=== PATIENT | male | born 1945 | race Caucasian/White ===

== ENCOUNTER 2018-05-24 08:07 | Observation (INO) | payer OTHER ==
[2018-05-24 09:21] LABS: Protime INR 1.07
[2018-05-24 09:23] LABS: ALT/SGPT 32 U/L (12-78); AST/SGOT 22 U/L (15-37); Alkaline Phosphatase 37 U/L (45-117); BUN Blood Urea Nitrogen 21 mg/dL (7-18); Bicarbonate 29 mmol/L (21-32); Bilirubin Direct 0.2 mg/dL (0-0.2); Bilirubin Total 0.7 mg/dL (0.2-1.0); Glucose Level 96 mg/dL (74-106); Magnesium 2.3 mg/dL (1.8-2.4); NT PRO-BNP 1055 pg/mL (<125); Potassium 4.1 mmol/L (3.5-5.1); Protein, Total 7.5 g/dL (6.4-8.2); Sodium Level 141 mmol/L (136-145); Troponin (Emerg Dept Use Only) < 0.02 ng/mL (0.0-0.045)
[2018-05-24] MEDS ORDERED: NA CHLORIDE 0.9% 1,000 ML ONE (09:25)
[2018-05-24 10:05] LABS: Absolute Lymphocytes (CBC) 1.6 K/uL (0.7-4.9); Absolute Monocytes 1.1 K/uL (0.1-1.3); Absolute Neutrophil 5.3 K/uL (1.8-8.0); Basophils % 0.5 % (0-1.3); Eosinophils % 0.2 % (0-4.4); Hematocrit 34.1 % (39.6-49.0); Lymphocytes % 19.2 % (15.3-44.8); MCH 32.4 pg (27.0-35.0); MPV 11.7 fL (7.6-11.3); Monocytes % 14.1 % (3.3-12.3); RBC Red Blood Cell Count 3.63 M/uL (4.33-5.43)
[2018-05-24 10:12] LABS: Thyroid Stimulating Hormone 2.56 uIU/mL (0.360-3.740)
--- NOTE | 2018-05-24 10:41 | RAD REPORT ---
EXAM DESCRIPTION: RAD - Chest Single View - 05/24/2018 9:46 am CLINICAL HISTORY: SOB Chest pain. COMPARISON: ABDOMEN ACUTE SERIES dated 08/20/2013; CHEST SINGLE VIEW dated 05/30/2012 FINDINGS: Portable technique limits examination quality. The lungs are grossly clear. The heart is normal in size. No displaced fractures. IMPRESSION: No acute intrathoracic process suspected.
[2018-05-24 10:44] LABS: Blood Morphology Comment NOT SEEN (NOT SEEN); Platelet Estimate DECR; Platelets, Giant NOTED; Urine White Blood Cell Casts OK
--- NOTE | 2018-05-24 11:06 | ER ---
Nurse's Notes [facility] Name: John Cuevas Age: 72 yrs Sex: Male : 1945 Arrival Date: 05/24/2018 Time: 08:11 Bed 15 Private MD: None, None Diagnosis: Vomiting;Atrial fibrillation and flutter-new onset, gwen;Dyspnea Presentation: 05/24 08:21 Presenting complaint: Patient states: I have no energy for last several weeks and was tw2 having trouble breathing last night. Transition of care: patient was not received from another setting of care. Onset of symptoms was May 24, 2018. Risk Assessment: Do you want to hurt yourself or someone else? Patient reports no desire to harm self or others. Initial Sepsis Screen: Does the patient meet any 2 criteria? No. Patient's initial sepsis screen is negative. Does the patient have a suspected source of infection? No. Patient's initial sepsis screen is negative. Care prior to arrival: None. 08:21 Method Of Arrival: Ambulatory tw2 08:21 Acuity: KEVIN 3 tw2 Triage Assessment: 08:25 General: Appears in no apparent distress. Behavior is calm, cooperative, appropriate tw2 for age. Pain: Denies pain. GI: Reports no energy, fatigue. Historical: - Allergies: 08:24 No Known Allergies; tw2 - Home Meds: 08:24 metoprolol tartrate 50 mg Oral tab 1 tab once daily [Active]; lisinopril 20 mg Oral tab tw2 1 tab once daily [Active]; simvastatin 20 mg Oral tab 1 tab once daily [Active]; levothyroxine 50 mcg tab 1 tab once daily for Hypothyroidism [Active]; - PMHx: 08:24 Hypothyroidism; Hyperlipidemia; Hypertension; tw2 - PSHx: 08:24 Skin Graft; Partial Colectomy; tw2 - Immunization history:: Adult Immunizations. - Social history:: Smoking status: . - Ebola Screening: : Patient denies travel to an Ebola-affected area in the 21 days before illness onset. - Family history:: not pertinent. Screenin:26 Abuse screen: Denies threats or abuse. Nutritional screening: No deficits noted. tw2 Tuberculosis screening: No symptoms or risk factors identified. Fall Risk None identified. Assessment: 08:20 General: Appears in no apparent distress. obese, Behavior is calm, cooperative, tw2 appropriate for age. Pain: Denies pain. Neuro: Level of Consciousness is awake, alert, obeys commands, Oriented to person, place, time, situation. Cardiovascular: Reports fatigue, shortness of breath, Denies chest pain, Heart tones S1 S2 Capillary refill < 3 seconds Patient's skin is warm and dry. Respiratory: Reports shortness of breath Airway is patent Respiratory effort is even, unlabored, Respiratory pattern is regular, symmetrical. GI: No signs and/or symptoms were reported involving the gastrointestinal system. Abdomen is round non-distended, obese, Bowel sounds present X 4 quads. : No signs and/or symptoms were reported regarding the genitourinary system. EENT: No signs and/or symptoms were reported regarding the EENT system. Derm: No signs and/or symptoms reported regarding the dermatologic system. Musculoskeletal: Range of motion: intact in all extremities. 09:22 Reassessment: Patient appears in no apparent distress at this time. No changes from tw2 previously documented assessment. Patient and/or family updated on plan of care and expected duration. Pain level reassessed. Patient is alert, oriented x 3, equal unlabored respirations, skin warm/dry/pink. 10:18 Reassessment: Patient appears in no apparent distress at this time. No changes from tw2 previously documented assessment. Patient and/or family updated on plan of care and expected duration. Pain level reassessed. Patient is alert, oriented x 3, equal unlabored respirations, skin warm/dry/pink. 11:36 Reassessment: Patient appears in no apparent distress at this time. No changes from tw2 previously documented assessment. Patient and/or family updated on plan of care and expected duration. Pain level reassessed. Patient is alert, oriented x 3, equal unlabored respirations, skin warm/dry/pink. 12:30 Reassessment: Patient appears in no apparent distress at this time. No changes from tw2 previously documented assessment. Patient and/or family updated on plan of care and expected duration. Pain level reassessed. Patient is alert, oriented x 3, equal unlabored respirations, skin warm/dry/pink. 13:40 Reassessment: Patient appears in no apparent distress at this time. No changes from tw2 previously documented assessment. Patient and/or family updated on plan of care and expected duration. Pain level reassessed. Patient is alert, oriented x 3, equal unlabored respirations, skin warm/dry/pink. 14:15 Reassessment: Dr. Rinaldi at bedside at this time. tw2 Vital Signs: 08:22 BP 111 / 82; Pulse 71; Resp 18; Temp 98.1(O); Pulse Ox 100% on R/A; Weight 122.47 kg tw2 (R); Height 6 ft. 4 in. (193.04 cm) (R); Pain 0/10; 09:21 BP 101 / 71; Pulse 57; Resp 14; Pulse Ox 99% on R/A; tw2 10:17 BP 101 / 71; Pulse 51; Resp 17; Pulse Ox 97% on R/A; tw2 11:36 BP 92 / 72; Pulse 51; Resp 16; Pulse Ox 99% on R/A; tw2 12:30 BP 105 / 69; Pulse 70; Resp 17; Pulse Ox 99% on R/A; tw2 13:40 BP 92 / 67; Pulse 61; Resp 17; Pulse Ox 97% on R/A; tw2 14:31 BP 96 / 54; Pulse 60; Resp 18; Pulse Ox 99% on R/A; mh5 08:22 Body Mass Index 32.87 (122.47 kg, 193.04 cm) tw2 ED Course: 08:11 Patient arrived in ED. mr 08:12 None, None is Private Physician. mr 08:14 Osvaldo Beckman MD is Attending Physician. leonidas 08:17 Flavia Kelly RN is Primary Nurse. tw2 08:22 Triage completed. tw2 08:22 Bed in low position. Call light in reach. Adult w/ patient. vehicle monitor technician on. Pulse tw2 ox on. NIBP on. 08:23 Arm band placed on. tw2 08:40 Inserted saline lock: 22 gauge in right antecubital area, using aseptic technique. tw2 Blood collected. 09:28 Radiology exam delayed due to IV insertion attempt and/or patient not having ag1 appropriate IV at this time. 09:42 XRAY Chest (1 view) In Process Unspecified. EDMS 10:58 Lennie Portillo MD is Hospitalizing Provider. leonidas 13:57 Awaiting: called Ingrid, departmental secretary to let nurse know she is getting a pt so she can tw2 take report, was told they were sending down a nurse from 4th floor. 14:12 Awaiting: attempted to call report, per Ingrid the nurse is being sent down from 4th tw2 floor and she isnt on 2nd floor yet, house sup was called to check on the nurse per Ingrid, Register Repairer. 14:24 Awaiting: attempted to call report was told the nurse is still not available, she will tw2 let them know and have them call me back. 14:50 No provider procedures requiring assistance completed. Patient admitted, IV remains in tw2 place. Administered Medications: 09:51 Drug: NS 0.9% 1000 ml Route: IV; Rate: 125 ml/hr; Site: right antecubital; tw2 14:20 Follow up: IV Status: Infusion continued upon admission tw2 11:38 Drug: Lovenox 1 mg/kg Route: Sub-Q; Site: right lower abdomen; tw2 11:42 Follow up: Response: No adverse reaction tw2 11:40 Drug: Pepcid 20 mg Route: IVP; Site: right antecubital; tw2 11:42 Follow up: Response: No adverse reaction tw2 Outcome: 11:00 Decision to Hospitalize by Provider. leonidas 14:50 Admitted to Med/surg accompanied by tech, via wheelchair, room 203, Report called to tw2 MANUEL Hernandez 14:50 Condition: stable 14:50 Instructed on the need for admit. 15:04 Patient left the ED. tw2 Signatures: Dispatcher [employer] Osvaldo Simpson MD MD cha Rivera, Claudia mr Juárez, Flavia Castillo RN RN 2 Praveena Farris [facility]
--- NOTE | 2018-05-24 11:06 | EDPHYS ---
Physician Documentation [facility] Name: John Cuevas Age: 72 yrs Sex: Male : 1945 Arrival Date: 05/24/2018 Time: 08:11 Bed 15 Private MD: None, None ED Physician Osvaldo Beckman HPI: 05/24 09:09 This 72 yrs old Male presents to ER via Ambulatory with complaints of leonidas Vomiting, Shortness Of Breath. 09:09 The patient presents to the emergency department with nausea, vomiting. Onset: The leonidas symptoms/episode began/occurred 1 day(s) ago. Possible causes: unknown. The symptoms are aggravated by nothing. The symptoms are alleviated by nothing. Associated signs and symptoms: The patient has no apparent associated signs or symptoms. Severity of symptoms: At their worst the symptoms were mild moderate in the emergency department the symptoms are unchanged. Historical: - Allergies: 08:24 No Known Allergies; tw2 - Home Meds: 08:24 metoprolol tartrate 50 mg Oral tab 1 tab once daily [Active]; lisinopril 20 mg Oral tab tw2 1 tab once daily [Active]; simvastatin 20 mg Oral tab 1 tab once daily [Active]; levothyroxine 50 mcg tab 1 tab once daily for Hypothyroidism [Active]; - PMHx: 08:24 Hypothyroidism; Hyperlipidemia; Hypertension; tw2 - PSHx: 08:24 Skin Graft; Partial Colectomy; tw2 - Immunization history:: Adult Immunizations. - Social history:: Smoking status: . - Ebola Screening: : Patient denies travel to an Ebola-affected area in the 21 days before illness onset. - Family history:: not pertinent. ROS: 09:09 Constitutional: Negative for fever, chills, and weight loss, Eyes: Negative for injury, leonidas pain, redness, and discharge, ENT: Negative for injury, pain, and discharge, Neck: Negative for injury, pain, and swelling, Cardiovascular: Negative for chest pain, palpitations, and edema, Respiratory: Negative for shortness of breath, cough, wheezing, and pleuritic chest pain, Back: Negative for injury and pain, : Negative for injury, bleeding, discharge, and swelling, MS/Extremity: Negative for injury and deformity, Skin: Negative for injury, rash, and discoloration, Psych: Negative for depression, anxiety, suicide ideation, homicidal ideation, and hallucinations, Allergy/Immunology: Negative for hives, rash, and allergies, Endocrine: Negative for neck swelling, polydipsia, polyuria, polyphagia, and marked weight changes, Hematologic/Lymphatic: Negative for swollen nodes, abnormal bleeding, and unusual bruising. 09: Abdomen/GI: Positive for nausea. 09: Neuro: Positive for weakness. Exam: : Constitutional: This is a well developed, well nourished patient who is awake, alert, leonidas and in no acute distress. Head/Face: Normocephalic, atraumatic. Eyes: Pupils equal round and reactive to light, extra-ocular motions intact. Lids and lashes normal. Conjunctiva and sclera are non-icteric and not injected. Cornea within normal limits. Periorbital areas with no swelling, redness, or edema. ENT: Nares patent. No nasal discharge, no septal abnormalities noted. Tympanic membranes are normal and external auditory canals are clear. Oropharynx with no redness, swelling, or masses, exudates, or evidence of obstruction, uvula midline. Mucous membranes moist. Neck: Trachea midline, no thyromegaly or masses palpated, and no cervical lymphadenopathy. Supple, full range of motion without nuchal rigidity, or vertebral point tenderness. No Meningismus. Chest/axilla: Normal chest wall appearance and motion. Nontender with no deformity. No lesions are appreciated. Respiratory: Lungs have equal breath sounds bilaterally, clear to auscultation and percussion. No rales, rhonchi or wheezes noted. No increased work of breathing, no retractions or nasal flaring. Abdomen/GI: Soft, non-tender, with normal bowel sounds. No distension or tympany. No guarding or rebound. No evidence of tenderness throughout. Back: No spinal tenderness. No costovertebral tenderness. Full range of motion. Male : Normal genitalia with no discharge or lesions. Skin: Warm, dry with normal turgor. Normal color with no rashes, no lesions, and no evidence of cellulitis. MS/ Extremity: Pulses equal, no cyanosis. Neurovascular intact. Full, normal range of motion. Neuro: Awake and alert, GCS 15, oriented to person, place, time, and situation. Cranial nerves II-XII grossly intact. Motor strength 5/5 in all extremities. Sensory grossly intact. Cerebellar exam normal. Normal gait. Psych: Awake, alert, with orientation to person, place and time. Behavior, mood, and affect are within normal limits. 09:09 Cardiovascular: Rate: bradycardic, Rhythm: irregularly irregular, Pulses: Pulses are 4+ in bilateral radial, brachial, femoral, popliteal, posterior tibial and and dorsalis pedis arteries.. Heart sounds: normal, Edema: is not appreciated, JVD: is not appreciated. Vital Signs: 08:22 BP 111 / 82; Pulse 71; Resp 18; Temp 98.1(O); Pulse Ox 100% on R/A; Weight 122.47 kg tw2 (R); Height 6 ft. 4 in. (193.04 cm) (R); Pain 0/10; 09:21 BP 101 / 71; Pulse 57; Resp 14; Pulse Ox 99% on R/A; tw2 10:17 BP 101 / 71; Pulse 51; Resp 17; Pulse Ox 97% on R/A; tw2 11:36 BP 92 / 72; Pulse 51; Resp 16; Pulse Ox 99% on R/A; tw2 12:30 BP 105 / 69; Pulse 70; Resp 17; Pulse Ox 99% on R/A; tw2 13:40 BP 92 / 67; Pulse 61; Resp 17; Pulse Ox 97% on R/A; tw2 14:31 BP 96 / 54; Pulse 60; Resp 18; Pulse Ox 99% on R/A; mh5 08:22 Body Mass Index 32.87 (122.47 kg, 193.04 cm) tw2 MDM: 08:14 Patient medically screened. [facility] 09:11 Data reviewed: vital signs, nurses notes, lab test result(s), EKG, radiologic studies, leonidas plain films. 05/24 08:42 Order name: Basic Metabolic Panel; Complete Time: 10:48 tw2 05/24 08:42 Order name: CBC with Diff; Complete Time: 10:48 tw2 05/24 08:42 Order name: LFT's; Complete Time: 10:48 tw2 05/24 08:42 Order name: Magnesium; Complete Time: 10:48 tw2 05/24 08:42 Order name: NT PRO-BNP; Complete Time: 10:48 tw2 05/24 08:42 Order name: PT-INR; Complete Time: 10:48 tw2 05/24 08:42 Order name: Troponin (emerg Dept Use Only); Complete Time: 10:48 [facility] 05/24 09:09 Order name: Blood Culture Adult (2) [facility] 05/24 09:09 Order name: TSH; Complete Time: 10:48 [facility] 05/24 09:09 Order name: Urine Culture [facility] 05/24 09:09 Order name: Lipase; Complete Time: 10:48 [facility] 05/24 09:09 Order name: Lactate; Complete Time: 10:48 [facility] 05/24 09:09 Order name: Procalcitonin; Complete Time: 10:48 [facility] 05/24 10:45 Order name: CBC Smear Scan; Complete Time: 10:48 [facility] 05/24 08:39 Order name: EKG Electrocardiogram; Complete Time: 08:43 [facility] 05/24 08:42 Order name: XRAY Chest (1 view); Complete Time: 10:48 [facility] 05/24 08:42 Order name: Cardiac monitoring; Complete Time: 08:42 [facility] 05/24 08:42 Order name: EKG - Nurse/Tech; Complete Time: 08:43 [facility] 05/24 08:42 Order name: IV Saline Lock; Complete Time: 08:43 [facility] 05/24 08:42 Order name: Labs collected and sent; Complete Time: 08:43 [facility] 05/24 08:42 Order name: O2 Per Protocol; Complete Time: 08:43 [facility] 05/24 08:42 Order name: O2 Sat Monitoring; Complete Time: 08:43 [facility] 05/24 11:07 Order name: CONS Physician Consult [facility] 05/24 11:07 Order name: Echo with Doppler [facility] 05/24 11:45 Order name: Diet Heart Healthy; Complete Time: 11:45 [facility] 05/24 14:18 Order name: Urine Dipstick--Ancillary (enter results) 05/24 14:31 Order name: Urine Dipstick-Ancillary [facility] 05/24 09:09 Order name: Urine Dipstick-Ancillary (obtain specimen); Complete Time: 14:20 [facility] 05/24 09:29 Order name: Misc. Order: recollect CBC per Macie in lab; Complete Time: 09:50 ss Administered Medications: 09:51 Drug: NS 0.9% 1000 ml Route: IV; Rate: 125 ml/hr; Site: right antecubital; tw2 14:20 Follow up: IV Status: Infusion continued upon admission tw2 11:38 Drug: Lovenox 1 mg/kg Route: Sub-Q; Site: right lower abdomen; tw2 11:42 Follow up: Response: No adverse reaction tw2 11:40 Drug: Pepcid 20 mg Route: IVP; Site: right antecubital; tw2 11:42 Follow up: Response: No adverse reaction tw2 Disposition: 05/24/18 11:00 Hospitalization ordered by Lennie Portillo for Observation. Preliminary diagnosis are Vomiting, Atrial fibrillation and flutter - new onset, gwen, Dyspnea. - Bed requested for Telemetry/MedSurg (observation). - Status is Observation. tw2 - Condition is Stable. - Problem is new. - Symptoms have improved. UTI on Admission? No Signatures: Dispatcher [employer] EDMadeleine Gibbons RN RN dw Anderson, Corey, MD MD cha Smirch, Shelby, RN RN Flavia Kelly RN RN tw2 Corrections: (The following items were deleted from the chart) 13:55 11:00 Hospitalization Ordered by Lennie Portillo MD for Observation. Preliminary dw diagnosis is Vomiting; Atrial fibrillation and flutter - new onset, gwen; Dyspnea. Bed requested for Telemetry/MedSurg (observation). Status is Observation. Condition is Stable. Problem is new. Symptoms have improved. UTI on Admission? No. leonidas 15:04 13:55 05/24/2018 11:00 Hospitalization Ordered by Lennie Portillo MD for Observation. tw2 Preliminary diagnosis is Vomiting; Atrial fibrillation and flutter - new onset, gwen; Dyspnea. Bed requested for Telemetry/MedSurg (observation). Status is Observation. Condition is Stable. Problem is new. Symptoms have improved. UTI on Admission? No. dw
[2018-05-24] MEDS ORDERED: ENOXAPARIN 100 MG/ML SYR SQ ONE (11:41)
[2018-05-24] MEDS ORDERED: FAMOTIDINE 20 MG/2 ML VIAL IV ONE (11:41)
[2018-05-24 14:30] LABS: Urine Blood TRACE (NEG); Urine Glucose NEGATIVE (NEG); Urine Protein NEGATIVE (NEG)
[2018-05-24] MEDS ORDERED: ONDANSETRON 4 MG/2 ML VIAL IV PRN (15:33)
[2018-05-24] MEDS: NA CHLORIDE 0.9% 1,000 ML IV SCH ×2 (15:33→21:11)
[2018-05-24] MEDS ORDERED: ACETAMINOPHEN 500 MG TAB PO PRN (15:33)
[2018-05-24 15:56] VITALS: BMI 32.8
--- NOTE | 2018-05-24 16:45 | CON ---
History Of Present Illness: Mr. Cuevas is 72. He came to the hospital because of fatigue. He has act ually been feeling this way for several days or weeks. The history is a little bit hard to pin down on timing, since he has been traveling some and he has had a lot of problems with arthritis in his kn ees. He was just very much noticing fatigue for the last several weeks. It is not the main reason, he came. He denies having chest pain or shortness of breath. His EKG when he came in showed atrial fibrillation. The heart rate was in the 50s and there are not any pauses. It is fairly regular hear t rate, easy to mistake for sinus bradycardia on physical exam alone. All the EKGs certainly clear t hat he is in atrial fibrillation. He does not recall having atrial fibrillation or any heart disease . He takes metoprolol, lisinopril, levothyroxine, simvastatin. He uses no tobacco, has not used tob acco in more than 30 years, has the odor of tobacco about him, he lives in a house where there is a l ot of cigarette use. He has degenerative joint disease, hypertension, hypothyroidism, and dyslipidem ia. Physical Examination: General: 6 feet 4, 270 pounds. Alert, oriented, pleasant, not in distress. Lungs: Clear. Heart: Irregular, but almost regular. No significant murmur, rub, or gallop. Abdomen: Soft. Extremities: Trace edema distal pulses palpable. Diagnostic Data: His EKG shows atrial fibrillation, heart rate in the 50s. Laboratory Data: Show a hemoglobin of 11.8. He has a platelet count of 91,000. His calcium level i s 8.8. Troponins are normal. N-terminal proBNP is a 1055. TSH is 2.5. Impression: The patient has atrial fibrillation, not sure how long he has had it. I think the heart rate is slow. I believe we should reduce the amount of beta-sanjeev. I do not like the idea of com pletely stopping it, but we can reduce the dose to something like 25 mg once a day of slow release me toprolol. If his heart rate picks up, we could consider switching it to Betapace. He needs to be on chronic anticoagulation. His stroke risk is very high if we do not do that, and we can see what his heart rate is when he is on a lower dose of beta-blockers. He could be a candidate for trying to re -establish sinus rhythm in which case Betapace might be the best choice. Thank you very much for your kind referral of Mr. Cuevas. I will follow him with you. IGNACIA Voice ID: [id number] Report ID: [id number]
[2018-05-24] MEDS ORDERED: RIVAROXABAN 10 MG TABLET PO SCH (17:00)
--- NOTE | 2018-05-24 17:08 | P.HP ---
Certification for Inpatient Patient admitted to: Observation With expected LOS: <2 Midnights Patient will require the following post-hospital care: None Practitioner: I am a practitioner with admitting privileges, knowledge of patient current condition, hospital course, and medical plan of care. Services: Services provided to patient in accordance with Admission requirements found in Title 42 Section 412.3 of the Code of Federal Regulations Patient History Date of Service: 05/24/18 History of Present Illness: This is a 72-year-old male with significant past medical history who presented to the hospital because of generalized weakness and fatigue fatigue. Patient stated that about 6 months ago he got a steroid shot in bilateral knees and right shoulder after which she started having this generalized weakness and fatigue and was not able to get out of bed most of his days. Patient then traveled to this his family and at that point as well he was feeling weak and was not able to do much on his own. He states that weakness never went away but did get better. However couple a days ago he stated that he started feeling bad again and thus decided to come to the ER. He denies having chest pain or shortness of breath. In the ER patient was found to have atrial fibrillation. His EKG when he came in showed atrial fibrillation. The heart rate was in the 50s and there are not any pauses. He does not recall having atrial fibrillation or any heart disease. He takes metoprolol, lisinopril, levothyroxine, simvastatin. He uses no tobacco, has not used tobacco in more than 30 years, has the odor of tobacco about him, he lives in a house where there is a lot of cigarette use. He has degenerative joint disease, hypertension, hypothyroidism, and dyslipidemia. Patient was referred over to admission for further care for his atrial fibrillation Allergies No Known Allergies Allergy (Verified 05/24/18 15:33) Home Medications: Levothyroxine [Synthroid*] 0.05 mg PO [id number] 05/24/18 Lisinopril [Prinivil*] 20 mg PO DAILY 05/24/18 Metoprolol Succinate [Toprol Xl*] 50 mg PO DAILY 05/24/18 Simvastatin 20 mg PO DAILY 05/24/18 - Past Medical/Surgical History Has patient received pneumonia vaccine in the past: Yes -: HTN -: Hypothyroidism -: Colon Cancer 2005 -: Cataract Surgery -: Bowel resection -: skin grafting - Family History Family History: Reviewed- Non-Contributory - Social History Smoking Status: Never smoker Alcohol use: No CD- Drugs: No Caffeine use: Yes Place of Residence: Home Review of Systems 10-point ROS is otherwise unremarkable Physical Examination - Vital Signs Temperature: 98.1 F Blood Pressure: 96/54 Pulse: 60 Respirations: 18 - Physical Exam General: Alert, In no apparent distress HEENT: Atraumatic, PERRLA, Mucous membr. moist/pink, EOMI, Sclerae nonicteric Neck: Supple, 2+ carotid pulse no bruit, No LAD, Without JVD or thyroid abnormality Respiratory: Clear to auscultation bilaterally, Normal air movement Cardiovascular: Regular rate/rhythm, Normal S1 S2 Gastrointestinal: Normal bowel sounds, No tenderness Musculoskeletal: No tenderness Integumentary: No rashes Neurological: Normal gait, Normal speech, Normal strength at 5/5 x4 extr, Normal tone, Normal affect Lymphatics: No axilla or inguinal lymphadenopathy - Studies Laboratory Data (last 24 hrs) 05/24/18 09:37: WBC 8.1, Hgb 11.8 L, Hct 34.1 L, Plt Count 91 L 05/24/18 09:30: Lipase 127 05/24/18 08:40: PT 12.6 H, INR 1.07 05/24/18 08:40: Sodium 141, Potassium 4.1, BUN 21 H, Creatinine 1.00, Glucose 96 , Magnesium 2.3, Total Bilirubin 0.7, AST 22, ALT 32, Alkaline Phosphatase 37 L Assessment and Plan - Problems (Diagnosis) (1) Atrial fibrillation Current Visit: Yes Status: Acute Plan: Acute new onset atrial fibrillation with unknown etiology are onset timing -currently patient is on metoprolol 50 mg however will reduce it to metoprolol 25 mg here in the hospital and monitor his heart rate closely -cardiology has been consulted appreciated recommendations at this time -echocardiogram pending at this time -Xarelto for anti coagulation Qualifiers: Atrial fibrillation type: unspecified Qualified Code(s): I48.91 - Unspecified atrial fibrillation (2) Hypothyroidism Current Visit: Yes Status: Chronic Plan: Restart home medication Qualifiers: Hypothyroidism type: acquired Qualified Code(s): E03.9 - Hypothyroidism, unspecified (3) HTN (hypertension) Current Visit: Yes Status: Chronic Qualifiers: Hypertension type: essential hypertension Qualified Code(s): I10 - Essential (primary) hypertension - Plan Admit to medical-surgical floor for further care of his atrial fibrillation Discharge Plan: Home Plan to discharge in: 48 Hours - Advance Directives Does patient have a Living Will: No Does patient have a Durable POA for Healthcare: No - Code Status/Comfort Care Code Status Assessed: Yes Critical Care: No
[2018-05-24] MEDS ORDERED: ATORVASTATIN 10 MG TAB PO SCH (21:00)
[2018-05-25 03:56] LABS: Urine Appearance CLEAR; Urine Bilirubin NEGATIVE (NEG); Urine Blood NEGATIVE (NEG); Urine Color YELLOW; Urine Glucose NEGATIVE (NEG); Urine Protein NEGATIVE (NEG)
[2018-05-25 04:33] LABS: Urine Microscopic Reflex NO UMIC
[2018-05-25] MEDS: NA CHLORIDE 0.9% 1,000 ML IV SCH (05:46)
[2018-05-25 05:55] LABS: ALT/SGPT 27 U/L (12-78); AST/SGOT 20 U/L (15-37); Albumin 3.8 g/dL (3.4-5.0); Alkaline Phosphatase 35 U/L (45-117); BUN Blood Urea Nitrogen 13 mg/dL (7-18); Bicarbonate 28 mmol/L (21-32); Bilirubin Total 0.5 mg/dL (0.2-1.0); Glucose Level 92 mg/dL (74-106); Potassium 3.9 mmol/L (3.5-5.1); Sodium Level 144 mmol/L (136-145)
[2018-05-25] MEDS ORDERED: METOPROLOL XL 25 MG TAB PO SCH ×3 (06:00→09:00)
[2018-05-25] MEDS ORDERED: LEVOTHYROXINE SOD 0.05 MG TABLET PO SCH (06:00)
[2018-05-25 06:57] LABS: Absolute Lymphocytes (CBC) 1.5 K/uL (0.7-4.9); Absolute Monocytes 1.1 K/uL (0.1-1.3); Basophils % 0.4 % (0-1.3); Eosinophils % 0.2 % (0-4.4); Lymphocytes % 22.8 % (15.3-44.8); MCH 32.8 pg (27.0-35.0); MCV 93.5 fL (80-100); MPV 11.6 fL (7.6-11.3); Monocytes % 16.9 % (3.3-12.3); RBC Red Blood Cell Count 3.64 M/uL (4.33-5.43)
[2018-05-25] MEDS ORDERED: METOPROLOL XL 50 MG TAB PO SCH (09:00)
[2018-05-25] MEDS ORDERED: LISINOPRIL 20 MG TAB PO SCH (09:00)
--- NOTE | 2018-05-25 10:16 | PN ---
Subjective: Mr. Cuevas's blood pressure is come up or heart rate has come up quite a bit with cessatio n of the high dose of metoprolol. He is on 25 mg once a day 1/4 of his previous dose and his heart r ate is in the 60s. We might even stop this in a few days, but abruptly stopping beta-blockers often causes problems. His blood pressure is good. He has not been up walking around yet. We need to get an ambulatory and if he can tolerate right that he can go home. Do an outpatient stress test and ec ho. Continue on Xarelto and do a cardioversion in about 3 weeks. MILADY/SIM Voice ID: [id number] Report ID: [id number]
[2018-05-25 12:15] VITALS: O2SAT 97
[2018-05-25 12:17] VITALS: BP 115/68; TEMP 97.2
--- NOTE | 2018-05-25 15:30 | P.SSS ---
Patient History Date of Service: 05/25/18 History of Present Illness: This is a 72-year-old male with significant past medical history who presented to the hospital because of generalized weakness and fatigue fatigue. Patient stated that about 6 months ago he got a steroid shot in bilateral knees and right shoulder after which she started having this generalized weakness and fatigue and was not able to get out of bed most of his days. Patient then traveled to this his family and at that point as well he was feeling weak and was not able to do much on his own. He states that weakness never went away but did get better. However couple a days ago he stated that he started feeling bad again and thus decided to come to the ER. He denies having chest pain or shortness of breath. In the ER patient was found to have atrial fibrillation. His EKG when he came in showed atrial fibrillation. The heart rate was in the 50s and there are not any pauses. He does not recall having atrial fibrillation or any heart disease. He takes metoprolol, lisinopril, levothyroxine, simvastatin. He uses no tobacco, has not used tobacco in more than 30 years, has the odor of tobacco about him, he lives in a house where there is a lot of cigarette use. He has degenerative joint disease, hypertension, hypothyroidism, and dyslipidemia. Patient was referred over to admission for further care for his atrial fibrillation Allergies No Known Allergies Allergy (Verified 05/24/18 15:33) Home Medications: Levothyroxine [Synthroid*] 0.05 mg PO [id number] 05/24/18 Lisinopril [Prinivil*] 20 mg PO DAILY 05/24/18 Simvastatin 20 mg PO DAILY 05/24/18 Metoprolol Succinate [Toprol Xl*] 25 mg PO [id number] #30 tab 05/25/18 Rivaroxaban [Xarelto*] 20 mg PO DAILY AT SUPPER #60 tablet 05/25/18 - Past Medical/Surgical History Has patient received pneumonia vaccine in the past: Yes -: HTN -: Hypothyroidism -: Colon Cancer 2005 -: Cataract Surgery -: Bowel resection -: skin grafting - Family History Family History: Reviewed- Non-Contributory - Social History Smoking Status: Never smoker Alcohol use: No CD- Drugs: No Caffeine use: Yes Place of Residence: Home Review of Systems 10-point ROS is otherwise unremarkable Physical Examination - Vital Signs Temperature: 97.2 F Blood Pressure: 115/68 Pulse: 63 Respirations: 16 Pulse Ox (%): 97 - Physical Exam General: Alert, In no apparent distress HEENT: Atraumatic, PERRLA, Mucous membr. moist/pink, EOMI, Sclerae nonicteric Neck: Supple, 2+ carotid pulse no bruit, No LAD, Without JVD or thyroid abnormality Respiratory: Clear to auscultation bilaterally, Normal air movement Cardiovascular: Regular rate/rhythm, Normal S1 S2 Gastrointestinal: Normal bowel sounds, No tenderness Musculoskeletal: No tenderness Integumentary: No rashes Neurological: Normal gait, Normal speech, Normal strength at 5/5 x4 extr, Normal tone, Normal affect Lymphatics: No axilla or inguinal lymphadenopathy - Diagnosis (Problem(s)) (1) Atrial fibrillation Status: Acute Plan: Atrial fibrillation with heart rate of 50s to 60s Qualifiers: Atrial fibrillation type: unspecified Qualified Code(s): I48.91 - Unspecified atrial fibrillation (2) Hypothyroidism Status: Chronic Qualifiers: Hypothyroidism type: acquired Qualified Code(s): E03.9 - Hypothyroidism, unspecified (3) HTN (hypertension) Status: Chronic Qualifiers: Hypertension type: essential hypertension Qualified Code(s): I10 - Essential (primary) hypertension Treatment Summary: Overall during the hospital stay patient remained stable Patient was initially admitted to the hospital for atrial fibrillation with heart rate of 50. Cardiology was consulted who recommended the patient can be continued on his beta-sanjeev however the reduced dose was suggested of 25 mg daily due to low heart rate. Patient will also be needed to be placed on Xarelto for anti coagulation. Cardiology then recommended that if patient is able to ambulate doing well overall and has resolution of the symptoms that he could be discharged home under stable condition. Patient ambulated with physical therapy and was doing well and thus was discharged home under stable condition. Patient will be scheduled for cardioversion about 3 weeks post discharge after he has been an to coagulated adequately. Patient demonstrated understanding and thus was discharged home under stable condition - Disposition Disposition: ROUTINE DISCHARGE Condition: GOOD Patient Discharge Instructions: Please f.u with Cardiology in 1 to 2 week post discharge. New medication. Xarelto 20mg daily. Metoprolol is now decreased to 25mg daily Diet: Regular Activity: Ad rip
--- NOTE | 2018-05-26 06:13 | EKG ---
Test Date: 2018-05-24 Test Time: 08:29:16 Television Tube Inspector: JULIANA MEASUREMENT RESULTS: Intervals: Rate: 52 UT: QRSD: 92 QT: 414 QTc: 385 [place]: P: UT: QRS: 53 T: 45 INTERPRETIVE STATEMENTS: Atrial fibrillation with slow ventricular response Abnormal ECG Compared to ECG 08/20/2013 10:38:05 Sinus rhythm no longer present Electronically Signed On 05-26-18 06:12:51 SOFTWARE LEAD by Arnulfo Rinaldi
== END 2018-05-25 13:34 | disposition home or self-care (01) ==
LOC: ER 08:07 → ERHOLD 11:03 → 2ND 14:51
PROVIDERS: ADMIT Family Medicine; ATTEND Family Medicine
DX: I48.91 Unspecified atrial fibrillation (principal); E03.9 Hypothyroidism, unspecified; I10 Essential (primary) hypertension; E78.5 Hyperlipidemia, unspecified; Z85.038 Personal history of other malignant neoplasm of large intestine
CPT/HCPCS: 36415; 71045; 80048; 80053; 80076; 81003 ×2; 83605; 83690; 83735; 83880; 84145; 84443; 84484; 85025 ×2; 85610; 87040 ×2; 87086; 87088; 93005; 96361; 96374; 99285; G0378 ×2; J1650; J2405; J7030 ×3

== ENCOUNTER 2018-06-20 12:17 | Emergency (ER) | payer OTHER ==
[2018-06-20] MEDS ORDERED: LEVALBUTEROL 1.25 MG/3 ML NEB ONE (13:04)
--- NOTE | 2018-06-20 13:26 | RAD REPORT ---
EXAM DESCRIPTION: US - Extrem Venous W Compress Erasmo - 06/20/2018 1:21 pm CLINICAL HISTORY: SWELLING Bilateral leg edema and swelling. COMPARISON: No comparisons TECHNIQUE: Real-time sonographic interrogation of the left and right lower extremity deep venous sys tems was performed. FINDINGS: Normal compressibility, flow augmentation, phasic flow and spontaneous flow is identified in both the left and right lower extremity deep venous systems. IMPRESSION: No sonographic evidence of left or right lower extremity deep venous thrombosis.
--- NOTE | 2018-06-20 13:43 | RAD REPORT ---
EXAM DESCRIPTION: RAD - Chest Single View - 06/20/2018 1:38 pm CLINICAL HISTORY: shortness of breath Chest pain. COMPARISON: Chest Single View dated 05/24/2018; ABDOMEN ACUTE SERIES dated 08/20/2013; CHEST SINGLE V IEW dated 05/30/2012 FINDINGS: Portable technique limits examination quality. The lungs are grossly clear. The heart is upper limit of normal in size. No displaced fractures. IMPRESSION: No acute intrathoracic process suspected.
[2018-06-20 14:33] LABS: Absolute Lymphocytes (CBC) 1.4 K/uL (0.7-4.9); Absolute Monocytes 1.2 K/uL (0.1-1.3); Basophils % 0.5 % (0-1.3); Eosinophils % 0.4 % (0-4.4); Hematocrit 37.5 % (39.6-49.0); Lymphocytes % 20.5 % (15.3-44.8); MCH 33.1 pg (27.0-35.0); MCV 94.8 fL (80-100); MPV 12.9 fL (7.6-11.3); Monocytes % 18.5 % (3.3-12.3); Protime INR 1.27; RBC Red Blood Cell Count 3.95 M/uL (4.33-5.43)
[2018-06-20 15:13] LABS: ALT/SGPT 21 U/L (12-78); AST/SGOT 19 U/L (15-37); Albumin 4.1 g/dL (3.4-5.0); Alkaline Phosphatase 38 U/L (45-117); BUN Blood Urea Nitrogen 13 mg/dL (7-18); Bicarbonate 31 mmol/L (21-32); Bilirubin Direct 0.2 mg/dL (0-0.2); Bilirubin Total 0.7 mg/dL (0.2-1.0); Glucose Level 111 mg/dL (74-106); Magnesium 2.3 mg/dL (1.8-2.4); NT PRO-BNP 1811 pg/mL (<125); Potassium 3.8 mmol/L (3.5-5.1); Protein, Total 7.8 g/dL (6.4-8.2); Sodium Level 139 mmol/L (136-145); Troponin (Emerg Dept Use Only) < 0.02 ng/mL (0.0-0.045)
--- NOTE | 2018-06-20 15:54 | RAD REPORT ---
EXAM DESCRIPTION: CT - Chest For Pe Angio - 06/20/2018 3:41 pm CLINICAL HISTORY: sob COMPARISON: None. TECHNIQUE: Dynamically enhanced axial 3 mm thick images of the chest were obtained during administra tion of <100> mL Isovue 370 IV contrast. Coronal and oblique reconstruction images were generated and reviewed. Exam utilizes a protocol for optimal evaluation of pulmonary arterial tree. Maximum intensity projections 3D imaging was utilized All CT scans are performed using dose optimization technique as appropriate and may include automated exposure control or mA/KV adjustment according to patient size. FINDINGS: A pulmonary embolus is not seen. A thoracic aortic aneurysm is not noted. A pleural effusion is not seen. A pericardial effusion is not seen. A lung consolidation is not present. IMPRESSION: Negative for a pulmonary embolism.
--- NOTE | 2018-06-20 16:41 | ER ---
Nurse's Notes [facility] Name: John Cuevas Age: 72 yrs Sex: Male : 1945 Arrival Date: 06/20/2018 Time: 12:20 Bed 5 Private MD: Diagnosis: Dyspnea, unspecified;Edema, not elsewhere classified Presentation: 06/20 12:20 Presenting complaint: EMS states: Worsening SOB x 2-3 days. Also reports nonproductive hb cough and bilateral lower extremity swelling x 2 days. Transition of care: patient was not received from another setting of care. Onset of symptoms was June 18, 2018. Risk Assessment: Do you want to hurt yourself or someone else? Patient reports no desire to harm self or others. Note BP 158/88, HR 70-90, afib on monitor. Care prior to arrival: None. 12:20 Method Of Arrival: EMS: [facility] hb 12:20 Acuity: KEVIN 3 hb 12:43 Initial Sepsis Screen: Does the patient meet any 2 criteria? No. Patient's initial tw2 sepsis screen is negative. Does the patient have a suspected source of infection? No. Patient's initial sepsis screen is negative. Triage Assessment: 12:44 General: Appears in no apparent distress. Behavior is calm, cooperative, agitated. tw2 Pain: Denies pain. EENT: No signs and/or symptoms were reported regarding the EENT system. Neuro: Level of Consciousness is awake, alert, obeys commands, Oriented to person, place, time, situation. Cardiovascular: Reports shortness of breath, b/l LE edema Denies chest pain, Heart tones S1 S2 Patient's skin is warm and dry. Edema is 2+ to left midcalf, left ankle, right midcalf and right ankle. Respiratory: Reports shortness of breath at rest on exertion Airway is patent Respiratory effort is even, unlabored, Respiratory pattern is regular, symmetrical, Breath sounds are clear bilaterally. GI: No signs and/or symptoms were reported involving the gastrointestinal system. Abdomen is round non-distended, obese, Bowel sounds present X 4 quads. : No signs and/or symptoms were reported regarding the genitourinary system. Derm: No signs and/or symptoms reported regarding the dermatologic system. Musculoskeletal: Range of motion: intact in all extremities. Historical: - Allergies: 12:23 No Known Allergies; hb - Home Meds: 12:23 levothyroxine 50 mcg tab 1 tab once daily for Hypothyroidism [Active]; lisinopril 20 mg hb Oral tab 1 tab once daily [Active]; metoprolol tartrate 50 mg Oral tab 1 tab once daily [Active]; simvastatin 20 mg Oral tab 1 tab once daily [Active]; - PMHx: 12:23 Hyperlipidemia; Hypertension; Hypothyroidism; hb - PSHx: 12:23 Skin Graft; Partial Colectomy; hb - Immunization history:: Adult Immunizations up to date. - Social history:: Smoking status: Patient/guardian denies using tobacco. - Ebola Screening: : No symptoms or risks identified at this time. Screenin:23 Abuse screen: Denies threats or abuse. Denies injuries from another. Nutritional hb screening: No deficits noted. Tuberculosis screening: No symptoms or risk factors identified. Fall Risk None identified. Assessment: 12:25 General: Appears in no apparent distress. obese, well groomed, Behavior is calm. Pain: tw2 Denies pain. Neuro: Level of Consciousness is awake, alert, obeys commands, Oriented to person, place, time, situation. Cardiovascular: Reports shortness of breath, Denies chest pain, Heart tones S1 S2 Capillary refill < 3 seconds Patient's skin is warm and dry. Cardiovascular: Edema is 1+ to left midcalf, left ankle, left foot, right midcalf, right ankle and right foot. 13:10 General: Appears in no apparent distress. comfortable, well groomed, well developed, sg well nourished, Behavior is calm, cooperative, appropriate for age. Pain: Complains of pain in right foot and right ankle Quality of pain is described as throbbing, " feels like gout pain". Neuro: Level of Consciousness is awake, alert, obeys commands, Oriented to person, place, time, Driver Manager are equal bilaterally Moves all extremities. Gait is steady, Speech is normal, Facial symmetry appears normal, Pupils are PERRLA. Cardiovascular: Patient's skin is warm and dry. Edema is 1+ to left ankle, left foot, right ankle and right foot Chest pain is denied. Respiratory: Airway Respiratory effort is even, unlabored, Respiratory pattern is regular, symmetrical, Breath sounds are clear bilaterally. GI: No signs and/or symptoms were reported involving the gastrointestinal system. Abdomen is round non-distended, obese, Bowel sounds present X 4 quads. Abd is soft and non tender X 4 quads. : No signs and/or symptoms were reported regarding the genitourinary system. EENT: No signs and/or symptoms were reported regarding the EENT system. Derm: Skin is pink, warm \\T\\ dry. Skin temperature is warm. Musculoskeletal: No signs and/or symptoms reported regarding the musculoskeletal system. 13:30 Reassessment: Patient appears in no apparent distress at this time. No changes from tw2 previously documented assessment. Patient and/or family updated on plan of care and expected duration. Pain level reassessed. Patient is alert, oriented x 3, equal unlabored respirations, skin warm/dry/pink. 14:27 Reassessment: Patient appears in no apparent distress at this time. No changes from tw2 previously documented assessment. Patient and/or family updated on plan of care and expected duration. Pain level reassessed. Patient is alert, oriented x 3, equal unlabored respirations, skin warm/dry/pink. 14:54 Reassessment: Patient appears in no apparent distress at this time. pt states "i just tw2 want to go home, i think im good", provider notified of request and that pt would like results. 15:23 Reassessment: provider at bedside at this time. tw2 15:28 Reassessment: Patient appears in no apparent distress at this time. No changes from tw2 previously documented assessment. Patient and/or family updated on plan of care and expected duration. Pain level reassessed. Patient is alert, oriented x 3, equal unlabored respirations, skin warm/dry/pink. 16:30 Reassessment: Patient appears in no apparent distress at this time. No changes from tw2 previously documented assessment. Patient and/or family updated on plan of care and expected duration. Pain level reassessed. Patient is alert, oriented x 3, equal unlabored respirations, skin warm/dry/pink. 17:07 Reassessment: Patient appears in no apparent distress at this time. No changes from tw2 previously documented assessment. Patient and/or family updated on plan of care and expected duration. Pain level reassessed. Patient is alert, oriented x 3, equal unlabored respirations, skin warm/dry/pink. Vital Signs: 12:23 BP 132 / 81; Pulse 70; Resp 18; Temp 98.2; Pulse Ox 97% on R/A; Pain 0/10; hb 13:30 BP 132 / 81; Pulse 79; Resp 17; Pulse Ox 100% on R/A; tw2 14:22 BP 116 / 82; Pulse 74; Resp 17; Pulse Ox 100% on R/A; tw2 14:30 BP 126 / 76; Pulse 71; Resp 19; Pulse Ox 95% ; lt1 15:27 BP 135 / 90; Pulse 84; Resp 17; Pulse Ox 98% on R/A; tw2 16:55 BP 117 / 80; Pulse 78; Resp 17; Temp 98.2; Pulse Ox 98% on R/A; Pain 0/10; sg ED Course: 12:20 Patient arrived in ED. hb 12:20 Bed in low position. Call light in reach. night monitor on. Pulse ox on. NIBP on. tw2 12:22 Triage completed. hb 12:23 Arm band placed on. hb 12:28 Wilner Hagen PA is PHCP. [facility] 12:28 Vince Ervin MD is Attending Physician. jmm 12:35 Inserted saline lock: 22 gauge in left antecubital area, using aseptic technique. Blood tw2 collected. 12:43 Flavia Kelly, RN is Primary Nurse. tw2 13:22 US Extremity Venous W Compression Erasmo In Process Unspecified. EDMS 13:39 XRAY Chest (1 view) In Process Unspecified. EDMS 13:39 EKG done, by photovoltaic installation technician. reviewed by Wilner NEWMAN. at1 15:[address] jg6 15:41 CT Chest For PE Angio In Process Unspecified. EDMS 17:06 No provider procedures requiring assistance completed. IV discontinued, intact, tw2 bleeding controlled, No redness/swelling at site. Pressure dressing applied. Administered Medications: 13:40 Drug: Xopenex (3) 1.25 mg Route: Inhalation; sg 14:40 Follow up: Response: No adverse reaction tw2 Outcome: 16:41 Discharge ordered by . jmm 17:07 Discharged to home via wheelchair, with family. tw2 17:07 Condition: stable 17:07 Discharge instructions given to patient, family, Instructed on discharge instructions, follow up and referral plans. medication usage, Demonstrated understanding of instructions, follow-up care, medications, Prescriptions given X 1. 17:08 Patient left the ED. tw2 Signatures: Dispatcher [employer] EDMS Juan José Case RN RN Wilner Henning PA PA jmm Gonzales, Amanda, business area director EKG Tat1 Cely Bridges RN RN Flavia Kelly RN RN tw2 Madeline Bee6 Sandra Chong lt1 Corrections: (The following items were deleted from the chart) 12:24 12:20 Presenting complaint: EMS states: Worsening SOB x 2-3 days. Also reports hb nonproductive cough and bilateral lower extremity swelling x 2 day. hb 15:06 14:30 BP 126 / 76; Pulse 71bpm; Resp 10bpm; Pulse Ox 95%; lt1 lt1
--- NOTE | 2018-06-20 16:41 | EDPHYS ---
Physician Documentation [facility] Name: John Cuevas Age: 72 yrs Sex: Male : 1945 Arrival Date: 06/20/2018 Time: 12:20 Bed 5 Private MD: ED Physician Vince Ervin HPI: 06/20 12:50 This 72 yrs old Male presents to ER via EMS with complaints of Shortness Of jmm Breath. 12:50 The patient has shortness of breath at rest. Onset: The symptoms/episode began/occurred jmm gradually, 1 day(s) ago. Duration: The symptoms are continuous. Associated signs and symptoms:. This is a 72 year old male with a history of htn, hlp that presents to the ED with worsening shortness of breath beginning yesterday. patient recently discharged from the hospital due to similar symptoms. . Historical: - Allergies: 12:23 No Known Allergies; hb - Home Meds: 12:23 levothyroxine 50 mcg tab 1 tab once daily for Hypothyroidism [Active]; lisinopril 20 mg hb Oral tab 1 tab once daily [Active]; metoprolol tartrate 50 mg Oral tab 1 tab once daily [Active]; simvastatin 20 mg Oral tab 1 tab once daily [Active]; - PMHx: 12:23 Hyperlipidemia; Hypertension; Hypothyroidism; hb - PSHx: 12:23 Skin Graft; Partial Colectomy; hb - Immunization history:: Adult Immunizations up to date. - Social history:: Smoking status: Patient/guardian denies using tobacco. - Ebola Screening: : No symptoms or risks identified at this time. ROS: 12:50 Constitutional: Negative for fever, chills, and weight loss, Eyes: Negative for injury, jmm pain, redness, and discharge, ENT: Negative for injury, pain, and discharge. 12:50 Respiratory: Positive for shortness of breath. 12:50 MS/extremity: Positive for swelling. 12:50 All other systems are negative. Exam: 12:50 Head/Face: atraumatic. Eyes: EOMI, no conjunctival erythema appreciated ENT: Moist jmm Mucus Membranes Neck: Trachea midline, Supple Chest/axilla: Normal chest wall appearance and motion. Cardiovascular: Regular rate and rhythm. No edema appreciated Respiratory: Normal respirations, no respiratory distress appreciated Abdomen/GI: Non distended, soft Back: Normal ROM Skin: General appearance color normal MS/ Extremity: Moves all extremities, no obvious deformities appreciated, no edema noted to the lower extremities Neuro: Awake and alert, normal gait Psych: Behavior is normal, Mood is normal, Patient is cooperative and pleasant 12:50 Constitutional: The patient appears in no acute distress, alert, awake. Vital Signs: 12:23 BP 132 / 81; Pulse 70; Resp 18; Temp 98.2; Pulse Ox 97% on R/A; Pain 0/10; hb 13:30 BP 132 / 81; Pulse 79; Resp 17; Pulse Ox 100% on R/A; tw2 14:22 BP 116 / 82; Pulse 74; Resp 17; Pulse Ox 100% on R/A; tw2 14:30 BP 126 / 76; Pulse 71; Resp 19; Pulse Ox 95% ; lt1 15:27 BP 135 / 90; Pulse 84; Resp 17; Pulse Ox 98% on R/A; tw2 16:55 BP 117 / 80; Pulse 78; Resp 17; Temp 98.2; Pulse Ox 98% on R/A; Pain 0/10; sg MDM: 12:40 Patient medically screened. [facility] 16:40 Data reviewed: vital signs, nurses notes. Counseling: I had a detailed discussion with [facility] the patient and/or guardian regarding: the historical points, exam findings, and any diagnostic results supporting the discharge/admit diagnosis, lab results, radiology results, the need for outpatient follow up, the need for further work-up and treatment in the hospital, to return to the emergency department if symptoms worsen or persist or if there are any questions or concerns that arise at home. 16:40 ED course: Patient states he feels much better after neb treatment. Patient has no [facility] complaints of chest pain, CTA is negative. Patient is currently taking Xarelto. There does not appear to be an acutely threatening process. Patient advised to follow up with PCP and is otherwise given strict return precautions. . 06/20 12:41 Order name: Basic Metabolic Panel; Complete Time: 15:21 [facility] 06/20 12:41 Order name: CBC with Diff; Complete Time: 14:57 [facility] 06/20 12:41 Order name: LFT's; Complete Time: 15:21 [facility] 06/20 12:41 Order name: Magnesium; Complete Time: 15:21 [facility] 06/20 12:41 Order name: NT PRO-BNP; Complete Time: 15:21 [facility] 06/20 12:41 Order name: PT-INR; Complete Time: 14:57 [facility] 06/20 12:41 Order name: Troponin (emerg Dept Use Only); Complete Time: 15:21 [facility] 06/20 12:41 Order name: XRAY Chest (1 view); Complete Time: 13:47 [facility] 06/20 12:41 Order name: EKG; Complete Time: 12:41 [facility] 06/20 12:41 Order name: Cardiac monitoring; Complete Time: 12:48 [facility] 06/20 12:41 Order name: EKG - Nurse/Tech; Complete Time: 14:08 [facility] 06/20 12:41 Order name: US Extremity Venous W Compression Erasmo; Complete Time: 13:38 [facility] 06/20 15:22 Order name: CT Chest For PE Angio; Complete Time: 16:00 [facility] 06/20 12:41 Order name: IV Saline Lock; Complete Time: 12:48 [facility] 06/20 12:41 Order name: Labs collected and sent; Complete Time: 12:48 [facility] 06/20 12:41 Order name: O2 Per Protocol; Complete Time: 12:48 [facility] 06/20 12:41 Order name: O2 Sat Monitoring; Complete Time: 12:48 [facility] Administered Medications: 13:40 Drug: Xopenex (3) 1.25 mg Route: Inhalation; 14:40 Follow up: Response: No adverse reaction tw2 Disposition: 06/20/18 16:41 Discharged to Home. Impression: Dyspnea, unspecified, Edema, not elsewhere classified. - Condition is Stable. - Discharge Instructions: Shortness of Breath, Peripheral Edema. - Prescriptions for Albuterol Sulfate 90 mcg/actuation - inhale 1-2 puff by INHALATION route every 4-6 hours; 1 Inhaler. - Medication Reconciliation Form, Thank You Letter, Antibiotic Education, Prescription Opioid Use form. - Follow up: Private Physician; When: 1 - 2 days; Reason: Recheck today's complaints, Continuance of care, Re-evaluation by your physician. Signatures: Dispatcher [employer] Juan José Torres RN RN Wilner Henning PA PA m Bridges, Cely, RN RN hb Kelly, Flavia, RN RN tw2 Corrections: (The following items were deleted from the chart) 17:08 16:41 06/20/2018 16:41 Discharged to Home. Impression: Dyspnea, unspecified; Edema, not tw2 elsewhere classified. Condition is Stable. Forms are Medication Reconciliation Form, Thank You Letter, Antibiotic Education, Prescription Opioid Use. Follow up: Private Physician; When: 1 - 2 days; Reason: Recheck today's complaints, Continuance of care, Re-evaluation by your physician. varsha
[2018-06-20 17:53] VITALS: TEMP 98.2
[2018-06-20 17:59] VITALS: O2SAT 98
[2018-06-20 18:01] VITALS: BP 117/80
--- NOTE | 2018-06-21 07:01 | EKG ---
Test Date: 2018-06-20 Test Time: 13:33:58 Machine Steak Tenderizer: SRIDEVI MEASUREMENT RESULTS: Intervals: Rate: 64 MI: QRSD: 94 QT: 396 QTc: 408 [place]: P: MI: QRS: 68 T: 63 INTERPRETIVE STATEMENTS: Atrial fibrillation Abnormal ECG Compared to ECG 05/24/2018 08:29:16 No significant changes Electronically Signed On 06-21-18 06:52:45 [employer]OM[employer] E[employer]OR HELPER by Ervin Banks
== END 2018-06-20 17:08 | disposition home or self-care (01) ==
LOC: ER 12:17
DX: R60.9 Edema, unspecified (principal); I10 Essential (primary) hypertension; E78.5 Hyperlipidemia, unspecified; E03.9 Hypothyroidism, unspecified
CPT/HCPCS: 36415; 71045; 71275; 80048; 80076; 83735; 83880; 84484; 85025; 85610; 93005; 93970; 99285; Q9967

== ENCOUNTER 2018-08-02 03:25 | Emergency (ER) | payer OTHER ==
[2018-08-02] MEDS ORDERED: NA CHLORIDE 0.9% 1,000 ML ONE (04:04)
[2018-08-02] MEDS ORDERED: DEXAMETHASONE 4 MG/ML VIAL ONE (04:04)
[2018-08-02] MEDS ORDERED: CLINDAMYCIN 900MG/D5W 900 MG/50 ML IVPB IV ONE (04:04)
[2018-08-02] MEDS ORDERED: CEFTRIAXONE/SWI 1gm 1 GM/10 ML SYR ONE (04:05)
[2018-08-02 04:25] LABS: Absolute Neutrophil 8.5 K/uL (1.8-8.0); Basophils % 0.3 % (0-1.3); Eosinophils % 0.2 % (0-4.4); Hematocrit 39.2 % (39.6-49.0); Lymphocytes % 8.1 % (15.3-44.8); MPV 11.7 fL (7.6-11.3); Monocytes % 23.9 % (3.3-12.3); RBC Red Blood Cell Count 4.21 M/uL (4.33-5.43)
[2018-08-02 04:35] LABS: ALT/SGPT 31 U/L (12-78); AST/SGOT 29 U/L (15-37); Albumin 4.3 g/dL (3.4-5.0); Alkaline Phosphatase 52 U/L (45-117); BUN Blood Urea Nitrogen 10 mg/dL (7-18); Bicarbonate 28 mmol/L (21-32); Bilirubin Total 0.8 mg/dL (0.2-1.0); Glucose Level 95 mg/dL (74-106); Protein, Total 8.4 g/dL (6.4-8.2); Sodium Level 139 mmol/L (136-145)
[2018-08-02 05:00] LABS: Blood Morphology Comment NOT SEEN (NOT SEEN); Platelet Estimate DECR; Urine White Blood Cell Casts OK
[2018-08-02] MEDS ORDERED: PEN G BENZ LA 1.2MU/2ML SYRINGE IM ONE (05:06)
--- NOTE | 2018-08-02 07:27 | EDPHYS ---
Physician Documentation [facility] Name: John Cuevas Age: 72 yrs Sex: Male : 1945 Arrival Date: 08/02/2018 Time: 03:26 Bed 7 Private MD: ED Physician Osvaldo Beckman HPI: 08/02 03:38 This 72 yrs old Male presents to ER via EMS with complaints of sore throat, leonidas left greater than right. 03:38 The patient presents with sore throat. The patient describes throat pain as constant, leonidas raw, scratchy. Onset: The symptoms/episode began/occurred this morning, today. Severity of symptoms: At their worst the symptoms were severe, in the emergency department the symptoms are unchanged. Modifying factors: The symptoms are alleviated by nothing, the symptoms are aggravated by fluids, foods, swallowing. Associated signs and symptoms: The patient has no apparent associated signs or symptoms. Historical: - Allergies: 03:36 No Known Allergies; lp1 - Home Meds: 03:36 levothyroxine 50 mcg tab 1 tab once daily for Hypothyroidism [Active]; lisinopril 20 mg lp1 Oral tab 1 tab once daily [Active]; metoprolol tartrate 50 mg Oral tab 1 tab once daily [Active]; simvastatin 20 mg Oral tab 1 tab once daily [Active]; - PMHx: 03:36 Hyperlipidemia; Hypertension; Hypothyroidism; Colon cancer; Atrial Fib; lp1 - PSHx: 03:36 Colon resection; lp1 - Immunization history:: Adult Immunizations up to date, Flu vaccine is not up to date. - Social history:: Smoking status: Patient/guardian denies using tobacco. - Ebola Screening: : No symptoms or risks identified at this time. - Family history:: not pertinent. ROS: 03:38 Constitutional: Negative for fever, chills, and weight loss, Eyes: Negative for injury, leonidas pain, redness, and discharge, Neck: Negative for injury, pain, and swelling, Cardiovascular: Negative for chest pain, palpitations, and edema, Respiratory: Negative for shortness of breath, cough, wheezing, and pleuritic chest pain, Abdomen/GI: Negative for abdominal pain, nausea, vomiting, diarrhea, and constipation, Back: Negative for injury and pain, : Negative for injury, bleeding, discharge, and swelling, MS/Extremity: Negative for injury and deformity, Skin: Negative for injury, rash, and discoloration, Neuro: Negative for headache, weakness, numbness, tingling, and seizure, Psych: Negative for depression, anxiety, suicide ideation, homicidal ideation, and hallucinations, Allergy/Immunology: Negative for hives, rash, and allergies, Endocrine: Negative for neck swelling, polydipsia, polyuria, polyphagia, and marked weight changes, Hematologic/Lymphatic: Negative for swollen nodes, abnormal bleeding, and unusual bruising. 03:38 ENT: Positive for sore throat. Exam: 03:38 Constitutional: This is a well developed, well nourished patient who is awake, alert, leonidas and in no acute distress. Head/Face: Normocephalic, atraumatic. Eyes: Pupils equal round and reactive to light, extra-ocular motions intact. Lids and lashes normal. Conjunctiva and sclera are non-icteric and not injected. Cornea within normal limits. Periorbital areas with no swelling, redness, or edema. Neck: Trachea midline, no thyromegaly or masses palpated, and no cervical lymphadenopathy. Supple, full range of motion without nuchal rigidity, or vertebral point tenderness. No Meningismus. Chest/axilla: Normal chest wall appearance and motion. Nontender with no deformity. No lesions are appreciated. Cardiovascular: Regular rate and rhythm with a normal S1 and S2. No gallops, murmurs, or rubs. Normal PMI, no JVD. No pulse deficits. Respiratory: Lungs have equal breath sounds bilaterally, clear to auscultation and percussion. No rales, rhonchi or wheezes noted. No increased work of breathing, no retractions or nasal flaring. Abdomen/GI: Soft, non-tender, with normal bowel sounds. No distension or tympany. No guarding or rebound. No evidence of tenderness throughout. Back: No spinal tenderness. No costovertebral tenderness. Full range of motion. Male : Normal genitalia with no discharge or lesions. Skin: Warm, dry with normal turgor. Normal color with no rashes, no lesions, and no evidence of cellulitis. 03:38 ENT: Posterior pharynx: Airway: normal, Tonsils: enlarged on the right, enlarged on the left, bilaterally enlarged, Uvula: normal, swelling, that is moderate, erythema, that is moderate, exudate, is not appreciated, peritonsillar mass, is not appreciated. Vital Signs: 03:34 BP 164 / 95; Pulse 90; Resp 18; Temp 98.5(O); Pulse Ox 98% on R/A; Weight 127.01 kg; lp1 Height 6 ft. 4 in. (193.04 cm); Pain 10/10; 04:44 BP 130 / 83; Pulse 46; Resp 16; Pulse Ox 97% on R/A; jb4 05:50 BP 132 / 94; Pulse 80; Resp 16; Pulse Ox 97% on R/A; jb4 06:30 BP 129 / 66; Pulse 84; Resp 16; Pulse Ox 98% on R/A; jb4 07:00 BP 130 / 90; Pulse 74; Resp 14; Pulse Ox 97% ; bp 07:30 BP 130 / 88; Pulse 82; Resp 14; Pulse Ox 99% ; bp 03:34 Body Mass Index 34.08 (127.01 kg, 193.04 cm) lp1 MDM: 03:30 Patient medically screened. [facility] 03:38 Data reviewed: vital signs, nurses notes, lab test result(s), radiologic studies, CT leonidas scan, plain films. 08/02 03:37 Order name: CBC with Diff; Complete Time: 05:24 [facility] 08/02 03:37 Order name: Comprehensive Metabolic Panel; Complete Time: 04:46 [facility] 08/02 03:37 Order name: Strep; Complete Time: 04:46 [facility] 08/02 03:37 Order name: Urine Culture [facility] 08/02 05:00 Order name: CBC Smear Scan; Complete Time: 05:24 [facility] 08/02 06:27 Order name: Urine Dipstick--Ancillary (enter results) [facility] 08/02 03:37 Order name: Chest Single View XRAY [facility] 08/02 03:37 Order name: Soft Tissue Neck W/Contr CT [facility] 08/02 03:37 Order name: Urine Dipstick-Ancillary (obtain specimen); Complete Time: 06:34 [facility] Administered Medications: 04:10 Drug: Decadron - Dexamethasone 10 mg Route: IVP; Site: left antecubital; jb4 05:05 Follow up: Response: No adverse reaction [facility] 04:20 Drug: Rocephin - (cefTRIAXone) 1 grams Route: IVPB; Infused Over: 30 mins; Site: left jb4 antecubital; 04:22 Follow up: Response: No adverse reaction; IV Status: Completed infusion; Given IVP per [facility] pharmacy protocol. 04:24 Drug: NS 0.9% 500 ml Route: IV; Rate: bolus; Site: left antecubital; [facility] 05:00 Follow up: Response: No adverse reaction; IV Status: Completed infusion [facility] 04:35 Drug: Clindamycin 900 mg Route: IVPB; Infused Over: 30 mins; Site: left antecubital; [facility] 05:05 Follow up: Response: No adverse reaction; IV Status: Completed infusion [facility] 05:00 Drug: NS 0.9% 1000 ml Route: IV; Rate: 125 ml/hr; Site: left antecubital; [facility] 07:44 Follow up: IV Status: Completed infusion; IV Intake: 1000ml bp 05:12 Drug: Bicillin L-A 1.2 million units Route: IM; Site: left gluteus; [facility] 05:54 Follow up: Response: No adverse reaction [facility] Disposition: 08/02/18 07:27 Discharged to Home. Impression: Acute tonsillitis, Peritonsillar abscess - early. - Condition is Stable. - Discharge Instructions: Peritonsillar Abscess, Strep Throat, Tonsillitis, Tonsillitis, [id number], Strep Throat, [id number], Peritonsillar Abscess, [id number]-Bruu. - Prescriptions for Clindamycin HCl 300 mg Oral Capsule - take 1 capsule by ORAL route every 6 hours for 10 days; 40 capsule. Medrol (Jerry) 4 mg Oral Tablets, Dose Pack - take 1 tablet by ORAL route as directed - follow package instructions; 1 packet. - Medication Reconciliation Form, Thank You Letter, Antibiotic Education, Prescription Opioid Use form. - Follow up: Private Physician; When: 2 - 3 days; Reason: Recheck today's complaints, Continuance of care, Re-evaluation by your physician. Follow up: Yaa Johnson; When: 2 - 3 days; Reason: Recheck today's complaints, Continuance of care, Re-evaluation by your physician. Follow up: Yaa Johnson MD; When: Today; Reason: Recheck today's complaints, Continuance of care, Re-evaluation by your physician. - Problem is new. - Symptoms have improved. Signatures: Dispatcher [employer] EDOsvaldo Alonzo MD MD cha Pena, Laura, RN RN lp1 Siddharth Hooks, RN RN jb4 Gustavo Carmona, RN RN bp Corrections: (The following items were deleted from the chart) 07:44 07:27 08/02/2018 07:27 Discharged to Home. Impression: Acute tonsillitis; Peritonsillar bp abscess - early. Condition is Stable. Discharge Instructions: Tonsillitis, Tonsillitis, [id number], Strep Throat, Strep Throat, [id number]. Prescriptions for Clindamycin HCl 300 mg Oral Capsule - take 1 capsule by ORAL route every 6 hours for 10 days; 40 capsule, Medrol (Jerry) 4 mg Oral Tablets, Dose Pack - take 1 tablet by ORAL route as directed - follow package instructions; 1 packet. and Forms are Medication Reconciliation Form, Thank You Letter, Antibiotic Education, Prescription Opioid Use. Follow up: Private Physician; When: 2 - 3 days; Reason: Recheck today's complaints, Continuance of care, Re-evaluation by your physician. Follow up: Yaa Johnson; When: Today; Reason: Recheck today's complaints, Continuance of care, Re-evaluation by your physician. Problem is new. Symptoms have improved. leonidas
--- NOTE | 2018-08-02 07:27 | ER ---
Nurse's Notes [facility] Name: John Cuevas Age: 72 yrs Sex: Male : 1945 Arrival Date: 08/02/2018 Time: 03:26 Bed 7 Private MD: Diagnosis: Acute tonsillitis;Peritonsillar abscess-early Presentation: 08/02 03:31 Presenting complaint: EMS states: Called for patient with sore throat, pain radiating lp1 to left side of face; Denies any fever; Patient A/O x4. Transition of care: patient was not received from another setting of care. Onset of symptoms was August 02, 2018. Risk Assessment: Do you want to hurt yourself or someone else? Patient reports no desire to harm self or others. Initial Sepsis Screen: Does the patient meet any 2 criteria? No. Patient's initial sepsis screen is negative. Does the patient have a suspected source of infection? No. Patient's initial sepsis screen is negative. Care prior to arrival: None. 03:31 Method Of Arrival: EMS: [facility] lp1 03:31 Acuity: KEVIN 3 lp1 Historical: - Allergies: 03:36 No Known Allergies; lp1 - Home Meds: 03:36 levothyroxine 50 mcg tab 1 tab once daily for Hypothyroidism [Active]; lisinopril 20 mg lp1 Oral tab 1 tab once daily [Active]; metoprolol tartrate 50 mg Oral tab 1 tab once daily [Active]; simvastatin 20 mg Oral tab 1 tab once daily [Active]; - PMHx: 03:36 Hyperlipidemia; Hypertension; Hypothyroidism; Colon cancer; Atrial Fib; lp1 - PSHx: 03:36 Colon resection; lp1 - Immunization history:: Adult Immunizations up to date, Flu vaccine is not up to date. - Social history:: Smoking status: Patient/guardian denies using tobacco. - Ebola Screening: : No symptoms or risks identified at this time. - Family history:: not pertinent. Screenin:20 Fall Risk None identified. jb4 03:37 Abuse screen: Denies threats or abuse. Denies injuries from another. Nutritional lp1 screening: No deficits noted. Tuberculosis screening: No symptoms or risk factors identified. Assessment: 03:20 General: Appears in no apparent distress. uncomfortable, Behavior is calm, cooperative, jb4 appropriate for age. Pain: Complains of pain in left side of head, throat Pain radiates to left side of head Pain currently is 10 out of 10 on a pain scale. Neuro: Level of Consciousness is awake, alert, obeys commands, Oriented to person, place, time, situation. Cardiovascular: Patient's skin is warm and dry. Respiratory: Airway is patent Respiratory effort is even, unlabored, Respiratory pattern is regular, symmetrical, Breath sounds are clear bilaterally. GI: No signs and/or symptoms were reported involving the gastrointestinal system. : No signs and/or symptoms were reported regarding the genitourinary system. EENT: Throat is reddened has patchy exudate has enlarged tonsils bilaterally with gag reflex present. Derm: Skin is intact, Skin is pink, warm \T\ dry. Musculoskeletal: Circulation, motion, and sensation intact. 04:44 Reassessment: Patient appears in no apparent distress at this time. Patient and/or jb4 family updated on plan of care and expected duration. Pain level reassessed. Patient is alert, oriented x 3, equal unlabored respirations, skin warm/dry/pink. 05:55 Reassessment: Patient appears in no apparent distress at this time. Patient and/or jb4 family updated on plan of care and expected duration. Pain level reassessed. Patient is alert, oriented x 3, equal unlabored respirations, skin warm/dry/pink. 06:30 Reassessment: Patient appears in no apparent distress at this time. Patient and/or jb4 family updated on plan of care and expected duration. Pain level reassessed. Patient is alert, oriented x 3, equal unlabored respirations, skin warm/dry/pink. 07:00 Reassessment: RECD REPORT FROM CAROLINA JACKSON. 72YO WM P/W SORE THROAT AND TONSILLAR EDEMA. bp CT RESULTS PENDING. VS STABLE ON MONITOR. 07:42 Reassessment: PT D/C HOME VIA W/C WITH FAMILY, DX WITH STREP THROAT AND EARLY bp PERITONSILLAR ABSCESS. Vital Signs: 03:34 BP 164 / 95; Pulse 90; Resp 18; Temp 98.5(O); Pulse Ox 98% on R/A; Weight 127.01 kg; lp1 Height 6 ft. 4 in. (193.04 cm); Pain 10/10; 04:44 BP 130 / 83; Pulse 46; Resp 16; Pulse Ox 97% on R/A; jb4 05:50 BP 132 / 94; Pulse 80; Resp 16; Pulse Ox 97% on R/A; jb4 06:30 BP 129 / 66; Pulse 84; Resp 16; Pulse Ox 98% on R/A; jb4 07:00 BP 130 / 90; Pulse 74; Resp 14; Pulse Ox 97% ; bp 07:30 BP 130 / 88; Pulse 82; Resp 14; Pulse Ox 99% ; bp 03:34 Body Mass Index 34.08 (127.01 kg, 193.04 cm) lp1 ED Course: 03:26 Patient arrived in ED. al2 03:29 Osvaldo Beckman MD is Attending Physician. leonidas 03:33 Key Soni, RN is Primary Nurse. aa1 03:33 Triage completed. lp1 03:34 Arm band placed on right wrist. lp1 03:40 Patient has correct armband on for positive identification. Bed in low position. Call jb4 light in reach. Side rails up X2. Pulse ox on. NIBP on. 04:09 Missed attempt(s): 20 gauge in right antecubital area. Bleeding controlled, band aid oe applied, catheter tip intact. 04:10 X-ray completed. Portable x-ray completed in exam room. Patient tolerated procedure kw well. 04:11 Inserted saline lock: 20 gauge in left upper arm, using aseptic technique. Blood oe collected. 04:19 Chest Single View XRAY In Process Unspecified. EDMS 04:23 Siddharth Hooks, RN is Primary Nurse. jb4 05:[address] via stretcher. kw1 05:57 Soft Tissue Neck W/Contr CT In Process Unspecified. EDMS 07:01 Primary Nurse role handed off by Siddharth Hooks, MANUEL bp 07:01 Gustavo Carmona, RN is Primary Nurse. bp 07:26 Yaa Johnson MD is Referral Physician. leonidas 07:26 Referral Physician role handed off by Yaa Johnson MD leonidas 07:26 Yaa Johnson MD is Referral Physician. leonidas 07:43 No provider procedures requiring assistance completed. IV discontinued, intact, bp bleeding controlled, No redness/swelling at site. Pressure dressing applied. Administered Medications: 04:10 Drug: Decadron - Dexamethasone 10 mg Route: IVP; Site: left antecubital; [facility] 05:05 Follow up: Response: No adverse reaction [facility] 04:20 Drug: Rocephin - (cefTRIAXone) 1 grams Route: IVPB; Infused Over: 30 mins; Site: left jb4 antecubital; 04:22 Follow up: Response: No adverse reaction; IV Status: Completed infusion; Given IVP per [facility] pharmacy protocol. 04:24 Drug: NS 0.9% 500 ml Route: IV; Rate: bolus; Site: left antecubital; [facility] 05:00 Follow up: Response: No adverse reaction; IV Status: Completed infusion [facility] 04:35 Drug: Clindamycin 900 mg Route: IVPB; Infused Over: 30 mins; Site: left antecubital; [facility] 05:05 Follow up: Response: No adverse reaction; IV Status: Completed infusion [facility] 05:00 Drug: NS 0.9% 1000 ml Route: IV; Rate: 125 ml/hr; Site: left antecubital; [facility] 07:44 Follow up: IV Status: Completed infusion; IV Intake: 1000ml bp 05:12 Drug: Bicillin L-A 1.2 million units Route: IM; Site: left gluteus; [facility] 05:54 Follow up: Response: No adverse reaction [facility] Intake: 07:44 IV: 1000ml; Total: 1000ml. bp Outcome: 07:27 Discharge ordered by . leonidas 07:43 Discharged to home via wheelchair, with family. bp 07:43 Condition: stable 07:43 Discharge instructions given to patient, family, Instructed on discharge instructions, follow up and referral plans. medication usage, Demonstrated understanding of instructions, follow-up care, medications, Prescriptions given X 2. 07:44 Patient left the ED. bp Signatures: Dispatcher [employer] EDMS Key Soni RN RN aa1 Osvaldo Beckman MD MD cha Whitley, Kimberlee kw Pena, Laura, RN RN lp1 Siddharth Hooks RN RN jb4 Raphael Fields Brian RN RN bp Mary Duran kw1 Melissa Soto
[2018-08-02 07:43] LABS: Urine Blood 1+ (NEG); Urine Glucose NEGATIVE (NEG); Urine Protein TRACE (NEG); Urine Specific Gravity 1.015 (1.005-1.030); Urine pH 7.5 (5.0-7.0)
[2018-08-02 07:51] VITALS: TEMP 98.5
[2018-08-02 07:57] VITALS: BP 130/88; O2SAT 99
--- NOTE | 2018-08-02 09:37 | RAD REPORT ---
EXAM DESCRIPTION: RAD - Chest Single View - 08/02/2018 4:13 am CLINICAL HISTORY: Cough, chest pain COMPARISON: June 2018 TECHNIQUE: AP portable chest image was obtained 0411 hours . FINDINGS: No focal mass or consolidation. Prominent interstitial markings are present stable from 2017 cardiac silhouette is prominent but unchanged. No vascular engorgement. No measurable pleural effusion and no pneumothorax. No acute bony abnormality seen. No acute aortic findings suspe cted. IMPRESSION: No acute cardiopulmonary process. No significant change from comparison.
--- NOTE | 2018-08-02 11:04 | RAD REPORT ---
EXAM DESCRIPTION: CT - Soft Tissue Neck W/Contr - 08/02/2018 7:14 am CLINICAL HISTORY: The patient is 72 years old and is Male; PAIN. COMPARISON: No relevant prior studies available. TECHNIQUE: Axial computed tomography images of the neck with intravenous contrast. Sagittal and coronal reformat mark images were created and reviewed. This CT exam was performed using one or more of the following d ose reduction techniques: Automated exposure control, adjustment of the mA and/or kV according to pat ient size, and/or use of iterative reconstruction technique. FINDINGS: Oropharynx: See below Hypopharynx: Unremarkable. Larynx: Unremarkable. Normal epiglottis. Trachea: Unremarkable. Retropharyngeal space: Unremarkable. Submandibular/parotid glands: A 1.9 x 1.9 cm soft tissue nodule within the inferior aspect of the rig ht parotid gland is noted. Thyroid: Unremarkable. No enlarged or calcified nodules. Bones/Joints: Multilevel degenerative change of the spine is present. Soft tissues: Enlargement of the left pharyngeal tonsils present. There is a small 1.4 x 1.2 cm low a ttenuating focus with peripheral enhancement within the left pharyngeal tonsil. Small sebaceous cyst within the soft tissues of the left lower neck posteriorly is noted. Vasculature: Unremarkable. Normal in course and caliber. Lymph notes: Small bilateral reactive cervical chain adenopathy is noted. Lung apices: The lung apices are clear. IMPRESSION: 1. Findings suggest mid left tonsilitis and associated small phlegmon. 2. Soft tissue nodule within the right parotid gland. Differential diagnosis includes worsening tumor ,adenopathy, primary parotid carcinoma. Further evaluation on a non-emergent basis is recommended. Electronically signed by: Abril Smith MD 08/02/2018 6:12 AM CASEWORK SPECIALIST Due to temporary technical issues with the PACS/Fluency reporting system, reports are being signed by the in house radiologist as a courtesy to ensure prompt reporting. The interpreting radiologist is f ully responsible for the content of the report.
== END 2018-08-02 07:44 | disposition home or self-care (01) ==
LOC: ER 03:25
DX: J03.90 Acute tonsillitis, unspecified (principal); I10 Essential (primary) hypertension; E03.9 Hypothyroidism, unspecified; I48.91 Unspecified atrial fibrillation; E78.5 Hyperlipidemia, unspecified; Z85.038 Personal history of other malignant neoplasm of large intestine
CPT/HCPCS: 36415; 70491; 71045; 80053; 81003; 85025; 87081; 87086; 87088; 96361; 96365; 96372; 96375; 99285; J0561; J0696; J7030; Q9967

== ENCOUNTER 2019-01-07 12:34 | Emergency (ER) | payer OTHER ==
--- NOTE | 2019-01-07 13:16 | ER ---
Nurse's Notes [facility] Name: John Cuevas Age: 73 yrs Sex: Male : 1945 Arrival Date: 01/07/2019 Time: 12:36 Bed 16 Private MD: Diagnosis: Angioneurotic edema Presentation: 01/07 12:42 Presenting complaint: Patient states: BILATERAL SUBORBITAL EDEMA SINCE AM. Transition bp of care: patient was not received from another setting of care. Onset of symptoms was January 07, 2019. Risk Assessment: Do you want to hurt yourself or someone else? Patient reports no desire to harm self or others. Initial Sepsis Screen: Does the patient meet any 2 criteria? No. Patient's initial sepsis screen is negative. Does the patient have a suspected source of infection? No. Patient's initial sepsis screen is negative. Care prior to arrival: None. 12:42 Method Of Arrival: Ambulatory bp 12:42 Acuity: KEVIN 3 bp Triage Assessment: 12:45 General: Appears in no apparent distress. comfortable, Behavior is calm, cooperative. rb1 Historical: - Allergies: 12:44 No Known Allergies; bp - Home Meds: 12:44 simvastatin 20 mg Oral tab 1 tab once daily [Active]; metoprolol tartrate 50 mg Oral bp tab 1 tab once daily [Active]; lisinopril 20 mg Oral tab 1 tab once daily [Active]; levothyroxine 50 mcg tab 1 tab once daily for Hypothyroidism [Active]; Plavix Oral [Active]; - PMHx: 12:44 Atrial Fib; colon cancer; Hyperlipidemia; Hypertension; Hypothyroidism; bp - Immunization history:: Adult Immunizations up to date. - Social history:: Smoking status: Patient/guardian denies using tobacco. - Ebola Screening: : No symptoms or risks identified at this time. Screenin:45 Abuse screen: Denies threats or abuse. Nutritional screening: No deficits noted. rb1 Tuberculosis screening: No symptoms or risk factors identified. Fall Risk No fall in past 12 months (0 pts). Secondary diagnosis (15 points) impaired mobility, No IV (0 pts). Ambulatory Aid- Crutches/Cane/Walker (15 pts). Gait- Impaired (20 pts.). Mental Status- Oriented to own ability (0 pts). Total Sagastume Fall Scale indicates High Risk Score (45 or more points). Fall prevention measures have been instituted. Side Rails Up X 2 Placed Close to Nursing Station 1:1 Attendant Assigned Frequent Obs/Assessments Occuring As available patient and family educated on Fall Prevention Program and Strategies. Assessment: 12:45 General: Appears in no apparent distress. comfortable, Behavior is calm, cooperative. rb1 Pain: Denies pain. Neuro: Level of Consciousness is awake, alert, obeys commands, Oriented to person, place, time, situation. Cardiovascular: Capillary refill < 3 seconds is brisk in bilateral fingers. Respiratory: Airway is patent Respiratory effort is even, unlabored, Respiratory pattern is regular, symmetrical. GI: No signs and/or symptoms were reported involving the gastrointestinal system. : No signs and/or symptoms were reported regarding the genitourinary system. EENT: Eyes swelling noted to bilateral eyes, under the lower eyelid. Derm: Skin is pink, warm \T\ dry. Musculoskeletal: Range of motion: intact in all extremities. Vital Signs: 12:44 BP 128 / 59; Pulse 59; Resp 16; Temp 98; Pulse Ox 98% ; Weight 122.47 kg; Height 6 ft. bp 4 in. (193.04 cm); 12:44 Body Mass Index 32.87 (122.47 kg, 193.04 cm) bp ED Course: 12:36 Patient arrived in ED. as 12:43 Triage completed. bp 12:44 Arm band placed on left wrist. bp 12:45 Patient has correct armband on for positive identification. Bed in low position. Call rb1 light in reach. Side rails up X 1. Pulse ox on. NIBP on. 12:52 Agatha Potts, MANUEL is Primary Nurse. rb1 12:57 Duane Otoole MD is Attending Physician. gs 13:26 No provider procedures requiring assistance completed. Patient did not have IV access rb1 during this emergency room visit. Administered Medications: 13:20 Drug: predniSONE 40 mg Route: PO; rb1 13:26 Follow up: Response: Medication administered at discharge. rb1 13:20 Drug: ZyrTEC - Cetirizine 10 mg Route: PO; rb1 13:26 Follow up: Response: Medication administered at discharge. rb1 Outcome: 13:15 Discharge ordered by MD. gs 13:26 Patient left the ED. rb1 13:26 Discharged to home with family, with walker rb1 13:26 Condition: stable 13:26 Discharge instructions given to patient, Instructed on discharge instructions, follow up and referral plans. medication usage, Demonstrated understanding of instructions, follow-up care, medications, Prescriptions given X 1. Signatures: Khadijah Farris Rebecca, RN RN rb1 Duane Otoole MD MD Gustavo Carmona RN RN bp
--- NOTE | 2019-01-07 13:16 | EDPHYS ---
Physician Documentation [facility] Name: John Cuevas Age: 73 yrs Sex: Male : 1945 Arrival Date: 01/07/2019 Time: 12:36 Bed 16 Private MD: ED Physician Duane Otoole HPI: 01/07 13:12 This 73 yrs old Male presents to ER via Ambulatory with complaints of Eye gs Swelling. 13:12 The patient presents with localized swelling. Onset: The symptoms/episode gs began/occurred yesterday. Associated signs and symptoms: Pertinent negatives: fever, shortness of breath. Possible causes: The patient has no known obvious cause for the symptoms, At home the patient or guardian has treated the symptoms with nothing. Severity of symptoms: At their worst the symptoms were moderate in the emergency department the symptoms are unchanged. The patient has not experienced similar symptoms in the past. The patient has not recently seen a physician. Historical: - Allergies: 12:44 No Known Allergies; bp - Home Meds: 12:44 simvastatin 20 mg Oral tab 1 tab once daily [Active]; metoprolol tartrate 50 mg Oral bp tab 1 tab once daily [Active]; lisinopril 20 mg Oral tab 1 tab once daily [Active]; levothyroxine 50 mcg tab 1 tab once daily for Hypothyroidism [Active]; Plavix Oral [Active]; - PMHx: 12:44 Atrial Fib; colon cancer; Hyperlipidemia; Hypertension; Hypothyroidism; bp - Immunization history:: Adult Immunizations up to date. - Social history:: Smoking status: Patient/guardian denies using tobacco. - Ebola Screening: : No symptoms or risks identified at this time. ROS: 13:12 All other systems are negative. gs Exam: 13:12 Head/Face: Normocephalic, atraumatic. ENT: Nares patent. No nasal discharge, no gs septal abnormalities noted. Tympanic membranes are normal and external auditory canals are clear. Oropharynx with no redness, swelling, or masses, exudates, or evidence of obstruction, uvula midline. Mucous membranes moist. Neck: Trachea midline, no thyromegaly or masses palpated, and no cervical lymphadenopathy. Supple, full range of motion without nuchal rigidity, or vertebral point tenderness. No Meningismus. Chest/axilla: Normal chest wall appearance and motion. Nontender with no deformity. No lesions are appreciated. Cardiovascular: Regular rate and rhythm with a normal S1 and S2. No gallops, murmurs, or rubs. Normal PMI, no JVD. No pulse deficits. Respiratory: Lungs have equal breath sounds bilaterally, clear to auscultation and percussion. No rales, rhonchi or wheezes noted. No increased work of breathing, no retractions or nasal flaring. Abdomen/GI: Soft, non-tender, with normal bowel sounds. No distension or tympany. No guarding or rebound. No evidence of tenderness throughout. Back: No spinal tenderness. No costovertebral tenderness. Full range of motion. Skin: Warm, dry with normal turgor. Normal color with no rashes, no lesions, and no evidence of cellulitis. MS/ Extremity: Pulses equal, no cyanosis. Neurovascular intact. Full, normal range of motion. Neuro: Awake and alert, GCS 15, oriented to person, place, time, and situation. Cranial nerves II-XII grossly intact. Motor strength 5/5 in all extremities. Sensory grossly intact. Cerebellar exam normal. Normal gait. 13:12 Constitutional: The patient appears alert, awake. 13:12 Eyes: Periorbital structures: swelling, that is mild, on the right lower eyelid and left eye, Lids and lashes: edema, bilaterally. 13:12 Eyes: Periorbital structures: swelling, that is mild, on the left lower eyelid, CHEMOSIS NO CELLULITIS NONTENDER. Vital Signs: 12:44 BP 128 / 59; Pulse 59; Resp 16; Temp 98; Pulse Ox 98% ; Weight 122.47 kg; Height 6 ft. bp 4 in. (193.04 cm); 12:44 Body Mass Index 32.87 (122.47 kg, 193.04 cm) bp MDM: 13:01 Patient medically screened. gs 13:12 Differential diagnosis: angioedema. Data reviewed: vital signs, nurses notes. gs Counseling: I had a detailed discussion with the patient and/or guardian regarding: the historical points, exam findings, and any diagnostic results supporting the discharge/admit diagnosis, the need for outpatient follow up. Administered Medications: 13:20 Drug: predniSONE 40 mg Route: PO; rb1 13:26 Follow up: Response: Medication administered at discharge. rb1 13:20 Drug: ZyrTEC - Cetirizine 10 mg Route: PO; rb1 13:26 Follow up: Response: Medication administered at discharge. rb1 Disposition: 01/07/19 13:15 Discharged to Home. Impression: Angioneurotic edema. - Condition is Stable. - Discharge Instructions: Angioedema, [id number]. - Prescriptions for Prednisone 20 mg Oral Tablet - take 1 tablet by ORAL route once daily for 5 days; 5 tablet. - Medication Reconciliation Form, Thank You Letter, Antibiotic Education, Prescription Opioid Use form. - Follow up: Private Physician; When: 1 - 2 days; Reason: Re-evaluation by your physician. Signatures: Agatha Potts, RN RN rb1 Duane Otoole MD MD gs Gustavo Carmona RN RN bp Corrections: (The following items were deleted from the chart) 13:26 13:15 01/07/2019 13:15 Discharged to Home. Impression: Angioneurotic edema. Condition rb1 is Stable. Forms are Medication Reconciliation Form, Thank You Letter, Antibiotic Education, Prescription Opioid Use. Follow up: Private Physician; When: 1 - 2 days; Reason: Re-evaluation by your physician. gs
[2019-01-07] MEDS ORDERED: CETIRIZINE HCL 5 MG TABLET ONE (13:36)
[2019-01-07] MEDS ORDERED: predniSONE 20 MG TAB ONE (13:37)
[2019-01-07 15:10] VITALS: BP 128/59; TEMP 98; O2SAT 98
== END 2019-01-07 13:26 | disposition home or self-care (01) ==
LOC: ER 12:34
DX: T78.3XXA Angioneurotic edema, initial encounter (principal); I10 Essential (primary) hypertension; E03.9 Hypothyroidism, unspecified; I48.91 Unspecified atrial fibrillation; E78.5 Hyperlipidemia, unspecified; Z85.038 Personal history of other malignant neoplasm of large intestine
CPT/HCPCS: 99283; J7512

== ENCOUNTER 2019-04-14 21:14 | Emergency (ER) | payer OTHER ==
[2019-04-14 22:18] LABS: Absolute Lymphocytes (CBC) 1.5 K/uL (0.7-4.9); Basophils % 0.5 % (0-1.3); Hematocrit 28.3 % (39.6-49.0); Lymphocytes % 18.1 % (15.3-44.8); MPV 11.3 fL (7.6-11.3); RBC Red Blood Cell Count 3.14 M/uL (4.33-5.43)
[2019-04-14] MEDS ORDERED: MORPHINE 4 MG/ML SYR ONE (22:21)
[2019-04-14] MEDS ORDERED: ONDANSETRON 4 MG/2 ML VIAL ONE (22:21)
--- NOTE | 2019-04-14 23:41 | RAD REPORT ---
EXAM DESCRIPTION: US - Extremity Venous Uni Ltd - 04/14/2019 10:28 pm CLINICAL HISTORY: PAIN Leg swelling and edema. COMPARISON: <Comparisons> FINDINGS: Right lower extremity venous system was interrogated with Doppler technique. Normal flow, compressibility and augmentation was noted. There is no DVT present.Prominent Kothari cyst noted. IMPRESSION: No evidence of right lower extremity deep venous thrombosis.
--- NOTE | 2019-04-14 23:43 | RAD REPORT ---
EXAM DESCRIPTION: RAD - Knee Right 3 View - 04/14/2019 10:56 pm CLINICAL HISTORY: PAIN COMPARISON: <Comparisons> FINDINGS: Severe tricompartmental osteoarthritis is present with [id number] noted. Moderate suprap atellar joint effusion is present. An acute fracture is not evident.
--- NOTE | 2019-04-14 23:46 | EDPHYS ---
Physician Documentation [facility] Name: John Cuevas Age: 73 yrs Sex: Male : 1945 Arrival Date: 04/14/2019 Time: 21:18 Bed 19 Private MD: ED Physician Nakul Sargent HPI: 04/14 21:52 This 73 yrs old Male presents to ER via EMS with complaints of Leg Pain. pkl 21:52 The patient presents with pain, that is acute. The complaints affect the right knee. pkl Context: the patient can partially bear weight, must have assistance. Onset: The symptoms/episode began/occurred today. The patient has experienced similar episodes in the past, a few times. Historical: - Allergies: 21:34 No Known Allergies; - Home Meds: 21:34 levothyroxine [Active]; lisinopril Oral [Active]; metoprolol tartrate Oral [Active]; wh Plavix Oral [Active]; simvastatin Oral [Active]; Amiodarone Oral [Active]; - PMHx: 21:34 Atrial Fib; colon cancer; Hyperlipidemia; Hypertension; Hypothyroidism; wh - PSHx: 21:34 Cardiac Cath; Exploratory lap; - Immunization history:: Adult Immunizations not up to date. - Social history:: Smoking status: Patient/guardian denies using tobacco. - Ebola Screening: : Patient negative for fever greater than or equal to 101.5 degrees Fahrenheit, and additional compatible Ebola Virus Disease symptoms Patient denies exposure to infectious person. ROS: 21:52 Eyes: Negative for injury, pain, redness, and discharge, ENT: Negative for injury, pkl pain, and discharge, Neck: Negative for injury, pain, and swelling, Cardiovascular: Negative for chest pain, palpitations, and edema, Respiratory: Negative for shortness of breath, cough, wheezing, and pleuritic chest pain, Abdomen/GI: Negative for abdominal pain, nausea, vomiting, diarrhea, and constipation, Back: Negative for injury and pain, : Negative for injury, bleeding, discharge, and swelling. 21:52 MS/extremity: Positive for pain, tenderness, of the right knee. 21:52 Skin: Negative for rash. 21:52 Neuro: Negative for altered mental status. Exam: 21:52 Head/Face: Normocephalic, atraumatic. Eyes: Pupils equal round and reactive to light, pkl extra-ocular motions intact. Lids and lashes normal. Conjunctiva and sclera are non-icteric and not injected. Cornea within normal limits. Periorbital areas with no swelling, redness, or edema. ENT: Nares patent. No nasal discharge, no septal abnormalities noted. Tympanic membranes are normal and external auditory canals are clear. Oropharynx with no redness, swelling, or masses, exudates, or evidence of obstruction, uvula midline. Mucous membranes moist. Neck: Trachea midline, no thyromegaly or masses palpated, and no cervical lymphadenopathy. Supple, full range of motion without nuchal rigidity, or vertebral point tenderness. No Meningismus. Chest/axilla: Normal chest wall appearance and motion. Nontender with no deformity. No lesions are appreciated. Cardiovascular: Regular rate and rhythm with a normal S1 and S2. No gallops, murmurs, or rubs. Normal PMI, no JVD. No pulse deficits. Respiratory: Lungs have equal breath sounds bilaterally, clear to auscultation and percussion. No rales, rhonchi or wheezes noted. No increased work of breathing, no retractions or nasal flaring. Abdomen/GI: Soft, non-tender, with normal bowel sounds. No distension or tympany. No guarding or rebound. No evidence of tenderness throughout. Back: No spinal tenderness. No costovertebral tenderness. Full range of motion. Skin: Warm, dry with normal turgor. Normal color with no rashes, no lesions, and no evidence of cellulitis. 21:52 Musculoskeletal/extremity: Extremities: grossly normal except: noted in the right knee: pain, tenderness. 21:52 Skin: Exam negative for rash. 21:52 Neuro: Orientation: is normal, Mentation: is normal, Cranial nerves: grossly normal, Motor: is normal. Vital Signs: 21:25 BP 146 / 85; Pulse 59; Resp 18; Temp 98.2; Pulse Ox 97% ; Weight 108.86 kg; Height 6 wh ft. 4 in. (193.04 cm); 23:10 BP 139 / 72; Pulse 59; Resp 16; Pulse Ox 97% ; wh 04/15 00:15 BP 143 / 75; Pulse 59; Resp 18; Pulse Ox 100% on R/A; wh 04/14 21:25 Body Mass Index 29.21 (108.86 kg, 193.04 cm) MDM: 04/14 21:42 Patient medically screened. pkl 23:35 Data reviewed: vital signs, nurses notes, lab test result(s), radiologic studies, CT pkl scan. 04/14 21:50 Order name: CBC with Diff; Complete Time: 01:48 pkl 04/14 21:50 Order name: Chem 7; Complete Time: 23:30 pkl 04/14 21:50 Order name: US Extremity Venous Unilateral Ltd; Complete Time: 01:48 pkl 04/14 21:50 Order name: Sed Rate; Complete Time: 01:48 pkl 04/14 21:50 Order name: D-Dimer; Complete Time: 23:30 pkl 04/14 22:20 Order name: Manual Differential; Complete Time: 01:48 EDMS 04/14 21:50 Order name: Saline Lock; Complete Time: 22:07 pkl 04/14 21:51 Order name: Knee Right 3 View XRAY; Complete Time: 01:48 pkl 04/14 23:39 Order name: Gray Wrap; Complete Time: 00:00 pkl Administered Medications: 22:37 Drug: Zofran 4 mg Route: IVP; Site: right antecubital; 04/15 00:00 Follow up: Response: No adverse reaction; Nausea is decreased 04/14 22:38 Drug: morphine 4 mg {Note: RASS 0.} Route: IVP; Site: right antecubital; 04/15 00:00 Follow up: Response: No adverse reaction; Pain is decreased; RASS: Alert and Calm (0) Disposition: 04/14/19 23:45 Discharged to Home. Impression: Right knee pain. Right Kothari cyst. - Condition is Stable. - Prescriptions for Ultram 50 mg Oral Tablet - take 1 tablet by ORAL route every 8 hours As needed; 15 tablet. - Medication Reconciliation Form, Thank You Letter, Antibiotic Education, Prescription Opioid Use form. - Follow up: Private Physician; When: 1 - 2 days; Reason: Re-evaluation by your physician. - Problem is new. - Symptoms have improved. Signatures: Dispatcher [employer] EDNakul Palmer MD MD pkAllan Mathis Corrections: (The following items were deleted from the chart) 00:37 04/14 23:45 04/14/2019 23:45 Discharged to Home. Impression: Right knee pain. Right wh Kothari cyst. Condition is Stable. Forms are Medication Reconciliation Form, Thank You Letter, Antibiotic Education, Prescription Opioid Use. Follow up: Private Physician; When: 1 - 2 days; Reason: Re-evaluation by your physician. Problem is new. Symptoms have improved. pkl
--- NOTE | 2019-04-14 23:46 | ER ---
Nurse's Notes [facility] Name: John Cuevas Age: 73 yrs Sex: Male : 1945 Arrival Date: 04/14/2019 Time: 21:18 Bed 19 Private MD: Diagnosis: Right knee pain. Right Kothari cyst Presentation: 04/14 21:18 Presenting complaint: EMS states: Pt developed leg pain under the knee that radiates wh upward the leg C/O 10/10 on a pain scale. Pain started this evening but Pt denies falling. Pt states Hx of Cardiac Cath on Right Femoral. Transition of care: patient was not received from another setting of care. Onset of symptoms was April 14, 2019. Risk Assessment: Do you want to hurt yourself or someone else? Patient reports no desire to harm self or others. Initial Sepsis Screen: Does the patient meet any 2 criteria? No. Patient's initial sepsis screen is negative. Does the patient have a suspected source of infection? No. Patient's initial sepsis screen is negative. Care prior to arrival: None. 21:18 Method Of Arrival: EMS: [facility] 21:18 Acuity: KEVIN 3 Triage Assessment: 21:27 General: Behavior is calm, cooperative, appropriate for age. Historical: - Allergies: 21:34 No Known Allergies; - Home Meds: 21:34 levothyroxine [Active]; lisinopril Oral [Active]; metoprolol tartrate Oral [Active]; Plavix Oral [Active]; simvastatin Oral [Active]; Amiodarone Oral [Active]; - PMHx: 21:34 Atrial Fib; colon cancer; Hyperlipidemia; Hypertension; Hypothyroidism; - PSHx: 21:34 Cardiac Cath; Exploratory lap; - Immunization history:: Adult Immunizations not up to date. - Social history:: Smoking status: Patient/guardian denies using tobacco. - Ebola Screening: : Patient negative for fever greater than or equal to 101.5 degrees Fahrenheit, and additional compatible Ebola Virus Disease symptoms Patient denies exposure to infectious person. Screenin:23 Abuse screen: Denies threats or abuse. Denies injuries from another. Nutritional screening: No deficits noted. Tuberculosis screening: No symptoms or risk factors identified. Fall Risk None identified. Assessment: 21:27 General: Appears in no apparent distress. Behavior is calm, cooperative, appropriate for age. Pain: Complains of pain in right knee Pain radiates to Right leg Pain currently is 10 out of 10 on a pain scale. Quality of pain is described as sharp, Pain began 4 hours ago. Neuro: Level of Consciousness is awake, alert, obeys commands, Oriented to person, place, time, situation, Appropriate for age. Cardiovascular: Heart tones S1 S2. Cardiovascular: Edema is 1+ to left ankle and right ankle. Respiratory: Airway is patent Respiratory effort is even, unlabored, Respiratory pattern is regular, symmetrical. GI: Abdomen is flat, non-distended, Umbilical hernia noted. : No signs and/or symptoms were reported regarding the genitourinary system. EENT: No signs and/or symptoms were reported regarding the EENT system. Derm: Skin is intact, is healthy with good turgor, Skin is pink, warm \T\ dry. normal. Musculoskeletal: Circulation, motion, and sensation intact. 23:10 Reassessment: Patient appears in no apparent distress at this time. No changes from previously documented assessment. Patient and/or family updated on plan of care and expected duration. Pain level reassessed. Patient is alert, oriented x 3, equal unlabored respirations, skin warm/dry/pink. 04/15 00:35 Reassessment: Patient appears in no apparent distress at this time. No changes from previously documented assessment. Patient and/or family updated on plan of care and expected duration. Pain level reassessed. Patient is alert, oriented x 3, equal unlabored respirations, skin warm/dry/pink. Patient states feeling better. Patient states symptoms have improved. Vital Signs: 04/14 21:25 BP 146 / 85; Pulse 59; Resp 18; Temp 98.2; Pulse Ox 97% ; Weight 108.86 kg; Height 6 wh ft. 4 in. (193.04 cm); 23:10 BP 139 / 72; Pulse 59; Resp 16; Pulse Ox 97% ; 04/15 00:15 BP 143 / 75; Pulse 59; Resp 18; Pulse Ox 100% on R/A; 04/14 21:25 Body Mass Index 29.21 (108.86 kg, 193.04 cm) ED Course: 04/14 21:18 Patient arrived in ED. 21:23 Triage completed. 21:25 Arm band placed on right wrist. 21:25 Patient has correct armband on for positive identification. Placed in gown. Bed in low wh position. Call light in reach. Side rails up X 1. Pulse ox on. NIBP on. 21:42 Nakul Sargent MD is Attending Physician. pk 21:53 Allan Laguerre is Primary Nurse. 22:10 Inserted saline lock: 22 gauge in right antecubital area, using aseptic technique. Blood collected. 22:25 pts daughter Cecilia [phone] cell number. mw2 22:29 US Extremity Venous Unilateral Ltd In Process Unspecified. EDMS 22:56 Knee Right 3 View XRAY In Process Unspecified. EDOH 04/15 00:36 No provider procedures requiring assistance completed. IV discontinued, intact, bleeding controlled, No redness/swelling at site. Administered Medications: 04/14 22:37 Drug: Zofran 4 mg Route: IVP; Site: right antecubital; 04/15 00:00 Follow up: Response: No adverse reaction; Nausea is decreased 04/14 22:38 Drug: morphine 4 mg {Note: RASS 0.} Route: IVP; Site: right antecubital; 04/15 00:00 Follow up: Response: No adverse reaction; Pain is decreased; RASS: Alert and Calm (0) Outcome: 04/14 23:45 Discharge ordered by . [facility] 04/15 00:36 Discharged to home via wheelchair, TAxi called [facility] Condition: good Discharge instructions given to patient, Instructed on discharge instructions, follow up and referral plans. no drinking with medication, no driving heavy equipment, medication usage, POC Knee Pain Demonstrated understanding of instructions, follow-up care, medications, POC Prescriptions given X 1. 00:37 Patient left the ED. Signatures: Dispatcher [employer] EDOH Nakul Sargent MD MD pkl [place], Winsy Aguila Estrada mw2
[2019-04-15 00:09] LABS: Blood Morphology Comment NOT SEEN (NOT SEEN); Platelet Estimate DECR; Platelets, Giant NOTED
[2019-04-15 01:48] VITALS: TEMP 98.2
[2019-04-15 01:49] VITALS: BP 143/75; O2SAT 100
== END 2019-04-15 00:37 | disposition home or self-care (01) ==
LOC: ER 21:14
DX: M71.21 Synovial cyst of popliteal space [Baker], right knee (principal); I10 Essential (primary) hypertension; I48.91 Unspecified atrial fibrillation; E03.9 Hypothyroidism, unspecified; E78.5 Hyperlipidemia, unspecified; Z79.01 Long term (current) use of anticoagulants; Z85.038 Personal history of other malignant neoplasm of large intestine
CPT/HCPCS: 85025; 80048; 36415; 85379; 85652; 73562; 93971; 96375; 96374; 99284; J2405

== ENCOUNTER 2019-07-07 08:43 | Observation (INO) | payer OTHER ==
[2019-07-07] MEDS ORDERED: FAMOTIDINE 20 MG/2 ML VIAL IV ONE (09:21)
[2019-07-07] MEDS ORDERED: NA CHLORIDE 0.9% 1,000 ML ONE (09:21)
[2019-07-07 09:40] LABS: Absolute Lymphocytes (CBC) 1.6 K/uL (0.7-4.9); Basophils % 0.4 % (0-1.3); Hematocrit 23.3 % (39.6-49.0); Lymphocytes % 24.6 % (15.3-44.8); MPV 11.1 fL (7.6-11.3); Protime INR 1.17; RBC Red Blood Cell Count 2.57 M/uL (4.33-5.43)
[2019-07-07 09:57] LABS: ALT/SGPT 24 U/L (12-78); AST/SGOT 24 U/L (15-37); Albumin 3.8 g/dL (3.4-5.0); Alkaline Phosphatase 60 U/L (45-117); BUN Blood Urea Nitrogen 17 mg/dL (7-18); Bicarbonate 29 mmol/L (21-32); Bilirubin Direct 0.2 mg/dL (0-0.2); Bilirubin Total 0.6 mg/dL (0.2-1.0); Glucose Level 88 mg/dL (74-106); Lipase 100 U/L (73-393); Magnesium 2.3 mg/dL (1.8-2.4); NT PRO-BNP 200 pg/mL (<125); Potassium 3.9 mmol/L (3.5-5.1); Protein, Total 7.7 g/dL (6.4-8.2); Sodium Level 140 mmol/L (136-145); Troponin (Emerg Dept Use Only) < 0.02 ng/mL (0.0-0.045)
--- NOTE | 2019-07-07 10:07 | RAD REPORT ---
EXAM DESCRIPTION: RAD - Chest Single View - 07/07/2019 9:36 am CLINICAL HISTORY: Cough;Abdominal distention Chest pain. COMPARISON: Chest Single View dated 08/02/2018; Chest Single View dated 06/20/2018; Chest Single View dated 05/24/2018; ABDOMEN ACUTE SERIES dated 08/20/2013 FINDINGS: Portable technique limits examination quality. The lungs are grossly clear. The heart is normal in size. No displaced fractures. IMPRESSION: No acute intrathoracic process suspected.
[2019-07-07 11:07] LABS: Urine Blood NEGATIVE (NEG); Urine Glucose NEGATIVE (NEG); Urine Protein NEGATIVE (NEG); Urine Specific Gravity 1.025 (1.005-1.030); Urine pH 5.5 (5.0-7.0)
--- NOTE | 2019-07-07 11:17 | RAD REPORT ---
EXAM DESCRIPTION: CT - Head Brain Wo Cont - 07/07/2019 11:00 am CLINICAL HISTORY: Alteration of awareness/confusion. Colon cancer COMPARISON: None TECHNIQUE: Computed axial tomography of the head was obtained. IV contrast was not requested. All CT scans are performed using dose optimization technique as appropriate and may include automated exposure control or mA/KV adjustment according to patient size. FINDINGS: An intracranial bleed is not seen . The ventricles are normal in caliber. No extra-axial fluid collection is noted. Mild to moderate low-density areas within periventricular, deep and subcortical white matter likely r epresent ischemic changes secondary to small vessel disease. Partial opacification sphenoid sinus consistent with chronic sinusitis IMPRESSION: No acute intracranial abnormality is seen. If patient's symptoms persist MRI of the bra in would be recommended.
--- NOTE | 2019-07-07 11:38 | RAD REPORT ---
EXAM DESCRIPTION: CT - Abdomen Pelvis W Contrast - 07/07/2019 11:00 am CLINICAL HISTORY: Abdominal pain colon cancer COMPARISON: none. TECHNIQUE: Computed axial tomography of the abdomen pelvis was obtained. 100 cc Isovue-300 was admin istered intravenously. Oral contrast was given All CT scans are performed using dose optimization technique as appropriate and may include automated exposure control or mA/KV adjustment according to patient size. FINDINGS: The patient's arms are by the side. This results in artifact within portions of the liver and spleen which limit detection of lesions. The liver and spleen appear grossly normal. The pancreas and adrenals are unremarkable. Small renal cysts There is no evidence of diverticulitis. Normal appendix Spondylosis involves lumbar spine resulting in spinal stenosis A small left ventral hernia at the level of iliac crest contains a portion of nondilated bowel. IMPRESSION: Small left ventral hernia
--- NOTE | 2019-07-07 12:08 | EKG ---
Test Date: 2019-07-07 Test Time: 09:26:39 Opto Mechanical Engineer: SRIDEVI MEASUREMENT RESULTS: Intervals: Rate: 46 ME: 220 QRSD: 100 QT: 488 QTc: 427 [place]: P: 52 ME: 220 QRS: 48 T: 51 INTERPRETIVE STATEMENTS: Marked sinus bradycardia with 1st degree AV block Abnormal ECG Compared to ECG 06/20/2018 13:33:58 First degree AV block now present Atrial fibrillation no longer present Electronically Signed On 07-07-19 12:07:13 WOUND CARE PHYSICIAN by Arnulfo Rinaldi
[2019-07-07 12:20] LABS: Platelet Estimate DECR
[2019-07-07 12:21] LABS: Anisocytosis 1+; Blood Morphology Comment NOTED (NOT SEEN); Platelets, Giant FEW
--- NOTE | 2019-07-07 13:35 | ER ---
Nurse's Notes [facility] Name: John Cuevas Age: 73 yrs Sex: Male : 1945 Arrival Date: 07/07/2019 Time: 08:50 Bed 4 Private MD: Diagnosis: Weakness;Anemia, unspecified;Dyspnea;Abdominal tenderness;Ventral hernia without obstruction or gangrene Presentation: 07/07 08:51 Presenting complaint: EMS states: Generalized weakness x 2 weeks. Transition of care: hb patient was not received from another setting of care. Onset of symptoms was July 07, 2019. Risk Assessment: Do you want to hurt yourself or someone else? Patient reports no desire to harm self or others. Initial Sepsis Screen: Does the patient meet any 2 criteria? No. Patient's initial sepsis screen is negative. Does the patient have a suspected source of infection? No. Patient's initial sepsis screen is negative. Care prior to arrival: IV initiated. 20 GA, in the left antecubital area. 08:51 Method Of Arrival: EMS: [facility] 08:51 Acuity: KEVIN 3 hb Triage Assessment: 08:54 General: Appears in no apparent distress. Behavior is calm, cooperative. Pain: Denies hb pain. EENT: No signs and/or symptoms were reported regarding the EENT system. Neuro: Level of Consciousness is awake, alert, obeys commands, Oriented to person, place, time, situation. Cardiovascular: Heart tones S1 S2 present Capillary refill < 3 seconds Patient's skin is warm and dry. Rhythm is sinus bradycardia. Respiratory: Airway is patent Respiratory effort is even, unlabored, Respiratory pattern is regular, symmetrical, Breath sounds are clear bilaterally. GI: Reports nausea. : No signs and/or symptoms were reported regarding the genitourinary system. Derm: Skin is intact, is healthy with good turgor. Musculoskeletal: Reports generalized weakness. Historical: - Allergies: 08:53 No Known Allergies; hb - Home Meds: 08:53 Amiodarone Oral [Active]; levothyroxine for Hypothyroidism [Active]; lisinopril Oral hb [Active]; Metoprolol Tartrate Oral [Active]; Plavix Oral [Active]; Simvastatin Oral [Active]; - PMHx: 08:53 Atrial Fib; colon cancer; Hyperlipidemia; Hypertension; Hypothyroidism; hb - PSHx: 08:53 Cardiac Cath; Exploratory lap; hb - Immunization history:: Adult Immunizations up to date. - Social history:: Smoking status: Patient/guardian denies using tobacco. - Ebola Screening: : No symptoms or risks identified at this time. - Family history:: not pertinent. Screenin:55 Abuse screen: Denies threats or abuse. Denies injuries from another. Nutritional hb screening: No deficits noted. Tuberculosis screening: No symptoms or risk factors identified. Fall Risk Total [place] Fall Scale indicates Low Risk Score (25-44 pts). Fall prevention measures have been instituted. Side Rails Up X 2 Frequent Obs/Assesments occuring As available Patient and Family Educated on Fall Prevention Program and strategies. Assessment: 08:55 General: see triage assessment. hb 09:40 Reassessment: Pt finished CT oral contrast, CT was notified . aa5 10:04 Reassessment: Daughter Brenda [phone]. hb 10:06 Reassessment: Patient appears in no apparent distress at this time. Patient and/or hb family updated on plan of care and expected duration. Pain level reassessed. Patient is alert, oriented x 3, equal unlabored respirations, skin warm/dry/pink. 11:00 Reassessment: Patient appears in no apparent distress at this time. Patient and/or hb family updated on plan of care and expected duration. Pain level reassessed. Patient is alert, oriented x 3, equal unlabored respirations, skin warm/dry/pink. Daughter at bedside. 11:41 Reassessment: Patient appears in no apparent distress at this time. Patient and/or sv family updated on plan of care and expected duration. Pain level reassessed. Patient is alert, oriented x 3, equal unlabored respirations, skin warm/dry/pink. 12:07 Reassessment: Ashly (daughter) contact no. [phone]. Work no. [phone]. Has to ca1 get back to work. Please call if nurses need anything. 13:00 Reassessment: Patient appears in no apparent distress at this time. Patient and/or hb family updated on plan of care and expected duration. Pain level reassessed. Patient is alert, oriented x 3, equal unlabored respirations, skin warm/dry/pink. 14:00 Reassessment: Patient appears in no apparent distress at this time. Patient and/or hb family updated on plan of care and expected duration. Pain level reassessed. Patient is alert, oriented x 3, equal unlabored respirations, skin warm/dry/pink. Admission ordered, awaiting room assignment at this time. 15:00 Reassessment: Patient appears in no apparent distress at this time. No changes from hb previously documented assessment. Patient and/or family updated on plan of care and expected duration. Pain level reassessed. 16:00 Reassessment: Patient appears in no apparent distress at this time. Patient and/or hb family updated on plan of care and expected duration. Pain level reassessed. Patient is alert, oriented x 3, equal unlabored respirations, skin warm/dry/pink. 17:00 Reassessment: Patient appears in no apparent distress at this time. Patient and/or hb family updated on plan of care and expected duration. Pain level reassessed. Patient is alert, oriented x 3, equal unlabored respirations, skin warm/dry/pink. 17:43 Reassessment: Patient appears in no apparent distress at this time. No changes from previously documented assessment. Patient and/or family updated on plan of care and expected duration. Pain level reassessed. Patient is alert, oriented x 3, equal unlabored respirations, skin warm/dry/pink. Vital Signs: 08:53 BP 164 / 88; Pulse 50; Resp 16; Temp 97.1(TE); Pulse Ox 99% on R/A; Weight 120.2 kg; hb Height 6 ft. 4 in. (193.04 cm); Pain 0/10; 10:00 BP 167 / 94; Pulse 51; Resp 15; Pulse Ox 100% on R/A; hb 11:00 BP 162 / 90; Pulse 50; Resp 17; Pulse Ox 99% on R/A; hb 11:39 BP 139 / 90; Pulse 49; Resp 17; Pulse Ox 100% on R/A; sv 12:32 BP 138 / 82; Pulse 48; Resp 17; Pulse Ox 96% on R/A; hb 13:30 BP 149 / 76; Pulse 50; Resp 15; Pulse Ox 99% on R/A; Pain 0/10; hb 14:30 BP 139 / 87; Pulse 52; Resp 15; Pulse Ox 99% on R/A; hb 15:52 BP 141 / 74; Pulse 52; Resp 17; Pulse Ox 99% ; sv 17:30 BP 137 / 74; Pulse 52; Resp 17; Temp 97.2; Pulse Ox 99% ; Pain 0/10; hb 08:53 Body Mass Index 32.26 (120.20 kg, 193.04 cm) hb ED Course: 08:50 Patient arrived in ED. hb 08:52 Triage completed. hb 08:53 Arm band placed on. hb 08:55 Patient has correct armband on for positive identification. Bed in low position. Call hb light in reach. Side rails up X2. 08:57 Osvaldo Beckman MD is Attending Physician. leonidas 09:25 Maintain EMS IV. Dressing intact. Good blood return noted. Site clean \T\ dry. Gauge \T\ sv site: 20G L AC. 09:27 Yaa Enrique RN is Primary Nurse. sv 09:29 EKG done, by laboratory technology teacher. reviewed by Osvaldo Beckman MD. at1 09:36 XRAY Chest (1 view) In Process Unspecified. EDMS 10:27 Awaiting radiology results. Awaiting CT Scan. sv 11:03 CT Abd/Pelvis - PO and IV Contrast In Process Unspecified. EDMS 11:03 CT Head Brain wo Cont In Process Unspecified. EDMS 11:41 Awaiting radiology results. sv 12:02 Prince William MD is Hospitalizing Provider. leonidas 17:43 No provider procedures requiring assistance completed. Patient admitted, IV remains in hb place. Administered Medications: 09:28 Drug: Pepcid 20 mg Route: IVP; Site: left antecubital; sv 09:52 Follow up: Response: No adverse reaction sv 09:28 Drug: NS 0.9% 500 ml Route: IV; Rate: bolus; Site: left antecubital; sv 09:52 Follow up: Response: No adverse reaction; IV Status: Completed infusion; IV Intake: sv 500ml 09:52 Drug: NS 0.9% 1000 ml Route: IV; Rate: 125 ml/hr; Site: left antecubital; sv 17:43 Follow up: Response: No adverse reaction; IV Status: Infusion continued upon admission sv Intake: 09:52 IV: 500ml; Total: 500ml. sv Outcome: 12:04 Decision to Hospitalize by Provider. leonidas 17:43 Admitted to Tele accompanied by tech, via wheelchair, Report called to Elvi JACKSON 17:43 Condition: stable 17:43 Instructed on the need for admit, Demonstrated understanding of instructions. 18:13 Patient left the ED. hb Signatures: Dispatcher [employer] Yaa Tse, RN Osvaldo Case MD MD cha Calderon, Audri, RN RN aa5 Felicita Pagan, mathematician EKG Tat1 Cely Bridges RN RN hb AcBri jordan RN RN ca1
--- NOTE | 2019-07-07 13:36 | EDPHYS ---
Physician Documentation [facility] Name: John Cuevas Age: 73 yrs Sex: Male : 1945 Arrival Date: 07/07/2019 Time: 08:50 Bed 4 Private MD: ED Physician Osvaldo Beckman HPI: 07/07 09:14 This 73 yrs old Male presents to ER via EMS with complaints of General leonidas Weakness. 09:14 The patient presents with abdominal pain in the upper abdomen, in the lower abdomen, leonidas abdominal distention in the upper abdomen, in the lower abdomen. Onset: The symptoms/episode began/occurred 3 day(s) ago. weak, abd pain, weight loss. Onset: The symptoms/episode began/occurred 3 day(s) ago. The symptoms do not radiate. Associated signs and symptoms: none. Modifying factors: The symptoms are alleviated by nothing, the symptoms are aggravated by nothing. Severity of pain: At its worst the pain was moderate in the emergency department the pain is unchanged. Severity of symptoms: At their worst the symptoms were moderate in the emergency department the symptoms are unchanged. Historical: - Allergies: 08:53 No Known Allergies; hb - Home Meds: 08:53 Amiodarone Oral [Active]; levothyroxine for Hypothyroidism [Active]; lisinopril Oral hb [Active]; Metoprolol Tartrate Oral [Active]; Plavix Oral [Active]; Simvastatin Oral [Active]; - PMHx: 08:53 Atrial Fib; colon cancer; Hyperlipidemia; Hypertension; Hypothyroidism; hb - PSHx: 08:53 Cardiac Cath; Exploratory lap; hb - Immunization history:: Adult Immunizations up to date. - Social history:: Smoking status: Patient/guardian denies using tobacco. - Ebola Screening: : No symptoms or risks identified at this time. - Family history:: not pertinent. ROS: 09:14 Constitutional: Negative for fever, chills, and weight loss, Eyes: Negative for injury, leonidas pain, redness, and discharge, ENT: Negative for injury, pain, and discharge, Neck: Negative for injury, pain, and swelling, Cardiovascular: Negative for chest pain, palpitations, and edema, Respiratory: Negative for shortness of breath, cough, wheezing, and pleuritic chest pain, Back: Negative for injury and pain, : Negative for injury, bleeding, discharge, and swelling, MS/Extremity: Negative for injury and deformity, Neuro: Negative for headache, weakness, numbness, tingling, and seizure, Psych: Negative for depression, anxiety, suicide ideation, homicidal ideation, and hallucinations, Allergy/Immunology: Negative for hives, rash, and allergies, Endocrine: Negative for neck swelling, polydipsia, polyuria, polyphagia, and marked weight changes, Hematologic/Lymphatic: Negative for swollen nodes, abnormal bleeding, and unusual bruising. 09:14 Abdomen/GI: Positive for abdominal pain, of the right upper quadrant, left upper quadrant, right lower quadrant and left lower quadrant. 09:14 Skin: Positive for pallor. Exam: 09:14 Constitutional: This is a well developed, well nourished patient who is awake, alert, leonidas and in no acute distress. Head/Face: Normocephalic, atraumatic. Eyes: Pupils equal round and reactive to light, extra-ocular motions intact. Lids and lashes normal. Conjunctiva and sclera are non-icteric and not injected. Cornea within normal limits. Periorbital areas with no swelling, redness, or edema. ENT: Nares patent. No nasal discharge, no septal abnormalities noted. Tympanic membranes are normal and external auditory canals are clear. Oropharynx with no redness, swelling, or masses, exudates, or evidence of obstruction, uvula midline. Mucous membranes moist. Neck: Trachea midline, no thyromegaly or masses palpated, and no cervical lymphadenopathy. Supple, full range of motion without nuchal rigidity, or vertebral point tenderness. No Meningismus. Chest/axilla: Normal chest wall appearance and motion. Nontender with no deformity. No lesions are appreciated. Cardiovascular: Regular rate and rhythm with a normal S1 and S2. No gallops, murmurs, or rubs. Normal PMI, no JVD. No pulse deficits. Respiratory: Lungs have equal breath sounds bilaterally, clear to auscultation and percussion. No rales, rhonchi or wheezes noted. No increased work of breathing, no retractions or nasal flaring. Back: No spinal tenderness. No costovertebral tenderness. Full range of motion. Male : Normal genitalia with no discharge or lesions. MS/ Extremity: Pulses equal, no cyanosis. Neurovascular intact. Full, normal range of motion. Neuro: Awake and alert, GCS 15, oriented to person, place, time, and situation. Cranial nerves II-XII grossly intact. Motor strength 5/5 in all extremities. Sensory grossly intact. Cerebellar exam normal. Normal gait. Psych: Awake, alert, with orientation to person, place and time. Behavior, mood, and affect are within normal limits. 09:14 Abdomen/GI: Inspection: distension, that is mild, in the right upper quadrant, left upper quadrant, right lower quadrant and left lower quadrant, Bowel sounds: normal, Palpation: mild abdominal tenderness, moderate abdominal tenderness, in the right upper quadrant, left upper quadrant, right lower quadrant and left lower quadrant, Liver: no appreciated palpable abnormalities, Hernia: not appreciated. 10:02 Abdomen/GI: Rectal exam: rectal tone normal, Stool: normal, guaiac negative, leonidas hemorrhoid(s), are not appreciated, mass, is not appreciated, swelling, is not appreciated, tenderness, is not appreciated. Vital Signs: 08:53 BP 164 / 88; Pulse 50; Resp 16; Temp 97.1(TE); Pulse Ox 99% on R/A; Weight 120.2 kg; hb Height 6 ft. 4 in. (193.04 cm); Pain 0/10; 10:00 BP 167 / 94; Pulse 51; Resp 15; Pulse Ox 100% on R/A; hb 11:00 BP 162 / 90; Pulse 50; Resp 17; Pulse Ox 99% on R/A; hb 11:39 BP 139 / 90; Pulse 49; Resp 17; Pulse Ox 100% on R/A; sv 12:32 BP 138 / 82; Pulse 48; Resp 17; Pulse Ox 96% on R/A; hb 13:30 BP 149 / 76; Pulse 50; Resp 15; Pulse Ox 99% on R/A; Pain 0/10; hb 14:30 BP 139 / 87; Pulse 52; Resp 15; Pulse Ox 99% on R/A; hb 15:52 BP 141 / 74; Pulse 52; Resp 17; Pulse Ox 99% ; sv 17:30 BP 137 / 74; Pulse 52; Resp 17; Temp 97.2; Pulse Ox 99% ; Pain 0/10; hb 08:53 Body Mass Index 32.26 (120.20 kg, 193.04 cm) MDM: 08:57 Patient medically screened. [facility] 09:16 Data reviewed: vital signs, nurses notes, lab test result(s), EKG, radiologic studies, [facility] CT scan, plain films. 07/07 09:12 Order name: Basic Metabolic Panel; Complete Time: 10:54 leonidas 07/07 09:12 Order name: CBC with Diff [facility] 07/07 09:12 Order name: LFT's; Complete Time: 10:54 [facility] 07/07 09:12 Order name: Magnesium; Complete Time: 10:54 [facility] 07/07 09:12 Order name: NT PRO-BNP; Complete Time: 10:54 [facility] 07/07 09:12 Order name: PT-INR; Complete Time: 09:57 [facility] 07/07 09:12 Order name: Troponin (emerg Dept Use Only); Complete Time: 10:54 [facility] 07/07 09:13 Order name: Lipase; Complete Time: 10:54 [facility] 07/07 09:13 Order name: Urine Culture [facility] 07/07 09:14 Order name: TSH; Complete Time: 10:54 leonidas 07/07 10:03 Order name: Occult Blood--Ancillary; Complete Time: 10:54 07/07 10:16 Order name: T4 Free; Complete Time: 10:54 EDMS 07/07 10:44 Order name: Urine Dipstick--Ancillary (enter results); Complete Time: 11:51 bd 07/07 12:22 Order name: Manual Differential EDMN 07/07 09:12 Order name: XRAY Chest (1 view); Complete Time: 10:54 [facility] 07/07 09:12 Order name: EKG; Complete Time: 09:14 [facility] 07/07 09:13 Order name: Cardiac monitoring; Complete Time: 09:14 [facility] 07/07 09:13 Order name: EKG - Nurse/Tech; Complete Time: 09:29 [facility] 07/07 09:13 Order name: IV Saline Lock; Complete Time: 09:14 [facility] 07/07 09:13 Order name: Labs collected and sent; Complete Time: 09:29 [facility] 07/07 09:13 Order name: O2 Per Protocol; Complete Time: 09:14 [facility] 07/07 09:13 Order name: O2 Sat Monitoring; Complete Time: 09:14 [facility] 07/07 09:13 Order name: Urine Dipstick-Ancillary (obtain specimen); Complete Time: 11:03 [facility] 07/07 09:13 Order name: CT Abd/Pelvis - PO and IV Contrast leonidas 07/07 10:03 Order name: CT Head Brain wo Cont leonidas Administered Medications: :28 Drug: Pepcid 20 mg Route: IVP; Site: left antecubital; sv 09:52 Follow up: Response: No adverse reaction sv 09:28 Drug: NS 0.9% 500 ml Route: IV; Rate: bolus; Site: left antecubital; sv 09:52 Follow up: Response: No adverse reaction; IV Status: Completed infusion; IV Intake: sv 500ml 09:52 Drug: NS 0.9% 1000 ml Route: IV; Rate: 125 ml/hr; Site: left antecubital; sv 17:43 Follow up: Response: No adverse reaction; IV Status: Infusion continued upon admission sv Disposition: 07/07/19 12:04 Hospitalization ordered by Prince Stewart for Inpatient Admission. Preliminary diagnosis are Weakness, Anemia, unspecified, Dyspnea, Abdominal tenderness, Ventral hernia without obstruction or gangrene. - Bed requested for Telemetry/MedSurg (Inpatient). - Status is Inpatient Admission. hb - Condition is Fair. - Problem is new. - Symptoms have improved. UTI on Admission? No Signatures: Dispatcher [employer] EDYaa Strong RN RN sv Woody, Diana, RN RN dw Anderson, Corey, MD MD cha Baxter, Heather, RN RN hb Corrections: (The following items were deleted from the chart) 16:52 12:04 Hospitalization Ordered by Prince Stewart REYES for Inpatient Admission. Preliminary dw diagnosis is Weakness; Anemia, unspecified; Dyspnea; Abdominal tenderness; Ventral hernia without obstruction or gangrene. Bed requested for Telemetry/MedSurg (Inpatient). Status is Inpatient Admission. Condition is Fair. Problem is new. Symptoms have improved. UTI on Admission? No. leonidas 18:13 16:52 07/07/2019 12:04 Hospitalization Ordered by Prince Stewart REYES for Inpatient hb Admission. Preliminary diagnosis is Weakness; Anemia, unspecified; Dyspnea; Abdominal tenderness; Ventral hernia without obstruction or gangrene. Bed requested for Telemetry/MedSurg (Inpatient). Status is Inpatient Admission. Condition is Fair. Problem is new. Symptoms have improved. UTI on Admission? No. dw
[2019-07-07] MEDS ORDERED: RIVAROXABAN 20 MG TABLET PO SCH (17:00)
--- NOTE | 2019-07-07 17:03 | P.HP ---
Certification for Inpatient Patient admitted to: Observation With expected LOS: <2 Midnights Practitioner: I am a practitioner with admitting privileges, knowledge of patient current condition, hospital course, and medical plan of care. Services: Services provided to patient in accordance with Admission requirements found in Title 42 Section 412.3 of the Code of Federal Regulations Patient History Date of Service: 07/07/19 Reason for admission: abdominal pain, chest pain History of Present Illness: Patient is a 73-year-old male with a known past medical history of Atrial Fib, colon cancer status post ex lap and resection, Hyperlipidemia, Hypertension and Hypothyroidism. He presented the ER complaining of diffuse abdominal pain especially in the upper epigastric area radiating superiorly to the neck. Associated symptoms include nausea. He has no vomiting. Patient is also reporting some diffuse generalized weakness especially in the joints in both upper and lower extremities. He is a poor historian. Allergies No Known Allergies Allergy (Verified 05/24/18 15:33) Home Medications: Levothyroxine [Synthroid*] 0.05 mg PO [id number] 05/24/18 Simvastatin 20 mg PO DAILY 05/24/18 lisinopriL [Prinivil*] 20 mg PO DAILY 05/24/18 Metoprolol Succinate [Toprol Xl*] 25 mg PO [id number] #30 tab 05/25/18 Rivaroxaban [Xarelto*] 20 mg PO DAILY AT SUPPER #60 tablet 05/25/18 - Past Medical/Surgical History -: HTN -: Hypothyroidism -: Colon Cancer 2005 -: Cataract Surgery -: Bowel resection -: skin grafting - Social History Alcohol use: No CD- Drugs: No Caffeine use: Yes Physical Examination - Physical Exam General: Alert, In no apparent distress, Cooperative HEENT: Atraumatic, Normocephalic, EOMI Respiratory: Clear to auscultation bilaterally, Normal air movement, Diminished Cardiovascular: No edema, Normal pulses, Regular rate/rhythm, Normal S1 S2 Gastrointestinal: Normal bowel sounds, Soft and benign, Non-distended Musculoskeletal: No swelling, No erythema Integumentary: No rashes, No significant lesion, No erythema Neurological: Normal speech, Normal affect - Studies Laboratory Data (last 24 hrs) 07/07/19 09:20: PT 13.7 H, INR 1.17 07/07/19 09:20: WBC 6.7, Hgb 8.1 L, Hct 23.3 L, Plt Count 101 L 07/07/19 09:20: Sodium 140, Potassium 3.9, BUN 17, Creatinine 1.23, Glucose 88, Magnesium 2.3, Total Bilirubin 0.6, AST 24, ALT 24, Alkaline Phosphatase 60, Lipase 100 Microbiology Data (last 24 hrs): 07/07/19 10:03 Stool Occult Blood - Final Assessment and Plan - Problems (Diagnosis) (1) Abdominal pain Current Visit: Yes Status: Acute (2) Atrial fibrillation Onset Date: 05/27/18 Current Visit: No Status: Acute Qualifiers: Atrial fibrillation type: unspecified Qualified Code(s): I48.91 - Unspecified atrial fibrillation (3) HTN (hypertension) Onset Date: 05/27/18 Current Visit: No Status: Chronic Qualifiers: Hypertension type: essential hypertension Qualified Code(s): I10 - Essential (primary) hypertension (4) Hypothyroidism Onset Date: 05/27/18 Current Visit: No Status: Chronic Qualifiers: Hypothyroidism type: acquired Qualified Code(s): E03.9 - Hypothyroidism, unspecified - Plan Impressions 73-year-old male with unknown past medical history of colon cancer status post resection, hypertension, hyperlipidemia, atrial fibrillation who presented the ER complaining of nonspecific abdominal pain associated with diffuse joint pain and nausea. Workup so far in the ER included a CT head, CT abdomen and pelvis and basic labs including metabolic panel with tsh. Was found to have a mildly elevated tsh within normal free T4 levels consistent with his age. The CT head was unremarkable and a CT abdomen and pelvis upon room revealed a small ventral hernia. Plan: 1. Admit under observation 2. Start IV ppi, antiemetics and GI cocktail 3. Slowly advanced diet until baseline consistency 4. Resume home dose of metoprolol, xarelto for atrial fibrillation, lisinopril for HTN - Advance Directives Does patient have a Living Will: No Does patient have a Durable POA for Healthcare: No
[2019-07-07] MEDS ORDERED: SODIUM CHLORIDE 0.9% 10ML INJ IV PRN (18:41)
[2019-07-07] MEDS ORDERED: MAGNES/ALUMIN/SIMET 30ML UCUP PO ONE (18:41)
[2019-07-07 18:45] VITALS: O2SAT 99
[2019-07-07] MEDS ORDERED: ATORVASTATIN 10 MG TAB PO SCH (21:00)
[2019-07-07 21:21] VITALS: BMI 32.2
[2019-07-07] MEDS: PANTOPRAZOLE 40 MG INJ IVP SCH (21:47)
[2019-07-08] MEDS ORDERED: PNEUMOCOCCAL VACCINE 0.5 ML IMVAC ONE (06:00)
[2019-07-08] MEDS ORDERED: INFLUENZA VACCINE (for 3y+) 0.5 ML DOSE IMVAC ONE (06:00)
[2019-07-08] MEDS ORDERED: METOPROLOL XL 25 MG TAB PO SCH (06:00)
[2019-07-08] MEDS ORDERED: LEVOTHYROXINE SOD 0.05 MG TABLET PO SCH (06:00)
[2019-07-08 08:10] LABS: Absolute Lymphocytes (CBC) 1.3 K/uL (0.7-4.9); Basophils % 1.1 % (0-1.3); Hematocrit 30.3 % (39.6-49.0); Lymphocytes % 27.2 % (15.3-44.8); MPV 11.5 fL (7.6-11.3); RBC Red Blood Cell Count 3.36 M/uL (4.33-5.43)
[2019-07-08] MEDS ORDERED: lisinopriL 20 MG TAB PO SCH (09:00)
[2019-07-08] MEDS: PANTOPRAZOLE 40 MG INJ IVP SCH (09:25)
--- NOTE | 2019-07-08 11:26 | P.DS ---
Admission Date: 07/07/19 Discharge Date: 07/08/19 Disposition: ROUTINE DISCHARGE Discharge Condition: GOOD Reason for Admission: abdominal pain, chest pain - Problems (1) Abdominal pain Current Visit: Yes Status: Acute (2) Atrial fibrillation Onset Date: 05/27/18 Current Visit: No Status: Acute Qualifiers: Atrial fibrillation type: unspecified Qualified Code(s): I48.91 - Unspecified atrial fibrillation (3) HTN (hypertension) Onset Date: 05/27/18 Current Visit: No Status: Chronic Qualifiers: Hypertension type: essential hypertension Qualified Code(s): I10 - Essential (primary) hypertension (4) Hypothyroidism Onset Date: 05/27/18 Current Visit: No Status: Chronic Qualifiers: Hypothyroidism type: acquired Qualified Code(s): E03.9 - Hypothyroidism, unspecified Brief History of Present Illness: Patient is a 73-year-old male with a known past medical history of Atrial Fib, colon cancer status post ex lap and resection, Hyperlipidemia, Hypertension and Hypothyroidism. He presented the ER complaining of diffuse abdominal pain especially in the upper epigastric area radiating superiorly to the neck. Associated symptoms include nausea. He has no vomiting. Patient is also reporting some diffuse generalized weakness especially in the joints in both upper and lower extremities. He is a poor historian. Hospital Course: Patient was admitted with a working diagnosis of gastrointestinal irritation. Was placed on PPI and GI cocktail along with IV fluids. He responded significantly to both therapy. Physical therapy also worked with the patient given his complaints of diffuse joint and muscle weakness. He was cleared to go back to his prior level of functioning. His hospital stay has been otherwise unremarkable. He was able to maintain a stable hemoglobin. He presented with thrombocytopenia and had a slight drop of his platelet counts with 81 being the last read. He will be discharged to follow up with his PCP within 1 week for evaluation of low platelet. Of note, patient complained of extreme bilateral knee pain upon movement. Probably has osteoarthritis. 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 I counseled the patient to arrange for outpatient evaluation by Orthopedic surgery through a social staff worker. Vital Signs/Physical Exam: Temp Pulse Resp BP Pulse Ox 97.1 F 74 18 146/69 H 98 07/08/19 08:00 07/08/19 08:00 07/08/19 08:00 07/08/19 08:00 07/08/19 08:00 General: Alert, In no apparent distress, Cooperative HEENT: Atraumatic, Normocephalic, EOMI Neck: Supple Respiratory: Clear to auscultation bilaterally, Normal air movement Cardiovascular: No edema, Regular rate/rhythm, Normal S1 S2, Abnormal S3 Gastrointestinal: Normal bowel sounds, Soft and benign, Non-distended Integumentary: Warmth Neurological: Normal speech, Normal affect Laboratory Data at Discharge: WBC 4.9 K/uL (4.3-10.9) D 07/08/19 07:58 Hgb 10.1 g/dL (13.6-17.9) L 07/08/19 07:58 Hct 30.3 % (39.6-49.0) L D 07/08/19 07:58 Plt Count 83 K/uL (152-406) L 07/08/19 07:58 PT 13.7 SECONDS (9.5-12.5) H 07/07/19 09:20 INR 1.17 07/07/19 09:20 Sodium 140 mmol/L (136-145) 07/07/19 09:20 Potassium 3.9 mmol/L (3.5-5.1) 07/07/19 09:20 BUN 17 mg/dL (7-18) 07/07/19 09:20 Creatinine 1.23 mg/dL (0.55-1.3) 07/07/19 09:20 Glucose 88 mg/dL (74-106) 07/07/19 09:20 Magnesium 2.3 mg/dL (1.8-2.4) 07/07/19 09:20 Total Bilirubin 0.6 mg/dL (0.2-1.0) 07/07/19 09:20 AST 24 U/L (15-37) 07/07/19 09:20 ALT 24 U/L (12-78) 07/07/19 09:20 Alkaline Phosphatase 60 U/L (45-117) 07/07/19 09:20 Lipase 100 U/L (73-393) 07/07/19 09:20 Home Medications: Atorvastatin Calcium [Lipitor*] 10 mg PO BEDTIME tab 07/08/19 Levothyroxine [Synthroid*] 0.05 mg PO [id number] tablet 07/08/19 Metoprolol Succinate [Toprol Xl*] 25 mg PO [id number] tab 07/08/19 lisinopriL [Prinivil*] 20 mg PO DAILY tab 07/08/19 Patient Discharge Instructions: Patient needs to follow up with his PCP within 1 week for outpatient work up of thrombocytopenia Diet: Regular
[2019-07-08 12:23] VITALS: BP 122/65; TEMP 97.6
== END 2019-07-08 12:59 | disposition home or self-care (01) ==
LOC: ER 08:43 → ERHOLD 16:39 → 2ND 17:04
PROVIDERS: ADMIT Internal Medicine; ATTEND Internal Medicine
DX: R10.9 Unspecified abdominal pain (principal); I48.91 Unspecified atrial fibrillation; I10 Essential (primary) hypertension; E03.9 Hypothyroidism, unspecified; Z85.038 Personal history of other malignant neoplasm of large intestine; Z23 Encounter for immunization
CPT/HCPCS: 96361; 93005; 87088; 85025 ×2; 87086; 80048; 36415; 83735; 85610; 80076; 82272; 84443; 81003; 84484; 84439; 83690; 83880; 70450; 74177; 71045; 90471; 97116; 97161; 97530; 96374; 99285; Q9967; Q2035; C9113 ×2; J7030; G0378 ×3; 90670

== ENCOUNTER 2019-07-17 09:17 | Emergency (ER) | payer OTHER ==
[2019-07-17 09:48] LABS: Absolute Lymphocytes (CBC) 1.7 K/uL (0.7-4.9); Basophils % 0.5 % (0-1.3); Hematocrit 28.9 % (39.6-49.0); Lymphocytes % 31.1 % (15.3-44.8); MPV 10.6 fL (7.6-11.3); RBC Red Blood Cell Count 3.21 M/uL (4.33-5.43)
[2019-07-17 09:49] LABS: Protime INR 2.27
[2019-07-17 10:05] LABS: ALT/SGPT 19 U/L (12-78); AST/SGOT 17 U/L (15-37); Albumin 3.9 g/dL (3.4-5.0); Alkaline Phosphatase 56 U/L (45-117); BUN Blood Urea Nitrogen 17 mg/dL (7-18); Bicarbonate 26 mmol/L (21-32); Bilirubin Direct 0.2 mg/dL (0-0.2); Bilirubin Total 0.5 mg/dL (0.2-1.0); Glucose Level 82 mg/dL (74-106); Magnesium 2.3 mg/dL (1.8-2.4); NT PRO-BNP 222 pg/mL (<125); Potassium 3.8 mmol/L (3.5-5.1); Protein, Total 7.5 g/dL (6.4-8.2); Sodium Level 140 mmol/L (136-145); Troponin (Emerg Dept Use Only) < 0.02 ng/mL (0.0-0.045)
--- NOTE | 2019-07-17 10:35 | RAD REPORT ---
EXAM DESCRIPTION: CT - Head Brain Wo Cont - 07/17/2019 10:27 am CLINICAL HISTORY: Transient alteration of awareness, dizziness COMPARISON: CT head July 07 TECHNIQUE: Axial 5 mm thick images of the head were obtained without IV contrast. All CT scans are performed using dose optimization technique as appropriate and may include automated exposure control or mA/KV adjustment according to patient size. FINDINGS: No intracranial hemorrhage, mass, edema or shift of mid-line structures. No acute infarcti on changes seen. No abnormal extra-axial fluid collections. Mild atrophy and chronic ischemic changes match the earlier study. Ventricles remain in proportion to the amount of volume loss. Mastoid air cells and visualized portions of the paranasal sinuses are clear. No acute bony findings. IMPRESSION: Negative non-contrast CT head examination for acute or significant finding. No change f rom July 07 study.
--- NOTE | 2019-07-17 10:45 | RAD REPORT ---
EXAM DESCRIPTION: RAD - Chest Single View - 07/17/2019 10:36 am CLINICAL HISTORY: CHEST PAIN Chest pain. COMPARISON: Chest Single View dated 07/07/2019; Chest Single View dated 08/02/2018; Chest Single View da mark 06/20/2018; Chest Single View dated 05/24/2018 FINDINGS: Portable technique limits examination quality. The lungs are grossly clear. The heart is upper limit of normal in size. No displaced fractures. IMPRESSION: No acute intrathoracic process suspected.
--- NOTE | 2019-07-17 10:58 | EKG ---
Test Date: 2019-07-17 Test Time: 09:25:26 Drilling Machine Operator: SRIDEVI MEASUREMENT RESULTS: Intervals: Rate: 51 IN: 222 QRSD: 100 QT: 492 QTc: 453 [place]: P: 41 IN: 222 QRS: 49 T: 52 INTERPRETIVE STATEMENTS: Sinus bradycardia with 1st degree AV block Otherwise normal ECG Compared to ECG 07/07/2019 09:26:39 No significant changes Electronically Signed On 07-17-19 10:58:02 DTP OPERATOR by Ervin Banks
--- NOTE | 2019-07-17 11:42 | ER ---
Nurse's Notes [facility] Name: John Cuevas Age: 73 yrs Sex: Male : 1945 Arrival Date: 07/17/2019 Time: 09:17 Bed 20 Private MD: Diagnosis: Dizziness and giddiness;Confusional arousals Presentation: 07/17 09:18 Presenting complaint: EMS states: Pt c/o dizziness upon standing, pt hypertensive in ph 180s, HR in 50s, takes beta-sanjeev, denies pain. Transition of care: patient was not received from another setting of care. Onset of symptoms was July 17, 2019. Risk Assessment: Do you want to hurt yourself or someone else? Patient reports no desire to harm self or others. Initial Sepsis Screen: Does the patient meet any 2 criteria? No. Patient's initial sepsis screen is negative. Does the patient have a suspected source of infection? No. Patient's initial sepsis screen is negative. Care prior to arrival: IV initiated. 18 GA, in the left antecubital area, Glucose check: 110. 09:18 Method Of Arrival: EMS: [facility] 09:18 Acuity: KEVIN 3 ph Historical: - Allergies: 09:22 No Known Allergies; ph - Home Meds: 09:22 Amiodarone Oral [Active]; levothyroxine for Hypothyroidism [Active]; lisinopril Oral ph [Active]; Metoprolol Tartrate Oral [Active]; Plavix Oral [Active]; Simvastatin Oral [Active]; - PMHx: 09:22 Atrial Fib; colon cancer; Hyperlipidemia; Hypertension; Hypothyroidism; ph - PSHx: 09:22 Cardiac Cath; Exploratory lap; ph - Immunization history:: Adult Immunizations up to date. - Social history:: Smoking status: Patient/guardian denies using tobacco. - Ebola Screening: : Patient negative for fever greater than or equal to 101.5 degrees Fahrenheit, and additional compatible Ebola Virus Disease symptoms. Screenin:20 Abuse screen: Denies threats or abuse. Nutritional screening: No deficits noted. rb1 Tuberculosis screening: No symptoms or risk factors identified. Fall Risk No fall in past 12 months (0 pts). Secondary diagnosis (15 points) dizziness. IV access (20 points). Ambulatory Aid- None/Bed Rest/Nurse Assist (0 pts). Gait- Normal/Bed Rest/Wheelchair (0 pts) Mental Status- Oriented to own ability (0 pts). Total [place] Fall Scale indicates Low Risk Score (25-44 pts). Fall prevention measures have been instituted. Side Rails Up X 2 Placed close to Nursing Station 1:1 attendant Assigned to Pt. Frequent Obs/Assesments occuring As available Patient and Family Educated on Fall Prevention Program and strategies. Assessment: 09:20 General: Appears in no apparent distress. comfortable, Behavior is calm, cooperative, rb1 Denies fever, feeling ill. Pain: Denies pain. Neuro: Level of Consciousness is awake, alert, obeys commands, Oriented to person, place, time, situation, pt. reports intermittent confusion. Neuro: Reports dizziness, unknown onset. Cardiovascular: Capillary refill < 3 seconds is brisk in bilateral fingers. Respiratory: Airway is patent Respiratory effort is even, unlabored, Respiratory pattern is regular, symmetrical. GI: No signs and/or symptoms were reported involving the gastrointestinal system. GI: Reports nausea. : No signs and/or symptoms were reported regarding the genitourinary system. Derm: Skin is pink, warm \T\ dry. 10:20 Reassessment: Patient appears in no apparent distress at this time. No changes from rb1 previously documented assessment. 10:23 Reassessment: Pt. went to CT. rb1 11:00 Reassessment: Patient appears in no apparent distress at this time. Patient and/or rb1 family updated on plan of care and expected duration. Pain level reassessed. Patient is alert, oriented x 3, equal unlabored respirations, skin warm/dry/pink. 11:41 Reassessment: Called Brenda, the pt. daughter for transportation. They are on their way [facility] to pick him up. 11:55 Reassessment: Patient appears in no apparent distress at this time. No changes from rb1 previously documented assessment. Vital Signs: 09:20 BP 160 / 86; Pulse 48; Resp 18; Temp 97.5; Pulse Ox 100% on R/A; Weight 113.4 kg; ph Height 6 ft. 4 in. (193.04 cm); 10:20 BP 173 / 90; Pulse 49; Resp 14; Pulse Ox 96% on R/A; Pain 0/10; rb1 11:20 BP 147 / 83; Pulse 51; Resp 17; Pulse Ox 100% on R/A; Pain 0/10; rb1 09:20 Body Mass Index 30.43 (113.40 kg, 193.04 cm) ph ED Course: 09:17 Patient arrived in ED. ph 09:18 Osman Mcdaniel PA is PHCP. jr8 09:18 Antonio Joseph MD is Attending Physician. jr8 09:19 Triage completed. ph 09:20 Patient has correct armband on for positive identification. Bed in low position. Call rb1 light in reach. Side rails up X2. athletic monitor on. Pulse ox on. NIBP on. Warm blanket given. 09:20 Maintain EMS IV. Dressing intact. Good blood return noted. Site clean \T\ dry. Gauge \T\ rb 1 site: 18 G R AC. 09:22 Arm band placed on Patient placed in an exam room, on a stretcher, on telemetry monitor, ph on pulse oximetry. 09:23 Agatha Potts, RN is Primary Nurse. rb1 09:33 EKG done, by nutrition technician. reviewed by Osman NEWMAN. at1 09:38 Initial lab(s) drawn, by az, sent to lab. dh3 10:27 CT Head Brain wo Cont In Process Unspecified. EDMS 10:36 XRAY Chest (1 view) In Process Unspecified. EDMS 11:41 Michael Madison MD is Referral Physician. jr8 12:00 No provider procedures requiring assistance completed. IV discontinued, intact, rb1 bleeding controlled, No redness/swelling at site. Pressure dressing applied. Administered Medications: No medications were administered Output: 10:22 Urine: 450ml (Voided); Total: 450ml. rb1 11:31 Urine: 600ml (Voided); Total: 1050ml. rb1 Outcome: 11:41 Discharge ordered by . jr8 12:00 Patient left the ED. rb1 12:00 Discharged to home via wheelchair, with family. rb1 12:00 Condition: stable 12:00 Discharge instructions given to patient, Instructed on discharge instructions, follow up and referral plans. Demonstrated understanding of instructions, follow-up care, Prescriptions given X none Signatures: Dispatcher [employer] EDMS Osman Mcdaniel PA PA jr8 Felicita Pagan, storage consultant EKG Tat1 Shannan Mart RN RN Agatha Aviles, RN RN rb1 Alex, Ching 3 Corrections: (The following items were deleted from the chart) : 09:20 Maintain EMS IV. Dressing intact. Good blood return noted. Site clean \T\ dry. rb1 Gauge \T\ site: 18 G L AC. rb1
--- NOTE | 2019-07-17 11:42 | EDPHYS ---
Physician Documentation [facility] Name: John Cuevas Age: 73 yrs Sex: Male : 1945 Arrival Date: 07/17/2019 Time: 09:17 Bed 20 Private MD: ED Physician Antonio Joseph HPI: 07/17 10:17 This 73 yrs old Male presents to ER via EMS with complaints of Dizziness. jr8 10:17 The patient presents with dizziness. Onset: The symptoms/episode began/occurred jr8 gradually, 2 day(s) ago. Context: occurred at home. Modifying factors: The symptoms are alleviated by nothing, the symptoms are aggravated by standing up. Associated signs and symptoms: Pertinent positives: confusion. Severity of symptoms: At their worst the symptoms were moderate in the emergency department the symptoms are unchanged. Patient's baseline: Neuro: alert and fully oriented, Motor: no deficits, Ambulation: walks without assistance, Speech: normal. The patient has experienced a previous episode. The patient has been recently seen by a physician:. Patient recently seen and admitted for dizziness, weakness, chest pain. Was discharged home. Came back today for similar complaints . Historical: - Allergies: 09:22 No Known Allergies; ph - Home Meds: 09:22 Amiodarone Oral [Active]; levothyroxine for Hypothyroidism [Active]; lisinopril Oral ph [Active]; Metoprolol Tartrate Oral [Active]; Plavix Oral [Active]; Simvastatin Oral [Active]; - PMHx: 09:22 Atrial Fib; colon cancer; Hyperlipidemia; Hypertension; Hypothyroidism; ph - PSHx: 09:22 Cardiac Cath; Exploratory lap; ph - Immunization history:: Adult Immunizations up to date. - Social history:: Smoking status: Patient/guardian denies using tobacco. - Ebola Screening: : Patient negative for fever greater than or equal to 101.5 degrees Fahrenheit, and additional compatible Ebola Virus Disease symptoms. ROS: 10:17 Eyes: Negative for injury, pain, redness, and discharge, ENT: Negative for injury, jr8 pain, and discharge, Neck: Negative for injury, pain, and swelling, Cardiovascular: Negative for chest pain, palpitations, and edema, Respiratory: Negative for shortness of breath, cough, wheezing, and pleuritic chest pain, Abdomen/GI: Negative for abdominal pain, nausea, vomiting, diarrhea, and constipation, Back: Negative for injury and pain, MS/Extremity: Negative for injury and deformity, Skin: Negative for injury, rash, and discoloration. 10:17 Neuro: Positive for altered mental status, dizziness. Exam: 10:17 Eyes: Pupils equal round and reactive to light, extra-ocular motions intact. Lids and jr8 lashes normal. Conjunctiva and sclera are non-icteric and not injected. Cornea within normal limits. Periorbital areas with no swelling, redness, or edema. ENT: Nares patent. No nasal discharge, no septal abnormalities noted. Tympanic membranes are normal and external auditory canals are clear. Oropharynx with no redness, swelling, or masses, exudates, or evidence of obstruction, uvula midline. Mucous membranes moist. Neck: Trachea midline, no thyromegaly or masses palpated, and no cervical lymphadenopathy. Supple, full range of motion without nuchal rigidity, or vertebral point tenderness. No Meningismus. Cardiovascular: Regular rate and rhythm with a normal S1 and S2. No gallops, murmurs, or rubs. Normal PMI, no JVD. No pulse deficits. Respiratory: Lungs have equal breath sounds bilaterally, clear to auscultation and percussion. No rales, rhonchi or wheezes noted. No increased work of breathing, no retractions or nasal flaring. Abdomen/GI: Soft, non-tender, with normal bowel sounds. No distension or tympany. No guarding or rebound. No evidence of tenderness throughout. Back: No spinal tenderness. No costovertebral tenderness. Full range of motion. Skin: Warm, dry with normal turgor. Normal color with no rashes, no lesions, and no evidence of cellulitis. MS/ Extremity: Pulses equal, no cyanosis. Neurovascular intact. Full, normal range of motion. Neuro: Awake and alert, GCS 15, oriented to person, place, time, and situation. Cranial nerves II-XII grossly intact. Motor strength 5/5 in all extremities. Sensory grossly intact. Patient slow to respond but answers correctly Vital Signs: 09:20 BP 160 / 86; Pulse 48; Resp 18; Temp 97.5; Pulse Ox 100% on R/A; Weight 113.4 kg; ph Height 6 ft. 4 in. (193.04 cm); 10:20 BP 173 / 90; Pulse 49; Resp 14; Pulse Ox 96% on R/A; Pain 0/10; rb1 11:20 BP 147 / 83; Pulse 51; Resp 17; Pulse Ox 100% on R/A; Pain 0/10; rb1 09:20 Body Mass Index 30.43 (113.40 kg, 193.04 cm) ph MDM: 09:18 Patient medically screened. 8 11:39 Data reviewed: vital signs, nurses notes, lab test result(s), EKG, radiologic studies, jr CT scan, plain films. Data interpreted: Pulse oximetry: on room air is 100 %. Interpretation: normal. Counseling: I had a detailed discussion with the patient and/or guardian regarding: the historical points, exam findings, and any diagnostic results supporting the discharge/admit diagnosis, lab results, radiology results, the need for outpatient follow up, a neurologist, to return to the emergency department if symptoms worsen or persist or if there are any questions or concerns that arise at home. ED course: Patient feeling better. GCS 15 and can answer all questions appropriately. No acute findings on CT or major changes in labs when compared to recent labs. Advised patient that it would be necessary at this point to f/u with neurology. Patient agrees and will f/u . 07/17 09:23 Order name: Basic Metabolic Panel; Complete Time: 10:16 07/17 09:23 Order name: CBC with Diff; Complete Time: 10:16 07/17 09:23 Order name: LFT's; Complete Time: 10:16 07/17 09:23 Order name: Magnesium; Complete Time: 10:16 07/17 09:23 Order name: NT PRO-BNP; Complete Time: 10:16 07/17 09:23 Order name: PT-INR; Complete Time: 10:16 07/17 09:23 Order name: Troponin (emerg Dept Use Only); Complete Time: 10:16 07/17 09:23 Order name: XRAY Chest (1 view); Complete Time: 10:59 07/17 09:23 Order name: EKG; Complete Time: 09:24 07/17 09:23 Order name: Cardiac monitoring; Complete Time: 09:41 07/17 09:23 Order name: EKG - Nurse/Tech; Complete Time: :07/17 09:23 Order name: IV Saline Lock; Complete Time: 07/17 09:23 Order name: Labs collected and sent; Complete Time: 07/17 10:16 Order name: CT Head Brain wo Cont; Complete Time: 10:40 07/17 09:23 Order name: O2 Per Protocol; Complete Time: 07/17 09:23 Order name: O2 Sat Monitoring; Complete Time: Administered Medications: No medications were administered Disposition: 18:29 Co-signature as Attending Physician, Antonio Joseph MD. rn Disposition: 07/17/19 11:41 Discharged to Home. Impression: Dizziness and giddiness, Confusional arousals. - Condition is Stable. - Discharge Instructions: Confusion, Dizziness. - Medication Reconciliation Form, Thank You Letter, Antibiotic Education, Prescription Opioid Use form. - Follow up: Michael Madison MD; When: 2 - 3 days; Reason: Recheck today's complaints, Continuance of care, Re-evaluation by your physician. - Problem is new. - Symptoms have improved. Signatures: Dispatcher [employer] EDMS Antonio Joseph MD MD rn Osman Mcdaniel PA PA jr8 Shannan Mart RN RN Agatha Aviles, RN RN rb1 Corrections: (The following items were deleted from the chart) 12:00 11:41 07/17/2019 11:41 Discharged to Home. Impression: Dizziness and giddiness; rb1 Confusional arousals. Condition is Stable. Forms are Medication Reconciliation Form, Thank You Letter, Antibiotic Education, Prescription Opioid Use. Follow up: Michael Madison; When: 2 - 3 days; Reason: Recheck today's complaints, Continuance of care, Re-evaluation by your physician. Problem is new. Symptoms have improved. jr8
[2019-07-17 12:11] VITALS: TEMP 97.5
[2019-07-17 12:14] VITALS: BP 147/83; O2SAT 100
== END 2019-07-17 12:00 | disposition home or self-care (01) ==
LOC: ER 09:17
DX: G47.51 Confusional arousals (principal); E03.9 Hypothyroidism, unspecified; I10 Essential (primary) hypertension; E78.5 Hyperlipidemia, unspecified; Z85.038 Personal history of other malignant neoplasm of large intestine
CPT/HCPCS: 36415; 70450; 71045; 80048; 80076; 83735; 83880; 84484; 85025; 85610; 93005; 99284

== ENCOUNTER 2019-09-12 07:25 | Emergency (ER) | payer OTHER ==
[2019-09-12] MEDS ORDERED: ONDANSETRON 4 MG/2 ML VIAL ONE (08:07)
[2019-09-12] MEDS ORDERED: MECLIZINE HCL 12.5 MG TAB ONE (08:07)
[2019-09-12 08:15] LABS: Absolute Lymphocytes (CBC) 1.3 K/uL (0.7-4.9); Basophils % 0.3 % (0-1.3); Hematocrit 32.6 % (39.6-49.0); Lymphocytes % 18.1 % (15.3-44.8); MPV 11.2 fL (7.6-11.3); RBC Red Blood Cell Count 3.59 M/uL (4.33-5.43)
[2019-09-12 08:24] LABS: Protime INR 1.96
[2019-09-12 08:35] LABS: ALT/SGPT 20 U/L (12-78); AST/SGOT 23 U/L (15-37); Albumin 4.5 g/dL (3.4-5.0); Alkaline Phosphatase 58 U/L (45-117); BUN Blood Urea Nitrogen 14 mg/dL (7-18); Bicarbonate 29 mmol/L (21-32); Bilirubin Direct 0.2 mg/dL (0-0.2); Bilirubin Total 0.6 mg/dL (0.2-1.0); Glucose Level 92 mg/dL (74-106); Magnesium 2.2 mg/dL (1.8-2.4); NT PRO-BNP 280 pg/mL (<125); Potassium 3.9 mmol/L (3.5-5.1); Protein, Total 8.4 g/dL (6.4-8.2); Sodium Level 136 mmol/L (136-145); Troponin (Emerg Dept Use Only) < 0.02 ng/mL (0.0-0.045)
[2019-09-12 08:52] LABS: Blood Morphology Comment NOT SEEN (NOT SEEN); Platelet Estimate ADEQ
--- NOTE | 2019-09-12 08:53 | RAD REPORT ---
EXAM DESCRIPTION: CT - Head Brain Wo Cont - 09/12/2019 8:42 am CLINICAL HISTORY: Dizziness;Weakness COMPARISON: Head Brain Wo Cont dated 07/17/2019 TECHNIQUE: Axial 5 mm thick images of the head were obtained without IV contrast. All CT scans are performed using dose optimization technique as appropriate and may include automated exposure control or mA/KV adjustment according to patient size. FINDINGS: No intracranial hemorrhage, mass, edema or shift of mid-line structures. No acute cortical based infarction is identifiable. No cortical edema or sulcal effacement. Patient has mild atrophy c hange and mild chronic ischemic pattern in the cerebral white matter. Findings are not substantially different from comparison. Ventricles are in proportion to any volume loss. Mastoid air cells are clear. Left side sphenoid sinus chronic sinusitis changes are present with comp lete opacification and thickened, sclerotic rivera. This is a stable presentation. Remaining portions of the visualized paranasal sinuses are clear. No acute bony findings. IMPRESSION: Patient has mild atrophy and chronic ischemic change matching comparison. No acute intra cranial finding seen. Chronic ischemic changes can mask nonhemorrhagic acute infarction. MR brain followup can be obtained if there is ongoing concern for acute ischemia. Chronic sphenoid sinusitis
[2019-09-12] MEDS ORDERED: NA CHLORIDE 0.9% 1,000 ML ONE (08:57)
[2019-09-12 09:22] LABS: Urine Blood TRACE (NEG); Urine Glucose NEGATIVE (NEG); Urine Protein NEGATIVE (NEG); Urine Specific Gravity 1.025 (1.005-1.030)
--- NOTE | 2019-09-12 09:38 | RAD REPORT ---
EXAM DESCRIPTION: RAD - Chest Single View - 09/12/2019 8:17 am CLINICAL HISTORY: COUGH, fatigue, history of atrial fibrillation and colon cancer, hypertension COMPARISON: Portable chest July 17, 2019 TECHNIQUE: AP portable chest image was obtained 09/12/2019 8:17 am . FINDINGS: No focal lung parenchymal process. Interstitial pattern is similar to comparison. Heart an d vasculature are normal. No measurable pleural effusion and no pneumothorax. No acute bony abnormali ty seen. No acute aortic findings suspected. IMPRESSION: No acute cardiopulmonary process. No significant change from comparison.
[2019-09-12 09:41] LABS: Urine Bacteria NONE SEEN /HPF (NONE SEEN); Urine Culture Reflex Order NOT NEEDED
--- NOTE | 2019-09-12 12:06 | RAD REPORT ---
EXAM DESCRIPTION: MRI - MRA Neck W/Wo Cont - 09/12/2019 11:36 am CLINICAL HISTORY: Colon cancer, stroke-like symptoms, nausea and dizziness COMPARISON: MRI brain same date, CT head same date TECHNIQUE: MR angiography of the cervical vasculature performed. Coronal imaging plane acquisition u tilized. A 20 MultiHance contrast volume was utilized. Coronal reformatted images were generated and reviewed. Vertical axis 3D rotational projections obtained using maximum intensity projection protoco l. FINDINGS: Aortic arch is 3 vessel configuration with no origins stenosis. Vertebral artery origins u nremarkable as well. Bilateral subclavian arteries to the mid clavicle level unremarkable. Bilateral common carotid and internal carotid arteries show no dissection, stenosis or significant ab normality. Left vertebral artery is dominant. No vertebral dissection. No basilar artery abnormality identifiable. IMPRESSION: MRA neck examination shows no significant or suspicious finding.
--- NOTE | 2019-09-12 12:13 | RAD REPORT ---
EXAM DESCRIPTION: MRI - Brain W/Wo Cont - 09/12/2019 11:50 am CLINICAL HISTORY: Syncope/dizziness COMPARISON: September 12, [address] TECHNIQUE: Axial, sagittal, and coronal magnetic images of the brain were obtained. 20 cc MultiHance administered intravenously FINDINGS: No significant abnormal signal within the brain The ventricles are normal in caliber. Diffusion-weighted/ ADC mapping sequences do not demonstrate evidence of an acute infarction. No abnormal enhancement within the brain is seen. An extra-axial fluid collection is not noted. Signal within the sphenoid sinus consistent with sinusitis IMPRESSION: No acute abnormality displayed
--- NOTE | 2019-09-12 12:32 | EKG ---
Test Date: 2019-09-12 Test Time: 07:54:46 Music Publisher: [email or web address] MEASUREMENT RESULTS: Intervals: Rate: 51 RI: 220 QRSD: 98 QT: 464 QTc: 427 [place]: P: 34 RI: 220 QRS: 44 T: 57 INTERPRETIVE STATEMENTS: Sinus bradycardia with 1st degree AV block with premature atrial complexes with aberrant conduction Otherwise normal ECG Compared to ECG 07/17/2019 09:25:26 Atrial premature complex(es) now present Aberrant conduction of supraventricular beat(s) now present Electronically Signed On 09-12-19 12:30:51 CDT by Ervin Banks
--- NOTE | 2019-09-12 12:59 | ER ---
Nurse's Notes [facility] Name: John Cuevas Age: 73 yrs Sex: Male : 1945 Arrival Date: 09/12/2019 Time: 07:38 Bed 14 Private MD: Diagnosis: Dizziness and giddiness;Nausea Presentation: 09/11 07:40 Chief complaint: Patient states: Nausea, Dizziness and fatigue that has been ongoing, ss but became much worse this morning when patient woke up at 0200 this AM. Denies pain. Coronavirus screen: The patient has NOT traveled to a country currently being monitored by the [facility] within the last 14 days. Proceed with normal triage procedures. Ebola Screen: Patient denies exposure to infectious person. Patient denies travel to an Ebola-affected area in the 21 days before illness onset. Initial Sepsis Screen: Does the patient meet any 2 criteria? No. Patient's initial sepsis screen is negative. Does the patient have a suspected source of infection? No. Patient's initial sepsis screen is negative. Risk Assessment: Do you want to hurt yourself or someone else? Patient reports no desire to harm self or others. 07:40 Method Of Arrival: EMS: [facility] ss 07:40 Acuity: KEVIN 3 ss Historical: - Allergies: 07:42 No Known Allergies; ss - PMHx: 07:42 Atrial Fib; colon cancer; Hyperlipidemia; Hypertension; Hypothyroidism; ss - PSHx: 07:42 Cardiac Cath; Exploratory lap; ss - Immunization history:: Adult Immunizations up to date. - Social history:: Smoking status: Patient denies any tobacco usage or history of. Screenin:42 Abuse screen: Denies threats or abuse. Denies injuries from another. Nutritional ss screening: No deficits noted. Tuberculosis screening: Never had TB. Fall Risk No fall in past 12 months (0 pts). Secondary diagnosis (15 points) dizziness. IV access (20 points). Ambulatory Aid- None/Bed Rest/Nurse Assist (0 pts). Gait- Normal/Bed Rest/Wheelchair (0 pts) Mental Status- Oriented to own ability (0 pts). Assessment: 07:42 General: Appears uncomfortable, Behavior is calm, cooperative, Reports fatigue for >3 ss days, Denies fever. Pain: Denies pain. Neuro: Level of Consciousness is awake, alert, obeys commands, Oriented to person, place, time, situation, Reports Intermittent dizziness that began worse this morning. Has been ongoing for "some time" according to patient.. Denies numbness headache. Cardiovascular: Pulses are palpable in right radial artery and left radial artery Chest pain is denied. Respiratory: Airway is patent Respiratory effort is even, unlabored, Respiratory pattern is regular, symmetrical, Breath sounds are clear bilaterally. Denies cough, pain with respiration, pain with cough, pain with movement. GI: Abdomen is round non-distended, Bowel sounds present X 4 quads. Reports nausea, Patient currently denies diarrhea, vomiting. : No signs and/or symptoms were reported regarding the genitourinary system. Denies burning with urination, urinary frequency. EENT: Oral mucosa is moist. Throat is clear. Derm: Skin is intact, is healthy with good turgor, Skin is dry, Skin is pink, warm \\T\\ dry. normal. Musculoskeletal: Circulation, motion, and sensation intact. Range of motion: intact in all extremities, Swelling absent. 08:45 Reassessment: No changes from previously documented assessment. David light remains ss within reach. 09:10 Reassessment: Orthostatic VS obtained. Pt tolerated well. C/o lightheadedness ss throughout process. 10:30 Reassessment: Patient appears in no apparent distress at this time. Patient and/or ss family updated on plan of care and expected duration. Pain level reassessed. Patient is alert, oriented x 3, equal unlabored respirations, skin warm/dry/pink. Patient denies pain at this time. Patient states feeling better. Patient states symptoms have improved. 11:30 Reassessment: awaiting to go to MRI. Call light remains within reach. Elimination needs ss met. 12:01 Reassessment: Pt back from MRI. ss 13:09 Reassessment: Called patient's daughter to inform her pt is up for discharge. Patient ae4 is awaiting daughter to be picked up. Vital Signs: 07:39 BP 159 / 84; Pulse 84; Resp 16; Temp 97.0(TE); Pulse Ox 100% on R/A; Weight 117.93 kg; ss Height 6 ft. 4 in. (193.04 cm); Pain 0/10; 08:59 BP 179 / 91 Supine; Pulse 50; Resp 18; Pulse Ox 99% on R/A; Pain 0/10; ss 08:59 BP 170 / 95 Sitting; Pulse 56; ss 08:59 BP 152 / 79; Pulse 57; ss 10:28 BP 153 / 89; Pulse 55; Resp 16; Temp 97.5(TE); Pulse Ox 100% on R/A; mh5 12:11 BP 166 / 83; Pulse 58; Pulse Ox 100% on R/A; ss 07:39 Body Mass Index 31.65 (117.93 kg, 193.04 cm) ED Course: 07:38 Patient arrived in ED. ss 07:39 Osvaldo Rolon PA is PHCP. cp 07:39 Arm band placed on right wrist. ss 07:41 Triage completed. ss 07:42 Patient has correct armband on for positive identification. Bed in low position. Call ss light in reach. Side rails up X2. rice field worker on. Pulse ox on. NIBP on. 07:42 Inserted saline lock: 22 gauge in right antecubital area, using aseptic technique. ss Blood collected. Patient maintains SpO2 saturation greater than 95% on room air. 07:43 Vince Ervin MD is Attending Physician. cp 07:55 Rochelle Schumacher RN is Primary Nurse. ss 08:07 EKG done, by technical services analyst. reviewed by Osvaldo NEWMAN. at1 08:16 Inserted saline lock: 22 gauge in left antecubital area, using aseptic technique. ss 08:19 XRAY Chest (1 view) In Process Unspecified. EDMS 08:43 CT Head Brain wo Cont In Process Unspecified. EDMS 09:59 Missed attempt(s): 22 gauge in left forearm. mh5 11:39 MRA Neck W/Wo Cont In Process Unspecified. EDMS 11:39 Brain W/Wo Cont In Process Unspecified. EDMS 12:57 Lewis Nava MD is Referral Physician. cp 13:21 No provider procedures requiring assistance completed. IV discontinued, intact, ae4 bleeding controlled, No redness/swelling at site. Pressure dressing applied. Administered Medications: 08:16 Drug: Zofran (Ondansetron) 4 mg Route: IVP; Site: left antecubital; ss 09:01 Follow up: Response: No adverse reaction; Nausea is decreased ss 08:16 Drug: Meclizine 25 mg Route: PO; ss 10:40 Drug: NS 0.9% 500 ml Route: IV; Rate: 500 ml/hr; Site: right antecubital; ss 12:21 Follow up: IV Status: Completed infusion; IV Intake: 500ml ss 12:21 Drug: NS 0.9% 500 ml Route: IV; Rate: 100 ml/hr; Site: right antecubital; ss Intake: 12:21 IV: 500ml; Total: 500ml. ss Outcome: 12:57 Discharge ordered by MD. cp 13:21 Discharged to home via wheelchair, with family. ae4 13:21 Condition: stable 13:21 Discharge instructions given to patient, Instructed on discharge instructions, follow up and referral plans. medication usage, Demonstrated understanding of instructions, Prescriptions given X 2. 13:22 Patient left the ED. ae4 Signatures: Dispatcher [employer] EDMS Rochelle Schumacher, RN RN ss Felicita Pagan, chipper operator EKG Tat1 Osvaldo Rolon PA PA cp Martinez, Maria [facility] Kristian Lowe RN RN ae4
--- NOTE | 2019-09-12 12:59 | EDPHYS ---
Physician Documentation [facility] Name: John Cuevas Age: 73 yrs Sex: Male : 1945 Arrival Date: 09/12/2019 Time: 07:38 Bed 14 Private MD: ED Physician Vince Ervin HPI: 09/11 07:55 This 73 yrs old Male presents to ER via EMS with complaints of Dizziness, cp Nausea. 07:55 The patient presents with dizziness, generalized weakness, lightheadedness, sense of cp spinning. Onset: The symptoms/episode began/occurred at an unknown time. and became worse this morning. Associated signs and symptoms: Pertinent positives: nausea, near-syncope, Pertinent negatives: abdominal pain, chest pain, diaphoresis, focal weakness, head injury, headache, vomiting, diarrhea. Severity of symptoms: in the emergency department the symptoms are unchanged despite EMS interventions. Patient's baseline: Neuro: alert and fully oriented, Motor: no deficits, Ambulation: walks without assistance, Speech: normal. Historical: - Allergies: 07:42 No Known Allergies; ss - PMHx: 07:42 Atrial Fib; colon cancer; Hyperlipidemia; Hypertension; Hypothyroidism; ss - PSHx: 07:42 Cardiac Cath; Exploratory lap; ss - Immunization history:: Adult Immunizations up to date. - Social history:: Smoking status: Patient denies any tobacco usage or history of. ROS: 08:05 Constitutional: Positive for fatigue, Negative for body aches, chills, fever, poor PO cp intake. 08:05 Eyes: Negative for injury, pain, redness, and discharge. cp 08:05 ENT: Negative for drainage from ear(s), ear pain, sore throat, difficulty swallowing, difficulty handling secretions. 08:05 Cardiovascular: Negative for chest pain, edema, palpitations. 08:05 Respiratory: Negative for cough, shortness of breath, wheezing. 08:05 Abdomen/GI: Positive for nausea, Negative for abdominal pain, vomiting, diarrhea, constipation, anorexia, black/tarry stool, rectal bleeding. 08:05 : Negative for urinary symptoms, difficulty urinating. 08:05 Skin: Negative for cellulitis, rash. 08:05 Neuro: Positive for dizziness, weakness, Negative for altered mental status, headache, numbness, speech changes, syncope. 08:05 All other systems are negative. Exam: 08:07 ECG was reviewed by the Attending Physician. cp 08:10 Constitutional: The patient appears in no acute distress, alert, awake, cp non-diaphoretic, non-toxic, well developed, well nourished. 08:10 Head/Face: Normocephalic, atraumatic. cp 08:10 Eyes: Periorbital structures: appear normal, Pupils: equal, round, and reactive to light and accomodation, Extraocular movements: intact throughout, Conjunctiva: normal, no exudate, no injection, Sclera: no appreciated abnormality, Lids and lashes: appear normal, bilaterally. 08:10 ENT: External ear(s): are unremarkable, Ear canal(s): are normal, clear, TM's: bulging, is not appreciated, bilaterally, dullness, bilaterally, erythema, is not appreciated, bilaterally, Nose: is normal, Mouth: Lips: dry, Oral mucosa: pink and intact, moist, Posterior pharynx: is normal, airway is patent, no erythema, no exudate, Voice: is normal. 08:10 Neck: ROM/movement: is normal, is supple, without pain, no range of motions limitations, no nuchal rigidity. 08:10 Chest/axilla: Inspection: normal, Palpation: is normal, no crepitus, no tenderness. 08:10 Cardiovascular: Rate: normal, Rhythm: regular, Edema: ankle edema, that is very mild, JVD: is not appreciated. 08:10 Respiratory: the patient does not display signs of respiratory distress, Respirations: normal, no use of accessory muscles, no retractions, labored breathing, is not present, Breath sounds: are clear throughout, no decreased breath sounds, no stridor, no wheezing. 08:10 Abdomen/GI: Inspection: abdomen appears normal, Bowel sounds: active, all quadrants, Palpation: abdomen is soft and non-tender, in all quadrants, rebound tenderness, is not appreciated, voluntary guarding, is not appreciated, involuntary guarding, is not appreciated. 08:10 Back: pain, is absent, ROM is normal. 08:10 Skin: cellulitis, is not appreciated, no rash present. 08:10 Neuro: Orientation: to person, place \T\ time. Mentation: is normal, Cerebellar function: is grossly normal, Motor: moves all fours, strength is normal, Sensation: is normal. Vital Signs: 07:39 BP 159 / 84; Pulse 84; Resp 16; Temp 97.0(TE); Pulse Ox 100% on R/A; Weight 117.93 kg; ss Height 6 ft. 4 in. (193.04 cm); Pain 0/10; 08:59 BP 179 / 91 Supine; Pulse 50; Resp 18; Pulse Ox 99% on R/A; Pain 0/10; ss 08:59 BP 170 / 95 Sitting; Pulse 56; ss 08:59 BP 152 / 79; Pulse 57; ss 10:28 BP 153 / 89; Pulse 55; Resp 16; Temp 97.5(TE); Pulse Ox 100% on R/A; mh5 12:11 BP 166 / 83; Pulse 58; Pulse Ox 100% on R/A; ss 07:39 Body Mass Index 31.65 (117.93 kg, 193.04 cm) ss MDM: 07:51 Patient medically screened. cp 08:00 Differential diagnosis: cardiac arrhythmia, generalized weakness, GI bleed, cp hypovolemia, idiopathic dizziness, syncope, TIA, vertigo. 12:56 Data reviewed: vital signs, nurses notes, lab test result(s), EKG, radiologic studies, cp CT scan, MRI, plain films, I have discussed the patient's presentation/case with the attending Emergency Department Physician; and as a result, I will discharge patient. 12:56 Test interpretation: by ED physician or midlevel provider: ECG. Counseling: I had a cp detailed discussion with the patient and/or guardian regarding: the historical points, exam findings, and any diagnostic results supporting the discharge/admit diagnosis, lab results, radiology results, the need for outpatient follow up, a neurologist, to return to the emergency department if symptoms worsen or persist or if there are any questions or concerns that arise at home. Response to treatment: the patient's symptoms have markedly improved after treatment, and as a result, I will discharge patient. 09/11 07:53 Order name: Basic Metabolic Panel; Complete Time: 08:59 cp 09/11 09:00 Interpretation: Normal except: GFR 65. cp 09/11 07:53 Order name: CBC with Diff; Complete Time: 08:59 cp 09/11 08:22 Interpretation: Normal except: HGB 11.2; RBC 3.59; HCT 32.6; PLT 141; RDW 16.4; MN% cp 21.8; MNA 1.6. 09/11 07:53 Order name: LFT's; Complete Time: 08:59 cp 09/11 09:50 Interpretation: Normal except: TP 8.4; GLOB 3.9. cp 09/11 07:53 Order name: Magnesium; Complete Time: 08:59 cp 09/11 07:53 Order name: NT PRO-BNP; Complete Time: 08:59 cp 09/11 07:53 Order name: PT-INR; Complete Time: 08:59 cp 09/11 09:00 Interpretation: Abnormal: PT 22.5. cp 09/11 07:53 Order name: Troponin (emerg Dept Use Only); Complete Time: 08:59 cp 09/11 07:53 Order name: XRAY Chest (1 view); Complete Time: 09:57 cp 09/11 09:57 Interpretation: Report review. cp 09/11 07:53 Order name: Influenza Screen (a \T\ B); Complete Time: 08:59 cp 09/11 07:53 Order name: CT Head Brain wo Cont; Complete Time: 08:59 cp 09/11 07:53 Order name: Urine Microscopic Only; Complete Time: 09:46 cp 09/11 09:46 Interpretation: Normal except: URBC 5-10. cp 09/11 08:53 Order name: Manual Differential; Complete Time: 08:59 EDMS 09/11 09:09 Order name: Urine Dipstick--Ancillary (enter results); Complete Time: 09:27 eb 09/11 09:27 Interpretation: Normal except: UBLD TRACE. cp 09/11 07:53 Order name: EKG; Complete Time: 07:55 cp 09/11 07:53 Order name: Cardiac monitoring; Complete Time: 07:56 cp 09/11 07:53 Order name: EKG - Nurse/Tech; Complete Time: 07:56 cp 09/11 07:53 Order name: IV Saline Lock; Complete Time: 07:56 cp 09/11 07:53 Order name: Labs collected and sent; Complete Time: 07:56 cp 09/11 07:53 Order name: O2 Per Protocol; Complete Time: 07:56 cp 09/11 07:53 Order name: O2 Sat Monitoring; Complete Time: 07:56 cp 09/11 07:53 Order name: Urine Dipstick-Ancillary (obtain specimen); Complete Time: 09: cp 09/11 08:09 Order name: Orthostatics; Complete Time: 09: cp 09/11 11:02 Order name: MRA Neck W/Wo Cont; Complete Time: 12:26 EDMS 09/11 11:02 Order name: Brain W/Wo Cont; Complete Time: 12:26 EDMS 09/11 09:30 Order name: Misc. Order: ambulate patient; Complete Time: 12:02 cp EC:07 Rate is 51 beats/min. Rhythm is regular. WA interval is prolonged at 220 msec. QRS cp interval is normal. QT interval is normal. Interpreted by me. Reviewed by me. Administered Medications: 08:16 Drug: Zofran (Ondansetron) 4 mg Route: IVP; Site: left antecubital; ss 09:01 Follow up: Response: No adverse reaction; Nausea is decreased ss 08:16 Drug: Meclizine 25 mg Route: PO; ss 10:40 Drug: NS 0.9% 500 ml Route: IV; Rate: 500 ml/hr; Site: right antecubital; ss 12:21 Follow up: IV Status: Completed infusion; IV Intake: 500ml ss 12:21 Drug: NS 0.9% 500 ml Route: IV; Rate: 100 ml/hr; Site: right antecubital; ss Disposition: 18:01 Co-signature as Attending Physician, Vince Ervin MD I agree with the assessment and kdr plan of care. Disposition: 09/12/19 12:57 Discharged to Home. Impression: Dizziness and giddiness, Nausea. - Condition is Stable. - Discharge Instructions: Dizziness, Nausea, Adult. - Prescriptions for Meclizine 25 mg Oral Tablet - take 1 tablet by ORAL route every 8 hours As needed; 30 tablet. Zofran 4 mg Oral Tablet - take 1 tablet by ORAL route every 12 hours As needed; 20 tablet. - Medication Reconciliation Form, Thank You Letter, Antibiotic Education, Prescription Opioid Use form. - Follow up: Lewis Nava MD; When: 2 - 3 days; Reason: Recheck today's complaints. - Problem is an ongoing problem. - Symptoms have improved. Signatures: Dispatcher [employer] [facility] Vince Ervin MD MD kdr Rochelle Schumacher RN RN ss Osvaldo Rolon PA PA cp Kristian Lowe, RN RN ae4 Corrections: (The following items were deleted from the chart) 08:22 08:22 Normal except: HGB 11.2; RBC 3.59; HCT 32.6; PLT 141; RDW 16.4; MN% 21.8. cp cp 09:29 09:28 Misc. Order ordered. cp cp 12:34 12:28 Misc. Order ordered. cp ss 13:22 12:57 09/12/2019 12:57 Discharged to Home. Impression: Dizziness and giddiness; Nausea. ae4 Condition is Stable. Forms are Medication Reconciliation Form, Thank You Letter, Antibiotic Education, Prescription Opioid Use. Follow up: Lewis Nava; When: 2 - 3 days; Reason: Recheck today's complaints. Problem is an ongoing problem. Symptoms have improved. cp
[2019-09-12 13:54] VITALS: TEMP 97.5; O2SAT 100
[2019-09-12 13:55] VITALS: BP 166/83
== END 2019-09-12 13:22 | disposition home or self-care (01) ==
LOC: ER 07:25
DX: R11.0 Nausea (principal); I10 Essential (primary) hypertension; Z85.038 Personal history of other malignant neoplasm of large intestine
CPT/HCPCS: 96361; 93005; 85025; 80048; 36415; 83735; 85610; 80076; 84484; 83880; 87804 ×2; 70450; 71045; 70553; 70549; 96374; 99285; A9577; J7030; J2405; 81003; 81015; J8597

== ENCOUNTER 2019-09-16 04:49 | Emergency (ER) | payer OTHER ==
[2019-09-16 05:24] LABS: Absolute Lymphocytes (CBC) 1.3 K/uL (0.7-4.9); Hematocrit 31.1 % (39.6-49.0); Lymphocytes % 22.7 % (15.3-44.8); MPV 11.3 fL (7.6-11.3); RBC Red Blood Cell Count 3.39 M/uL (4.33-5.43)
[2019-09-16 05:52] LABS: ALT/SGPT 16 U/L (12-78); AST/SGOT 19 U/L (15-37); Albumin 4.3 g/dL (3.4-5.0); Alkaline Phosphatase 58 U/L (45-117); BUN Blood Urea Nitrogen 24 mg/dL (7-18); Bicarbonate 27 mmol/L (21-32); Bilirubin Direct 0.2 mg/dL (0-0.2); Bilirubin Total 0.5 mg/dL (0.2-1.0); CKMB Creatine Kinase MB 2.2 ng/mL (0.3-3.6); Creatine Phosphokinase 132 U/L (39-308); Glucose Level 89 mg/dL (74-106); Lipase 143 U/L (73-393); Magnesium 2.4 mg/dL (1.8-2.4); NT PRO-BNP 166 pg/mL (<125); Potassium 4.2 mmol/L (3.5-5.1); Protein, Total 8.2 g/dL (6.4-8.2); Protime INR 1.52; Sodium Level 135 mmol/L (136-145); Troponin (Emerg Dept Use Only) < 0.02 ng/mL (0.0-0.045)
[2019-09-16 06:26] LABS: Blood Morphology Comment NOT SEEN (NOT SEEN); Platelet Estimate DECR
--- NOTE | 2019-09-16 06:55 | EKG ---
Test Date: 2019-09-16 Test Time: 04:57:33 Shank Tapper: MARY JO MEASUREMENT RESULTS: Intervals: Rate: 57 WA: 212 QRSD: 98 QT: 436 QTc: 424 [place]: P: 41 WA: 212 QRS: 46 T: 54 INTERPRETIVE STATEMENTS: Sinus bradycardia with 1st degree AV block Otherwise normal ECG Compared to ECG 09/12/2019 07:54:46 Atrial premature complex(es) no longer present Aberrant conduction of supraventricular beat(s) no longer present Electronically Signed On 09-16-19 06:54:15 CDT by Arnulfo Rinaldi
--- NOTE | 2019-09-16 07:24 | RAD REPORT ---
EXAM DESCRIPTION: RAD - Chest Single View - 09/16/2019 5:42 am CLINICAL HISTORY: SOB COMPARISON: AP chest September 12, 2019 and July 17, 2019 TECHNIQUE: AP portable chest image was obtained 09/16/2019 5:42 am . FINDINGS: No focal consolidation. Increased opacification in the right infrahilar and right lung bas e region seen. Heart and vasculature are normal. No measurable pleural effusion and no pneumothorax. No acute bony abnormality seen. No acute aortic findings suspected. IMPRESSION: Mild interstitial edema or infiltrate in the right lung base.
--- NOTE | 2019-09-16 08:11 | ER ---
Nurse's Notes [facility] Name: John Cuevas Age: 73 yrs Sex: Male : 1945 Arrival Date: 09/16/2019 Time: 04:53 Bed 4 Private MD: Diagnosis: Dyspnea, unspecified;Anxiety disorder, unspecified Presentation: 09/15 04:59 Chief complaint: EMS states: Patient C/O SOB and was hyperventilating per EMS. Pt felt ao like numbness and tingling in the lower extremities. Coronavirus screen: The patient has NOT traveled to a country currently being monitored by the [facility] within the last 14 days. Proceed with normal triage procedures. The patient has NOT had contact with any known and/or suspected case of coronavirus. Proceed with normal triage procedures. Ebola Screen: Patient negative for fever greater than or equal to 101.5 degrees Fahrenheit, and additional compatible Ebola Virus Disease symptoms Patient denies exposure to infectious person. Patient denies travel to an Ebola-affected area in the 21 days before illness onset. Initial Sepsis Screen: Does the patient meet any 2 criteria? RR > 20 per min. Yes Does the patient have a suspected source of infection? No. Patient's initial sepsis screen is negative. Risk Assessment: Do you want to hurt yourself or someone else? Patient reports no desire to harm self or others. 04:59 Method Of Arrival: Ambulatory ao 04:59 Acuity: KEVIN 3 ao 05:08 Onset of symptoms is unknown. ao Triage Assessment: 05:08 General: See triage note. Respiratory: Reports shortness of breath Onset: The ao symptoms/episode began/occurred at an unknown time. the patient has mild shortness of breath. Historical: - Allergies: 05:03 No Known Allergies; ao - Home Meds: 05:03 Amiodarone Oral [Active]; levothyroxine for Hypothyroidism [Active]; lisinopril Oral ao [Active]; Metoprolol Tartrate Oral [Active]; Plavix Oral [Active]; Simvastatin Oral [Active]; - PMHx: 05:03 Atrial Fib; colon cancer; Hyperlipidemia; Hypertension; Hypothyroidism; ao - PSHx: 05:03 Unable to obtain; ao - Immunization history:: Adult Immunizations up to date. - Social history:: Smoking status: Patient/guardian denies using tobacco, Patient/guardian denies using alcohol, street drugs, IV drugs. Screenin:06 Abuse screen: Denies threats or abuse. Denies injuries from another. Nutritional ao screening: No deficits noted. Tuberculosis screening: No symptoms or risk factors identified. Fall Risk None identified. Assessment: 05:06 General: Appears in no apparent distress. comfortable, Behavior is calm, cooperative, ao appropriate for age. Pain: Denies pain. Neuro: Level of Consciousness is awake, alert, obeys commands, Oriented to person, place, time, situation, Appropriate for age Moves all extremities. Full function Facial symmetry appears normal. Cardiovascular: Capillary refill < 3 seconds Patient's skin is warm and dry. Rhythm is sinus bradycardia with 1st degree heart block. Respiratory: Airway is patent. Respiratory: Respiratory effort is even, unlabored, Respiratory pattern is regular, symmetrical, Breath sounds are clear bilaterally. GI: Abdomen is obese. : No signs and/or symptoms were reported regarding the genitourinary system. EENT: No signs and/or symptoms were reported regarding the EENT system. Derm: Skin is intact, Skin temperature is warm. Musculoskeletal: No signs and/or symptoms reported regarding the musculoskeletal system. Circulation, motion, and sensation intact. Range of motion:. 06:14 Reassessment: Patient appears in no apparent distress at this time. Waiting on dispo ao orders. 07:30 Reassessment: Dr. Joseph at bedside. jl7 07:48 Reassessment: Repeat bloodwork sent to lab, awaiting results for dispo. jl7 Vital Signs: 04:59 BP 135 / 100; Pulse 64; Resp 18; Temp 97.5(TE); Pulse Ox 100% on R/A; Weight 108.86 kg; ao Height 5 ft. 60 in. (304.80 cm); Pain 3/10; 06:14 BP 138 / 98; Pulse 56; Resp 16; Pulse Ox 100% on R/A; ao 07:46 BP 153 / 92; Pulse 69; Resp 17 S; Temp 97.6(O); Pulse Ox 97% on R/A; Pain 0/10; jl7 04:59 Body Mass Index 11.72 (108.86 kg, 304.80 cm) ao ED Course: 04:53 Patient arrived in ED. cl3 04:57 Donato Garrett MD is Attending Physician. tw4 04:58 Matt Cespedes RN is Primary Nurse. ao 05:02 Triage completed. ao 05:04 Arm band placed on right wrist. Patient placed in an exam room, on a stretcher, on ao oxygen, on pulse oximetry, Patient notified of wait time. 05:07 Patient has correct armband on for positive identification. security monitor on. Pulse ao ox on. NIBP on. 05:10 Inserted saline lock: 20 gauge in right forearm, using aseptic technique. Blood rr5 collected. 05:10 First set of blood cultures drawn by me. rr5 05:42 XRAY CXR (1 view) In Process Unspecified. EDMS 07:26 Attending Physician role handed off by Donato Garrett MD rn 07:26 Antonio Joseph MD is Attending Physician. rn 07:47 Repeat lab(s) drawn. by ks, sent to lab. jl7 07:48 Primary Nurse role handed off by Matt Cespedes RN jl7 07:48 Heather Jameson RN is Primary Nurse. jl7 08:09 Chris To MD is Referral Physician. rn 08:28 No provider procedures requiring assistance completed. IV discontinued, intact, jl7 bleeding controlled, No redness/swelling at site. Pressure dressing applied. Administered Medications: No medications were administered Outcome: 08:09 Discharge ordered by . rn 08:29 Discharged to home ambulatory, with family. jl7 08:29 Condition: stable 08:29 Discharge instructions given to patient, Instructed on discharge instructions, follow up and referral plans. Demonstrated understanding of instructions, follow-up care. 08:29 Patient left the ED. jl7 Signatures: Dispatcher [employer] EDMT Antonio Joseph MD MD rn Ortiz, Alex, RN RN ao Leal, Jahala, RN RN jl7 Dontao Garrett MD MD tw4 Galo Fuentes RN RN rr5 Michael Joshi cl3
--- NOTE | 2019-09-16 08:12 | EDPHYS ---
Physician Documentation [facility] Name: John Cuevas Age: 73 yrs Sex: Male : 1945 Arrival Date: 09/16/2019 Time: 04:53 Bed 4 Private MD: ED Physician Antonio Joseph HPI: 09/15 06:03 This 73 yrs old Male presents to ER via Ambulatory with complaints of tw4 Shortness Of Breath. 06:03 The patient has shortness of breath at rest. Onset: The symptoms/episode began/occurred tw4 today. Duration: The symptoms are continuous, and are unchanged since they started. The patient's shortness of breath has no apparent modifying factors. Associated signs and symptoms: The patient has no apparent associated signs or symptoms. Severity of symptoms: At their worst the symptoms were moderate in the emergency department the symptoms are unchanged. The patient has not experienced similar symptoms in the past. Historical: - Allergies: 05:03 No Known Allergies; ao - Home Meds: 05:03 Amiodarone Oral [Active]; levothyroxine for Hypothyroidism [Active]; lisinopril Oral ao [Active]; Metoprolol Tartrate Oral [Active]; Plavix Oral [Active]; Simvastatin Oral [Active]; - PMHx: 05:03 Atrial Fib; colon cancer; Hyperlipidemia; Hypertension; Hypothyroidism; ao - PSHx: 05:03 Unable to obtain; ao - Immunization history:: Adult Immunizations up to date. - Social history:: Smoking status: Patient/guardian denies using tobacco, Patient/guardian denies using alcohol, street drugs, IV drugs. ROS: 06:03 Constitutional: Negative for fever, chills, and weight loss, Eyes: Negative for injury, tw4 pain, redness, and discharge, Cardiovascular: Negative for chest pain, palpitations, and edema, Abdomen/GI: Negative for abdominal pain, nausea, vomiting, diarrhea, and constipation, Back: Negative for injury and pain, MS/Extremity: Negative for injury and deformity, Skin: Negative for injury, rash, and discoloration. 06:03 Respiratory: Positive for shortness of breath, Negative for dyspnea on exertion, hemoptysis, orthopnea, pleurisy. Exam: 06:03 Constitutional: This is a well developed, well nourished patient who is awake, alert, tw4 and in no acute distress. Head/Face: Normocephalic, atraumatic. Chest/axilla: Normal chest wall appearance and motion. Nontender with no deformity. No lesions are appreciated. Cardiovascular: Regular rate and rhythm with a normal S1 and S2. No gallops, murmurs, or rubs. Normal PMI, no JVD. No pulse deficits. Abdomen/GI: Soft, non-tender, with normal bowel sounds. No distension or tympany. No guarding or rebound. No evidence of tenderness throughout. 06:03 Respiratory: Lungs have equal breath sounds bilaterally, clear to auscultation and percussion. No rales, rhonchi or wheezes noted. No increased work of breathing, no retractions or nasal flaring. Back: No spinal tenderness. No costovertebral tenderness. Full range of motion. Skin: Warm, dry with normal turgor. Normal color with no rashes, no lesions, and no evidence of cellulitis. MS/ Extremity: Pulses equal, no cyanosis. Neurovascular intact. Full, normal range of motion. Neuro: Awake and alert, GCS 15, oriented to person, place, time, and situation. Cranial nerves II-XII grossly intact. Motor strength 5/5 in all extremities. Sensory grossly intact. Cerebellar exam normal. Normal gait. 06:03 Respiratory: the patient does not display signs of respiratory distress. Vital Signs: 04:59 BP 135 / 100; Pulse 64; Resp 18; Temp 97.5(TE); Pulse Ox 100% on R/A; Weight 108.86 kg; ao Height 5 ft. 60 in. (304.80 cm); Pain 3/10; 06:14 BP 138 / 98; Pulse 56; Resp 16; Pulse Ox 100% on R/A; ao 07:46 BP 153 / 92; Pulse 69; Resp 17 S; Temp 97.6(O); Pulse Ox 97% on R/A; Pain 0/10; jl7 04:59 Body Mass Index 11.72 (108.86 kg, 304.80 cm) ao MDM: 04:58 Patient medically screened. tw4 07:41 ED course: Pt reports feels much better, unable to really tell me why he came, states rn was planning to go [facility] today to get [facility], see a neurologist for his dizzy spells, and get a general checkup. Denies having chest pain or sob today. No abd pain. Denies fever or illness. CXR reports possible edema vs infiltrate, after reevaluating patient he denies fever/cough/dyspnea. Maria snot seem infectious. MOst likely edema given peripheral edema, and hx of afib. Oxygen 100%, will not treat with abx. Per Dr. Garrett's plan on hand-off, will get repeat troponin and if negative dc home.. 08:09 Differential diagnosis: Anxiety Reaction CHF exacerbation, Psychogenic pulmonary edema. rn Data reviewed: vital signs, nurses notes, lab test result(s), EKG, radiologic studies, plain films, and as a result, I will discharge patient. Counseling: I had a detailed discussion with the patient and/or guardian regarding: the historical points, exam findings, and any diagnostic results supporting the discharge/admit diagnosis, lab results, radiology results, the need for outpatient follow up, to return to the emergency department if symptoms worsen or persist or if there are any questions or concerns that arise at home. Response to treatment: the patient's symptoms have markedly improved after treatment, the patient's condition has returned to base line, the patient is now symptom free, and as a result, I will discharge patient. ED course: repeat troponin neg. 09/15 04:57 Order name: Blood Culture Adult (2) 09/15 04:57 Order name: BMP; Complete Time: 07:02 09/15 07:02 Interpretation: Normal except: NA 135; BUN 24; GFR 58. 09/15 04:57 Order name: CBC with Diff; Complete Time: 07:02 09/15 07:02 Interpretation: Normal except: RBC 3.39; HGB 10.6; HCT 31.1; WBC 5.5; PLT 89. 09/15 04:57 Order name: Ckmb; Complete Time: 07:02 09/15 07:04 Interpretation: Within normal limits: CKMB 2.2. 09/15 04:57 Order name: CPK; Complete Time: 07:02 09/15 07:04 Interpretation: Within normal limits: CPK 132. 09/15 04:57 Order name: Hepatic Function; Complete Time: 07:02 09/15 07:02 Interpretation: Normal except: GLOB 3.9. 09/15 04:57 Order name: Lipase; Complete Time: 07:02 09/15 07:04 Interpretation: Within normal limits: LIP 143. 09/15 04:57 Order name: Magnesium; Complete Time: 07:02 09/15 07:04 Interpretation: Within normal limits: MG 2.4. 09/15 04:57 Order name: NT PRO-BNP; Complete Time: 07:02 09/15 07:03 Interpretation: NT PRO-BNP 166. 09/15 04:57 Order name: PT-INR; Complete Time: 07:02 09/15 07:04 Interpretation: Abnormal: PT 17.7. 09/15 04:57 Order name: Ptt, Activated; Complete Time: 07:02 09/15 07:04 Interpretation: Abnormal: PTT 42.9. 09/15 04:57 Order name: Troponin (emerg Dept Use Only); Complete Time: 07:02 09/15 07:05 Interpretation: Within normal limits: TROPED < 0.02. 09/15 05:28 Order name: Manual Differential; Complete Time: 07:02 EDMS 09/15 07:04 Interpretation: MONO 12. 09/15 07:12 Order name: Troponin (emerg Dept Use Only); Complete Time: 08:09 09/15 04:57 Order name: XRAY CXR (1 view); Complete Time: 07:26 09/15 04:57 Order name: EKG; Complete Time: 04:58 09/15 04:57 Order name: Cardiac monitoring; Complete Time: 04:58 09/15 04:57 Order name: EKG - Nurse/Tech; Complete Time: 04:58 09/15 04:57 Order name: IV Saline Lock; Complete Time: 04:59 09/15 04:57 Order name: Labs collected and sent; Complete Time: 04:59 09/15 04:57 Order name: O2 Per Protocol; Complete Time: 04:59 09/15 04:57 Order name: O2 Sat Monitoring; Complete Time: 04:59 EC:03 Rate is 57 beats/min. Rhythm is regular, Sinus bradycardia. QRS [place] is Normal. MO tw4 interval is normal. QRS interval is normal. QT interval is normal. No Q waves. T waves are Normal. No ST changes noted. Clinical impression: Sinus bradycardia. Interpreted by me. Reviewed by me. Administered Medications: No medications were administered Disposition: 09/16/19 08:09 Discharged to Home. Impression: Dyspnea, unspecified, Anxiety disorder, unspecified. - Condition is Stable. - Discharge Instructions: Shortness of Breath, Pulmonary Stress Test, Generalized Anxiety Disorder. - Medication Reconciliation Form, Thank You Letter, Antibiotic Education, Prescription Opioid Use form. - Follow up: Private Physician; When: Upon discharge from the Emergency Department; Reason: Recheck today's complaints, Continuance of care, Re-evaluation by your physician. Follow up: Chris To; When: Upon discharge from the Emergency Department; Reason: Recheck today's complaints, Continuance of care, Re-evaluation by your physician. - Problem is new. - Symptoms have improved. Signatures: Dispatcher [employer] EDMS Antonio Joseph MD MD rn Ortiz, Alex, RN RN ao Leal, Jahala, RN RN jl7 Donato Garrett MD MD tw4 Corrections: (The following items were deleted from the chart) 08:29 08:09 09/16/2019 08:09 Discharged to Home. Impression: Dyspnea, unspecified; Anxiety jl7 disorder, unspecified. Condition is Stable. Discharge Instructions: Shortness of Breath, Pulmonary Stress Test, Generalized Anxiety Disorder. Forms are Medication Reconciliation Form, Thank You Letter, Antibiotic Education, Prescription Opioid Use. Follow up: Private Physician; When: Upon discharge from the Emergency Department; Reason: Recheck today's complaints, Continuance of care, Re-evaluation by your physician. Follow up: Chris To; When: Upon discharge from the Emergency Department; Reason: Recheck today's complaints, Continuance of care, Re-evaluation by your physician. Problem is new. Symptoms have improved. rn
[2019-09-16 08:55] VITALS: BP 153/92; TEMP 97.6; O2SAT 97
== END 2019-09-16 08:29 | disposition home or self-care (01) ==
LOC: ER 04:49
DX: R06.00 Dyspnea, unspecified (principal); F41.9 Anxiety disorder, unspecified; E03.9 Hypothyroidism, unspecified; I10 Essential (primary) hypertension; E78.5 Hyperlipidemia, unspecified; I48.91 Unspecified atrial fibrillation; Z85.038 Personal history of other malignant neoplasm of large intestine
CPT/HCPCS: 36415; 71045; 80048; 80076; 82550; 82553; 83690; 83735; 83880; 84484; 85025; 85610; 85730; 87040; 93005; 99285

== ENCOUNTER 2019-10-13 05:12 | Emergency (ER) | payer OTHER ==
[2019-10-13] MEDS ORDERED: ONDANSETRON 4 MG/2 ML VIAL ONE ×2 (06:13→09:00)
[2019-10-13] MEDS ORDERED: MORPHINE 2 MG/ML SYR ONE ×2 (06:13→06:44)
[2019-10-13] MEDS ORDERED: NA CHLORIDE 0.9% 1,000 ML ONE (06:13)
[2019-10-13 06:21] LABS: Protime INR 1.76
[2019-10-13 06:22] LABS: Absolute Lymphocytes (CBC) 1.6 K/uL (0.7-4.9); Basophils % 0.6 % (0-1.3); Hematocrit 29.6 % (39.6-49.0); Lymphocytes % 24.6 % (15.3-44.8); RBC Red Blood Cell Count 3.23 M/uL (4.33-5.43)
[2019-10-13 06:31] LABS: Barbiturates NEGATIVE (NEGATIVE); Benzodiazepines NEGATIVE (NEGATIVE); Cocaine NEGATIVE (NEGATIVE); METHAMPHETAM NEGATIVE (NEGATIVE); Methadone NEGATIVE (NEGATIVE); Opiates NEGATIVE (NEGATIVE); Phencyclidine NEGATIVE (NEGATIVE); THC Cannibis NEGATIVE (NEGATIVE)
[2019-10-13 06:34] LABS: ALT/SGPT 27 U/L (12-78); AST/SGOT 31 U/L (15-37); Alkaline Phosphatase 51 U/L (45-117); BUN Blood Urea Nitrogen 27 mg/dL (7-18); Bicarbonate 29 mmol/L (21-32); Bilirubin Direct 0.1 mg/dL (0-0.2); Bilirubin Total 0.4 mg/dL (0.2-1.0); Glucose Level 118 mg/dL (74-106); Magnesium 2.3 mg/dL (1.8-2.4); NT PRO-BNP 180 pg/mL (<125); Potassium 3.8 mmol/L (3.5-5.1); Protein, Total 7.8 g/dL (6.4-8.2); Sodium Level 138 mmol/L (136-145); Troponin (Emerg Dept Use Only) < 0.02 ng/mL (0.0-0.045)
[2019-10-13 06:47] LABS: Urine Blood NEGATIVE (NEG); Urine Glucose NEGATIVE (NEG); Urine Protein NEGATIVE (NEG)
[2019-10-13] MEDS ORDERED: MEPERIDINE HCL 50 MG/ML ONE (07:08)
--- NOTE | 2019-10-13 07:08 | RAD REPORT ---
EXAM DESCRIPTION: CT - Head Brain Wo Cont - 10/13/2019 6:56 am CLINICAL HISTORY: Headache COMPARISON: August 2019 TECHNIQUE: Computed axial tomography of the head was obtained. IV contrast was not requested. All CT scans are performed using dose optimization technique as appropriate and may include automated exposure control or mA/KV adjustment according to patient size. FINDINGS: An intracranial bleed is not seen . The ventricles are normal in caliber. No extra-axial fluid collection is noted. Mild low-density areas within periventricular, deep and subcortical white matter likely represent isc hemic changes secondary to small vessel disease. Chronic opacification of the left sphenoid sinus with thickened wall unchanged IMPRESSION: No acute intracranial abnormality is seen. If patient's symptoms persist MRI of the bra in would be recommended. Chronic sphenoid sinusitis
[2019-10-13 07:55] LABS: Blood Morphology Comment NOT SEEN (NOT SEEN); Platelet Estimate ADEQ
[2019-10-13] MEDS ORDERED: CEFTRIAXONE/SWI 1gm 1 GM/10 ML SYR ONE (08:37)
[2019-10-13] MEDS ORDERED: ACETYLCYST 6,000 MG/30 ML VIAL ONE (08:37)
--- NOTE | 2019-10-13 08:43 | RAD REPORT ---
EXAM DESCRIPTION: Eliza Single View10/13/2019 7:00 am CLINICAL HISTORY: Chest pain COMPARISON: August 2019 FINDINGS: The lungs appear clear of acute infiltrate. The heart is normal size IMPRESSION: No acute abnormalities displayed
[2019-10-13] MEDS ORDERED: HYDROMORPHONE HCL 1 MG/ML INJ ONE (09:00)
[2019-10-13] MEDS ORDERED: METHYLPREDNISOLONE 125 MG INJ ONE (09:20)
[2019-10-13] MEDS ORDERED: carBAMazepine 200 MG TAB ONE (09:20)
--- NOTE | 2019-10-13 10:11 | ER ---
Nurse's Notes [facility] Name: John Cuevas Age: 73 yrs Sex: Male : 1945 Arrival Date: 10/13/2019 Time: 05:14 Bed 7 Private MD: Diagnosis: Headache;Trigeminal neuralgia;Acute sphenoidal sinusitis, unspecified;Anemia, unspecified;Unspecified kidney failure-insufficency Presentation: 10/12 05:22 Chief complaint: EMS states: Called for patient with headache since 199, states pain lp1 to left side of head; Hx of seeing Neurologist, unable to get appt due to Coronavirus; States pain worsened when squinting eyes closed. Coronavirus screen: Proceed with normal triage. Ebola Screen: No symptoms or risks identified at this time. Initial Sepsis Screen: Does the patient meet any 2 criteria? No. Patient's initial sepsis screen is negative. Does the patient have a suspected source of infection? No. Patient's initial sepsis screen is negative. Risk Assessment: Do you want to hurt yourself or someone else? Patient reports no desire to harm self or others. Onset of symptoms was October 13, 2019 at 02:00. 05:22 Method Of Arrival: EMS: [facility] lp1 05:22 Acuity: KEVIN 3 lp1 Historical: - Allergies: 05:24 No Known Allergies; lp1 - Home Meds: 05:24 Metoprolol Tartrate Oral [Active]; lisinopril Oral [Active]; levothyroxine for lp1 Hypothyroidism [Active]; Amiodarone Oral [Active]; Plavix Oral [Active]; Simvastatin Oral [Active]; - PMHx: 05:24 Atrial Fib; colon cancer; Hyperlipidemia; Hypertension; Hypothyroidism; lp1 - PSHx: 05:24 Unable to obtain; lp1 - Immunization history:: Adult Immunizations up to date. - Social history:: Smoking status: Patient denies any tobacco usage or history of. Screenin:25 Abuse screen: Denies threats or abuse. Denies injuries from another. Nutritional lp1 screening: No deficits noted. Tuberculosis screening: No symptoms or risk factors identified. Fall Risk Total [place] Fall Scale indicates High Risk Score (45 or more points). Fall prevention measures have been instituted. Side Rails Up X 2 Frequent Obs/Assessments Occuring As available patient and family educated on Fall Prevention Program and Strategies. Assessment: 05:27 Reassessment: pt yelling "hey, come on now." with eyes closed, when asked how can he be sg helped he says " no not at all.". 05:40 Reassessment: Patient appears in no apparent distress at this time. at bedside, pt is alert and oriented x2 at this time, answering questions appropriately but also rambles with his speech. 05:40 General: Appears in no apparent distress. uncomfortable, well developed, well sg nourished, Behavior is anxious, inappropriate for age, restless. Pain: Complains of pain in left christian Quality of pain is described as sharp, stabbing. Neuro: Level of Consciousness is awake, obeys commands, confused, Oriented to person, situation, Moves all extremities. Speech is normal, Facial symmetry appears normal, Reports headache. Cardiovascular: Heart tones S1 S2 present Patient's skin is warm and dry. Chest pain is denied. Respiratory: Airway is patent Respiratory effort is even, unlabored, Respiratory pattern is regular, symmetrical. GI: Abdomen is round Bowel sounds present X 4 quads. soft spongy area located near the umbilical area, pt states that is his umbilical hernia Reports normal bowel habits, tolerance of fluids, tolerance of food. : No signs and/or symptoms were reported regarding the genitourinary system. EENT: No signs and/or symptoms were reported regarding the EENT system. Derm: Skin is pale, Skin temperature is warm skin is scarred on upper extremities, face and neck, pt states "grease velazco from years ago.". Musculoskeletal: Circulation, motion, and sensation intact. Range of motion: intact in all extremities, pt reports involuntary control of the head and neck, as well as arms and legs. 06:24 Reassessment: Patient appears in no apparent distress at this time. this pt continues sg to yell out, even when at bedside with the pt. pt states he " would like a jug to spit in." instructed this pt that we do not currently have spit jugs in this dept, but i can provide a emesis bag for him to spit in. pt stated understanding, emesis bag provided. 06:32 Reassessment: Patient appears in no apparent distress at this time. xray at bedside at this time. 06:33 Reassessment: cooperative with build technician at this time, pt observed pulling himself up sg in the bed to lean forward for placement of the xray plates. 06:40 Reassessment: Patient appears in no apparent distress at this time. at bedside sg assessing pt, pt states " hey doc, you didn't give me a big enough shot of medication. Hey, do you know what?! I had my first colonoscopy without any sedation! You cant hear a word I just said. Do you know what a colonoscopy even is?!". 06:46 Reassessment: Emmanuel at bedside for transport to CT at this time, via stretcher. sg 08:00 Reassessment: Patient appears in no apparent distress at this time. Patient and/or hb family updated on plan of care and expected duration. Pain level reassessed. 08:19 Reassessment: Pt yelling, c/o left sided headache 02/08. Dr. Beckman notified. hb 08:43 Reassessment: Dr. Beckman at bedside. hb 08:58 Reassessment: Pt continues to yell out, moaning, Dr. Beckman aware. Dilaudid and hb Zofran administered as ordered. VSS. 09:45 Reassessment: Patient appears in no apparent distress at this time. Patient and/or hb family updated on plan of care and expected duration. Pain level reassessed. 10:15 Reassessment: Patient appears in no apparent distress at this time. Patient and/or hb family updated on plan of care and expected duration. Pain level reassessed. Patient is alert, oriented x 3, equal unlabored respirations, skin warm/dry/pink. Vital Signs: 05:22 BP 172 / 90; Pulse 56; Resp 20; Temp 97.1; Pulse Ox 100% on R/A; Weight 117.93 kg; lp1 Height 6 ft. 4 in. (193.04 cm); Pain 9/10; 06:35 BP 158 / 91; Pulse 60; Resp 20; Temp 97.9; Pulse Ox 100% on R/A; sg 08:09 BP 148 / 89; Pulse 59; Resp 16; Pulse Ox 99% on R/A; Pain 8/10; hb 09:00 BP 156 / 86; Pulse 58; Resp 17; Pulse Ox 99% on R/A; Pain 8/10; hb 10:00 BP 150 / 82; Pulse 60; Resp 17; Pulse Ox 99% on R/A; Pain 5/10; hb 05:22 Body Mass Index 31.65 (117.93 kg, 193.04 cm) lp1 ED Course: 05:14 Patient arrived in ED. sg 05:22 Juan José Case RN is Primary Nurse. sg 05:23 Triage completed. lp1 05:24 Arm band placed on. lp1 05:25 Patient has correct armband on for positive identification. Bed in low position. Call lp1 light in reach. 05:41 Nakul Sargent MD is Attending Physician. pkl 06:00 Missed attempt(s): 18 gauge in right antecubital area. Bleeding controlled, band aid sg applied, catheter tip intact. 06:02 Missed attempt(s): 18 gauge in left forearm. Bleeding controlled, band aid applied, sg catheter tip intact. 06:08 Missed attempt(s): 20 gauge in right forearm. Bleeding controlled, band aid applied, ea catheter tip intact. 06:10 Missed attempt(s): 20 gauge in right antecubital area. Bleeding controlled, band aid ea applied, catheter tip intact. 06:12 Initial lab(s) drawn, by ED staff, sent to lab. sg 06:12 Inserted saline lock: 20 gauge in right antecubital area, using aseptic technique. ea Blood collected. 06:15 Straight cath inserted, using sterile technique, 16 Fr. Specimen obtained. ea 06:18 Urine collected: a specimen has been sent to the lab for UDS as ordered. sg 06:56 CT Head Brain wo Cont In Process Unspecified. EDMS 07:00 XRAY Chest (1 view) In Process Unspecified. EDMS 07:28 Primary Nurse role handed off by Juan José Case RN iw 08:00 Cely Bridges, MANUEL is Primary Nurse. hb 08:22 Attending Physician role handed off by Nakul Sargent MD leonidas 08:22 Osvaldo Beckman MD is Attending Physician. leonidas 08:31 pt daughter phone number is [phone]. bd 10:10 Lewis Nava MD is Referral Physician. leonidas 10:29 No provider procedures requiring assistance completed. IV discontinued, intact, hb bleeding controlled, No redness/swelling at site. Administered Medications: 06:12 Drug: NS 0.9% 1000 ml Route: IV; Rate: 100 ml/hr; Site: right antecubital; sg 10:41 Follow up: Response: No adverse reaction; IV Status: Completed infusion; IV Intake: hb 450ml 06:12 Drug: morphine 2 mg Route: IVP; Site: right antecubital; sg 06:31 Follow up: Response: No adverse reaction; Pain is unchanged, physician notified; RASS: sg Very agitated (+3) 06:12 Drug: Zofran (Ondansetron) 4 mg Route: IVP; Site: right antecubital; sg 09:28 Follow up: Response: No adverse reaction hb 06:42 Drug: morphine 2 mg Route: IVP; Site: right antecubital; sg 07:33 Follow up: Response: No adverse reaction hb 07:00 Drug: Demerol 50 mg Route: IVP; Site: right antecubital; sg 08:40 Drug: NS 0.9% 500 ml Route: IV; Rate: bolus; Site: right antecubital; hb 09:55 Follow up: Response: No adverse reaction; IV Status: Completed infusion; IV Intake: hb 500ml 08:40 Drug: Mucomyst - Acetylcysteine 600 mg Route: PO; hb 09:32 Follow up: Response: No adverse reaction hb 08:40 Drug: Rocephin 1 grams Route: IV; Rate: per protocol; Site: right antecubital; hb 08:42 Follow up: IV Status: Completed infusion; IV Intake: 10ml hb 09:32 Follow up: Response: No adverse reaction hb 08:57 Drug: Dilaudid 1 mg Route: IVP; Site: right antecubital; hb 09:31 Follow up: Response: No adverse reaction hb 08:57 Drug: Zofran (Ondansetron) 4 mg Route: IVP; Site: right antecubital; hb 09:32 Follow up: Response: No adverse reaction hb 09:26 Drug: TEGretol 400 mg Route: PO; hb 10:22 Follow up: Response: No adverse reaction hb 09:26 Drug: SOLU-Medrol 125 mg Route: IVP; Site: right antecubital; hb 10:22 Follow up: Response: No adverse reaction hb 10:20 Drug: predniSONE 40 mg Route: PO; hb 10:40 Follow up: Response: Medication administered at discharge. hb Intake: 08:42 IV: 10ml; Total: 10ml. hb 09:55 IV: 500ml; Total: 510ml. hb 10:41 IV: 450ml; Total: 960ml. hb Outcome: 10:10 Discharge ordered by . leonidas 10:29 Discharged to home via wheelchair. hb 10:29 Condition: stable 10:29 Discharge instructions given to patient, Instructed on discharge instructions, follow up and referral plans. medication usage, Demonstrated understanding of instructions, follow-up care, medications, Prescriptions given X 4. 10:42 Patient left the ED. hb Signatures: Dispatcher [employer] EDMS Lizbet Nascimento Steven, RN Osvaldo Arvizu MD MD cha Lam, Pin, MD MD pkl Williams, Irene RN Chely Reyes RN RN lp1 Cely Bridges RN RN hb Antunez, Elena RN RN antolin
--- NOTE | 2019-10-13 10:11 | EDPHYS ---
Physician Documentation [facility] Name: John Cuevas Age: 73 yrs Sex: Male : 1945 Arrival Date: 10/13/2019 Time: 05:14 Bed 7 Private MD: ED Physician Osvaldo Beckman HPI: 10/12 05:54 This 73 yrs old Male presents to ER via EMS with complaints of Headache. pkl 05:54 The patient complains of pain to the left side of head. The patient describes the pkl headache as constant. Onset: The symptoms/episode began/occurred just prior to arrival, 4 hour(s) ago. Associated signs and symptoms: Pertinent positives: confusion. Patient said he is pending appointment to see neurologist, but unable to get an appointment due to Coronavirus. Historical: - Allergies: 05:24 No Known Allergies; lp1 - Home Meds: 05:24 Metoprolol Tartrate Oral [Active]; lisinopril Oral [Active]; levothyroxine for lp1 Hypothyroidism [Active]; Amiodarone Oral [Active]; Plavix Oral [Active]; Simvastatin Oral [Active]; - PMHx: 05:24 Atrial Fib; colon cancer; Hyperlipidemia; Hypertension; Hypothyroidism; lp1 - PSHx: 05:24 Unable to obtain; lp1 - Immunization history:: Adult Immunizations up to date. - Social history:: Smoking status: Patient denies any tobacco usage or history of. ROS: 05:54 Eyes: Negative for injury, pain, redness, and discharge, ENT: Negative for injury, pkl pain, and discharge, Neck: Negative for injury, pain, and swelling, Cardiovascular: Negative for chest pain, palpitations, and edema, Respiratory: Negative for shortness of breath, cough, wheezing, and pleuritic chest pain, Abdomen/GI: Negative for abdominal pain, nausea, vomiting, diarrhea, and constipation, Back: Negative for injury and pain, : Negative for injury, bleeding, discharge, and swelling, MS/Extremity: Negative for injury and deformity, Skin: Negative for injury, rash, and discoloration. 05:54 Neuro: Positive for headache, of the left side of head, confusion. 10:02 Eyes: Negative for acute changes, blurry vision, vision loss, visual disturbance. leonidas Exam: 05:54 Head/Face: Normocephalic, atraumatic. Eyes: Pupils equal round and reactive to light, pkl extra-ocular motions intact. Lids and lashes normal. Conjunctiva and sclera are non-icteric and not injected. Cornea within normal limits. Periorbital areas with no swelling, redness, or edema. ENT: Nares patent. No nasal discharge, no septal abnormalities noted. Tympanic membranes are normal and external auditory canals are clear. Oropharynx with no redness, swelling, or masses, exudates, or evidence of obstruction, uvula midline. Mucous membranes moist. Neck: Trachea midline, no thyromegaly or masses palpated, and no cervical lymphadenopathy. Supple, full range of motion without nuchal rigidity, or vertebral point tenderness. No Meningismus. Chest/axilla: Normal chest wall appearance and motion. Nontender with no deformity. No lesions are appreciated. Cardiovascular: Regular rate and rhythm with a normal S1 and S2. No gallops, murmurs, or rubs. Normal PMI, no JVD. No pulse deficits. Respiratory: Lungs have equal breath sounds bilaterally, clear to auscultation and percussion. No rales, rhonchi or wheezes noted. No increased work of breathing, no retractions or nasal flaring. Abdomen/GI: Soft, non-tender, with normal bowel sounds. No distension or tympany. No guarding or rebound. No evidence of tenderness throughout. Back: No spinal tenderness. No costovertebral tenderness. Full range of motion. Skin: Warm, dry with normal turgor. Normal color with no rashes, no lesions, and no evidence of cellulitis. MS/ Extremity: Pulses equal, no cyanosis. Neurovascular intact. Full, normal range of motion. 05:54 Neuro: Orientation: appropriate for stated age, Mentation: appropriate for stated age, Cranial nerves: grossly normal, Motor: moves all fours, strength is normal. 09:06 Neck: ROM/movement: is normal, no acute changes, Meningeal signs: are not present, leonidas Kernig's sign is negative, Brudzinski's sign is negative. Vital Signs: 05:22 BP 172 / 90; Pulse 56; Resp 20; Temp 97.1; Pulse Ox 100% on R/A; Weight 117.93 kg; lp1 Height 6 ft. 4 in. (193.04 cm); Pain 9/10; 06:35 BP 158 / 91; Pulse 60; Resp 20; Temp 97.9; Pulse Ox 100% on R/A; sg 08:09 BP 148 / 89; Pulse 59; Resp 16; Pulse Ox 99% on R/A; Pain 8/10; hb 09:00 BP 156 / 86; Pulse 58; Resp 17; Pulse Ox 99% on R/A; Pain 8/10; hb 10:00 BP 150 / 82; Pulse 60; Resp 17; Pulse Ox 99% on R/A; Pain 5/10; hb 05:22 Body Mass Index 31.65 (117.93 kg, 193.04 cm) lp1 MDM: 05:41 Patient medically screened. pkl 06:48 Data reviewed: vital signs, nurses notes, lab test result(s), EKG, radiologic studies, pkl CT scan. 09:04 ED course: dw dr lee case, treat as trigeminal pain, cover sinusitis, mdp, leonidas tegretol some fiorcet for pain, follow with him, no further testing now.. 10:08 ED course: jesus aware of crp and sed rate. leonidas 10/12 05:48 Order name: Basic Metabolic Panel; Complete Time: 06:36 pkl 10/12 05:48 Order name: CBC with Diff; Complete Time: 08:21 pkl 10/12 05:48 Order name: LFT's; Complete Time: 06:36 pkl 10/12 05:48 Order name: Magnesium; Complete Time: 06:36 pkl 10/12 05:48 Order name: NT PRO-BNP; Complete Time: 06:36 pkl 10/12 05:48 Order name: PT-INR; Complete Time: 06:47 pkl 10/12 05:48 Order name: Troponin (emerg Dept Use Only); Complete Time: 06:36 pkl 10/12 05:48 Order name: XRAY Chest (1 view); Complete Time: 08:54 pkl 10/12 05:51 Order name: CT Head Brain wo Cont; Complete Time: 08:21 pkl 10/12 05:51 Order name: UDS; Complete Time: 06:31 pkl 10/12 06:17 Order name: Urine Dipstick--Ancillary (enter results); Complete Time: 06:47 dh4 04/13 07:55 Order name: Manual Differential; Complete Time: 08:21 EDMS 10/12 08:57 Order name: Sed Rate; Complete Time: 10:00 leonidas 10/12 08:57 Order name: CRP; Complete Time: 10:00 leonidas 10/12 05:48 Order name: EKG; Complete Time: 05:49 pkl 10/12 05:48 Order name: Cardiac monitoring; Complete Time: 06:12 pkl 10/12 05:48 Order name: EKG - Nurse/Tech; Complete Time: 06:22 pkl 10/12 05:48 Order name: IV Saline Lock; Complete Time: 06:12 pkl 10/12 05:48 Order name: Labs collected and sent; Complete Time: 06:12 pkl 10/12 05:48 Order name: O2 Per Protocol; Complete Time: 06:12 pkl 10/12 05:48 Order name: O2 Sat Monitoring; Complete Time: 06:12 pkl Administered Medications: 06:12 Drug: NS 0.9% 1000 ml Route: IV; Rate: 100 ml/hr; Site: right antecubital; sg 10:41 Follow up: Response: No adverse reaction; IV Status: Completed infusion; IV Intake: hb 450ml 06:12 Drug: morphine 2 mg Route: IVP; Site: right antecubital; sg 06:31 Follow up: Response: No adverse reaction; Pain is unchanged, physician notified; RASS: sg Very agitated (+3) 06:12 Drug: Zofran (Ondansetron) 4 mg Route: IVP; Site: right antecubital; sg 09:28 Follow up: Response: No adverse reaction hb 06:42 Drug: morphine 2 mg Route: IVP; Site: right antecubital; sg 07:33 Follow up: Response: No adverse reaction hb 07:00 Drug: Demerol 50 mg Route: IVP; Site: right antecubital; sg 08:40 Drug: NS 0.9% 500 ml Route: IV; Rate: bolus; Site: right antecubital; hb 09:55 Follow up: Response: No adverse reaction; IV Status: Completed infusion; IV Intake: hb 500ml 08:40 Drug: Mucomyst - Acetylcysteine 600 mg Route: PO; hb 09:32 Follow up: Response: No adverse reaction hb 08:40 Drug: Rocephin 1 grams Route: IV; Rate: per protocol; Site: right antecubital; hb 08:42 Follow up: IV Status: Completed infusion; IV Intake: 10ml hb 09:32 Follow up: Response: No adverse reaction hb 08:57 Drug: Dilaudid 1 mg Route: IVP; Site: right antecubital; hb 09:31 Follow up: Response: No adverse reaction hb 08:57 Drug: Zofran (Ondansetron) 4 mg Route: IVP; Site: right antecubital; hb 09:32 Follow up: Response: No adverse reaction hb 09:26 Drug: TEGretol 400 mg Route: PO; hb 10:22 Follow up: Response: No adverse reaction hb 09:26 Drug: SOLU-Medrol 125 mg Route: IVP; Site: right antecubital; hb 10:22 Follow up: Response: No adverse reaction hb 10:20 Drug: predniSONE 40 mg Route: PO; hb 10:40 Follow up: Response: Medication administered at discharge. hb Disposition: 10/13/19 10:10 Discharged to Home. Impression: Headache, Trigeminal neuralgia, Acute sphenoidal sinusitis, unspecified, Anemia, unspecified, Unspecified kidney failure - insufficency. - Condition is Stable. - Discharge Instructions: General Headache Without Cause, Pain Without a Known Cause, Sinusitis, Adult, Trigeminal Neuralgia, Sinusitis, Adult, Gcyl-yp-Dtby, General Headache Without Cause, Pihw-cg-Qhml. - Prescriptions for Fioricet with Codeine 50- 325-40-30 mg Oral capsule - take 1 capsule by ORAL route every 4 hours as needed not to exceed 6 capsules per 24hrs; 15 capsule. Augmentin 875- 125 mg Oral Tablet - take 1 tablet by ORAL route every 12 hours for 10 days; 20 tablet. Tegretol XR 200 mg Oral Tablet Sustained Release 12 hr - take 1 tablet by ORAL route once daily; 30 tablet. Prednisone 20 mg Oral Tablet - take 2 tablets by ORAL route once daily for 10 days; 20 tablet. - Medication Reconciliation Form, Thank You Letter, Antibiotic Education, Prescription Opioid Use form. - Follow up: Private Physician; When: 2 - 3 days; Reason: Recheck today's complaints, Continuance of care, Re-evaluation by your physician. Follow up: Lewis Lee; When: 2 - 3 days; Reason: Recheck today's complaints, Re-evaluation by your physician. - Problem is new. - Symptoms have improved. Signatures: Dispatcher [employer] EDAZ Juan José Case RN RN sg Anderson, Corey, MD MD cha Lam, Pin, MD MD pkChely Lopez RN RN lp1 Cely Bridges RN RN hb Corrections: (The following items were deleted from the chart) 06:02 05:54 The patient complains of pain to the left side of head, pkl pkl 06:02 05:54 The patient describes the headache as constant, pkl pkl 06:02 05:54 Onset: The symptoms/episode began/occurred just prior to arrival, 3 hour(s) ago, pkl pkl 06:02 05:54 Associated signs and symptoms: Pertinent positives: confusion, pkl pkl 09:03 08:27 Head Angio+CT.RAD.BRZ ordered. [facility] EDAZ 10:42 10:10 10/13/2019 10:10 Discharged to Home. Impression: Headache; Trigeminal neuralgia; hb Acute sphenoidal sinusitis, unspecified; Anemia, unspecified; Unspecified kidney failure - insufficency. Condition is Stable. Discharge Instructions: General Headache Without Cause, Pain Without a Known Cause, Sinusitis, Adult, Trigeminal Neuralgia, Sinusitis, Adult, Stgj-gw-Enzo, General Headache Without Cause, Cmxx-td-Nizc. Prescriptions for Fioricet with Codeine 37-596-12-30 mg Oral capsule - take 1 capsule by ORAL route every 4 hours as needed not to exceed 6 capsules per 24hrs; 15 capsule, Augmentin 875-125 mg Oral Tablet - take 1 tablet by ORAL route every 12 hours for 10 days; 20 tablet, Tegretol XR 200 mg Oral Tablet Sustained Release 12 hr - take 1 tablet by ORAL route once daily; 30 tablet, Medrol (Jerry) 4 mg Oral Tablets, Dose Pack - take 1 tablet by ORAL route as directed - follow package instructions; 1 packet. and Forms are Medication Reconciliation Form, Thank You Letter, Antibiotic Education, Prescription Opioid Use. Follow up: Private Physician; When: 2 - 3 days; Reason: Recheck today's complaints, Continuance of care, Re-evaluation by your physician. Follow up: Lewis Lee; When: 2 - 3 days; Reason: Recheck today's complaints, Re-evaluation by your physician. Problem is new. Symptoms have improved. leonidas
[2019-10-13] MEDS ORDERED: predniSONE 20 MG TAB ONE (10:20)
[2019-10-13 11:08] VITALS: TEMP 7.9
[2019-10-13 11:10] VITALS: O2SAT 99
[2019-10-13 11:13] VITALS: BP 150/82
--- NOTE | 2019-10-13 16:18 | EKG ---
Test Date: 2019-10-13 Test Time: 06:23:38 Animal Cruelty Investigation Supervisor: ROGER MEASUREMENT RESULTS: Intervals: Rate: 58 HI: 210 QRSD: 104 QT: 464 QTc: 455 [place]: P: 52 HI: 210 QRS: 43 T: 54 INTERPRETIVE STATEMENTS: Sinus bradycardia with 1st degree AV block Otherwise normal ECG Compared to ECG 09/16/2019 04:57:33 No significant changes Electronically Signed On 10-13-19 16:16:15 CDT by Ervin Banks
== END 2019-10-13 10:42 | disposition home or self-care (01) ==
LOC: ER 05:12
DX: G50.0 Trigeminal neuralgia (principal); J01.30 Acute sphenoidal sinusitis, unspecified; D64.9 Anemia, unspecified; N19 Unspecified kidney failure; I10 Essential (primary) hypertension; E03.9 Hypothyroidism, unspecified; E78.5 Hyperlipidemia, unspecified; I48.91 Unspecified atrial fibrillation; Z79.01 Long term (current) use of anticoagulants; Z85.038 Personal history of other malignant neoplasm of large intestine
CPT/HCPCS: 93005; 85025; 80048; 36415; 83735; 85610; 80076; 80307 ×8; 85652; 81003; 84484; 83880; 86140; 70450; 71045; J2270 ×2; J2175; J1170; J0696; J7030; J2930; J2405 ×2; 51702; 96361; 96374; 96375; 99284; J7512

== ENCOUNTER 2019-10-24 04:46 | Emergency (ER) | payer OTHER ==
[2019-10-24 05:19] LABS: Absolute Lymphocytes (CBC) 1.7 K/uL (0.7-4.9); Basophils % 0.5 % (0-1.3); Hematocrit 30.8 % (39.6-49.0); Lymphocytes % 18.7 % (15.3-44.8); MPV 11.1 fL (7.6-11.3); RBC Red Blood Cell Count 3.32 M/uL (4.33-5.43)
[2019-10-24 05:20] LABS: Protime INR 1.57
[2019-10-24 05:36] LABS: ALT/SGPT 42 U/L (12-78); AST/SGOT 23 U/L (15-37); Albumin 4.1 g/dL (3.4-5.0); Alkaline Phosphatase 48 U/L (45-117); BUN Blood Urea Nitrogen 23 mg/dL (7-18); Bicarbonate 28 mmol/L (21-32); Bilirubin Direct 0.1 mg/dL (0-0.2); Bilirubin Total 0.3 mg/dL (0.2-1.0); Glucose Level 100 mg/dL (74-106); Magnesium 2.3 mg/dL (1.8-2.4); NT PRO-BNP 87 pg/mL (<125); Potassium 3.7 mmol/L (3.5-5.1); Protein, Total 7.7 g/dL (6.4-8.2); Sodium Level 138 mmol/L (136-145); Troponin (Emerg Dept Use Only) < 0.02 ng/mL (0.0-0.045)
[2019-10-24 05:38] LABS: Blood Morphology Comment NOT SEEN (NOT SEEN); Platelet Estimate DECR
[2019-10-24] MEDS ORDERED: ACETAMINOPHEN 500 MG TAB ONE (05:52)
--- NOTE | 2019-10-24 06:35 | ER ---
Nurse's Notes [facility] Name: John Cuevas Age: 73 yrs Sex: Male : 1945 Arrival Date: 10/24/2019 Time: 04:48 Bed 5 Private MD: Diagnosis: Anxiety disorder, unspecified Presentation: 10/23 04:53 Chief complaint: EMS states: he was putting cream on his feet when he complained of mg2 chest pain and was screaming loud because he felt like he is gonna . Coronavirus screen: Proceed with normal triage. Patient denies a cough. Patient denies shortness of breath or difficulty breathing. Patient denies measured and/or subjective temperature greater than 100.4F prior to today's visit. Patient denies travel on a cruise ship or to a country the [facility] currently lists as an affected area. Patient denies contact with known and/or suspected case of COVID-19. Ebola Screen: No symptoms or risks identified at this time. Initial Sepsis Screen: Does the patient meet any 2 criteria? No. Patient's initial sepsis screen is negative. Does the patient have a suspected source of infection? No. Patient's initial sepsis screen is negative. Risk Assessment: Do you want to hurt yourself or someone else? Patient reports no desire to harm self or others. Onset of symptoms was October 24, 2019. 04:53 Method Of Arrival: EMS: [facility] mg2 04:53 Acuity: KEVIN 3 mg2 Historical: - Allergies: 04:57 No Known Allergies; mg2 - Home Meds: 04:57 allopurinol Oral [Active]; Codeine Oral [Active]; levothyroxine oral [Active]; mg2 Lisinopril Oral [Active]; - PMHx: 04:57 Atrial Fib; colon cancer; Hyperlipidemia; Hypertension; Hypothyroidism; pre-dementia; mg2 - Immunization history:: Flu vaccine is up to date. - Social history:: Smoking status: Patient denies any tobacco usage or history of. Patient/guardian denies using alcohol, street drugs, IV drugs. Screenin:07 Abuse screen: Denies threats or abuse. Denies injuries from another. Nutritional mg2 screening: No deficits noted. Tuberculosis screening: No symptoms or risk factors identified. Fall Risk IV access (20 points). Assessment: 05:06 General: Appears in no apparent distress. comfortable, Behavior is calm, cooperative. mg2 Pain: Denies pain. Neuro: Level of Consciousness is awake, alert, obeys commands, Oriented to person, place, time, situation. Cardiovascular: Capillary refill < 3 seconds Patient's skin is warm and dry. Cardiovascular: Reports chest pain, since while at home. Respiratory: Airway is patent Respiratory effort is even, unlabored, Respiratory pattern is regular, symmetrical. GI: No signs and/or symptoms were reported involving the gastrointestinal system. : No signs and/or symptoms were reported regarding the genitourinary system. EENT: No signs and/or symptoms were reported regarding the EENT system. Derm: Skin is intact, is healthy with good turgor, Skin is pink, warm \T\ dry. normal. Musculoskeletal: Circulation, motion, and sensation intact. Capillary refill < 3 seconds. 05:40 Reassessment: Patient appears in no apparent distress at this time. complaining of rr5 headache. ED provider aware with order made and carried out. 06:11 Reassessment: Patient appears in no apparent distress at this time. No changes from rr5 previously documented assessment. awaiting for review. 07:00 Reassessment: Patient appears in no apparent distress at this time. for discharge. mg2 myron called the thru phone that she cannot come to pick him up. if possible to arrange a taxi and she will come to give a walker and assist him. 07:10 Reassessment: Gissell called she said to arrange taxi for him and I will meet them rr5 at the front. just like what you did last time he came as stated by the . 07:55 Reassessment: Pt sitting in wheelchair, in exam room, awaiting transport, no signs of jl7 distress noted at this time. Vital Signs: 04:53 BP 144 / 82; Pulse 74; Resp 18; Temp 97.9; Pulse Ox 100% on R/A; Weight 117.93 kg; mg2 Height 6 ft. 4 in. (193.04 cm); 05:48 BP 151 / 86; Pulse 72; Resp 16; Pulse Ox 100% ; rr5 06:12 BP 146 / 81; Pulse 72; Resp 19; Pulse Ox 97% ; rr5 06:35 BP 139 / 75; Pulse 80; Resp 17; Temp 98; Pulse Ox 100% ; mg2 04:53 Body Mass Index 31.65 (117.93 kg, 193.04 cm) mg2 ED Course: 04:48 Patient arrived in ED. ds1 04:53 Sky Burns, RN is Primary Nurse. mg2 04:55 Triage completed. mg2 04:55 Arm band placed on. mg2 05:07 Patient has correct armband on for positive identification. renewable energy project manager on. Pulse mg2 ox on. NIBP on. Door closed. Warm blanket given. 05:07 No provider procedures requiring assistance completed. Inserted saline lock: 20 gauge mg2 in right antecubital area, using aseptic technique. Blood collected. by MANUEL Rosenthal. 05:09 EKG done, by ED staff, reviewed by Donato Garrett. rr5 05:22 XRAY Chest (1 view) In Process Unspecified. EDMS 05:44 CT Head Brain wo Cont In Process Unspecified. EDMS 05:44 Donato Garrett MD is Attending Physician. tw4 08:23 Patient did not have IV access during this emergency room visit. iw Administered Medications: 05:48 Drug: Tylenol 1000 mg Route: PO; mg2 07:11 Follow up: Response: No adverse reaction rr5 06:30 Drug: Motrin 400 mg Route: PO; rr5 07:11 Follow up: Response: No adverse reaction rr5 Outcome: 06:34 Discharge ordered by . tw4 08:21 Discharged to home with crutches, pt assisted into taxi, instructions to route sales driver to call iw pt when she arrives to [facility] , pt able to get himself into cab without assistance 08:21 Condition: good 08:21 Discharge instructions given to patient, Instructed on discharge instructions, follow up and referral plans. Demonstrated understanding of instructions, follow-up care. 08:23 Patient left the ED. iw Signatures: Dispatcher [employer] EDNY Princess Lucero ds1 Loraine Finley RN RN iw Heather Jameson RN RN jl7 Donato Garrett MD MD tw4 Sky Burns, MANUEL JACKSON mg2 Galo Fuentes, MANUEL RN rr5
--- NOTE | 2019-10-24 06:35 | EDPHYS ---
Physician Documentation [facility] Name: John Cuevas Age: 73 yrs Sex: Male : 1945 Arrival Date: 10/24/2019 Time: 04:48 Bed 5 Private MD: ED Physician Donato Garrett HPI: 10/23 06:50 This 73 yrs old Male presents to ER via EMS with complaints of Anxiety. tw4 06:50 The patient presents to the emergency department with anxiety, over unknown tw4 circumstances. Onset: The symptoms/episode began/occurred today. Past psychiatric history: Prior diagnosis: no previous psychiatric diagnosis known. Associated signs and symptoms: The patient has no apparent associated signs or symptoms. Severity of symptoms: At their worst the symptoms were mild. The patient has experienced a previous episode. pt was found screaming after waking up this am. Historical: - Allergies: 04:57 No Known Allergies; mg2 - Home Meds: 04:57 allopurinol Oral [Active]; Codeine Oral [Active]; levothyroxine oral [Active]; mg2 Lisinopril Oral [Active]; - PMHx: 04:57 Atrial Fib; colon cancer; Hyperlipidemia; Hypertension; Hypothyroidism; pre-dementia; mg2 - Immunization history:: Flu vaccine is up to date. - Social history:: Smoking status: Patient denies any tobacco usage or history of. Patient/guardian denies using alcohol, street drugs, IV drugs. ROS: 06:50 Constitutional: Negative for fever, chills, and weight loss, Eyes: Negative for injury, tw4 pain, redness, and discharge, Cardiovascular: Negative for chest pain, palpitations, and edema, Respiratory: Negative for shortness of breath, cough, wheezing, and pleuritic chest pain, Abdomen/GI: Negative for abdominal pain, nausea, vomiting, diarrhea, and constipation, Back: Negative for injury and pain, MS/Extremity: Negative for injury and deformity, Skin: Negative for injury, rash, and discoloration. 06:50 Psych: Positive for anxiety. Exam: 06:50 Constitutional: This is a well developed, well nourished patient who is awake, alert, tw4 and in no acute distress. Head/Face: Normocephalic, atraumatic. Chest/axilla: Normal chest wall appearance and motion. Nontender with no deformity. No lesions are appreciated. Cardiovascular: Regular rate and rhythm with a normal S1 and S2. No gallops, murmurs, or rubs. Normal PMI, no JVD. No pulse deficits. Respiratory: Lungs have equal breath sounds bilaterally, clear to auscultation and percussion. No rales, rhonchi or wheezes noted. No increased work of breathing, no retractions or nasal flaring. Abdomen/GI: Soft, non-tender, with normal bowel sounds. No distension or tympany. No guarding or rebound. No evidence of tenderness throughout. Back: No spinal tenderness. No costovertebral tenderness. Full range of motion. MS/ Extremity: Pulses equal, no cyanosis. Neurovascular intact. Full, normal range of motion. Neuro: Awake and alert, GCS 15, oriented to person, place, time, and situation. Cranial nerves II-XII grossly intact. Motor strength 5/5 in all extremities. Sensory grossly intact. Cerebellar exam normal. Normal gait. Vital Signs: 04:53 BP 144 / 82; Pulse 74; Resp 18; Temp 97.9; Pulse Ox 100% on R/A; Weight 117.93 kg; mg2 Height 6 ft. 4 in. (193.04 cm); 05:48 BP 151 / 86; Pulse 72; Resp 16; Pulse Ox 100% ; rr5 06:12 BP 146 / 81; Pulse 72; Resp 19; Pulse Ox 97% ; rr5 06:35 BP 139 / 75; Pulse 80; Resp 17; Temp 98; Pulse Ox 100% ; mg2 04:53 Body Mass Index 31.65 (117.93 kg, 193.04 cm) mg2 MDM: 05:44 Patient medically screened. tw4 06:51 Data reviewed: vital signs, nurses notes. Counseling: I had a detailed discussion with tw4 the patient and/or guardian regarding: the historical points, exam findings, and any diagnostic results supporting the discharge/admit diagnosis. 10/23 04:57 Order name: Basic Metabolic Panel; Complete Time: 06:32 mg2 10/23 06:32 Interpretation: Normal except: BUN 23; GFR 65. tw4 10/23 04:57 Order name: CBC with Diff; Complete Time: 06:32 mg2 10/23 06:33 Interpretation: Normal except: WBC 8.9; RBC 3.32; HGB 10.3; HCT 30.8; PLT 93; MN% 15.6; tw4 RDW 16.9. 10/23 04:57 Order name: LFT's; Complete Time: 06:32 mg2 10/23 06:33 Interpretation: Normal except: GLOB 3.6. tw10/23 04:57 Order name: Magnesium; Complete Time: 06:32 mg2 10/23 06:33 Interpretation: Within normal limits: MG 2.3. tw4 10/23 04:57 Order name: NT PRO-BNP; Complete Time: 06:32 mg2 10/23 06:33 Interpretation: Within normal limits: NT PRO-BNP 87. tw10/23 04:57 Order name: PT-INR; Complete Time: 06:32 mg2 10/23 06:33 Interpretation: Normal except: PT 18.4. tw10/23 04:57 Order name: Troponin (emerg Dept Use Only); Complete Time: 06:32 mg2 10/23 06:33 Interpretation: Within normal limits: TROPED < 0.02. tw4 10/23 04:57 Order name: XRAY Chest (1 view) mg2 10/23 04:57 Order name: EKG; Complete Time: 04:59 mg2 10/23 04:57 Order name: Cardiac monitoring; Complete Time: 05:05 mg2 10/23 05:09 Order name: CT Head Brain wo Cont fc 10/23 05:23 Order name: Manual Differential; Complete Time: 06:32 EDMS 10/23 06:33 Interpretation: MONO 11. tw4 10/23 04:57 Order name: EKG - Nurse/Tech; Complete Time: 05:05 mg2 10/23 04:58 Order name: IV Saline Lock; Complete Time: 05:05 mg2 10/23 04:58 Order name: Labs collected and sent; Complete Time: 05:05 mg2 10/23 04:58 Order name: O2 Per Protocol; Complete Time: 05:05 mg2 10/23 04:58 Order name: O2 Sat Monitoring; Complete Time: 05:06 mg2 Administered Medications: 05:48 Drug: Tylenol 1000 mg Route: PO; mg2 07:11 Follow up: Response: No adverse reaction rr5 06:30 Drug: Motrin 400 mg Route: PO; rr5 07:11 Follow up: Response: No adverse reaction rr5 Disposition: 10/24/19 06:34 Discharged to Home. Impression: Anxiety disorder, unspecified. - Condition is Stable. - Discharge Instructions: Panic Attacks, Social Anxiety Disorder, Generalized Anxiety Disorder. - Medication Reconciliation Form, Thank You Letter, Antibiotic Education, Prescription Opioid Use form. - Follow up: Private Physician; When: Upon discharge from the Emergency Department; Reason: Recheck today's complaints, Continuance of care, Re-evaluation by your physician. - Problem is new. - Symptoms have improved. Signatures: Dispatcher [employer] EDUT Loraine Finley RN RN iw Donato Garrett MD MD tw4 Sky Burns RN RN [facility] [place] Galo Fuentes RN RN rr5 Corrections: (The following items were deleted from the chart) 08:23 06:34 10/24/2019 06:34 Discharged to Home. Impression: Anxiety disorder, unspecified. iw Condition is Stable. Forms are Medication Reconciliation Form, Thank You Letter, Antibiotic Education, Prescription Opioid Use. Follow up: Private Physician; When: Upon discharge from the Emergency Department; Reason: Recheck today's complaints, Continuance of care, Re-evaluation by your physician. Problem is new. Symptoms have improved. tw4
[2019-10-24] MEDS ORDERED: IBUPROFEN 400 MG TAB ONE (06:36)
--- NOTE | 2019-10-24 07:02 | EKG ---
Test Date: 2019-10-24 Test Time: 05:03:01 Gynecological Assistant: RR MEASUREMENT RESULTS: Intervals: Rate: 70 [place]: 190 QRSD: 96 QT: 404 QTc: 436 [place]: P: 53 [place]: 190 QRS: 53 T: 67 INTERPRETIVE STATEMENTS: Normal sinus rhythm Normal ECG Compared to ECG 10/13/2019 06:23:38 Sinus bradycardia no longer present First degree AV block no longer present Electronically Signed On 10-24-19 07:01:48 CDT by Ervin Banks
--- NOTE | 2019-10-24 07:28 | RAD REPORT ---
EXAM DESCRIPTION: Eliza Single View10/24/2019 5:22 am CLINICAL HISTORY: Chest pain COMPARISON: October 2019 FINDINGS: The lungs appear clear of acute infiltrate. The heart is normal size IMPRESSION: No acute abnormalities displayed
[2019-10-24 08:33] VITALS: BP 139/75; TEMP 98; O2SAT 100
--- NOTE | 2019-10-24 11:40 | RAD REPORT ---
EXAM DESCRIPTION: CT - Head Brain Wo Cont - 10/24/2019 6:46 am CLINICAL HISTORY: The patient is 73 years old and is Male; CONFUSED TECHNIQUE: Axial computed tomography images of the head/brain without intravenous contrast. Sagitt al and coronal reformatted images were created and reviewed. This CT exam was performed using one o r more of the following dose reduction techniques: automated exposure control, adjustment of the mA and/or kV according to patient size, and/or use of iterative reconstruction technique. COMPARISON: CT of the head October 13, 2019 FINDINGS: BRAIN: There is diffuse cerebral atrophy present, consistent with this patient's age. There is patchy hypoattenuation of the deep white matter which is non-specific, but most likely owing to chronic small vessel ischemic change in a patient of this age group. No intracranial hemorrhage , mass effect, midline shift is seen. There are no extra-axial fluid collections. VENTRICLES: Unremarkable. No ventriculomegaly. BONES/JOINTS: No acute fracture. SOFT TISSUES: Unremarkable. SINUSES: Chronic opacification of left sphenoid sinus is noted. No acute sinusitis. MASTOID AIR CELLS: Unremarkable as visualized. No mastoid effusion. ORBITS: Unremarkable as visualized. IMPRESSION: Age-related atrophy and chronic white matter ischemic changes, with no evidence of an acute intrac ranial abnormality. Electronically signed by: Abril Smith MD 10/24/2019 6:00 AM CDT Due to temporary technical issues with the PACS/Fluency reporting system, reports are being signed by the in house radiologist as a courtesy to ensure prompt reporting. The interpreting radiologist is f ully responsible for the content of the report.
== END 2019-10-24 08:23 | disposition home or self-care (01) ==
LOC: ER 04:46
DX: F41.9 Anxiety disorder, unspecified (principal); I10 Essential (primary) hypertension; E03.9 Hypothyroidism, unspecified; E78.5 Hyperlipidemia, unspecified; I48.91 Unspecified atrial fibrillation; Z85.038 Personal history of other malignant neoplasm of large intestine
CPT/HCPCS: 36415; 70450; 71045; 80048; 80076; 83735; 83880; 84484; 85025; 85610; 93005; 99285

== ENCOUNTER 2019-11-06 05:27 | Emergency (ER) | payer OTHER ==
[2019-11-06] MEDS ORDERED: DIPHENHYDRAMINE 50 MG/ML VIAL ONE (05:45)
[2019-11-06] MEDS ORDERED: MEPERIDINE HCL 50 MG/ML ONE (05:45)
[2019-11-06] MEDS ORDERED: dexAMETHasone 10 MG/ML VIAL ONE (05:46)
[2019-11-06] MEDS ORDERED: NA CHLORIDE 0.9% 500 ML ONE (05:46)
--- NOTE | 2019-11-06 06:46 | EDPHYS ---
Physician Documentation [facility] Name: John Cuevas Age: 73 yrs Sex: Male : 1945 Arrival Date: 11/06/2019 Time: 05:29 Bed 6 Private MD: ED Physician Antonio Joseph HPI: 11/05 05:46 This 73 yrs old Male presents to ER via EMS with complaints of Headache. rn 05:46 The patient complains of pain to the left temporal area and left occipital area. The rn patient describes the headache as aching, throbbing. Onset: The symptoms/episode began/occurred yesterday. Severity of symptoms: At its worst the pain was moderate, "similar to past headaches", in the emergency department the pain has improved. The patient has experienced similar episodes in the past. Reports has been having headaches recently, tonight's was worse than before, no trauma or new symptoms, still left sided. Has been seen twice in last month for this, he was told everything looked ok. Has f/u appt with Dr. lee today for more testing. Denies fever/vomiting/focal neuro complaints. No known hx of cerebral hemorrhage. Says other than pain being more severe, no gross changes. . Historical: - Allergies: 05:37 No Known Allergies; rr5 - Home Meds: 05:34 Allopurinol Oral [Active]; Amiodarone Oral [Active]; Codeine Oral [Active]; rr5 levothyroxine for Hypothyroidism [Active]; levothyroxine oral [Active]; lisinopril Oral [Active]; lisinopril Oral [Active]; Metoprolol Tartrate Oral [Active]; Plavix Oral [Active]; Simvastatin Oral [Active]; - PMHx: 05:34 Atrial Fib; colon cancer; Hyperlipidemia; Hypertension; Hypothyroidism; pre-dementia; rr5 - PSHx: 05:37 colon surgery; abdominal surgery; Skin Graft; hand surgery; rr5 - Immunization history:: Adult Immunizations up to date. - Social history:: Smoking status: Patient reports the use of cigarette tobacco products. - Family history:: not pertinent. - Hospitalizations: : No recent hospitalization is reported. ROS: 05:46 Constitutional: Negative for fever, chills, and weight loss, Eyes: Negative for injury, rn pain, redness, and discharge, Neck: Negative for injury, pain, and swelling, Cardiovascular: Negative for chest pain, palpitations, and edema, Respiratory: Negative for shortness of breath, cough, wheezing, and pleuritic chest pain, Abdomen/GI: Negative for abdominal pain, nausea, vomiting, diarrhea, and constipation, MS/Extremity: Negative for injury and deformity, Skin: Negative for injury, rash, and discoloration, Neuro: Negative for numbness, tingling, and seizure. Exam: 05:46 Constitutional: This is a well developed, well nourished patient who is awake, alert, rn and in no acute distress. Rambling and very talkative. Head/Face: Normocephalic, atraumatic. Neck: Trachea midline, no masses palpated, and no cervical lymphadenopathy. Supple, full range of motion without nuchal rigidity, or vertebral point tenderness. No Meningismus. Cardiovascular: Regular rate and rhythm. No pulse deficits. Respiratory: Speaking full sentences, no difficulty or labored breathing Skin: Warm, dry MS/ Extremity: Pulses equal, no cyanosis. 1+ pitting edema bilateral lower ext, equal circumference. Neuro: Awake and alert, GCS 15, oriented to person, place, and situation. Cranial nerves II-XII grossly intact. Motor strength 4/5 in all extremities. Sensory grossly intact. Cerebellar exam normal. Vital Signs: 05:35 BP 147 / 79; Pulse 72; Resp 18 S; Temp 98.0(O); Pulse Ox 100% on R/A; Weight 117.93 kg jd3 (R); Height 6 ft. 4 in. (193.04 cm) (R); Pain 7/10; 07:00 BP 144 / 84; Pulse 72; Resp 16; Temp 98; Pulse Ox 100% ; bp 05:35 Body Mass Index 31.65 (117.93 kg, 193.04 cm) jd3 [place] Coma Score: 06:20 Eye Response: spontaneous(4). Verbal Response: oriented(5). Motor Response: obeys rn commands(6). Total: 15. MDM: 05:32 Patient medically screened. rn 06:20 Differential diagnosis: hypertensive headache, intracerebral hemorrhage, migraine, rn neoplasm, tension headache, vasomotor headache. Data reviewed: vital signs, nurses notes, radiologic studies, CT scan, and as a result, I will discharge patient. Counseling: I had a detailed discussion with the patient and/or guardian regarding:. Response to treatment: the patient's symptoms have markedly improved after treatment, the patient's condition has returned to base line, the patient is now symptom free. 06:43 ED course: Will discharge patient pending ct head results, no gross abnormal findings rn on imaging. CT head results to be followed up by TRENT Mcdaniel. Plan to discharge if negative. . 06:46 ED course: Pt already with f/u appt scheduled later today with neurology. Recommended rn keeping appt for further testing and recs. . 11/05 05:34 Order name: CT Head Brain wo Cont rn 11/05 05:35 Order name: IV Start; Complete Time: 05:54 rn Administered Medications: 05:50 Drug: Decadron - Dexamethasone 10 mg Route: IVP; Site: right hand; rr5 06:50 Follow up: Response: No adverse reaction jd3 05:50 Drug: NS 0.9% 500 ml Route: IV; Rate: bolus; Site: right hand; rr5 07:37 Follow up: IV Status: Completed infusion; IV Intake: 500ml bp 05:53 Drug: Benadryl 25 mg Route: IVP; Site: right hand; rr5 06:50 Follow up: Response: No adverse reaction jd3 05:55 Drug: Demerol 50 mg {Note: rass 0.} Route: IVP; Site: right hand; rr5 06:50 Follow up: Response: No adverse reaction; RASS: Alert and Calm (0) jd3 Disposition: 11/06/19 06:45 Discharged to Home. Impression: Headache. - Condition is Stable. - Discharge Instructions: General Headache Without Cause. - Medication Reconciliation Form, Thank You Letter, Antibiotic Education, Prescription Opioid Use form. - Follow up: Lewis Lee MD; When: Today; Reason: Recheck today's complaints, Re-evaluation by your physician. - Problem is an ongoing problem. - Symptoms have improved. Signatures: Dispatcher [employer] EDMS Antonio Joseph MD MD rn Peltier, Brian, RN RN bp Galo Fuentes RN RN rr5 Jose Luis Vargas RN jd3 Corrections: (The following items were deleted from the chart) 05:51 05:46 Constitutional: This is a well developed, well nourished patient who is awake, rn alert, and in no acute distress. Rambling and very talkative. Head/Face: Normocephalic, atraumatic. Neck: Trachea midline, no masses palpated, and no cervical lymphadenopathy. Supple, full range of motion without nuchal rigidity, or vertebral point tenderness. No Meningismus. Cardiovascular: Regular rate and rhythm. No pulse deficits. Respiratory: Speaking full sentences, no difficulty or labored breathing Skin: Warm, dry MS/ Extremity: Pulses equal, no cyanosis. Neuro: Awake and alert, GCS 15, oriented to person, place, and situation. Cranial nerves II-XII grossly intact. Motor strength 4/5 in all extremities. Sensory grossly intact. Cerebellar exam normal. rn 07:37 06:45 11/06/2019 06:45 Discharged to Home. Impression: Headache. Condition is Stable. bp Forms are Medication Reconciliation Form, Thank You Letter, Antibiotic Education, Prescription Opioid Use. Follow up: Lewis Lee; When: Today; Reason: Recheck today's complaints, Re-evaluation by your physician. Problem is an ongoing problem. Symptoms have improved. rn
--- NOTE | 2019-11-06 06:46 | ER ---
Nurse's Notes [facility] Name: John Cuevas Age: 73 yrs Sex: Male : 1945 Arrival Date: 11/06/2019 Time: 05:29 Bed 6 Private MD: Diagnosis: Headache Presentation: 11/05 05:35 Chief complaint: EMS states: "Pt flagged down a bystander near his home to call us for jd3 a headache. he reported that since 2100 last night he has had a very sharp headache on the left side of his head. he denies any chest pain, nausea, vomiting, diarrhea. other than the headache he is just reporting dizziness.". Coronavirus screen: Proceed with normal triage. Ebola Screen: Patient negative for fever greater than or equal to 101.5 degrees Fahrenheit, and additional compatible Ebola Virus Disease symptoms. Initial Sepsis Screen: Does the patient meet any 2 criteria? No. Patient's initial sepsis screen is negative. Does the patient have a suspected source of infection? No. Patient's initial sepsis screen is negative. Risk Assessment: Do you want to hurt yourself or someone else? Patient reports no desire to harm self or others. Onset of symptoms was November 05, 2019 at 21:00. 05:35 Method Of Arrival: EMS: [facility] jd3 05:35 Acuity: KEVIN 3 jd3 Triage Assessment: 05:40 Headache History: The patient has had previous headaches and this one is similar to jd3 previous episodes. Pain: Pain currently is 7 out of 10 on a pain scale. Pain began 1 day ago. Also complains of sleeplessness. Historical: - Allergies: 05:37 No Known Allergies; rr5 - Home Meds: 05:34 Allopurinol Oral [Active]; Amiodarone Oral [Active]; Codeine Oral [Active]; rr5 levothyroxine for Hypothyroidism [Active]; levothyroxine oral [Active]; lisinopril Oral [Active]; lisinopril Oral [Active]; Metoprolol Tartrate Oral [Active]; Plavix Oral [Active]; Simvastatin Oral [Active]; - PMHx: 05:34 Atrial Fib; colon cancer; Hyperlipidemia; Hypertension; Hypothyroidism; pre-dementia; rr5 - PSHx: 05:37 colon surgery; abdominal surgery; Skin Graft; hand surgery; rr5 - Immunization history:: Adult Immunizations up to date. - Social history:: Smoking status: Patient reports the use of cigarette tobacco products. - Family history:: not pertinent. - Hospitalizations: : No recent hospitalization is reported. Screenin:40 Abuse screen: Denies threats or abuse. Nutritional screening: No deficits noted. jd3 Tuberculosis screening: No symptoms or risk factors identified. Fall Risk Ambulatory Aid- Crutches/Cane/Walker (15 pts). Gait- Weak (10 pts.). Mental Status- Oriented to own ability (0 pts). Total [place] Fall Scale indicates Low Risk Score (25-44 pts). Fall prevention measures have been instituted. Side Rails Up X 2 Placed close to Nursing Station Frequent Obs/Assesments occuring. Assessment: 05:38 General: Appears in no apparent distress. uncomfortable, Behavior is calm, cooperative, jd3 appropriate for age. Pain: Complains of pain in left side of head Quality of pain is described as sharp, shooting, Is continuous. Neuro: Level of Consciousness is awake, alert, obeys commands, Oriented to person, place, time, situation, Aviation Mechanic are equal bilaterally Moves all extremities. Full function Speech is normal, Facial symmetry appears normal, Pupils are PERRLA, Intact Reports dizziness. Cardiovascular: Denies chest pain, Capillary refill < 3 seconds Patient's skin is warm and dry. Respiratory: Airway is patent Respiratory effort is even, unlabored, Respiratory pattern is regular, symmetrical, Denies cough, shortness of breath. GI: No signs and/or symptoms were reported involving the gastrointestinal system. Patient currently denies abdominal pain, diarrhea, nausea, vomiting. : No signs and/or symptoms were reported regarding the genitourinary system. EENT: No signs and/or symptoms were reported regarding the EENT system. Derm: Skin is intact, Skin is dry, Skin is normal, Skin temperature is warm. Musculoskeletal: Circulation, motion, and sensation intact. Range of motion: intact in all extremities. 06:30 Reassessment: Patient appears in no apparent distress at this time. Patient and/or jd3 family updated on plan of care and expected duration. Pain level reassessed. Patient is alert, oriented x 3, equal unlabored respirations, skin warm/dry/pink. Patient states feeling better. 07:00 Reassessment: RECD REPORT FROM VALERIA JACKSON. 73YO WM P/W RUSSELL. PT TBDC, TRANSPORT EN ROUTE.bp 07:35 Reassessment: PT D/C HOME WITH WALKER, DX WITH HEADACHE. bp Vital Signs: 05:35 BP 147 / 79; Pulse 72; Resp 18 S; Temp 98.0(O); Pulse Ox 100% on R/A; Weight 117.93 kg jd3 (R); Height 6 ft. 4 in. (193.04 cm) (R); Pain 7/10; 07:00 BP 144 / 84; Pulse 72; Resp 16; Temp 98; Pulse Ox 100% ; bp 05:35 Body Mass Index 31.65 (117.93 kg, 193.04 cm) jd3 [place] Coma Score: 06:20 Eye Response: spontaneous(4). Verbal Response: oriented(5). Motor Response: obeys rn commands(6). Total: 15. ED Course: 05:29 Patient arrived in ED. sg 05:29 Arm band placed on. sg 05:32 Antonio Joseph MD is Attending Physician. rn 05:34 Jose Luis Vargas RN is Primary Nurse. jd3 05:38 Triage completed. jd3 05:39 Patient has correct armband on for positive identification. Placed in gown. Bed in low jd3 position. Call light in reach. Side rails up X2. Pulse ox on. NIBP on. 05:50 Inserted saline lock: 22 gauge in right hand, using aseptic technique. rr5 06:28 CT Head Brain wo Cont In Process Unspecified. EDMS 06:45 Lewis Nava MD is Referral Physician. rn 07:07 Report given to Gustavo JACKSON. jd3 07:36 No provider procedures requiring assistance completed. IV discontinued, intact, bp bleeding controlled, No redness/swelling at site. Pressure dressing applied. Administered Medications: 05:50 Drug: Decadron - Dexamethasone 10 mg Route: IVP; Site: right hand; rr5 06:50 Follow up: Response: No adverse reaction jd3 05:50 Drug: NS 0.9% 500 ml Route: IV; Rate: bolus; Site: right hand; rr5 07:37 Follow up: IV Status: Completed infusion; IV Intake: 500ml bp 05:53 Drug: Benadryl 25 mg Route: IVP; Site: right hand; rr5 06:50 Follow up: Response: No adverse reaction jd3 05:55 Drug: Demerol 50 mg {Note: rass 0.} Route: IVP; Site: right hand; rr5 06:50 Follow up: Response: No adverse reaction; RASS: Alert and Calm (0) jd3 Intake: 07:37 IV: 500ml; Total: 500ml. bp Outcome: 06:45 Discharge ordered by MD. rn 07:36 Discharged to home ambulatory. bp 07:36 Condition: stable 07:36 Discharge instructions given to patient, Instructed on discharge instructions, follow up and referral plans. Demonstrated understanding of instructions, follow-up care. 07:37 Patient left the ED. bp Signatures: Dispatcher [employer] EDMS Juan José Case RN RN Antonio Wolfe MD MD rn Davies, Jonathon, RN RN jd3 Gustavo Carmona RN Galo Bee RN RN rr5 Corrections: (The following items were deleted from the chart) 05:38 05:35 Onset of symptoms was November 06, 2019 brigido fofana
--- NOTE | 2019-11-06 10:19 | RAD REPORT ---
EXAM DESCRIPTION: CT - Head Brain Wo Cont - 11/06/2019 7:01 am CLINICAL HISTORY: The patient is 73 years old and is Male; HEADACHE TECHNIQUE: Axial computed tomography images of the head/brain without intravenous contrast. Sagitt al and coronal reformatted images were created and reviewed. This CT exam was performed using one o r more of the following dose reduction techniques: automated exposure control, adjustment of the mA and/or kV according to patient size, and/or use of iterative reconstruction technique. COMPARISON: CT of the head October 24, 2019 FINDINGS: BRAIN: There is diffuse cerebral atrophy present, consistent with this patient's age. There is patchy hypoattenuation of the deep white matter which is non-specific, but most likely owing to chronic small vessel ischemic change in a patient of this age group. No intracranial hemorrhage , mass effect, or midline shift is seen. There are no extra-axial fluid collections. VENTRICLES: Unremarkable. No ventriculomegaly. BONES/JOINTS: No acute fracture. SOFT TISSUES: Unremarkable. SINUSES: Unremarkable as visualized. No acute sinusitis. MASTOID AIR CELLS: Unremarkable as visualized. No mastoid effusion. ORBITS: Unremarkable as visualized. IMPRESSION: No acute intracranial findings. Electronically signed by: Abril Smith MD 11/06/2019 6:34 AM CDT Due to temporary technical issues with the PACS/Fluency reporting system, reports are being signed by the in house radiologist as a courtesy to ensure prompt reporting. The interpreting radiologist is f ully responsible for the content of the report.
[2019-11-06 19:59] VITALS: BP 109/77; TEMP 98; O2SAT 98
== END 2019-11-06 07:37 | disposition home or self-care (01) ==
LOC: ER 05:27
DX: R51 Headache (principal); I10 Essential (primary) hypertension; E03.9 Hypothyroidism, unspecified; I48.91 Unspecified atrial fibrillation; E78.5 Hyperlipidemia, unspecified; F17.210 Nicotine dependence, cigarettes, uncomplicated; Z79.01 Long term (current) use of anticoagulants; Z85.038 Personal history of other malignant neoplasm of large intestine
CPT/HCPCS: 96361; 70450; 96375; 96374; 99284; J1200; J1100; J2175; J7040

== ENCOUNTER 2019-11-09 08:29 | Emergency (ER) | payer OTHER ==
[2019-11-09] MEDS ORDERED: DIPHENHYDRAMINE 50 MG/ML VIAL ONE (08:55)
[2019-11-09] MEDS ORDERED: MEPERIDINE HCL 50 MG/ML ONE (08:55)
[2019-11-09] MEDS ORDERED: NA CHLORIDE 0.9% 500 ML ONE (08:56)
[2019-11-09] MEDS ORDERED: dexAMETHasone 10 MG/ML VIAL ONE (08:56)
--- NOTE | 2019-11-09 09:37 | RAD REPORT ---
EXAM DESCRIPTION: CT - Head Brain Wo Cont - 11/09/2019 9:15 am CLINICAL HISTORY: HEADACHE Headache, drowsiness COMPARISON: Head Brain Wo Cont dated 11/06/2019; Head Brain Wo Cont dated 10/24/2019 TECHNIQUE: All CT scans are performed using dose optimization technique as appropriate and may inclu de automated exposure control or mA/KV adjustment according to patient size. FINDINGS: No intracranial hemorrhage, hydrocephalus or extra-axial fluid collection.No areas of brai n edema or evidence of midline shift. The paranasal sinuses and mastoids are clear except for chronic left sphenoid sinusitis. The calvariu m is intact. IMPRESSION: No acute intracranial abnormality.
[2019-11-09] MEDS ORDERED: MEPERIDINE HCL 25 MG/0.5 ML ONE (10:09)
--- NOTE | 2019-11-09 10:34 | ER ---
Nurse's Notes [facility] Name: John Cuevas Age: 73 yrs Sex: Male : 1945 Arrival Date: 11/09/2019 Time: 08:30 Bed 5 Private MD: Diagnosis: Headache Presentation: 11/08 08:39 Chief complaint: EMS states: was at his residence and was yelling for help, pt reported em headache, hx of dementia, was seen for the same thing 3 days ago, denies n/v. Coronavirus screen: Proceed with normal triage. Ebola Screen: Patient negative for fever greater than or equal to 101.5 degrees Fahrenheit, and additional compatible Ebola Virus Disease symptoms Patient denies exposure to infectious person. Patient denies travel to an Ebola-affected area in the 21 days before illness onset. No symptoms or risks identified at this time. Initial Sepsis Screen: Does the patient meet any 2 criteria? No. Patient's initial sepsis screen is negative. Does the patient have a suspected source of infection? No. Patient's initial sepsis screen is negative. Risk Assessment: Do you want to hurt yourself or someone else? Patient reports no desire to harm self or others. Onset of symptoms was November 09, 2019. 08:39 Method Of Arrival: EMS: [facility] em 08:39 Acuity: KEVIN 3 em Historical: - Allergies: 08:44 No Known Allergies; em - Home Meds: 08:44 Allopurinol Oral [Active]; Amiodarone Oral [Active]; Codeine Oral [Active]; em levothyroxine for Hypothyroidism [Active]; lisinopril Oral [Active]; levothyroxine oral [Active]; lisinopril Oral [Active]; Metoprolol Tartrate Oral [Active]; Plavix Oral [Active]; Simvastatin Oral [Active]; - PMHx: 08:44 Atrial Fib; colon cancer; Hyperlipidemia; Hypertension; Hypothyroidism; pre-dementia; em - PSHx: 08:44 colon surgery; hand surgery; abdominal surgery; Skin Graft; em - Immunization history:: Adult Immunizations unknown. - Social history:: Smoking status: Patient denies any tobacco usage or history of. Screenin:45 Abuse screen: Denies threats or abuse. Nutritional screening: No deficits noted. em Tuberculosis screening: No symptoms or risk factors identified. Fall Risk None identified. Assessment: 08:40 General: Appears in no apparent distress. uncomfortable, Behavior is calm, cooperative, em appropriate for age, Denies fever. Pain: Complains of pain in left base of the skull and left occipital area and left temporal area and left side of forehead. Neuro: Level of Consciousness is awake, alert, obeys commands, Oriented to person, place, time, situation, Appropriate for age Moves all extremities. Weakness in right arm(s) Reports headache Denies blurred vision dizziness. Cardiovascular: Denies chest pain, Capillary refill < 3 seconds Patient's skin is warm and dry. Respiratory: Airway is patent is compromised Respiratory effort is even, unlabored, Respiratory pattern is regular, symmetrical. Derm: Skin is intact, is fragile, is thin, Skin is pink, warm \T\ dry. Musculoskeletal: Capillary refill < 3 seconds, Range of motion: intact in all extremities. 09:07 Reassessment: Patient appears in no apparent distress at this time. wheeled to CT in em stretcher. 10:42 Reassessment: Attempted to call daughterBrenda, for discharge, no answer, jl7 message left to call the ER. 11:16 Reassessment: Pt's requested that we send the pt home by taxi like before. jl7 11:47 Reassessment: Patient appears in no apparent distress at this time. Patient and/or em family updated on plan of care and expected duration. Pain level reassessed. Patient is alert, oriented x 3, equal unlabored respirations, skin warm/dry/pink. Patient states feeling better. Patient states symptoms have improved. Vital Signs: 08:39 BP 165 / 95; Pulse 74; Resp 16; Temp 97.9; Pulse Ox 100% on R/A; Pain 10/10; em 10:08 BP 167 / 91; Pulse 63; Resp 17; Pulse Ox 98% ; jl7 ED Course: 08:30 Patient arrived in ED. am2 08:30 Cuate Beasley NP is PHCP. pm1 08:30 Osvaldo Beckman MD is Attending Physician. pm1 08:38 Primo Pantoja, RN is Primary Nurse. em 08:41 Triage completed. em 08:44 Arm band placed on. em 08:45 Patient has correct armband on for positive identification. Placed in gown. Bed in low em position. Call light in reach. Pulse ox on. NIBP on. 09:15 CT completed. Patient tolerated procedure well. Patient moved back from CT. bq 09:16 CT Head Brain wo Cont In Process Unspecified. EDMS 10:00 Inserted saline lock: 20 gauge in right antecubital area, using aseptic technique. em 10:33 Lewis Nava MD is Referral Physician. pm1 12:01 No provider procedures requiring assistance completed. IV discontinued, intact, em bleeding controlled, No redness/swelling at site. Pressure dressing applied. Administered Medications: 09:04 Drug: Benadryl 25 mg Route: IVP; Site: right antecubital; em 12:10 Follow up: Response: No adverse reaction em 09:04 Drug: NS 0.9% 500 ml Route: IV; Rate: bolus; Site: right antecubital; em 12:00 Follow up: IV Status: Completed infusion; IV Intake: 500ml em 09:07 Drug: Decadron - Dexamethasone 10 mg Route: IVP; Site: right antecubital; em 12:10 Follow up: Response: No adverse reaction; Marked relief of symptoms; Pain is decreased; em RASS: Alert and Calm (0) 09:07 Drug: Demerol 50 mg Route: IVP; Site: right antecubital; em 12:10 Follow up: Response: No adverse reaction; Marked relief of symptoms; Pain is decreased; em RASS: Alert and Calm (0) 10:05 Drug: Demerol 25 mg Route: IVP; Site: right antecubital; jl7 12:10 Follow up: Response: No adverse reaction; Marked relief of symptoms; Pain is decreased; em RASS: Alert and Calm (0) Intake: 12:00 IV: 500ml; Total: 500ml. em Outcome: 10:34 Discharge ordered by . pm1 12:01 Discharged to home via wheelchair. em 12:01 Condition: good 12:01 Discharge instructions given to patient, Instructed on discharge instructions, follow up and referral plans. Demonstrated understanding of instructions, follow-up care. 12:11 Patient left the ED. em Signatures: Dispatcher [employer] EDMS Gissell Chapman bq Primo Pantoja RN RN em Cuate Beasley NP DRAWER IN pm1 Heather Jameson, RN RN jl7 Glen, Felicita am2
--- NOTE | 2019-11-09 10:34 | EDPHYS ---
Physician Documentation [facility] Name: John Cuevas Age: 73 yrs Sex: Male : 1945 Arrival Date: 11/09/2019 Time: 08:30 Bed 5 Private MD: ED Physician Osvaldo Beckman HPI: 11/08 08:52 This 73 yrs old Male presents to ER via EMS with complaints of Headache. pm1 08:52 The patient complains of pain to the left side of forehead, left temporal area, left pm1 occipital area and left base of the skull. The patient describes the headache as aching, throbbing. Onset: The symptoms/episode began/occurred today. Associated signs and symptoms: Associated signs and symptoms: Pertinent negatives: dizziness, fever, nausea, neck stiffness, rash, vomiting. Severity of symptoms: At its worst the pain was moderate, "similar to past headaches", in the emergency department the pain is unchanged, Had some headache patches but threw them away because they were not effective. Patient reports that he has been having several headache recently. He has been seen here in the ER here for similar headaches on 10/12 and 11/05. Reports that the headaches is grossly the same just more severe. Has been seen by Dr. Nava for the same headaches 3 days ago and has some additional testing ordered . Historical: - Allergies: 08:44 No Known Allergies; em - Home Meds: 08:44 Allopurinol Oral [Active]; Amiodarone Oral [Active]; Codeine Oral [Active]; em levothyroxine for Hypothyroidism [Active]; lisinopril Oral [Active]; levothyroxine oral [Active]; lisinopril Oral [Active]; Metoprolol Tartrate Oral [Active]; Plavix Oral [Active]; Simvastatin Oral [Active]; - PMHx: 08:44 Atrial Fib; colon cancer; Hyperlipidemia; Hypertension; Hypothyroidism; pre-dementia; em - PSHx: 08:44 colon surgery; hand surgery; abdominal surgery; Skin Graft; em - Immunization history:: Adult Immunizations unknown. - Social history:: Smoking status: Patient denies any tobacco usage or history of. ROS: 08:52 Constitutional: Negative for fever, chills, and weight loss, Eyes: Negative for injury, pm1 pain, redness, and discharge, ENT: Negative for injury, pain, and discharge, Neck: Negative for injury, pain, and swelling, Cardiovascular: Negative for chest pain, palpitations, and edema, Respiratory: Negative for shortness of breath, cough, wheezing, and pleuritic chest pain, Abdomen/GI: Negative for abdominal pain, nausea, vomiting, diarrhea, and constipation, MS/Extremity: Negative for injury and deformity, Skin: Negative for injury, rash, and discoloration, Neuro: Negative for numbness, tingling, and seizure. Exam: 08:52 Constitutional: This is a well developed, well nourished patient who is awake, alert, pm1 and in no acute distress. Head/Face: Normocephalic, atraumatic. Neck: Trachea midline, no thyromegaly or masses palpated, and no cervical lymphadenopathy. Supple, full range of motion without nuchal rigidity, or vertebral point tenderness. No Meningismus. 08:52 Skin: Warm, dry with normal turgor. Normal color with no rashes, no lesions, and no evidence of cellulitis. 08:52 MS/ Extremity: Pulses equal, no cyanosis. 08:52 Cardiovascular: Rate: normal, Rhythm: regular, Pulses: no pulse deficits are appreciated. 08:52 Respiratory: Exam negative for acute changes, respiratory distress, shortness of breath, Speaking full sentences. 08:52 Neuro: Orientation: is normal, Mentation: is normal, Cranial nerves: CN II- XII are normal as tested, Cerebellar function: is grossly normal, Motor: 4/5 in all extremities, Sensation: no obvious gross deficits. Vital Signs: 08:39 BP 165 / 95; Pulse 74; Resp 16; Temp 97.9; Pulse Ox 100% on R/A; Pain 10/10; em 10:08 BP 167 / 91; Pulse 63; Resp 17; Pulse Ox 98% ; jl7 MDM: 08:30 Patient medically screened. pm1 08:41 ED course: Informed patient that he had a negative CT head 3 days ago for the same pm1 headache symptoms. He insists on another CT head today since he has not completed the testing ordered by Dr. Nava. 09:39 Data reviewed: vital signs. Data interpreted: Pulse oximetry: on room air is 100 %. pm1 Interpretation: normal. 10:32 Counseling: I had a detailed discussion with the patient and/or guardian regarding: the pm1 historical points, exam findings, and any diagnostic results supporting the discharge/admit diagnosis, radiology results, the need for outpatient follow up, a neurologist, to return to the emergency department if symptoms worsen or persist or if there are any questions or concerns that arise at home. 11/08 08:40 Order name: CT Head Brain wo Cont; Complete Time: 09:39 pm1 11/08 08:35 Order name: IV Saline Lock; Complete Time: 09:06 pm1 Administered Medications: 09:04 Drug: Benadryl 25 mg Route: IVP; Site: right antecubital; em 12:10 Follow up: Response: No adverse reaction em 09:04 Drug: NS 0.9% 500 ml Route: IV; Rate: bolus; Site: right antecubital; em 12:00 Follow up: IV Status: Completed infusion; IV Intake: 500ml em 09:07 Drug: Decadron - Dexamethasone 10 mg Route: IVP; Site: right antecubital; em 12:10 Follow up: Response: No adverse reaction; Marked relief of symptoms; Pain is decreased; em RASS: Alert and Calm (0) 09:07 Drug: Demerol 50 mg Route: IVP; Site: right antecubital; em 12:10 Follow up: Response: No adverse reaction; Marked relief of symptoms; Pain is decreased; em RASS: Alert and Calm (0) 10:05 Drug: Demerol 25 mg Route: IVP; Site: right antecubital; jl7 12:10 Follow up: Response: No adverse reaction; Marked relief of symptoms; Pain is decreased; em RASS: Alert and Calm (0) Disposition: 11/09/19 10:34 Discharged to Home. Impression: Headache. - Condition is Stable. - Discharge Instructions: General Headache Without Cause. - Medication Reconciliation Form, Thank You Letter, Antibiotic Education, Prescription Opioid Use form. - Follow up: Emergency Department; When: As needed; Reason: Worsening of condition. Follow up: Lewis Nava MD; When: 2 - 3 days; Reason: Recheck today's complaints, Continuance of care, Re-evaluation by your physician. - Problem is new. - Symptoms have improved. Addendum: 11/10/2019 20:19 Co-signature as Attending Physician, Osvaldo Beckman MD I agree with the assessment and c galvez plan of care. Signatures: Dispatcher [employer] Osvaldo Simpson MD MD cha Munoz, Edgar, RN RN em Cuate Beasley, LEROY MOTH EXTERMINATOR pm1 Heather Jameson RN RN jl7 Corrections: (The following items were deleted from the chart) 11/08 12:11 10:34 11/09/2019 10:34 Discharged to Home. Impression: Headache. Condition is Stable. em Forms are Medication Reconciliation Form, Thank You Letter, Antibiotic Education, Prescription Opioid Use. Follow up: Emergency Department; When: As needed; Reason: Worsening of condition. Follow up: Lewis Nava; When: 2 - 3 days; Reason: Recheck today's complaints, Continuance of care, Re-evaluation by your physician. Problem is new. Symptoms have improved. pm1
[2019-11-09 12:47] VITALS: TEMP 97.9
[2019-11-09 12:49] VITALS: BP 167/91; O2SAT 98
== END 2019-11-09 12:11 | disposition home or self-care (01) ==
LOC: ER 08:29
DX: R51 Headache (principal); E03.9 Hypothyroidism, unspecified; I10 Essential (primary) hypertension; E78.5 Hyperlipidemia, unspecified; Z85.038 Personal history of other malignant neoplasm of large intestine; I48.91 Unspecified atrial fibrillation
CPT/HCPCS: 96361; 70450; 96375; 96374; 99284; J1200; J1100; J2175 ×2; J7040

== ENCOUNTER 2019-11-11 11:40 | Emergency (ER) | payer MEDICARE, OTHER ==
[2019-11-11 12:52] LABS: Absolute Lymphocytes (CBC) 1.7 K/uL (0.7-4.9); Basophils % 0.6 % (0-1.3); Hematocrit 30.8 % (39.6-49.0); RBC Red Blood Cell Count 3.29 M/uL (4.33-5.43)
[2019-11-11] MEDS ORDERED: NA CHLORIDE 0.9% 500 ML ONE (12:56)
[2019-11-11] MEDS ORDERED: HYDROMORPHONE HCL 0.5 MG/0.5 ML INJ ONE ×2 (12:56→14:07)
[2019-11-11] MEDS ORDERED: ONDANSETRON 4 MG/2 ML VIAL ONE ×2 (12:56→14:07)
--- NOTE | 2019-11-11 12:59 | RAD REPORT ---
EXAM DESCRIPTION: CT - Head Brain Wo Cont - 11/11/2019 12:39 pm CLINICAL HISTORY: HEADACHE COMPARISON: Head Brain Wo Cont dated 11/09/2019 TECHNIQUE: Axial 5 mm thick images of the head were obtained without IV contrast. All CT scans are performed using dose optimization technique as appropriate and may include automated exposure control or mA/KV adjustment according to patient size. FINDINGS: No intracranial hemorrhage, mass, edema or shift of mid-line structures. No acute infarcti on changes seen. No abnormal extra-axial fluid collections. Ventricles are normal. Mild atrophy and c hronic ischemic changes. Mastoid air cells and visualized portions of the paranasal sinuses are clear. No acute bony findings. IMPRESSION: Negative non-contrast CT head examination for acute finding. No new finding since November 08 study.
[2019-11-11 14:52] LABS: ALT/SGPT 46 U/L (12-78); AST/SGOT 29 U/L (15-37); Albumin 4.1 g/dL (3.4-5.0); Alkaline Phosphatase 53 U/L (45-117); BUN Blood Urea Nitrogen 15 mg/dL (7-18); Bicarbonate 32 mmol/L (21-32); Bilirubin Total 0.4 mg/dL (0.2-1.0); Glucose Level 87 mg/dL (74-106); Potassium 4.3 mmol/L (3.5-5.1); Protein, Total 7.7 g/dL (6.4-8.2); Sodium Level 139 mmol/L (136-145)
[2019-11-11 14:53] LABS: C-Reactive Protein < 2.90 mg/L (<3.00)
--- NOTE | 2019-11-11 15:11 | EDPHYS ---
Physician Documentation [facility] Name: John Cuevas Age: 73 yrs Sex: Male : 1945 Arrival Date: 11/11/2019 Time: 11:39 Bed 6 Private MD: ED Physician Osvaldo Beckman HPI: 11/10 12:25 This 73 yrs old Male presents to ER via EMS with complaints of Headache > leonidas 24hrs Old. 12:25 The patient complains of pain to the forehead, left ear and left advent. The patient leonidas describes the headache as constant, throbbing. Onset: The symptoms/episode began/occurred 2 week(s) ago. Associated signs and symptoms: Pertinent positives: nausea, visual field changes. Severity of symptoms: At its worst the pain was moderate, in the emergency department the pain is unchanged. Headache History: The patient has had previous headaches and this one is similar to previous episodes. The symptoms are alleviated by nothing. the symptoms are aggravated by nothing. The patient has experienced similar episodes in the past, several times. Historical: - Allergies: 11:25 No Known Allergies; rb1 - Home Meds: 11:25 Allopurinol Oral [Active]; Amiodarone Oral [Active]; Codeine Oral [Active]; rb1 levothyroxine oral [Active]; lisinopril Oral [Active]; Metoprolol Tartrate Oral [Active]; - PMHx: 11:25 Atrial Fib; colon cancer; Hyperlipidemia; Hypertension; Hypothyroidism; pre-dementia; rb1 - PSHx: 11:25 colon surgery; hand surgery; abdominal surgery; Skin Graft; rb1 - Immunization history:: Adult Immunizations up to date. - Social history:: Smoking status: Patient/guardian denies using. - Family history:: not pertinent. ROS: 12:25 Constitutional: Negative for fever, chills, and weight loss, Neck: Negative for injury, leonidas pain, and swelling, Cardiovascular: Negative for chest pain, palpitations, and edema, Respiratory: Negative for shortness of breath, cough, wheezing, and pleuritic chest pain, Abdomen/GI: Negative for abdominal pain, nausea, vomiting, diarrhea, and constipation, Back: Negative for injury and pain, : Negative for injury, bleeding, discharge, and swelling, MS/Extremity: Negative for injury and deformity, Skin: Negative for injury, rash, and discoloration, Neuro: Negative for headache, weakness, numbness, tingling, and seizure, Psych: Negative for depression, anxiety, suicide ideation, homicidal ideation, and hallucinations, Allergy/Immunology: Negative for hives, rash, and allergies, Endocrine: Negative for neck swelling, polydipsia, polyuria, polyphagia, and marked weight changes, Hematologic/Lymphatic: Negative for swollen nodes, abnormal bleeding, and unusual bruising. 12:25 Eyes: Positive for visual disturbance, of the outer aspect of conjuctiva of left eye, iris of left eye and inner aspect of conjunctiva of left eye. 12:25 Neuro: Positive for headache, of the left advent and left ear and forehead. Exam: 12:25 Constitutional: This is a well developed, well nourished patient who is awake, alert, leonidas and in no acute distress. Head/Face: Normocephalic, atraumatic. Eyes: Pupils equal round and reactive to light, extra-ocular motions intact. Lids and lashes normal. Conjunctiva and sclera are non-icteric and not injected. Cornea within normal limits. Periorbital areas with no swelling, redness, or edema. ENT: Nares patent. No nasal discharge, no septal abnormalities noted. Tympanic membranes are normal and external auditory canals are clear. Oropharynx with no redness, swelling, or masses, exudates, or evidence of obstruction, uvula midline. Mucous membranes moist. Neck: Trachea midline, no thyromegaly or masses palpated, and no cervical lymphadenopathy. Supple, full range of motion without nuchal rigidity, or vertebral point tenderness. No Meningismus. Chest/axilla: Normal chest wall appearance and motion. Nontender with no deformity. No lesions are appreciated. Cardiovascular: Regular rate and rhythm with a normal S1 and S2. No gallops, murmurs, or rubs. Normal PMI, no JVD. No pulse deficits. Respiratory: Lungs have equal breath sounds bilaterally, clear to auscultation and percussion. No rales, rhonchi or wheezes noted. No increased work of breathing, no retractions or nasal flaring. Abdomen/GI: Soft, non-tender, with normal bowel sounds. No distension or tympany. No guarding or rebound. No evidence of tenderness throughout. Back: No spinal tenderness. No costovertebral tenderness. Full range of motion. Skin: Warm, dry with normal turgor. Normal color with no rashes, no lesions, and no evidence of cellulitis. MS/ Extremity: Pulses equal, no cyanosis. Neurovascular intact. Full, normal range of motion. Neuro: Awake and alert, GCS 15, oriented to person, place, time, and situation. Cranial nerves II-XII grossly intact. Motor strength 5/5 in all extremities. Sensory grossly intact. Cerebellar exam normal. Normal gait. Psych: Awake, alert, with orientation to person, place and time. Behavior, mood, and affect are within normal limits. 12:25 Neck: External neck: is normal, no acute changes, ROM/movement: is normal, no acute changes, pain, is not appreciated, limited range of motion, is not appreciated, Meningeal signs: are not present, Kernig's sign is negative, Brudzinski's sign is negative, nuchal rigidity, is not appreciated. 15:08 Eyes: Periorbital structures: appear normal, no acute changes, Pupils: no acute leonidas changes, equal, round, and reactive to light and accomodation, Extraocular movements: intact throughout, Conjunctiva: normal, no acute changes, Corneas: are normal, no acute changes, Sclera: no appreciated abnormality, no acute changes, Anterior chamber: normal, no acute changes, Lids and lashes: appear normal, no acute changes, funduscopic exam reveals no obvious abnormalities, no acute changes, Visual peterson: are intact, Nystagmus: is not appreciated. 15:11 ECG was reviewed by the Attending Physician. [facility] Vital Signs: 11:25 BP 158 / 82; Pulse 55; Resp 19; Temp 97.5(TE); Pulse Ox 99% ; Weight 113.4 kg (R); rb1 Height 6 ft. 4 in. (193.04 cm) (R); Pain 8/10; 12:40 BP 139 / 72; Pulse 51; Resp 14; Pulse Ox 100% on R/A; rb1 13:15 BP 149 / 74; Pulse 52; Resp 14; Pulse Ox 100% ; rb1 14:00 BP 171 / 82; Pulse 52; Resp 12; Pulse Ox 100% on R/A; rb1 15:00 BP 150 / 79; Pulse 51; Resp 13; Pulse Ox 100% ; rb1 15:54 BP 161 / 73; Pulse 53; Resp 13; Pulse Ox 96% on R/A; rb1 11:25 Body Mass Index 30.43 (113.40 kg, 193.04 cm) rb1 [place] Coma Score: 15:01 Eye Response: spontaneous(4). Verbal Response: oriented(5). Motor Response: obeys [facility] commands(6). Total: 15. MDM: 11:40 Patient medically screened. [facility] 12:33 Data reviewed: vital signs, nurses notes, lab test result(s), EKG, radiologic studies, [facility] CT scan, plain films. 15:01 Differential diagnosis: cluster headache, intracerebral hemorrhage, migraine, leonidas sinusitis, subarachnoid bleed, temporal arteritis, tension headache, trigeminal neuralgia. Data interpreted: quality assurance monitor body: rate is 51 beats/min, Pulse oximetry: on room air is 100 %. Test interpretation: by ED physician or midlevel provider: ECG. Counseling: I had a detailed discussion with the patient and/or guardian regarding: the historical points, exam findings, and any diagnostic results supporting the discharge/admit diagnosis, the presence of at least one elevated blood pressure reading (>120/80) during this emergency department visit, lab results, radiology results, the need for outpatient follow up, for definitive care, a neurologist. 15:05 Response to treatment: the patient's symptoms have markedly improved after treatment. [facility] Physician consultation: Lewis Lee MD and will see patient in office, shortly, give topamax and mdp, will follow up. ED course: pt improved, dw dr lee, topamax and mdp as directed, will fu pt, agrees with phillip and will fu.. 11/10 12:25 Order name: CBC with Diff; Complete Time: 14:39 [facility] 11/10 12:25 Order name: Comprehensive Metabolic Panel; Complete Time: 15:00 [facility] 11/10 12:25 Order name: Sed Rate; Complete Time: 14:39 [facility] 11/10 12:25 Order name: CRP; Complete Time: 15:00 [facility] 11/10 12:25 Order name: CT Head Brain wo Cont; Complete Time: 14:39 [facility] 11/10 14:07 Order name: Urine Dipstick--Ancillary (enter results) 11/10 12:30 Order name: EKG; Complete Time: 12:31 [facility] 11/10 12:25 Order name: Urine Dipstick-Ancillary (obtain specimen); Complete Time: 14:07 [facility] 11/10 12:30 Order name: EKG - Nurse/Tech; Complete Time: 13:18 leonidas EC:11 Rate is 51 beats/min. Rhythm is regular. QRS [place] is Normal. IA interval is normal. QRS leonidas interval is normal. QT interval is normal. No Q waves. T waves are Normal. No ST changes noted. Clinical impression: Sinus bradycardia. Interpreted by me. Reviewed by me. Administered Medications: 13:00 Drug: NS 0.9% 500 ml Route: IV; Rate: bolus; Site: right antecubital; rb1 13:33 Follow up: IV Status: Completed infusion rb1 13:00 Drug: Dilaudid 0.5 mg Route: IVP; Site: right antecubital; rb1 13:15 Follow up: Response: No adverse reaction; Pain is decreased rb1 13:00 Drug: Zofran (Ondansetron) 4 mg Route: IVP; Site: right antecubital; rb1 13:15 Follow up: Response: No adverse reaction rb1 14:04 Drug: Dilaudid 0.5 mg Route: IVP; Site: right antecubital; rb1 14:19 Follow up: Response: No adverse reaction; Pain is decreased rb1 14:05 Drug: Zofran (Ondansetron) 4 mg Route: IVP; Site: right antecubital; rb1 14:19 Follow up: Response: No adverse reaction rb1 15:26 Drug: predniSONE 40 mg Route: PO; rb1 16:11 Follow up: Response: No adverse reaction rb1 15:52 Drug: Topamax 25 mg Route: PO; rb1 16:11 Follow up: Response: No adverse reaction rb1 Disposition: 11/11/19 15:10 Discharged to Home. Impression: Headache, Visual disturbances - OS. - Condition is Stable. - Discharge Instructions: Blurred Vision, Adult, General Headache Without Cause, General Headache Without Cause, [id number]. - Prescriptions for Topamax 25 mg Oral capsule, sprinkle - take 1 capsule by ORAL route 2 times per day in the morning and evening; 40 capsule. Zofran 4 mg Oral Tablet - take 1 tablet by ORAL route every 12 hours As needed; 20 tablet. Medrol (Jerry) 4 mg Oral Tablets, Dose Pack - take 1 tablet by ORAL route as directed - follow package instructions; 1 packet. - Medication Reconciliation Form, Thank You Letter, Antibiotic Education, Prescription Opioid Use form. - Follow up: Private Physician; When: 2 - 3 days; Reason: Recheck today's complaints, Continuance of care, Re-evaluation by your physician. Follow up: Lewis Lee MD; When: 2 - 3 days; Reason: Recheck today's complaints, Continuance of care, Re-evaluation by your physician. - Problem is new. - Symptoms have improved. Critical care time excluding procedures: 15:05 Critical care time: Bedside Care: 15 minutes, Consultation: 10 minutes. Total time: 25 leonidas minutes Signatures: Dispatcher [employer] EDMS Osvaldo Beckman MD MD cha Barber, Rebecca RN RN rb1 Corrections: (The following items were deleted from the chart) 16:11 15:10 11/11/2019 15:10 Discharged to Home. Impression: Headache; Visual disturbances - rb1 OS. Condition is Stable. Forms are Medication Reconciliation Form, Thank You Letter, Antibiotic Education, Prescription Opioid Use. Follow up: Private Physician; When: 2 - 3 days; Reason: Recheck today's complaints, Continuance of care, Re-evaluation by your physician. Follow up: Lewis Lee; When: 2 - 3 days; Reason: Recheck today's complaints, Continuance of care, Re-evaluation by your physician. Problem is new. Symptoms have improved. leonidas
--- NOTE | 2019-11-11 15:11 | ER ---
Nurse's Notes [facility] Name: John Cuevas Age: 73 yrs Sex: Male : 1945 Arrival Date: 11/11/2019 Time: 11:39 Bed 6 Private MD: Diagnosis: Headache;Visual disturbances-OS Presentation: 11/10 11:25 Chief complaint: EMS states: [address] [facility] c/o left sided rb1 headache that radiates to the left shoulder and feels lightheaded. Pt. was here two days ago for the same complaint. [place] was negative for EMS. BS 93, T 97.9, BP 144/73, P 62, 100% RA. History of hypertension and dementia. Coronavirus screen: Proceed with normal triage. Ebola Screen: Patient negative for fever greater than or equal to 101.5 degrees Fahrenheit, and additional compatible Ebola Virus Disease symptoms. Initial Sepsis Screen: Does the patient meet any 2 criteria? No. Patient's initial sepsis screen is negative. Does the patient have a suspected source of infection? No. Patient's initial sepsis screen is negative. Risk Assessment: Do you want to hurt yourself or someone else? Patient reports no desire to harm self or others. Onset of symptoms was November 09, 2019. 11:25 Method Of Arrival: EMS: [facility] rb1 11:25 Acuity: KEVIN 3 rb1 Triage Assessment: 11:25 Headache History: The patient has had previous headaches and this one is similar to rb1 previous episodes. General: Appears in no apparent distress. comfortable, Behavior is calm, cooperative, Denies fever. Pain: Complains of pain in left side of head Pain radiates to left arm Pain currently is 8 out of 10 on a pain scale. Pain began 2-3 days ago. Also complains of no other associated symptoms. EENT: Reports blurred vision in left eye. Neuro: Level of Consciousness is awake, alert, obeys commands, Oriented to person, place, time, situation. Cardiovascular: Capillary refill < 3 seconds. Respiratory: Airway is patent Respiratory effort is even, unlabored, Respiratory pattern is regular, symmetrical. GI: No signs and/or symptoms were reported involving the gastrointestinal system. : No signs and/or symptoms were reported regarding the genitourinary system. Derm: Skin is pink, warm \T\ dry. Historical: - Allergies: 11:25 No Known Allergies; rb1 - Home Meds: 11:25 Allopurinol Oral [Active]; Amiodarone Oral [Active]; Codeine Oral [Active]; rb1 levothyroxine oral [Active]; lisinopril Oral [Active]; Metoprolol Tartrate Oral [Active]; - PMHx: 11:25 Atrial Fib; colon cancer; Hyperlipidemia; Hypertension; Hypothyroidism; pre-dementia; rb1 - PSHx: 11:25 colon surgery; hand surgery; abdominal surgery; Skin Graft; rb1 - Immunization history:: Adult Immunizations up to date. - Social history:: Smoking status: Patient/guardian denies using. - Family history:: not pertinent. Screenin: Abuse screen: Denies threats or abuse. Nutritional screening: No deficits noted. rb1 Tuberculosis screening: No symptoms or risk factors identified. Fall Risk None identified. Assessment: 11:25 General: See triage assessment. rb1 12:25 Reassessment: Patient appears in no apparent distress at this time. Patient and/or rb1 family updated on plan of care and expected duration. Pain level reassessed. Patient is alert, oriented x 3, equal unlabored respirations, skin warm/dry/pink. 13:23 Reassessment: Patient appears in no apparent distress at this time. No changes from rb1 previously documented assessment. 14:20 Reassessment: Patient appears in no apparent distress at this time. Patient and/or rb1 family updated on plan of care and expected duration. Pain level reassessed. Patient is alert, oriented x 3, equal unlabored respirations, skin warm/dry/pink. Pt. is watching TV. 15:20 Reassessment: Patient appears in no apparent distress at this time. No changes from rb1 previously documented assessment. 16:08 Reassessment: Patient appears in no apparent distress at this time. Patient and/or rb1 family updated on plan of care and expected duration. Pain level reassessed. Patient is alert, oriented x 3, equal unlabored respirations, skin warm/dry/pink. Vital Signs: 11:25 BP 158 / 82; Pulse 55; Resp 19; Temp 97.5(TE); Pulse Ox 99% ; Weight 113.4 kg (R); rb1 Height 6 ft. 4 in. (193.04 cm) (R); Pain 8/10; 12:40 BP 139 / 72; Pulse 51; Resp 14; Pulse Ox 100% on R/A; rb1 13:15 BP 149 / 74; Pulse 52; Resp 14; Pulse Ox 100% ; rb1 14:00 BP 171 / 82; Pulse 52; Resp 12; Pulse Ox 100% on R/A; rb1 15:00 BP 150 / 79; Pulse 51; Resp 13; Pulse Ox 100% ; rb1 15:54 BP 161 / 73; Pulse 53; Resp 13; Pulse Ox 96% on R/A; rb1 11:25 Body Mass Index 30.43 (113.40 kg, 193.04 cm) rb1 [place] Coma Score: 15:01 Eye Response: spontaneous(4). Verbal Response: oriented(5). Motor Response: obeys leonidas commands(6). Total: 15. ED Course: 11:25 Patient has correct armband on for positive identification. Bed in low position. Call rb1 light in reach. Side rails up X 1. school bus monitor on. Pulse ox on. NIBP on. Warm blanket given. 11:25 Arm band placed on right wrist. rb1 11:39 Patient arrived in ED. rb1 11:40 Osvaldo Beckman MD is Attending Physician. leonidas 11:46 Triage completed. rb1 11:46 Inserted saline lock: 20 gauge in right antecubital area, using aseptic technique. rb1 ,using aseptic technique. Inserted by , [facility] Blood collected. 12:01 Agatha Potts, RN is Primary Nurse. rb1 12:39 CT Head Brain wo Cont In Process Unspecified. EDMS 15:09 Lewis Nava MD is Referral Physician. leonidas 16:05 IV discontinued, intact, bleeding controlled, No redness/swelling at site. Pressure rb1 dressing applied. 16:11 No provider procedures requiring assistance completed. rb1 Administered Medications: 13:00 Drug: NS 0.9% 500 ml Route: IV; Rate: bolus; Site: right antecubital; rb1 13:33 Follow up: IV Status: Completed infusion rb1 13:00 Drug: Dilaudid 0.5 mg Route: IVP; Site: right antecubital; rb1 13:15 Follow up: Response: No adverse reaction; Pain is decreased rb1 13:00 Drug: Zofran (Ondansetron) 4 mg Route: IVP; Site: right antecubital; rb1 13:15 Follow up: Response: No adverse reaction rb1 14:04 Drug: Dilaudid 0.5 mg Route: IVP; Site: right antecubital; rb1 14:19 Follow up: Response: No adverse reaction; Pain is decreased rb1 14:05 Drug: Zofran (Ondansetron) 4 mg Route: IVP; Site: right antecubital; rb1 14:19 Follow up: Response: No adverse reaction rb1 15:26 Drug: predniSONE 40 mg Route: PO; rb1 16:11 Follow up: Response: No adverse reaction rb1 15:52 Drug: Topamax 25 mg Route: PO; rb1 16:11 Follow up: Response: No adverse reaction rb1 Outcome: 15:10 Discharge ordered by . leonidas 16:11 Patient left the ED. rb1 16:11 Discharged to home via wheelchair. rb1 16:11 Condition: stable 16:11 Discharge instructions given to patient, Instructed on discharge instructions, follow up and referral plans. medication usage, Demonstrated understanding of instructions, follow-up care, medications, Prescriptions given X 3. Signatures: Dispatcher [employer] EDIN Osvaldo Beckman MD MD cha Barber, Rebecca RN RN rb1 Corrections: (The following items were deleted from the chart) 16:14 11:25 IV discontinued, intact, bleeding controlled, No redness/swelling at site. rb1 Pressure dressing applied, rb1
[2019-11-11] MEDS ORDERED: predniSONE 20 MG TAB ONE (15:29)
[2019-11-11] MEDS ORDERED: predniSONE 20 MG TAB PO ONE (16:00)
[2019-11-11] MEDS ORDERED: TOPIRAMATE 25 MG TAB PO ONE (16:00)
[2019-11-11 16:18] VITALS: BP 161/73; O2SAT 96
[2019-11-11 17:25] LABS: Urine Blood TRACE (NEG); Urine Glucose NEGATIVE (NEG); Urine Protein NEGATIVE (NEG); Urine pH 7.5 (5.0-7.0)
--- NOTE | 2019-11-12 07:24 | EKG ---
Test Date: 2019-11-11 Test Time: 13:18:47 Hot Dimpling Machine Operator: JENNIFER MEASUREMENT RESULTS: Intervals: Rate: 51 OK: 200 QRSD: 100 QT: 456 QTc: 420 [place]: P: 50 OK: 200 QRS: 61 T: 67 INTERPRETIVE STATEMENTS: Sinus bradycardia Otherwise normal ECG Compared to ECG 10/24/2019 05:03:01 Sinus rhythm no longer present Electronically Signed On 11-12-19 07:23:01 CDT by Ervin Banks
== END 2019-11-11 16:11 | disposition home or self-care (01) ==
LOC: ER 11:40
DX: H53.8 Other visual disturbances (principal); I10 Essential (primary) hypertension; E03.9 Hypothyroidism, unspecified; E78.5 Hyperlipidemia, unspecified; I48.91 Unspecified atrial fibrillation; Z85.038 Personal history of other malignant neoplasm of large intestine
CPT/HCPCS: 96361; 93005; 85025; 36415; 85652; 81003; 80053; 86140; 70450; 96375; 96374; 99285; J1170 ×2; J7040; J2405 ×2; J7512

== ENCOUNTER 2019-11-23 11:12 | Emergency (ER) | payer MEDICARE ==
[2019-11-23 12:13] LABS: Absolute Lymphocytes (CBC) 1.5 K/uL (0.7-4.9); Basophils % 0.6 % (0-1.3); Hematocrit 29.1 % (39.6-49.0); Lymphocytes % 20.6 % (15.3-44.8); MPV 12.4 fL (7.6-11.3); RBC Red Blood Cell Count 3.12 M/uL (4.33-5.43)
[2019-11-23 12:17] LABS: Protime INR 1.39
--- NOTE | 2019-11-23 12:21 | RAD REPORT ---
EXAM DESCRIPTION: CT - Head Brain Wo Cont - 11/23/2019 12:07 pm CLINICAL HISTORY: SYNCOPE COMPARISON: Head Brain Wo Cont dated 11/20/2019 TECHNIQUE: Axial 5 mm thick images of the head were obtained without IV contrast. All CT scans are performed using dose optimization technique as appropriate and may include automated exposure control or mA/KV adjustment according to patient size. FINDINGS: No intracranial hemorrhage, mass, edema or shift of mid-line structures. No acute infarcti on changes seen. No abnormal extra-axial fluid collections. Ventricles are normal. Mild for age atrop hy and chronic ischemic change. Mastoid air cells are clear. Chronic left-side sphenoid sinusitis noted. No acute sinus finding seen. No acute bony findings. IMPRESSION: Mild for age atrophy and chronic ischemic change similar to comparison. No acute finding identifiable.
[2019-11-23 12:24] LABS: ALT/SGPT 24 U/L (12-78); AST/SGOT 20 U/L (15-37); Albumin 4.1 g/dL (3.4-5.0); Alkaline Phosphatase 51 U/L (45-117); BUN Blood Urea Nitrogen 29 mg/dL (7-18); Bicarbonate 26 mmol/L (21-32); Bilirubin Direct 0.2 mg/dL (0-0.2); Bilirubin Total 0.6 mg/dL (0.2-1.0); CKMB Creatine Kinase MB 2.9 ng/mL (0.3-3.6); Creatine Phosphokinase 103 U/L (39-308); Glucose Level 86 mg/dL (74-106); Lipase 107 U/L (73-393); Magnesium 2.3 mg/dL (1.8-2.4); Protein, Total 7.8 g/dL (6.4-8.2); Sodium Level 137 mmol/L (136-145); Troponin (Emerg Dept Use Only) < 0.02 ng/mL (0.0-0.045)
[2019-11-23 13:07] LABS: Blood Morphology Comment NOT SEEN (NOT SEEN); Platelet Estimate DECR; Urine White Blood Cell Casts OK
--- NOTE | 2019-11-23 13:12 | RAD REPORT ---
EXAM DESCRIPTION: RAD - Shoulder Left 2 View - 11/23/2019 1:04 pm CLINICAL HISTORY: fall, left shoulder pain COMPARISON: No comparisons TECHNIQUE: Internal and external rotation views of the left shoulder were obtained. FINDINGS: There is no fracture or dislocation. AC joint degenerative changes are present. There is c apsular hypertrophy and calcification superiorly. Spurring of the acromion noted. Acute separation is not suspected. Acromial humeral joint space is narrowed without suspicious soft tissue calcification . Minimal spurring seen along the superior margin greater tuberosity. No destructive process. No susp icious soft tissue finding. IMPRESSION: Negative two-view left shoulder examination for acute findings. Degenerative changes are present primarily at the AC joint.
--- NOTE | 2019-11-23 13:13 | RAD REPORT ---
EXAM DESCRIPTION: RAD - Chest Single View - 11/23/2019 1:04 pm CLINICAL HISTORY: syncope, fall with chest pain COMPARISON: October 23 TECHNIQUE: AP portable chest image was obtained 11/23/2019 1:04 pm . FINDINGS: Lungs are clear. Heart and vasculature are normal. No measurable pleural effusion and no p neumothorax. No acute bony abnormality seen. No acute aortic findings suspected. IMPRESSION: No acute cardiopulmonary process.
--- NOTE | 2019-11-23 13:13 | RAD REPORT ---
EXAM DESCRIPTION: RAD - Humerus Left - 11/23/2019 1:04 pm CLINICAL HISTORY: Fall, left arm pain COMPARISON: None. FINDINGS: No fracture is identified. There is no dislocation or periosteal reaction noted. No forei gn body or other soft tissue abnormality. Left shoulder degenerative changes are separately detailed . IMPRESSION: Negative left humerus examination.
--- NOTE | 2019-11-23 13:15 | RAD REPORT ---
EXAM DESCRIPTION: RAD - Hip Left 2 View - 11/23/2019 1:04 pm CLINICAL HISTORY: fall, left hip pain COMPARISON: No comparisons FINDINGS: AP and frogleg views of the left hip were obtained. There is no fracture or dislocation. Joint space narrowing is present. Degenerative marginal spurs ar e seen along the acetabular rim and inferior margins of the femoral head. Subcortical degenerative cy stic change seen superolateral femoral head. AVN is not likely. No periarticular abnormality seen. IMPRESSION: Advanced hip joint degenerative change as detailed. No acute finding.
--- NOTE | 2019-11-23 13:16 | RAD REPORT ---
EXAM DESCRIPTION: RAD - Femur Left - 11/23/2019 1:05 pm CLINICAL HISTORY: fallleft femur pain COMPARISON: None. FINDINGS: No fracture is identified. There is no dislocation or periosteal reaction noted. No acute or suspicious bony finding. No air or foreign body in the soft tissues. Knee joint degenerative marvin ges are present primarily medial compartment. Left hip joint degenerative changes are separately deta iled. IMPRESSION: Joint degenerative changes are present at the hip and knee. No acute fracture.
[2019-11-23 13:27] LABS: Urine Blood NEGATIVE (NEG); Urine Glucose NEGATIVE (NEG); Urine Protein NEGATIVE (NEG); Urine Specific Gravity 1.015 (1.005-1.030)
--- NOTE | 2019-11-23 13:38 | RAD REPORT ---
EXAM DESCRIPTION: CT - Abdomen Pelvis Wo Contrast - 11/23/2019 1:20 pm CLINICAL HISTORY: FLANK PAIN , abdominal pain, fall COMPARISON: No comparisonsAbdomen Pelvis W Contrast dated 07/07/2019 TECHNIQUE: Axial [address] imaging of the abdomen and pelvis was performed without IV contrast. No IV contrast was given because of allergy, abnormal renal function, patient refusal or physician re quest. No oral contrast administered. All CT scans are performed using dose optimization technique as appropriate and may include automated exposure control or mA/KV adjustment according to patient size. FINDINGS: No suspicious findings in the lung bases. The liver, spleen and pancreas show no suspicious findings on non-contrast imaging. Gallbladder and b iliary tree are also without suspicious finding. No hydronephrosis or suspicious renal mass. No significant adrenal finding. Isodense renal masses an d pyelonephritis cannot be excluded in the absence of IV contrast. Urinary bladder is mostly contract ed limiting assessment. No dilated bowel loops or bowel wall thickening. Sigmoid diverticulosis is present. Rectosigmoid anas tomotic site is present with no acute component. Patient has supraumbilical hernia approximately 3 cm superior to the umbilicus and left of midline. The hernia contains a loop of small bowel. The hernia mark loop does not show wall thickening or edema. Obstruction related to the herniated bowel loop is n ot currently suspected. The appendix is normal. No free air, free fluid or inflammatory stranding. No mass or bulky lymphadenopathy. Small fat only bilateral inguinal hernias are present. Patient has advanced lumbar spine degenerative change and lower thoracic degenerative change. No new compression fracture. Advanced bilateral hip joint degenerative change present similar to comparison. No acute fracture finding. No pathologic bone process. No significant contusion or edema changes in the soft tissues. IMPRESSION: CT abdomen and pelvis imaging shows no acute traumatic injury to the abdomen or pelvis. Patient has a left supraumbilical hernia containing a loop of small bowel. Hernia has a narrow neck; however, the herniated bowel loops shows no wall thickening or edema. Small bowel obstruction is not suspected. Full assessment is limited is the absence of IV contrast.
[2019-11-23 13:39] LABS: Barbiturates NEGATIVE (NEGATIVE); Benzodiazepines NEGATIVE (NEGATIVE); Cocaine NEGATIVE (NEGATIVE); METHAMPHETAM NEGATIVE (NEGATIVE); Methadone NEGATIVE (NEGATIVE); Opiates NEGATIVE (NEGATIVE); Phencyclidine NEGATIVE (NEGATIVE); THC Cannibis NEGATIVE (NEGATIVE)
[2019-11-23] MEDS ORDERED: ACETAMINOPHEN 500 MG TAB ONE (14:05)
--- NOTE | 2019-11-23 14:39 | ER ---
Nurse's Notes [facility] Name: John Cuevas Age: 73 yrs Sex: Male : 1945 Arrival Date: 11/23/2019 Time: 11:16 Bed 18 Private MD: Diagnosis: Fall due to bumping against object;Dizziness and giddiness Presentation: 11/22 11:11 Chief complaint: EMS states: pt states that he got dizzy at home walking with walker and fell on left side onto the sofa. Pt c/o pain on L side. Coronavirus screen: Proceed with normal triage. Patient denies a cough. Patient denies shortness of breath or difficulty breathing. Patient denies measured and/or subjective temperature greater than 100.4F prior to today's visit. Patient denies travel on a cruise ship or to a country the [facility] currently lists as an affected area. Patient denies contact with known and/or suspected case of COVID-19. Ebola Screen: No symptoms or risks identified at this time. Initial Sepsis Screen: Does the patient meet any 2 criteria? No. Patient's initial sepsis screen is negative. Does the patient have a suspected source of infection? No. Patient's initial sepsis screen is negative. Risk Assessment: Do you want to hurt yourself or someone else? Patient reports no desire to harm self or others. Onset of symptoms was November 23, 2019. 11:11 Method Of Arrival: EMS: [facility] 11:11 Acuity: KEVIN 3 Historical: - Allergies: 11:52 No Known Allergies; - Home Meds: 11:52 Allopurinol Oral [Active]; Amiodarone Oral [Active]; Codeine Oral [Active]; levothyroxine for Hypothyroidism [Active]; lisinopril Oral [Active]; Metoprolol Tartrate Oral [Active]; Plavix Oral [Active]; Simvastatin Oral [Active]; - PMHx: 11:52 Atrial Fib; colon cancer; Dementia; Hyperlipidemia; Hypertension; Hypothyroidism; - PSHx: 11:52 Bowel resection; - Immunization history:: Adult Immunizations up to date. - Social history:: Smoking status: Patient denies any tobacco usage or history of. Patient uses alcohol, 3 beers yesterday. Screenin:53 Abuse screen: Denies threats or abuse. Nutritional screening: No deficits noted. Tuberculosis screening: No symptoms or risk factors identified. Fall Risk None identified. Assessment: 11:15 General: Appears uncomfortable, Behavior is cooperative, appropriate for age, anxious. Pain: Complains of pain in left arm and left leg Pain currently is 6 out of 10 on a pain scale. Pain began 1 hour ago. Neuro: Level of Consciousness is awake, alert, Oriented to person, place, time, situation, Flower Grower are equal bilaterally Moves all extremities. Speech is normal, Facial symmetry appears normal, Pupils are PERRLA. Cardiovascular: Capillary refill < 3 seconds Patient's skin is warm and dry. Respiratory: Airway is patent Respiratory effort is even, unlabored, Respiratory pattern is regular, symmetrical. GI: No signs and/or symptoms were reported involving the gastrointestinal system. : No signs and/or symptoms were reported regarding the genitourinary system. EENT: No signs and/or symptoms were reported regarding the EENT system. Derm: No signs and/or symptoms reported regarding the dermatologic system. Musculoskeletal: No signs and/or symptoms reported regarding the musculoskeletal system. Reports pain in left arm and left leg. 13:17 Reassessment: Pt to CT at this time via stretcher. Vital Signs: 11:11 BP 124 / 66; Pulse 67; Resp 13; Temp 97.8; Pulse Ox 100% ; Weight 114.31 kg; Height 6 ft. 4 in. (193.04 cm); 11:30 BP 126 / 73; Pulse 67; Resp 18; Pulse Ox 100% ; 12:53 BP 139 / 73; Pulse 72; Resp 18; Pulse Ox 100% ; 13:45 BP 146 / 82; Pulse 70; Resp 18; Pulse Ox 100% ; ah 14:30 BP 148 / 77; Pulse 72; Resp 17; Pulse Ox 99% ; ah 11:11 Body Mass Index 30.67 (114.31 kg, 193.04 cm) ED Course: 11:16 Patient arrived in ED. am2 11:20 Renny Olmstead MD is Attending Physician. 7 11:30 Arm band placed on. 11:39 Aneta Rinaldi, RN is Primary Nurse. 11:47 Triage completed. 11:48 Initial lab(s) drawn, by me, sent to lab. Inserted saline lock: 22 gauge antecubital kj1 area, using aseptic technique. Blood collected. 11:53 Patient has correct armband on for positive identification. Placed in gown. Bed in low ah position. Call light in reach. Side rails up X2. playground monitor on. Pulse ox on. NIBP on. 12:07 CT Head Brain wo Cont In Process Unspecified. EDMS 13:04 Chest Single View XRAY In Process Unspecified. EDMS 13:04 Shoulder Left (2 View) XRAY In Process Unspecified. EDMS 13:04 Humerus Left XRAY In Process Unspecified. EDMS 13:04 Hip Left 2 View XRAY In Process Unspecified. EDMS 13:04 Pelvis XRAY In Process Unspecified. EDMS 13:05 Femur Left XRAY In Process Unspecified. EDMS 13:20 CT Abd/Pelvis - Without Contrast In Process Unspecified. EDMS 13:20 CT completed. Patient moved back from CT. mw3 14:36 Lewis Nava MD is Referral Physician. [facility] 14:44 No provider procedures requiring assistance completed. IV discontinued. Administered Medications: 14:00 Drug: Acetaminophen 1000 mg Route: PO; Outcome: 14:38 Discharge ordered by . [facility] 14:50 Discharged to home via wheelchair. 14:50 Condition: good 14:50 Discharge instructions given to patient, Instructed on discharge instructions, follow up and referral plans. Demonstrated understanding of instructions, follow-up care. 14:58 Patient left the ED. Signatures: Dispatcher [employer] EDMS Felicita Carroll am2 Marisol Castelan mw3 Jennifer Figueroa kj1 Aneta Rinaldi RN RN Renny Olmstead MD MD 7
--- NOTE | 2019-11-23 14:39 | EDPHYS ---
Physician Documentation [facility] Name: John Cuevas Age: 73 yrs Sex: Male : 1945 Arrival Date: 11/23/2019 Time: 11:16 Bed 18 Private MD: ED Physician Renny Olmstead HPI: 11/22 11:44 This 73 yrs old Male presents to ER via Unassigned with complaints of mh7 possible syncope. 11:44 The patient has experienced near-syncope, almost passed out, felt dizzy, felt faint. mh7 Onset: The symptoms/episode began/occurred just prior to arrival, today. Duration: This was a single episode, that lasted an unknown period of time. Context: the episode(s) was witnessed, by no one, the downtime is unknown, occurred at home, occurred while the patient was walking, Just prior to the episode the patient experienced dizziness. Associated injury: Left lower extremity: left hip, left thigh, pain, tenderness, decreased range of motion, Left upper extremity: anterior aspect of left shoulder and left bicep, pain, tenderness. 11:47 Associated signs and symptoms: Pertinent negatives: abdominal pain, agitation, ataxia, mh7 blurred vision, chest pain, combativeness, confusion, diaphoresis, diarrhea, headache, nausea, numbness, palpitations, seizure, shortness of breath, tingling, vertigo, vomiting, weakness. Current symptoms: Currently, the patient is not experiencing any symptoms. Patient states that he was using his walker at home when got dizzy and fell onto the left side of his body. He denies LOC. He complains of pain to left arm, left hip, and left thigh.. Historical: - Allergies: 11:52 No Known Allergies; - Home Meds: 11:52 Allopurinol Oral [Active]; Amiodarone Oral [Active]; Codeine Oral [Active]; levothyroxine for Hypothyroidism [Active]; lisinopril Oral [Active]; Metoprolol Tartrate Oral [Active]; Plavix Oral [Active]; Simvastatin Oral [Active]; - PMHx: 11:52 Atrial Fib; colon cancer; Dementia; Hyperlipidemia; Hypertension; Hypothyroidism; - PSHx: 11:52 Bowel resection; - Immunization history:: Adult Immunizations up to date. - Social history:: Smoking status: Patient denies any tobacco usage or history of. Patient uses alcohol, 3 beers yesterday. ROS: 11:47 Constitutional: Negative for fever, chills, and weight loss, Eyes: Negative for injury, mh7 pain, redness, and discharge, ENT: Negative for injury, pain, and discharge, Neck: Negative for injury, pain, and swelling, Cardiovascular: Negative for chest pain, palpitations, and edema, Respiratory: Negative for shortness of breath, cough, wheezing, and pleuritic chest pain, Abdomen/GI: Negative for abdominal pain, nausea, vomiting, diarrhea, and constipation, Back: Negative for injury and pain, : Negative for injury, bleeding, discharge, and swelling, Skin: Negative for injury, rash, and discoloration, Psych: Negative for depression, anxiety, suicide ideation, homicidal ideation, and hallucinations, Allergy/Immunology: Negative for hives, rash, and allergies, Endocrine: Negative for neck swelling, polydipsia, polyuria, polyphagia, and marked weight changes, Hematologic/Lymphatic: Negative for swollen nodes, abnormal bleeding, and unusual bruising. Exam: 11:47 Constitutional: This is a well developed, well nourished patient who is awake, alert, mh7 and in no acute distress. Head/Face: Normocephalic, atraumatic. Eyes: Pupils equal round and reactive to light, extra-ocular motions intact. Lids and lashes normal. Conjunctiva and sclera are non-icteric and not injected. Cornea within normal limits. Periorbital areas with no swelling, redness, or edema. ENT: Nares patent. No nasal discharge, no septal abnormalities noted. Tympanic membranes are normal and external auditory canals are clear. Oropharynx with no redness, swelling, or masses, exudates, or evidence of obstruction, uvula midline. Mucous membranes moist. Neck: Trachea midline, no thyromegaly or masses palpated, and no cervical lymphadenopathy. Supple, full range of motion without nuchal rigidity, or vertebral point tenderness. No Meningismus. Chest/axilla: Normal chest wall appearance and motion. Nontender with no deformity. No lesions are appreciated. Cardiovascular: Regular rate and rhythm with a normal S1 and S2. No gallops, murmurs, or rubs. Normal PMI, no JVD. No pulse deficits. Respiratory: Lungs have equal breath sounds bilaterally, clear to auscultation and percussion. No rales, rhonchi or wheezes noted. No increased work of breathing, no retractions or nasal flaring. Abdomen/GI: Soft, non-tender, with normal bowel sounds. No distension or tympany. No guarding or rebound. No evidence of tenderness throughout. Back: No spinal tenderness. No costovertebral tenderness. Full range of motion. 11:47 Musculoskeletal/extremity: Extremities: noted in the left bicep and anterior aspect of left shoulder: pain, tenderness, decreased ROM, ecchymosis, noted in the left hip, left thigh: pain, tenderness, decreased ROM, ROM: limited active range of motion due to pain, in the left bicep and anterior aspect of left shoulder, left hip, left thigh, limited passive range of motion due to pain, in the left bicep and anterior aspect of left shoulder, left hip,left thigh, Circulation is intact in all extremities. Pulses: are normal with no appreciated deficits, Perfusion: the patient is normally perfused throughout, Perfusion: the extremity is normally perfused throughout, Calf tenderness, is absent, Edema, is not appreciated, Sensation intact. Compartment Syndrome exam of affected extremity: is normal. no numbness, no tingling, no sensation deficit, no palor, no weak pulses, Joints: the anterior aspect of left shoulder displays pain at rest, painful range of motion, tenderness, the left hip displays pain at rest, painful range of motion, tenderness. 11:47 Skin: few small ecchymotic areas on arms and abdomen. 11:47 Neuro: Orientation: is normal, Mentation: is normal, Memory: is normal, Cranial nerves: grossly normal, Cerebellar function: is grossly normal, Motor: moves all fours, Sensation: is normal, Gait: not tested. Deep tendon reflexes are normal, Babinski testing is normal, seizure activity, is not displayed by the patient, Abnormal movements: there are no abnormal movements. Vital Signs: 11:11 BP 124 / 66; Pulse 67; Resp 13; Temp 97.8; Pulse Ox 100% ; Weight 114.31 kg; Height 6 ah ft. 4 in. (193.04 cm); 11:30 BP 126 / 73; Pulse 67; Resp 18; Pulse Ox 100% ; ah 12:53 BP 139 / 73; Pulse 72; Resp 18; Pulse Ox 100% ; 13:45 BP 146 / 82; Pulse 70; Resp 18; Pulse Ox 100% ; ah 14:30 BP 148 / 77; Pulse 72; Resp 17; Pulse Ox 99% ; ah 11:11 Body Mass Index 30.67 (114.31 kg, 193.04 cm) MDM: 11:35 Patient medically screened. [facility] 14:35 Differential Diagnosis: cardiac arrhythmia, cerebrovascular accident, drug effect, 7 idiopathic syncope, transient ischemic attack, vasovagal episode. Data reviewed: vital signs, nurses notes, EMS record, old medical records, lab test result(s), cardiac enzymes, CBC, electrolytes, urinalysis, EKG, radiologic studies, CT scan, plain films. 11/22 11:37 Order name: Glucose, Ancillary Testing; Complete Time: 12:49 EDTX 11/22 11:38 Order name: Basic Metabolic Panel; Complete Time: 12:49 [facility] 11/22 11:38 Order name: CBC with Diff; Complete Time: 13:51 [facility] 11/22 11:38 Order name: Ckmb; Complete Time: 12:49 [facility] 11/22 11:38 Order name: CPK; Complete Time: 12:49 [facility] 11/22 11:38 Order name: Hepatic Function; Complete Time: 12:49 [facility] 11/22 11:38 Order name: Lipase; Complete Time: 12:49 [facility] 11/22 11:38 Order name: Magnesium; Complete Time: 12:49 [facility] 11/22 11:38 Order name: Protime (+inr); Complete Time: 12:49 [facility] 11/22 11:38 Order name: Ptt, Activated; Complete Time: 12:49 [facility] 11/22 11:38 Order name: Troponin (emerg Dept Use Only); Complete Time: 12:49 [facility] 11/22 11:43 Order name: ETOH Level; Complete Time: 12:49 [facility] 11/22 11:43 Order name: UDS; Complete Time: 13:51 [facility] 11/22 13:08 Order name: CBC Smear Scan; Complete Time: 13:51 [facility] 11/22 11:38 Order name: EKG; Complete Time: 11:40 [facility] 11/22 11:38 Order name: Cardiac monitoring; Complete Time: 11:55 [facility] 11/22 11:38 Order name: EKG - Nurse/Tech; Complete Time: 13:16 11/22 11:38 Order name: IV Saline Lock; Complete Time: 11:55 11/22 11:38 Order name: Labs collected and sent; Complete Time: 11:55 11/22 11:38 Order name: NPO; Complete Time: 11:55 11/22 11:38 Order name: Chest Single View XRAY; Complete Time: 13:51 11/22 11:38 Order name: CT Head Brain wo Cont; Complete Time: 12:49 11/22 11:38 Order name: Shoulder Left (2 View) XRAY; Complete Time: 13:51 11/22 11:38 Order name: Humerus Left XRAY; Complete Time: 13:51 11/22 11:38 Order name: Hip Left 2 View XRAY; Complete Time: 13:51 11/22 11:38 Order name: Pelvis XRAY [facility] 11/22 11:47 Order name: Femur Left XRAY; Complete Time: 13:51 11/22 12:58 Order name: CT Abd/Pelvis - Without Contrast; Complete Time: 13: 11/22 13:22 Order name: Urine Dipstick--Ancillary (enter results); Complete Time: 13:51 [facility] 11/22 11:38 Order name: O2 Per Protocol; Complete Time: 11:55 11/22 11:38 Order name: O2 Sat Monitoring; Complete Time: 11:55 11/22 11:38 Order name: Urine Dipstick-Ancillary (obtain specimen); Complete Time: 13:16 Administered Medications: 14:00 Drug: Acetaminophen 1000 mg Route: PO; Disposition: 11/23/19 14:38 Discharged to Home. Impression: Fall due to bumping against object, Dizziness and giddiness. - Condition is Stable. - Discharge Instructions: Dizziness, Contusion, [id number], Fall Prevention in the Home, [id number]. - Medication Reconciliation Form, Thank You Letter, Antibiotic Education, Prescription Opioid Use form. - Follow up: Private Physician; When: 1 - 2 days; Reason: Worsening of condition, Re-evaluation by your physician. Follow up: Lewis Nava MD; When: 1 - 2 days; Reason: Worsening of condition, Re-evaluation by your physician. - Problem is an acute exacerbation. - Symptoms have improved. Signatures: Dispatcher [employer] EDAneta Bullock RN RN Renny Gil MD MD 7 Corrections: (The following items were deleted from the chart) 14:40 14:38 11/23/2019 14:38 Discharged to Home. Impression: Fall due to bumping against mh7 object. Condition is Stable. Forms are Medication Reconciliation Form, Thank You Letter, Antibiotic Education, Prescription Opioid Use. Follow up: Private Physician; When: 1 - 2 days; Reason: Worsening of condition, Re-evaluation by your physician. Follow up: Lewis Nava; When: 1 - 2 days; Reason: Worsening of condition, Re-evaluation by your physician. Problem is an acute exacerbation. Symptoms have improved. [facility] 14:58 14:40 11/23/2019 14:38 Discharged to Home. Impression: Fall due to bumping against ah object; Dizziness and giddiness. Condition is Stable. Forms are Medication Reconciliation Form, Thank You Letter, Antibiotic Education, Prescription Opioid Use. Follow up: Private Physician; When: 1 - 2 days; Reason: Worsening of condition, Re-evaluation by your physician. Follow up: Lewis Nava; When: 1 - 2 days; Reason: Worsening of condition, Re-evaluation by your physician. Problem is an acute exacerbation. Symptoms have improved. 7
[2019-11-23 15:24] VITALS: BP 148/77; O2SAT 99
--- NOTE | 2019-11-23 18:50 | RAD REPORT ---
EXAM DESCRIPTION: RAD - Pelvis - 11/23/2019 1:04 pm CLINICAL HISTORY: BLUNT TRAUMA, fall COMPARISON: No comparisons TECHNIQUE: AP imaging of the pelvis was obtained. FINDINGS: Lower lumbar degenerative changes are present partially imaged. SI joint degenerative marvin ges minimal. Sacral ala or mostly obscured by bowel. Fracture of the pelvis is not identified. Patien t has significant bilateral hip joint degenerative change. Joint space narrowing is present with acet abular spurring. No AVN confirmed in either femoral head. IMPRESSION: 1. Significant bilateral hip joint degenerative change and significant lumbar spine dege nerative change. 2. No acute fracture.
--- NOTE | 2019-11-24 08:54 | EKG ---
Test Date: 2019-11-23 Test Time: 12:55:17 Veterinary Medicine Teacher: MAME MEASUREMENT RESULTS: Intervals: Rate: 65 OR: 210 QRSD: 98 QT: 438 QTc: 455 [place]: P: 62 OR: 210 QRS: 44 T: 59 INTERPRETIVE STATEMENTS: Sinus rhythm with 1st degree AV block Otherwise normal ECG Compared to ECG 11/20/2019 10:54:01 First degree AV block now present Sinus bradycardia no longer present Electronically Signed On 11-24-19 08:52:34 CDT by Ervin Banks
== END 2019-11-23 14:58 | disposition home or self-care (01) ==
LOC: ER 11:12
DX: R42 Dizziness and giddiness (principal); W18.00XA Striking against unspecified object with subsequent fall, initial encounter; Y93.9 Activity, unspecified; E03.9 Hypothyroidism, unspecified; I10 Essential (primary) hypertension; Z85.038 Personal history of other malignant neoplasm of large intestine
CPT/HCPCS: 36415; 70450; 71045; 72170; 74176; 80048; 80076; 80307; 80320; 81003; 82550; 82553; 82947; 83690; 83735; 84484; 85025; 85610; 85730; 93005; 99285

== ENCOUNTER 2019-11-25 03:52 | Emergency (ER) | payer MEDICARE ==
[2019-11-25] MEDS ORDERED: METOCLOPRAMIDE 10 MG/2mL INJ ONE (04:18)
[2019-11-25] MEDS ORDERED: NA CHLORIDE 0.9% 1,000 ML ONE (04:19)
[2019-11-25] MEDS ORDERED: KETOROLAC 30 MG/ML INJ ONE (04:19)
[2019-11-25] MEDS ORDERED: DIPHENHYDRAMINE 50 MG/ML VIAL ONE (04:19)
[2019-11-25 04:31] LABS: Absolute Lymphocytes (CBC) 1.6 K/uL (0.7-4.9); Basophils % 0.6 % (0-1.3); Hematocrit 27.4 % (39.6-49.0); Lymphocytes % 19.7 % (15.3-44.8); MPV 11.5 fL (7.6-11.3); RBC Red Blood Cell Count 2.94 M/uL (4.33-5.43)
[2019-11-25 04:42] LABS: Albumin 3.8 g/dL (3.4-5.0); Bilirubin Total 0.3 mg/dL (0.2-1.0); Potassium 3.7 mmol/L (3.5-5.1); Protein, Total 7.2 g/dL (6.4-8.2)
[2019-11-25 04:54] LABS: Blood Morphology Comment NOT SEEN (NOT SEEN); Platelet Estimate DECR
[2019-11-25 06:33] VITALS: TEMP 97.7
[2019-11-25 06:36] VITALS: BP 126/77; O2SAT 98
--- NOTE | 2019-11-25 17:37 | RAD REPORT ---
EXAM DESCRIPTION: CT - Head Brain Wo Cont - 11/25/2019 6:56 am CLINICAL HISTORY: LEFT SIDED HEADACHE TECHNIQUE: Multiple axial CT images of the brain were performed followed by sagittal and coronal rec onstructed images. The CT study is performed according to ALARA (as low as reasonably achievable) or ALARA/IMAGE GENTLY, with automatic adjustment of mA and/or kV according to patient size. Performed on: 11/25/2019 at 4:33 AM COMPARISON: 11/06/2019. FINDINGS: There is no evidence of mass, acute mass effect or midline shift. There are no acute extra -axial fluid collections. There is no evidence of acute intracranial hemorrhage. The cerebral sulci and ventricles are prominent consistent with mild cerebral volume loss. There are scattered areas of decreased attenuation within the subcortical and periventricular white m atter most likely due to mild chronic microangiopathy. There is complete opacification of the left sphenoid sinus, similar when compared to the prior study. The mastoid air cells are clear. The orbital contents are grossly unremarkable. No acute osseous abnormalities are identified. No focal soft tissue abnormalities are identified. IMPRESSION: 1. There is no evidence of acute intracranial pathology. 2. Complete opacification of the left sphenoid sinus, similar when compared to the prior study. Electronically signed by: Vanesa Alcantara DO 11/25/2019 4:56 AM CDT Due to temporary technical issues with the PACS/Fluency reporting system, reports are being signed by the in house radiologist without review as a courtesy to ensure prompt reporting. The interpreting r adiologist is fully responsible for the content of the report.
--- NOTE | 2019-12-01 12:58 | EDPHYS ---
Physician Documentation [facility] Name: John Cuevas Age: 73 yrs Sex: Male : 1945 Arrival Date: 11/25/2019 Time: 03:47 Bed 6 Private MD: ED Physician Cheryl Duran HPI: 11/24 04:09 This 73 yrs old Male presents to ER via EMS with complaints of Headache, ma2 Worst Ever. 04:09 The patient complains of pain to the forehead. Onset: The symptoms/episode ma2 began/occurred gradually, 1 day(s) ago. Associated signs and symptoms: Pertinent negatives: dizziness, malaise, nausea, neck stiffness, paresthesias. Severity of symptoms: At its worst the pain was moderate, in the emergency department the pain is unchanged. The patient has experienced similar episodes in the past. Historical: - Allergies: 03:55 No Known Allergies; sg - PMHx: 03:55 Atrial Fib; colon cancer; Dementia; Hyperlipidemia; Hypertension; Hypothyroidism; sg - PSHx: 03:55 Bowel resection; sg - Immunization history:: Adult Immunizations up to date. - Social history:: Smoking status: Patient reports the use of cigarette tobacco products, Patient/guardian denies using alcohol, street drugs, The patient lives with family. - Family history:: not pertinent. ROS: 04:09 Constitutional: Negative for fever, chills, and weight loss. ma2 04:09 All other systems are negative. Exam: 04:09 Constitutional: This is a well developed, well nourished patient who is awake, alert, ma2 and in no acute distress. ENT: Nares patent. No nasal discharge, no septal abnormalities noted. Tympanic membranes are normal and external auditory canals are clear. Oropharynx with no redness, swelling, or masses, exudates, or evidence of obstruction, uvula midline. Mucous membranes moist. Neck: Trachea midline, no thyromegaly or masses palpated, and no cervical lymphadenopathy. Supple, full range of motion without nuchal rigidity, or vertebral point tenderness. No Meningismus. Chest/axilla: Normal chest wall appearance and motion. Nontender with no deformity. No lesions are appreciated. Cardiovascular: Regular rate and rhythm with a normal S1 and S2. No gallops, murmurs, or rubs. Normal PMI, no JVD. No pulse deficits. Respiratory: Lungs have equal breath sounds bilaterally, clear to auscultation and percussion. No rales, rhonchi or wheezes noted. No increased work of breathing, no retractions or nasal flaring. Abdomen/GI: Soft, non-tender, with normal bowel sounds. No distension or tympany. No guarding or rebound. No evidence of tenderness throughout. Back: No spinal tenderness. No costovertebral tenderness. Full range of motion. MS/ Extremity: Pulses equal, no cyanosis. Neurovascular intact. Full, normal range of motion. Neuro: Awake and alert, GCS 15, oriented to person, place, time, and situation. Cranial nerves II-XII grossly intact. Motor strength 5/5 in all extremities. Sensory grossly intact. Cerebellar exam normal. Normal gait. Vital Signs: 03:54 BP 143 / 79; Pulse 64; Resp 20; Pulse Ox 96% on R/A; ea 03:58 Temp 97.7; Pain 10/10; rv 04:39 BP 132 / 74 RA Supine; Pulse 55; Resp 13; Pulse Ox 100% on R/A; rv 05:50 BP 126 / 77; Pulse 65; Resp 19; Pulse Ox 98% on R/A; ea MDM: 03:47 Patient medically screened. ma2 04:09 Differential diagnosis: cluster headache, sinusitis, uremia. Data reviewed: vital ma2 signs, nurses notes. Counseling: I had a detailed discussion with the patient and/or guardian regarding: the historical points, exam findings, and any diagnostic results supporting the discharge/admit diagnosis, the presence of at least one elevated blood pressure reading (>120/80) during this emergency department visit, the need for outpatient follow up. Response to treatment: the patient's symptoms have markedly improved after treatment. 11/24 04:21 Order name: Comprehensive Metabolic Panel; Complete Time: 05:18 EDMS 11/24 04:21 Order name: CBC with Automated Diff; Complete Time: 05:18 EDMS 11/24 04:34 Order name: Manual Differential; Complete Time: 05:18 EDMS 11/24 04:25 Order name: Head Brain Wo Cont EDMS Administered Medications: 04:13 Drug: Benadryl 50 mg Route: IVP; Site: right antecubital; rv 04:51 Follow up: Response: No adverse reaction ea 04:13 Drug: Reglan 20 mg Route: IVP; Site: right antecubital; rv 04:51 Follow up: Response: No adverse reaction ea 04:13 Drug: TORadol 30 mg Route: IVP; Site: right antecubital; rv 04:51 Follow up: Response: No adverse reaction ea 04:13 Drug: NS 0.9% 1000 ml Route: IV; Rate: 1 bolus; Site: right antecubital; rv 05:51 Follow up: Response: No adverse reaction; IV Status: Completed infusion; IV Intake: ea 1000ml Disposition: 11/25/19 05:19 Discharged to Home. Impression: Headache. - Condition is Stable. - Discharge Instructions: General Headache Without Cause. - Prescriptions for Reglan 10 mg Oral Tablet - take 1 tablet by ORAL route every 6 hours . take 30 minutes before meals and at bedtime; 100 tablet. - Medication Reconciliation Form, Thank You Letter, Antibiotic Education, Prescription Opioid Use form. - Follow up: Private Physician; When: Tomorrow; Reason: Continuance of care. Signatures: Dispatcher [employer] EDMS Juan José Case, RN RN sg Cheryl Duran MD MD ma2 Yong Araiza RN RN rv Antunez, Elena RN ea Corrections: (The following items were deleted from the chart) 05:23 05:21 Head Brain Wo Cont+CT.RAD.BRZ ordered. EDMS EDMS 05:25 05:21 COMPREHENSIVE METABOLIC PANEL+C.LAB.BRZ ordered. EDMS EDMS 05:25 05:21 CBC+H.LAB.BRZ ordered. EDFL EDMS 06:27 05:19 11/25/2019 05:19 Discharged to Home. Impression: Headache. Condition is Stable. sg Discharge Instructions: General Headache Without Cause. Prescriptions for Reglan 10 mg Oral Tablet - take 1 tablet by ORAL route every 6 hours . take 30 minutes before meals and at bedtime; 100 tablet. and Forms are Medication Reconciliation Form, Thank You Letter, Antibiotic Education, Prescription Opioid Use. Follow up: Private Physician; When: Tomorrow; Reason: Continuance of care. ma2
--- NOTE | 2019-12-01 12:58 | ER ---
Nurse's Notes [facility] Name: John Cuevas Age: 73 yrs Sex: Male : 1945 Arrival Date: 11/25/2019 Time: 03:47 Bed 6 Private MD: Diagnosis: Headache Presentation: 11/24 03:47 Chief complaint: EMS states: pt reports waking up this morning with "the worst sg headache" he has ever had. Coronavirus screen: Proceed with normal triage. Ebola Screen: Patient negative for fever greater than or equal to 101.5 degrees Fahrenheit, and additional compatible Ebola Virus Disease symptoms Patient denies exposure to infectious person. Patient denies travel to an Ebola-affected area in the 21 days before illness onset. No symptoms or risks identified at this time. Initial Sepsis Screen: Does the patient meet any 2 criteria? No. Patient's initial sepsis screen is negative. Does the patient have a suspected source of infection? No. Patient's initial sepsis screen is negative. Risk Assessment: Do you want to hurt yourself or someone else? Patient reports no desire to harm self or others. Onset of symptoms was November 25, 2019. Care prior to arrival: None. Transition of care: patient was not received from another setting of care. 03:47 Method Of Arrival: EMS: [facility] 03:47 Acuity: KEVIN 3 sg Triage Assessment: 03:55 Headache History: The patient has had previous headaches and this one is similar to ea previous episodes. General: Appears uncomfortable. Pain: Complains of pain in left side of head Pain currently is 9 out of 10 on a pain scale. Also complains of no other associated symptoms. Historical: - Allergies: 03:55 No Known Allergies; sg - PMHx: 03:55 Atrial Fib; colon cancer; Dementia; Hyperlipidemia; Hypertension; Hypothyroidism; sg - PSHx: 03:55 Bowel resection; sg - Immunization history:: Adult Immunizations up to date. - Social history:: Smoking status: Patient reports the use of cigarette tobacco products, Patient/guardian denies using alcohol, street drugs, The patient lives with family. - Family history:: not pertinent. Screenin:53 Abuse screen: Denies threats or abuse. Nutritional screening: No deficits noted. ea Tuberculosis screening: No symptoms or risk factors identified. Fall Risk None identified. Assessment: 03:53 General: Appears uncomfortable, Behavior is appropriate for age. Pain: Complains of ea pain in left side of head. Neuro: Level of Consciousness is awake, alert, obeys commands, Oriented to person, place, time, situation. Cardiovascular: Patient's skin is warm and dry. Respiratory: Airway is patent Respiratory effort is even, unlabored, Respiratory pattern is regular, symmetrical. Derm: Skin is pink, warm \\T\\ dry. 04:39 Reassessment: PATIENT CAME BACK FROM CT SCAN. rv 05:20 Reassessment: Patient and/or family updated on plan of care and expected duration. Pain ea level reassessed. Patient is alert, oriented x 3, equal unlabored respirations, skin warm/dry/pink. Patient states feeling better. 06:03 Reassessment: Patient and/or family updated on plan of care and expected duration. Pain ea level reassessed. Patient is alert, oriented x 3, equal unlabored respirations, skin warm/dry/pink. Discharge instruction given to patient, pt verbalized he went home in a taxi last time, reports is unable to drive at night. Pt awaiting on taxi ride. Vital Signs: 03:54 BP 143 / 79; Pulse 64; Resp 20; Pulse Ox 96% on R/A; ea 03:58 Temp 97.7; Pain 10/10; rv 04:39 BP 132 / 74 RA Supine; Pulse 55; Resp 13; Pulse Ox 100% on R/A; rv 05:50 BP 126 / 77; Pulse 65; Resp 19; Pulse Ox 98% on R/A; ea ED Course: 03:47 Patient arrived in ED. sg 03:47 Cheryl Duran MD is Attending Physician. ma2 03:48 Triage completed. sg 03:48 Arm band placed on. sg 03:53 Nory Heredia, MANUEL is Primary Nurse. ea 03:55 Patient has correct armband on for positive identification. Bed in low position. Call ea light in reach. Side rails up X2. 04:12 Initial lab(s) drawn, by ED staff, sent to lab. Inserted saline lock: 18 gauge in right rv antecubital area, using aseptic technique. Blood collected. 04:36 report number [id number]. sg 04:56 Head Brain Wo Cont In Process Unspecified. EDMS 05:20 No provider procedures requiring assistance completed. ea 06:03 IV discontinued, intact, bleeding controlled, No redness/swelling at site. Pressure ea dressing applied. Administered Medications: 04:13 Drug: Benadryl 50 mg Route: IVP; Site: right antecubital; rv 04:51 Follow up: Response: No adverse reaction ea 04:13 Drug: Reglan 20 mg Route: IVP; Site: right antecubital; rv 04:51 Follow up: Response: No adverse reaction ea 04:13 Drug: TORadol 30 mg Route: IVP; Site: right antecubital; rv 04:51 Follow up: Response: No adverse reaction ea 04:13 Drug: NS 0.9% 1000 ml Route: IV; Rate: 1 bolus; Site: right antecubital; rv 05:51 Follow up: Response: No adverse reaction; IV Status: Completed infusion; IV Intake: ea 1000ml Intake: 05:51 IV: 1000ml; Total: 1000ml. ea Outcome: 05:19 Discharge ordered by . iraida 05:50 Discharge instructions given to patient, Instructed on discharge instructions, follow ea up and referral plans. medication usage, Demonstrated understanding of instructions, follow-up care, medications, Prescriptions given X 1. 06:03 Condition: stable ea 06:27 Patient left the ED. sg Signatures: Dispatcher [employer] EDJuan José Hanna RN RN sg Antunez, Elena RN Cheryl Tanner ea, MD MD ma2 Vicente, Ronaldo, RN RN rv Corrections: (The following items were deleted from the chart) 03:59 03:58 Temp 97.7F; rv rv
== END 2019-11-25 06:27 | disposition home or self-care (01) ==
LOC: ER 03:52
DX: R51 Headache (principal); I10 Essential (primary) hypertension; Z85.038 Personal history of other malignant neoplasm of large intestine
CPT/HCPCS: 96361; 85025; 36415; 80053; 70450; 96375; 96374; 99284; J2765; J1200; J7030

== ENCOUNTER 2019-12-02 07:45 | Emergency (ER) | payer MEDICARE ==
[2019-12-02 08:30] LABS: Absolute Lymphocytes (CBC) 1.2 K/uL (0.7-4.9); Basophils % 1.4 % (0-1.3); Hematocrit 27.7 % (39.6-49.0); Lymphocytes % 19.7 % (15.3-44.8); Protime INR 1.03; RBC Red Blood Cell Count 2.94 M/uL (4.33-5.43)
[2019-12-02 08:47] LABS: Urine Blood NEGATIVE (NEG); Urine Glucose NEGATIVE (NEG); Urine Protein NEGATIVE (NEG)
--- NOTE | 2019-12-02 08:50 | RAD REPORT ---
EXAM DESCRIPTION: CT - Head Brain Wo Cont - 12/02/2019 8:31 am CLINICAL HISTORY: DIZZINESS Headache, drowsiness COMPARISON: Head Brain Wo Cont dated 11/25/2019; Head Brain Wo Cont dated 11/23/2019 TECHNIQUE: All CT scans are performed using dose optimization technique as appropriate and may inclu de automated exposure control or mA/KV adjustment according to patient size. FINDINGS: No intracranial hemorrhage, hydrocephalus or extra-axial fluid collection.No areas of brai n edema or evidence of midline shift. Chronic left sphenoid sinusitis. The remainder of the paranasal sinuses mastoids are clear. The sandra rium is intact. IMPRESSION: No acute intracranial abnormality. Chronic left sphenoid sinusitis.
--- NOTE | 2019-12-02 08:50 | RAD REPORT ---
EXAM DESCRIPTION: RAD - Chest Single View - 12/02/2019 8:45 am CLINICAL HISTORY: Dizziness Chest pain. COMPARISON: Chest Single View dated 11/23/2019; Chest Single View dated 10/24/2019; Chest Single View dated 10/13/2019; Chest Single View dated 09/16/2019 FINDINGS: Portable technique limits examination quality. The lungs are grossly clear. The heart is normal in size. No displaced fractures.Mildly tortuous thor acic aorta. IMPRESSION: No acute intrathoracic process suspected.
[2019-12-02 08:53] LABS: ALT/SGPT 22 U/L (12-78); Albumin 3.7 g/dL (3.4-5.0); Alkaline Phosphatase 43 U/L (45-117); BUN Blood Urea Nitrogen 17 mg/dL (7-18); Bicarbonate 28 mmol/L (21-32); Bilirubin Direct 0.1 mg/dL (0-0.2); Bilirubin Total 0.3 mg/dL (0.2-1.0); Glucose Level 133 mg/dL (74-106); NT PRO-BNP 246 pg/mL (<125); Sodium Level 140 mmol/L (136-145); Troponin (Emerg Dept Use Only) < 0.02 ng/mL (0.0-0.045)
[2019-12-02 09:08] LABS: AST/SGOT 21 U/L (15-37); Potassium 3.8 mmol/L (3.5-5.1)
[2019-12-02] MEDS ORDERED: ACETAMINOPHEN 500 MG TAB ONE (09:12)
[2019-12-02] MEDS ORDERED: NA CHLORIDE 0.9% 1,000 ML ONE (09:26)
--- NOTE | 2019-12-02 10:12 | EDPHYS ---
Physician Documentation [facility] Name: John Cuevas Age: 73 yrs Sex: Male : 1945 Arrival Date: 12/02/2019 Time: 07:47 Bed 2 Private MD: ED Physician Renny Olmstead HPI: 12/01 08:24 This 73 yrs old Male presents to ER via EMS with complaints of Dizziness, mh7 General Weakness. 08:24 The patient presents with dizziness, lightheadedness. Onset: The symptoms/episode mh7 began/occurred yesterday. Context: occurred outdoors, occurred while the patient was walking, just prior to the episode the patient experienced lightheadedness. Modifying factors: The symptoms are alleviated by lying down, sitting, the symptoms are aggravated by walking. Associated signs and symptoms: Pertinent negatives: abdominal pain, agitation, ataxia, blurred vision, chest pain, combativeness, confusion, diaphoresis, focal weakness, head injury, headache, nausea, near-syncope, numbness, palpitations, , seizure, shortness of breath, syncope, tingling, vomiting. Severity of symptoms: At their worst the symptoms were moderate yesterday, in the emergency department the symptoms have improved markedly. Patient's baseline:. The patient has experienced similar episodes in the past, multiple times. Patient states that [place] the mall yesterday and started to feel lightheaded after walking a lot, using his walker. He denies any headache, chest pain, abdominal pain, nausea, vomiting, or other complaints.. Historical: - Allergies: 07:51 No Known Allergies; sv - Home Meds: 07:51 Allopurinol Oral [Active]; Amiodarone Oral [Active]; Codeine Oral [Active]; sv levothyroxine for Hypothyroidism [Active]; lisinopril Oral [Active]; Metoprolol Tartrate Oral [Active]; Plavix Oral [Active]; Simvastatin Oral [Active]; - PMHx: 07:51 Atrial Fib; colon cancer; Dementia; Hyperlipidemia; Hypertension; Hypothyroidism; Gout; sv - PSHx: 07:51 Bowel resection; sv - Immunization history:: Adult Immunizations up to date. - Social history:: Smoking status: Patient denies any tobacco usage or history of. ROS: 08:24 Constitutional: Negative for fever, chills, and weight loss, Eyes: Negative for injury, mh7 pain, redness, and discharge, ENT: Negative for injury, pain, and discharge, Neck: Negative for injury, pain, and swelling, Cardiovascular: Negative for chest pain, palpitations, and edema, Respiratory: Negative for shortness of breath, cough, wheezing, and pleuritic chest pain, Abdomen/GI: Negative for abdominal pain, nausea, vomiting, diarrhea, and constipation, Back: Negative for injury and pain, : Negative for injury, bleeding, discharge, and swelling, MS/Extremity: Negative for injury and deformity, Skin: Negative for injury, rash, and discoloration, Psych: Negative for depression, anxiety, suicide ideation, homicidal ideation, and hallucinations, Allergy/Immunology: Negative for hives, rash, and allergies, Endocrine: Negative for neck swelling, polydipsia, polyuria, polyphagia, and marked weight changes, Hematologic/Lymphatic: Negative for swollen nodes, abnormal bleeding, and unusual bruising. Exam: 08:24 Constitutional: This is a well developed, well nourished patient who is awake, alert, mh7 and in no acute distress. Head/Face: Normocephalic, atraumatic. Eyes: Pupils equal round and reactive to light, extra-ocular motions intact. Lids and lashes normal. Conjunctiva and sclera are non-icteric and not injected. Cornea within normal limits. Periorbital areas with no swelling, redness, or edema. ENT: Nares patent. No nasal discharge, no septal abnormalities noted. Tympanic membranes are normal and external auditory canals are clear. Oropharynx with no redness, swelling, or masses, exudates, or evidence of obstruction, uvula midline. Mucous membranes moist. Neck: Trachea midline, no thyromegaly or masses palpated, and no cervical lymphadenopathy. Supple, full range of motion without nuchal rigidity, or vertebral point tenderness. No Meningismus. Chest/axilla: Normal chest wall appearance and motion. Nontender with no deformity. No lesions are appreciated. Cardiovascular: Regular rate and rhythm with a normal S1 and S2. No gallops, murmurs, or rubs. Normal PMI, no JVD. No pulse deficits. Respiratory: Lungs have equal breath sounds bilaterally, clear to auscultation and percussion. No rales, rhonchi or wheezes noted. No increased work of breathing, no retractions or nasal flaring. Abdomen/GI: Soft, non-tender, with normal bowel sounds. No distension or tympany. No guarding or rebound. No evidence of tenderness throughout. Back: No spinal tenderness. No costovertebral tenderness. Full range of motion. Skin: Warm, dry with normal turgor. Normal color with no rashes, no lesions, and no evidence of cellulitis. MS/ Extremity: Pulses equal, no cyanosis. Neurovascular intact. Full, normal range of motion. Neuro: Awake and alert, GCS 15, oriented to person, place, time, and situation. Cranial nerves II-XII grossly intact. Motor strength 5/5 in all extremities. Sensory grossly intact. Cerebellar exam normal. Normal gait. Psych: Awake, alert, with orientation to person, place and time. Behavior, mood, and affect are within normal limits. 08:34 ECG was reviewed by the Attending Physician. [facility] Vital Signs: 07:40 BP 140 / 84; Pulse 70; Resp 18; Temp 97.7; Pulse Ox 96% ; Pain 0/10; sv 09:17 BP 153 / 83; Pulse 59; Resp 16; Pulse Ox 98% ; sv 09:50 BP 143 / 80; Pulse 59; Resp 14; Pulse Ox 100% ; sv MDM: 08:10 Patient medically screened. [facility] 10:10 Differential diagnosis: cardiac arrhythmia, generalized weakness, hypovolemia, [facility] idiopathic dizziness, near-syncope, vertigo. Data reviewed: vital signs, nurses notes, EMS record, old medical records, lab test result(s), cardiac enzymes, CBC, electrolytes, urinalysis, EKG, radiologic studies, CT scan, plain films. Data interpreted: library monitor: rate is 63 beats/min, rhythm is normal sinus rhythm, regular, Interpretation: normal rate, normal rhythm, Pulse oximetry: on room air is 100 %. Interpretation: normal. Counseling: I had a detailed discussion with the patient and/or guardian regarding: the historical points, exam findings, and any diagnostic results supporting the discharge/admit diagnosis, the presence of at least one elevated blood pressure reading (>120/80) during this emergency department visit, lab results, radiology results. 12/01 08:11 Order name: Basic Metabolic Panel; Complete Time: 09:12 [facility] 06/02 08:11 Order name: CBC with Diff; Complete Time: 08:44 mh7 12/01 08:11 Order name: LFT's; Complete Time: 09:12 7 12/01 08:11 Order name: Magnesium; Complete Time: 09:12 7 12/01 08:11 Order name: NT PRO-BNP; Complete Time: 09:12 7 12/01 08:11 Order name: PT-INR; Complete Time: 08:56 7 12/01 08:11 Order name: Troponin (emerg Dept Use Only); Complete Time: 09:12 7 12/01 08:11 Order name: XRAY Chest (1 view); Complete Time: 08:56 7 12/01 08:11 Order name: EKG; Complete Time: 08:13 [facility] 12/01 08:11 Order name: Cardiac monitoring; Complete Time: 08:12 7 12/01 08:11 Order name: CT Head Brain wo Cont; Complete Time: 08:56 7 12/01 08:15 Order name: Urine Dipstick--Ancillary (enter results); Complete Time: 08:49 bd 12/01 08:11 Order name: EKG - Nurse/Tech; Complete Time: 08:31 7 12/01 08:11 Order name: IV Saline Lock; Complete Time: 09:02 7 12/01 08:11 Order name: Labs collected and sent; Complete Time: 09:02 7 12/01 08:11 Order name: O2 Per Protocol; Complete Time: 08:12 7 12/01 08:11 Order name: O2 Sat Monitoring; Complete Time: 08:12 [facility] 12/01 08:11 Order name: Urine Dipstick-Ancillary (obtain specimen); Complete Time: 08:19 mh7 EC:34 Rate is 63 beats/min. Rhythm is regular, Normal Sinus Rhythm. QRS [place] is Normal. OR mh7 interval is normal. QRS interval is normal. QT interval is normal. No Q waves. T waves are Normal. No ST changes noted. Clinical impression: Normal ECG. Administered Medications: 09:15 Drug: Tylenol 1000 mg Route: PO; sv 09:27 Follow up: Response: No adverse reaction sv 09:27 Drug: NS 0.9% 1000 ml Route: IV; Rate: 1000 ml; Site: left antecubital; sv 11:00 Follow up: IV Status: Completed infusion; IV Intake: 1000ml tw2 Disposition: 12/02/19 10:12 Discharged to Home. Impression: Dizziness and giddiness. - Condition is Stable. - Discharge Instructions: Dizziness. - Medication Reconciliation Form, Thank You Letter, Antibiotic Education, Prescription Opioid Use form. - Follow up: Private Physician; When: 1 - 2 days; Reason: Worsening of condition, Re-evaluation by your physician. - Problem is chronic. - Symptoms have improved. Signatures: Dispatcher [employer] EDYaa Strong RN RN Flavia Kelly RN RN tw2 Renny Olmstead MD MD mh7 Corrections: (The following items were deleted from the chart) 09:16 08:11 Orthostatics ordered. 7 11:14 10:12 12/02/2019 10:12 Discharged to Home. Impression: Dizziness and giddiness. tw2 Condition is Stable. Forms are Medication Reconciliation Form, Thank You Letter, Antibiotic Education, Prescription Opioid Use. Follow up: Private Physician; When: 1 - 2 days; Reason: Worsening of condition, Re-evaluation by your physician. Problem is chronic. Symptoms have improved. mh7
--- NOTE | 2019-12-02 10:12 | ER ---
Nurse's Notes [facility] Name: John Cuevas Age: 73 yrs Sex: Male : 1945 Arrival Date: 12/02/2019 Time: 07:47 Bed 2 Private MD: Diagnosis: Dizziness and giddiness Presentation: 12/01 07:40 Chief complaint: EMS states: dizziness and generalized weakness started yesterday. sv Negative orthostatic vitals, EKG-SR BP 142/78 HR-70 98% RA 98.3. Coronavirus screen: Proceed with normal triage. Patient denies a cough. Patient denies shortness of breath or difficulty breathing. Patient denies measured and/or subjective temperature greater than 100.4F prior to today's visit. Patient denies travel on a cruise ship or to a country the [facility] currently lists as an affected area. Patient denies contact with known and/or suspected case of COVID-19. Ebola Screen: No symptoms or risks identified at this time. Initial Sepsis Screen: Does the patient meet any 2 criteria? No. Patient's initial sepsis screen is negative. Does the patient have a suspected source of infection? No. Patient's initial sepsis screen is negative. Risk Assessment: Do you want to hurt yourself or someone else? Patient reports no desire to harm self or others. Onset of symptoms was December 01, 2019. 07:40 Method Of Arrival: EMS: [facility] 07:40 Acuity: KEVIN 3 sv Triage Assessment: 07:40 General: Appears in no apparent distress. comfortable, well developed, Behavior is sv calm, cooperative, appropriate for age. Pain: Denies pain. Neuro: Level of Consciousness is awake, alert, obeys commands, Oriented to person, place, situation, Moves all extremities. Full function Speech is normal, Facial symmetry appears normal, Reports dizziness, weakness. Cardiovascular: Rhythm is sinus rhythm. Respiratory: Airway is patent Respiratory effort is even, unlabored, Respiratory pattern is regular, symmetrical. Derm: Skin is pink, warm \T\ dry. Musculoskeletal: Range of motion: intact in all extremities. Historical: - Allergies: 07:51 No Known Allergies; sv - Home Meds: 07:51 Allopurinol Oral [Active]; Amiodarone Oral [Active]; Codeine Oral [Active]; sv levothyroxine for Hypothyroidism [Active]; lisinopril Oral [Active]; Metoprolol Tartrate Oral [Active]; Plavix Oral [Active]; Simvastatin Oral [Active]; - PMHx: 07:51 Atrial Fib; colon cancer; Dementia; Hyperlipidemia; Hypertension; Hypothyroidism; Gout; sv - PSHx: 07:51 Bowel resection; sv - Immunization history:: Adult Immunizations up to date. - Social history:: Smoking status: Patient denies any tobacco usage or history of. Screenin:51 Abuse screen: Denies threats or abuse. Denies injuries from another. Nutritional sv screening: No deficits noted. Tuberculosis screening: No symptoms or risk factors identified. Fall Risk None identified. Assessment: 09:12 Reassessment: Patient appears in no apparent distress at this time. No changes from sv previously documented assessment. Patient and/or family updated on plan of care and expected duration. Pain level reassessed. c/o left sided headache, requesting pain meds. Informed Dr Olmstead. 09:30 Reassessment: Patient appears in no apparent distress at this time. No changes from sv previously documented assessment. Patient and/or family updated on plan of care and expected duration. Pain level reassessed. 10:19 Reassessment: Patient appears in no apparent distress at this time. No changes from sv previously documented assessment. Patient and/or family updated on plan of care and expected duration. Pain level reassessed. 10:30 Reassessment: Pt waiting for transportation home. sv 11:12 Reassessment: Patient appears in no apparent distress at this time. No changes from tw2 previously documented assessment. Patient and/or family updated on plan of care and expected duration. Pain level reassessed. pts daughter here for pt at this time. Vital Signs: 07:40 BP 140 / 84; Pulse 70; Resp 18; Temp 97.7; Pulse Ox 96% ; Pain 0/10; sv 09:17 BP 153 / 83; Pulse 59; Resp 16; Pulse Ox 98% ; sv 09:50 BP 143 / 80; Pulse 59; Resp 14; Pulse Ox 100% ; sv ED Course: 07:47 Patient arrived in ED. sv 07:47 Yaa Enrique, RN is Primary Nurse. sv 07:49 Triage completed. sv 07:51 Arm band placed on. sv 07:51 Patient has correct armband on for positive identification. Placed in gown. Bed in low sv position. Call light in reach. Side rails up X2. monitoring coordinator on. Pulse ox on. NIBP on. Door closed. Warm blanket given. Pillow given. Head of bed elevated. 07:57 Renny Olmstead MD is Attending Physician. [facility] 07:59 Awaiting ED provider evaluation. sv 08:00 Inserted saline lock: 20 gauge in right antecubital area, using aseptic technique. sv Blood collected. Flushed right antecubital with 5 ml normal saline. 08:04 ED physician to see patient. sv 08:32 CT Head Brain wo Cont In Process Unspecified. EDMS 08:36 XRAY Chest (1 view) In Process Unspecified. EDMS 08:37 EKG done, by resource technician. reviewed by Renny Olmstead MD. at1 09:25 IV discontinued, intact, bleeding controlled, Pressure dressing applied, IV d/c'd to sv the R AC d/t infiltration. 09:28 Inserted saline lock: 20 gauge in left antecubital area, using aseptic technique. sv Flushed left antecubital with 5 ml normal saline. 11:13 No provider procedures requiring assistance completed. IV discontinued, intact, tw2 bleeding controlled, No redness/swelling at site. Pressure dressing applied. Administered Medications: 09:15 Drug: Tylenol 1000 mg Route: PO; sv 09:27 Follow up: Response: No adverse reaction sv 09:27 Drug: NS 0.9% 1000 ml Route: IV; Rate: 1000 ml; Site: left antecubital; sv 11:00 Follow up: IV Status: Completed infusion; IV Intake: 1000ml tw2 Intake: 11:00 IV: 1000ml; Total: 1000ml. tw2 Output: 09:16 Urine: 600ml (Voided); Total: 600ml. sv Outcome: 10:12 Discharge ordered by . 7 11:13 Discharged to home via wheelchair. tw2 11:13 Condition: stable 11:13 Discharge instructions given to patient, Instructed on discharge instructions, follow up and referral plans. Demonstrated understanding of instructions, follow-up care. 11:14 Patient left the ED. tw2 Signatures: Dispatcher [employer] EDMS Yaa Enrique RN RN sv Felicita Pagan, dipping machine operator EKG Tat1 Flavia Kelly RN RN tw2 Renny Olmstead, MD mh7
[2019-12-02 11:39] VITALS: BP 143/80; O2SAT 100
--- NOTE | 2019-12-02 19:25 | EKG ---
Test Date: 2019-12-02 Test Time: 08:22:22 Home Economist Consumer Service: SRIDEVI MEASUREMENT RESULTS: Intervals: Rate: 63 [place]: 200 QRSD: 100 QT: 424 QTc: 433 [place]: P: 43 [place]: 200 QRS: 51 T: 58 INTERPRETIVE STATEMENTS: Normal sinus rhythm Normal ECG Compared to ECG 11/23/2019 12:55:17 First degree AV block no longer present Electronically Signed On 12-02-19 19:23:56 CDT by Ervin Banks
== END 2019-12-02 11:14 | disposition home or self-care (01) ==
LOC: ER 07:45
DX: R42 Dizziness and giddiness (principal); I10 Essential (primary) hypertension; E78.5 Hyperlipidemia, unspecified; E03.9 Hypothyroidism, unspecified
CPT/HCPCS: 96361; 93005; 85025; 80048; 36415; 83735; 85610; 80076; 81003; 84484; 83880; 70450; 71045; 96360; 99285; J7030

== ENCOUNTER 2020-02-05 10:07 | Observation (INO) | payer MEDICARE, OTHER ==
[2020-02-05] MEDS ORDERED: MORPHINE 4 MG/ML SYR ONE (10:52)
[2020-02-05] MEDS ORDERED: ONDANSETRON 4 MG/2 ML VIAL ONE (10:52)
--- NOTE | 2020-02-05 11:17 | RAD REPORT ---
EXAM DESCRIPTION: CT - Head Brain Wo Cont - 02/05/2020 11:07 am CLINICAL HISTORY: HEADACHE COMPARISON: Head Brain Wo Cont dated 12/02/2019; Chest Single View dated 02/05/2020 TECHNIQUE: Axial 5 mm thick images of the head were obtained without IV contrast. All CT scans are performed using dose optimization technique as appropriate and may include automated exposure control or mA/KV adjustment according to patient size. FINDINGS: No intracranial hemorrhage, mass, edema or shift of mid-line structures. No acute infarcti on changes seen. No cortical edema or sulcal effacement seen. Patient has mild atrophy and very minim al chronic ischemic change. Intracranial findings are similar to comparison. Ventricles are in propor tion to the volume loss. Mastoid air cells are clear. Chronic left sphenoid sinusitis again noted. No acute bony findings. IMPRESSION: Negative non-contrast CT head examination for acute finding No significant change from the December 01 study.
--- NOTE | 2020-02-05 11:18 | RAD REPORT ---
EXAM DESCRIPTION: RAD - Chest Single View - 02/05/2020 11:09 am CLINICAL HISTORY: COUGHhistory of atrial fibrillation, hypertension and colon cancer, difficulty ran athing COMPARISON: Portable December 01 TECHNIQUE: AP portable chest image was obtained 02/05/2020 11:09 am . FINDINGS: No consolidations seen. No ground-glass opacification identifiable. Interstitial pattern m atches comparison. Heart and vasculature are normal. No measurable pleural effusion and no pneumothorax. No acute bony abnormality seen. No acute aortic findings suspected. IMPRESSION: No acute cardiopulmonary process. No significant change from comparison.
[2020-02-05 12:00] LABS: Protime INR 1.03
[2020-02-05 12:01] LABS: Absolute Lymphocytes (CBC) 1.2 K/uL (0.7-4.9); Basophils % 0.4 % (0-1.3); Hematocrit 29.7 % (39.6-49.0); Lymphocytes % 18.6 % (15.3-44.8); MPV 11.5 fL (7.6-11.3); RBC Red Blood Cell Count 3.09 M/uL (4.33-5.43)
[2020-02-05 12:29] LABS: ALT/SGPT 22 U/L (12-78); AST/SGOT 21 U/L (15-37); Albumin 4.3 g/dL (3.4-5.0); Alkaline Phosphatase 57 U/L (45-117); BUN Blood Urea Nitrogen 12 mg/dL (7-18); Bicarbonate 32 mmol/L (21-32); Bilirubin Direct 0.2 mg/dL (0-0.2); Bilirubin Total 0.4 mg/dL (0.2-1.0); Ferritin 63.5 ng/mL (26-388); Glucose Level 88 mg/dL (74-106); Lipase 261 U/L (73-393); Potassium 4.2 mmol/L (3.5-5.1); Protein, Total 8.1 g/dL (6.4-8.2); Sodium Level 139 mmol/L (136-145); Troponin (Emerg Dept Use Only) < 0.02 ng/mL (0.0-0.045)
[2020-02-05 12:31] LABS: Platelet Estimate DECR; Platelets, Giant NOTED
[2020-02-05 12:32] LABS: Blood Morphology Comment NOT SEEN (NOT SEEN)
[2020-02-05] MEDS ORDERED: KETOROLAC 30 MG/ML INJ ONE (12:40)
[2020-02-05] MEDS ORDERED: METOCLOPRAMIDE 10 MG/2mL INJ ONE (12:40)
[2020-02-05] MEDS ORDERED: DIPHENHYDRAMINE 50 MG/ML VIAL ONE (12:40)
[2020-02-05] MEDS ORDERED: NA CHLORIDE 0.9% 100 ML IV ONE (12:41)
--- NOTE | 2020-02-05 14:27 | RAD REPORT ---
EXAM DESCRIPTION: CT - Chest For Pe Angio - 02/05/2020 2:00 pm CLINICAL HISTORY: Chest pain. Congestion;Cough COMPARISON: Chest For Pe Angio dated 06/20/2018 TECHNIQUE: CT angiogram of the pulmonary arteries was performed with MIP. All CT scans are performed using dose optimization technique as appropriate and may include automated exposure control or mA/KV adjustment according to patient size. FINDINGS: No evidence of pulmonary thromboembolism. No acute aortic finding demonstrated. Mild bilateral ground-glass opacities, nonspecific. No significant pericardial or pleural fluid. No concerning bony finding. IMPRESSION: No evidence of pulmonary thromboembolism. Mild bilateral ground-glass opacities are present which are nonspecific. This would be compatible wit h COVID-19 infection.
--- NOTE | 2020-02-05 16:46 | ER ---
Nurse's Notes [facility] Name: John Cuevas Age: 74 yrs Sex: Male : 1945 Arrival Date: 02/05/2020 Time: 10:13 Bed 13 Private MD: Diagnosis: Weakness;Shortness of breath Presentation: 02/04 10:05 Chief complaint: EMS states: pt states he has all of the Covid symptoms, muscle aches tw2 and difficulty breathing, able to ambulate on scene, vs stable. Coronavirus screen: Client denies travel out of the [place] in the last 14 days. difficulty breathing, fatigue, headache, muscle pain. Ebola Screen: Patient denies travel to an Ebola-affected area in the 21 days before illness onset. Initial Sepsis Screen: Does the patient meet any 2 criteria? No. Patient's initial sepsis screen is negative. Does the patient have a suspected source of infection? No. Patient's initial sepsis screen is negative. Risk Assessment: Do you want to hurt yourself or someone else? Patient reports no desire to harm self or others. Onset of symptoms was February 05, 2020. 10:05 Method Of Arrival: EMS: [facility] tw2 10:05 Acuity: KEVIN 3 tw2 Triage Assessment: 10:23 General: Appears in no apparent distress. Behavior is calm, cooperative, appropriate tw2 for age. Pain: Complains of pain in "headache and body aches". Respiratory: Reports shortness of breath at rest on exertion. 10:23 Respiratory: Onset: The symptoms/episode began/occurred "past couple of days seems to tw2 have gotten worse", the patient has mild shortness of breath. Historical: - Allergies: 10:26 No Known Allergies; tw2 - Home Meds: 10:26 levothyroxine for Hypothyroidism [Active]; Simvastatin Oral [Active]; Metoprolol tw2 Tartrate Oral [Active]; Plavix Oral [Active]; lisinopril Oral [Active]; Codeine Oral [Active]; Amiodarone Oral [Active]; Allopurinol Oral [Active]; - PMHx: 10:26 Atrial Fib; Dementia; Hyperlipidemia; colon cancer; Hypertension; Gout; Hypothyroidism; tw2 - PSHx: 10:26 Bowel resection; tw2 - Immunization history:: Adult Immunizations. - Social history:: Smoking status: . Screenin:28 Abuse screen: Denies threats or abuse. Nutritional screening: No deficits noted. tw2 Tuberculosis screening: No symptoms or risk factors identified. Fall Risk Secondary diagnosis (15 points) impaired mobility, Ambulatory Aid- Crutches/Cane/Walker (15 pts). Assessment: 10:24 Reassessment: provider at bedside at this time. tw2 10:28 Cardiovascular: Rhythm is atrial fibrillation. Respiratory: Respiratory effort is. tw2 Respiratory: Airway is patent Respiratory effort is even, unlabored, Respiratory pattern is regular, symmetrical, Breath sounds are clear bilaterally. 11:30 Reassessment: No changes from previously documented assessment. Patient and/or family tw2 updated on plan of care and expected duration. Pain level reassessed. Patient is alert, oriented x 3, equal unlabored respirations, skin warm/dry/pink. pt states "my head is still hurting me real bad", provider notified. medicated as ordered. Patient states symptoms have not improved. 12:30 Reassessment: No changes from previously documented assessment. Patient and/or family tw2 updated on plan of care and expected duration. Pain level reassessed. Patient is alert, oriented x 3, equal unlabored respirations, skin warm/dry/pink. Patient states symptoms have not improved. 13:40 Reassessment: pt in imaging at this time unavailable for vs. tw2 14:17 Reassessment: No changes from previously documented assessment. Patient and/or family tw2 updated on plan of care and expected duration. Pain level reassessed. Patient is alert, oriented x 3, equal unlabored respirations, skin warm/dry/pink. noted Reglan paused d/t pt in imaging and restarted at this time. pt c/o headache and pt educated that medicine is infusing now and should help. pt agreeable. 15:17 Reassessment: Patient and/or family updated on plan of care and expected duration. Pain tw2 level reassessed. pt ambulated around room with personal walker, o2 to 92% at lowest on RA, pt c/o headache and nausea "my headache is still bad like it was, can i have some tylenol or something", pt with productive cough when ambulating, provider notified. 16:38 Reassessment: No changes from previously documented assessment. Patient and/or family tw2 updated on plan of care and expected duration. Pain level reassessed. Patient is alert, oriented x 3, equal unlabored respirations, skin warm/dry/pink. 17:40 Reassessment: No changes from previously documented assessment. Patient and/or family tw2 updated on plan of care and expected duration. Pain level reassessed. Patient is alert, oriented x 3, equal unlabored respirations, skin warm/dry/pink. 18:19 Reassessment: No changes from previously documented assessment. Patient and/or family tw2 updated on plan of care and expected duration. Pain level reassessed. Patient is alert, oriented x 3, equal unlabored respirations, skin warm/dry/pink. "yeah my headache is still bothering me" Patient states symptoms have not improved. 19:30 Reassessment: Assisted patient with using urinal; aware of pending admission; Spoke lp1 with patient's daughter, Brenda, aware of pending admission to hospital and plan of care. Vital Signs: 10:05 BP 161 / 94; Pulse 67; Resp 18; Temp 97.8; Pulse Ox 100% on R/A; Pain 8/10; tw2 11:30 BP 148 / 99; Pulse 67; Resp 17; Pulse Ox 99% on R/A; tw2 12:30 BP 150 / 104; Pulse 64; Resp 17; Pulse Ox 98% on R/A; tw2 14:17 BP 150 / 83; Pulse 64; Resp 17; Pulse Ox 98% on R/A; tw2 15:10 BP 139 / 93 Sitting; Pulse 65; Resp 17; Pulse Ox 100% on R/A; tw2 16:37 BP 121 / 77; Pulse 65; Resp 17; Pulse Ox 99% on R/A; tw2 17:30 BP 159 / 92; Pulse 69; Resp 17; Pulse Ox 99% on R/A; tw2 18:20 BP 122 / 82; Pulse 67; Resp 17; Pulse Ox 100% on R/A; tw2 19:30 BP 137 / 78; Pulse 70; Resp 19; Pulse Ox 96% on R/A; lp1 ED Course: 10:13 Patient arrived in ED. ss 10:13 Bed in low position. Call light in reach. Side rails up X2. security monitor on. Pulse tw2 ox on. NIBP on. 10:14 Vince Ervin MD is Attending Physician. kdr 10:20 Flavia Kelly RN is Primary Nurse. tw2 10:23 Triage completed. tw2 10:24 Arm band placed on. tw2 12:02 Notified ED physician of a critical lab result(s). DDIMER [id number]. hb 12:10 Lab(s) recollected, by me, sent to lab. jp3 16:44 Prince William MD is Hospitalizing Provider. kdr 16:52 Kael in outside lab notified pt being admitted, COVID swab needs to be sent to [facility]. hb 19:00 Report given to MANUEL Mo. tw2 20:02 No provider procedures requiring assistance completed. Patient admitted, IV remains in lp1 place. Administered Medications: 11:22 Drug: Zofran (Ondansetron) 4 mg Route: IVP; Site: left antecubital; tw2 19:05 Follow up: Response: No adverse reaction tw2 11:24 Drug: morphine 4 mg Route: IVP; Site: left antecubital; tw2 12:30 Follow up: Response: No adverse reaction; Pain is unchanged, physician notified tw2 12:30 Drug: TORadol - Ketorolac 15 mg Route: IVP; Site: left antecubital; tw2 13:30 Follow up: Response: No adverse reaction; Pain is unchanged, physician notified tw2 12:33 Drug: Benadryl 50 mg Route: IVP; Site: left antecubital; tw2 19:04 Follow up: Response: No adverse reaction tw2 12:35 Drug: Reglan 20 mg Route: IVP; Site: left antecubital; tw2 19:04 Follow up: Response: No adverse reaction tw2 17:10 Drug: Tylenol 650 mg Route: PO; tw2 18:16 Follow up: Response: No adverse reaction tw2 18:16 Drug: [place] (7.5 mg-325 mg) 1 tabs Route: PO; tw2 20:05 Follow up: Response: No adverse reaction; Pain is decreased lp1 Outcome: 16:46 Decision to Hospitalize by Provider. kdr 20:03 [facility] lp1 20:03 Condition: stable 20:03 Instructed on the need for admit. 02/05 03:06 Patient left the ED. oe Signatures: Vince Ervin MD MD [facility] Rochelle Schumacher RN RN ss Chely Childs RN RN lp1 Cely Bridges, MANUEL RN Flavia Kelly RN RN tw2 Raphael Fields oe Aric Tsai jp3 Corrections: (The following items were deleted from the chart) 02/04 13:41 11:30 Reassessment: No changes from previously documented assessment. Patient and/or tw2 family updated on plan of care and expected duration. Pain level reassessed. Patient is alert, oriented x 3, equal unlabored respirations, skin warm/dry/pink. pt states "my head is still hurting me real bad", provider notified. Patient states symptoms have not improved. tw2 14:37 14:17 Reassessment: No changes from previously documented assessment. Patient and/or tw2 family updated on plan of care and expected duration. Pain level reassessed. Patient is alert, oriented x 3, equal unlabored respirations, skin warm/dry/pink. tw2 14:37 14:17 Pulse 64bpm; Resp 17bpm; Pulse Ox 98% RA; tw2 tw2 15:22 15:17 Reassessment: Patient and/or family updated on plan of care and expected tw2 duration. Pain level reassessed. pt ambulated around room with personal walker, o2 to 92% at lowest on RA, pt c/o headache and nausea "my headache is still bad like it was, can i have some tylenol or something", pt with productive cough when ambulating. tw2 15:46 15:00 BP 139 / 93; Pulse 65bpm; Resp 17bpm; Pulse Ox 100% RA; tw2 tw2 18:07 17:00 Tylenol 650 mg PO tw2 tw2 18: 18:02 Response: No adverse reaction tw2 tw2
--- NOTE | 2020-02-05 16:47 | EDPHYS ---
Physician Documentation [facility] Name: John Cuevas Age: 74 yrs Sex: Male : 1945 Arrival Date: 02/05/2020 Time: 10:13 Bed 13 Private MD: ED Physician Vince Ervin HPI: 02/04 10:43 This 74 yrs old Male presents to ER via EMS with complaints of Breathing kdr Difficulty, Headache. 10:43 The patient has shortness of breath at rest. kdr 10:44 The patient complains of pain to the top of head, left side of head, right side of head kdr and face. The patient describes the headache as aching, constant, unrelenting. Onset: The symptoms/episode began/occurred gradually, at an unknown time. Has been ongoing for a couple of weeks. Associated signs and symptoms: Pertinent positives: paresthesias, weakness, pain all over. Severity of symptoms: At its worst the pain was moderate, a " 9" out of "10", in the emergency department the pain is unchanged. Headache History: The patient has had previous headaches and this one is similar to previous episodes. The symptoms are alleviated by nothing. the symptoms are aggravated by nothing. The patient has been seen here multiple times for RUSSELL and related pain. The last was in October when he had a CT that was negative for any acute intracranial pathology. The patient has not recently seen a physician. Historical: - Allergies: 10:26 No Known Allergies; tw2 - Home Meds: 10:26 levothyroxine for Hypothyroidism [Active]; Simvastatin Oral [Active]; Metoprolol tw2 Tartrate Oral [Active]; Plavix Oral [Active]; lisinopril Oral [Active]; Codeine Oral [Active]; Amiodarone Oral [Active]; Allopurinol Oral [Active]; - PMHx: 10:26 Atrial Fib; Dementia; Hyperlipidemia; colon cancer; Hypertension; Gout; Hypothyroidism; tw2 - PSHx: 10:26 Bowel resection; tw2 - Immunization history:: Adult Immunizations. - Social history:: Smoking status: . ROS: 10:44 Constitutional: Negative for fever, chills, and weight loss, Eyes: Negative for injury, kdr pain, redness, and discharge, ENT: Negative for injury, pain, and discharge, Neck: Negative for injury, pain, and swelling, Cardiovascular: Negative for chest pain, palpitations, and edema, Back: Negative for injury and pain, : Negative for injury, bleeding, discharge, and swelling, MS/Extremity: Negative for injury and deformity, Skin: Negative for injury, rash, and discoloration, Neuro: Negative for headache, weakness, numbness, tingling, and seizure activity. Psych: Negative for depression, anxiety, suicide ideation, homicidal ideation, and hallucinations, Allergy/Immunology: Negative for hives, rash, and allergies, Endocrine: Negative for neck swelling, polydipsia, polyuria, polyphagia, and marked weight changes, Hematologic/Lymphatic: Negative for swollen nodes, abnormal bleeding, and unusual bruising. 10:44 Respiratory: Positive for shortness of breath, Negative for hemoptysis, orthopnea, pleurisy. 10:44 Abdomen/GI: Positive for abdominal pain, nausea and vomiting, Dark stools. 10:44 Neuro: Positive for headache, The patient c/o pain all over but no new neck pain. Exam: 10:44 Constitutional: This is a well developed, well nourished patient who is awake, alert, kdr and in no acute distress. Head/Face: Normocephalic, atraumatic. Eyes: Pupils equal round and reactive to light, extra-ocular motions intact. Lids and lashes normal. Conjunctiva and sclera are non-icteric and not injected. Cornea within normal limits. Periorbital areas with no swelling, redness, or edema. Neck: Trachea midline, no thyromegaly or masses palpated, and no cervical lymphadenopathy. Supple, full range of motion without nuchal rigidity, or vertebral point tenderness. No Meningismus. Chest/axilla: Normal chest wall appearance and motion. Nontender with no deformity. No lesions are appreciated. Cardiovascular: Regular rate and rhythm with a normal S1 and S2. No gallops, murmurs, or rubs. Normal PMI, no JVD. No pulse deficits. Respiratory: Lungs have equal breath sounds bilaterally, clear to auscultation and percussion. No rales, rhonchi or wheezes noted. No increased work of breathing, no retractions or nasal flaring. Back: No spinal tenderness. No costovertebral tenderness. Full range of motion. Skin: Warm, dry with normal turgor. Normal color with no rashes, no lesions, and no evidence of cellulitis. MS/ Extremity: Pulses equal, no cyanosis. Neurovascular intact. Full, normal range of motion. Neuro: Awake and alert, GCS 15, oriented to person, place, time, and situation. Cranial nerves II-XII grossly intact. Motor strength 5/5 in all extremities. Sensory grossly intact. Cerebellar exam normal. Normal gait. Psych: Awake, alert, with orientation to person, place and time. Behavior, mood, and affect are within normal limits. 12:27 ECG was reviewed by the Attending Physician. kdr Vital Signs: 10:05 BP 161 / 94; Pulse 67; Resp 18; Temp 97.8; Pulse Ox 100% on R/A; Pain 8/10; tw2 11:30 BP 148 / 99; Pulse 67; Resp 17; Pulse Ox 99% on R/A; tw2 12:30 BP 150 / 104; Pulse 64; Resp 17; Pulse Ox 98% on R/A; tw2 14:17 BP 150 / 83; Pulse 64; Resp 17; Pulse Ox 98% on R/A; tw2 15:10 BP 139 / 93 Sitting; Pulse 65; Resp 17; Pulse Ox 100% on R/A; tw2 16:37 BP 121 / 77; Pulse 65; Resp 17; Pulse Ox 99% on R/A; tw2 17:30 BP 159 / 92; Pulse 69; Resp 17; Pulse Ox 99% on R/A; tw2 18:20 BP 122 / 82; Pulse 67; Resp 17; Pulse Ox 100% on R/A; tw2 19:30 BP 137 / 78; Pulse 70; Resp 19; Pulse Ox 96% on R/A; lp1 MDM: 10:44 Data reviewed: vital signs, nurses notes, lab test result(s), radiologic studies. kdr Counseling: I had a detailed discussion with the patient and/or guardian regarding: the historical points, exam findings, and any diagnostic results supporting the discharge/admit diagnosis, lab results, radiology results. 13:03 ED course: The patient remains stable . kdr 16:46 Patient medically screened. kdr 02/04 10:37 Order name: Blood Culture Adult (2) kdr 02/04 10:37 Order name: BMP kdr 02/04 10:37 Order name: C-Reactive Protein kdr 08/06 10:37 Order name: CBC with Diff kdr 08/ 10:37 Order name: COVID-19 kdr 08/ 10:37 Order name: D-Dimer kdr 08/ 10:37 Order name: Ferritin kdr 08/ 10:37 Order name: Flu kdr 08/ 10:37 Order name: Lactate kdr 08/ 10:37 Order name: LFT's kdr 08 10:37 Order name: Lipase kdr 08 10:37 Order name: Procalcitonin kdr 08 10:37 Order name: PT-INR kdr 08 10:37 Order name: Ptt, Activated kdr 08/ 10:37 Order name: Strep kdr 08/ 10:37 Order name: Troponin (emerg Dept Use Only) kdr 08 12:02 Order name: Protime (+INR); Complete Time: 12:05 EDMS 08 12:02 Order name: PTT, Activated Partial Thromb; Complete Time: 12:05 EDMS 08 12:02 Order name: D-Dimer; Complete Time: 12:05 EDMS 08 12:04 Order name: CBC with Automated Diff; Complete Time: 12:50 EDMS 08 12:10 Order name: Group A Streptococcus Rapid Sc; Complete Time: 12:21 EDMS 08 12:23 Order name: Influenza Screen (A ; Complete Time: 12:50 EDMS 08 12:30 Order name: Basic Metabolic Panel; Complete Time: 12:50 EDMS 08 12:30 Order name: Liver (Hepatic) Function; Complete Time: 12:50 EDMS 08 12:30 Order name: Troponin (Emerg Dept Use Only); Complete Time: 12:50 EDMS 08 12:30 Order name: C-Reactive Protein; Complete Time: 12:50 EDMS 08 12:30 Order name: Lipase; Complete Time: 12:50 EDMS 08 12:30 Order name: Ferritin; Complete Time: 12:50 EDMS 08 12:32 Order name: Manual Differential; Complete Time: 12:50 EDMS 0806 12:46 Order name: Lactate; Complete Time: 12:50 EDMS 08 10:37 Order name: CXR XRAY kdr 08 10:37 Order name: EKG; Complete Time: 10:38 kdr 08/ 10:37 Order name: Cardiac monitoring; Complete Time: 10:50 kdr 08 10:37 Order name: Droplet/Contact Precautions; Complete Time: 10:50 kdr 02/04 10:37 Order name: EKG - Nurse/Tech; Complete Time: 11:50 kdr 02/04 10:37 Order name: IV Start; Complete Time: 11:50 kdr 02/04 10:37 Order name: Labs collected and sent; Complete Time: 11:50 kdr 02/04 10:37 Order name: O2 Per Protocol; Complete Time: 10:50 kdr 02/04 10:37 Order name: O2 Sat Monitoring; Complete Time: 10:50 kdr 02/04 10:37 Order name: Urine Dipstick-Ancillary (obtain specimen); Complete Time: 01:15 kdr 02/04 10:41 Order name: CT Head Brain wo Cont kdr 02/04 11:18 Order name: CT; Complete Time: 12:05 EDMS 02/04 11:19 Order name: RAD; Complete Time: 12:05 EDMS 02/04 11:45 Order name: Labs - recollect needed: recollect lactate.timed out; Complete Time: 12:19 bd 02/04 12:06 Order name: CT Chest For PE Angio kdr 02/04 14:29 Order name: CT; Complete Time: 14:44 EDMS 02/04 16:57 Order name: CORONAVIRUS; Complete Time: 16:57 EDMS 02/05 01:02 Order name: Urine Dipstick--Ancillary (enter results) mw2 02/05 01:08 Order name: Urine Dipstick-Ancillary EDMS EC:27 Rate is 64 beats/min. Rhythm is regular, Normal Sinus Rhythm with No ectopy. QRS [place] kdr is Normal. CT interval is normal. QRS interval is normal. QT interval is normal. No Q waves. Clinical impression: Normal ECG. Administered Medications: 11:22 Drug: Zofran (Ondansetron) 4 mg Route: IVP; Site: left antecubital; tw2 19:05 Follow up: Response: No adverse reaction tw2 11:24 Drug: morphine 4 mg Route: IVP; Site: left antecubital; tw2 12:30 Follow up: Response: No adverse reaction; Pain is unchanged, physician notified tw2 12:30 Drug: TORadol - Ketorolac 15 mg Route: IVP; Site: left antecubital; tw2 13:30 Follow up: Response: No adverse reaction; Pain is unchanged, physician notified tw2 12:33 Drug: Benadryl 50 mg Route: IVP; Site: left antecubital; tw2 19:04 Follow up: Response: No adverse reaction tw2 12:35 Drug: Reglan 20 mg Route: IVP; Site: left antecubital; tw2 19:04 Follow up: Response: No adverse reaction tw2 17:10 Drug: Tylenol 650 mg Route: PO; tw2 18:16 Follow up: Response: No adverse reaction tw2 18:16 Drug: [place] (7.5 mg-325 mg) 1 tabs Route: PO; tw2 20:05 Follow up: Response: No adverse reaction; Pain is decreased lp1 Disposition: 02/05/20 16:46 Hospitalization ordered by Prince Stewart for Observation. Preliminary diagnosis are Weakness, Shortness of breath. - Bed requested for Telemetry/MedSurg (observation). - Status is Observation. oe - Condition is Fair. - Problem is an acute exacerbation. - Symptoms have improved. Signatures: Dispatcher [employer] EDMS Lizbet Nascimento Kevin, MD MD kdr Bev, Damian, REFUSE DRIVER-C REFUSE DRIVER-Cla1 Josefina Bee RN RN cg Flavia Kelly RN RN tw2 Raphael Fields Laura RN lp1 Corrections: (The following items were deleted from the chart) 10:49 10:[address] [facility] tw2 13:05 13:03 ED course: Radiology delay in obtaining film. [facility] kdr 18:55 16:46 Hospitalization Ordered by Prince Stewart REYES for Observation. Preliminary cg diagnosis is Weakness; Shortness of breath. Bed requested for Telemetry/MedSurg (observation). Status is Observation. Condition is Fair. Problem is an acute exacerbation. Symptoms have improved. [facility] 02/05 01:16 02/04 10:37 Document PUI# ordered. [facility] 02/05 01:16 08 10:37 Notify Health Dept [phone]/ ordered. [facility] 02/05 02:15 02/04 18:55 02/05/2020 16:46 Hospitalization Ordered by Prince Stewart REYES for cg Observation. Preliminary diagnosis is Weakness; Shortness of breath. Bed requested for [facility] ER HOLD. Status is Observation. Condition is Fair. Problem is an acute exacerbation. Symptoms have improved. 02/05 03:06 02:15 02/05/2020 16:46 Hospitalization Ordered by Prince Stewart REYES for Observation. oe Preliminary diagnosis is Weakness; Shortness of breath. Bed requested for Telemetry/MedSurg (observation). Status is Observation. Condition is Fair. Problem is an acute exacerbation. Symptoms have improved. cg
[2020-02-05] MEDS ORDERED: ACETAMINOPHEN 325 MG TABLET ONE (17:06)
--- NOTE | 2020-02-05 18:06 | P.HP ---
Certification for Inpatient Patient admitted to: Observation With expected LOS: <2 Midnights Patient will require the following post-hospital care: None Practitioner: I am a practitioner with admitting privileges, knowledge of patient current condition, hospital course, and medical plan of care. Services: Services provided to patient in accordance with Admission requirements found in Title 42 Section 412.3 of the Code of Federal Regulations Patient History Date of Service: 02/05/20 Primary Care Provider: ALYCIA Hamilton No Known Allergies Allergy (Verified 07/07/19 22:39) Home Medications: Atorvastatin Calcium [Lipitor*] 10 mg PO BEDTIME tab 07/08/19 Levothyroxine [Synthroid*] 0.05 mg PO [id number] tablet 07/08/19 Metoprolol Succinate [Toprol Xl*] 25 mg PO [id number] tab 07/08/19 lisinopriL [Prinivil*] 20 mg PO DAILY tab 07/08/19 - Past Medical/Surgical History Has patient received pneumonia vaccine in the past: No Diabetic: No -: HTN -: Hypothyroidism -: Colon Cancer 2005 -: Cataract Surgery -: Bowel resection -: skin grafting Psychosocial/ Personal History: Patient lives at home with his - Family History Family History: Reviewed- Non-Contributory - Social History Alcohol use: No CD- Drugs: No Caffeine use: Yes Place of Residence: Home Review of Systems 10-point ROS is otherwise unremarkable General: Malaise Neurological: Other (Headache) Physical Examination - Physical Exam General: Alert, In no apparent distress, Oriented x3, Obese HEENT: Atraumatic, Normocephalic Neck: Supple Respiratory: Clear to auscultation bilaterally, Normal air movement Cardiovascular: Regular rate/rhythm, Normal S1 S2 Capillary refill: <2 Seconds Gastrointestinal: Normal bowel sounds, Soft and benign Musculoskeletal: No contractures, No erythema, No tenderness Integumentary: No significant lesion, No tenderness/swelling, No erythema Neurological: Normal speech - Studies Laboratory Data (last 24 hrs) 02/05/20 11:10: PT 12.1, INR 1.03, APTT 34.7 02/05/20 11:10: WBC 6.3, Hgb 10.0 L, Hct 29.7 L, Plt Count 128 L 02/05/20 11:10: Sodium 139, Potassium 4.2, BUN 12, Creatinine 1.07, Glucose 88, Total Bilirubin 0.4, AST 21, ALT 22, Alkaline Phosphatase 57, Lipase 261 Microbiology Data (last 24 hrs): 02/05/20 10:37 Nasopharnyx Coronavirus COVID-19 PCR - Final 02/05/20 11:20 Nasopharnyx Influenza Type A Antigen Screen - Final 02/05/20 11:20 Nasopharnyx Influenza Type B Antigen Screen - Final 02/05/20 11:20 Throat Group A Streptococcus Rapid Screen - Final Assessment and Plan - Plan Assessment Intractable headache, history of similar headaches suspect viral illness Shortness of breath without hypoxia suspect COVID-19 Hypertension Hyperlipidemia Gout Hypothyroidism Plan Intractable headache, history of similar headaches suspect viral illness: Will try abortive medications for relief from the headache. Patient had CT scan the emergency department without acute findings. Patient reports this is similar but slightly worse than previous headaches. Patient sees [place] neurology on outpatient basis. Patient reports that he has tried taking Tylenol today with no relief. Patient denies taking a preventative medication at this time. Discussed with neurology who recommended Topamax 25 mg p.o. at bedtime and diclofenac sodium daily as needed. Patient's renal function is not compromise at this time. Will continue to monitor closely. Anticipate discharge tomorrow. Shortness of breath without hypoxia suspect COVID-19: Ground-glass opacities bilaterally on CT scan, D-dimer elevated. No pulmonary embolism. Patient with viral illness symptoms. Suspect henderson virus. Patient not having any oxygen demand at this time, in the morning will obtain room air saturations and determine if patient needs further evaluation from this standpoint. Hypertension: Obtain and continue patient's home medications. Hyperlipidemia: Obtain and continue patient's home medications. Gout: Obtain and continue patient's home medications. Hypothyroidism: Obtain and continue patient's home medications. Discharge Plan: Home Plan to discharge in: 24 Hours - Advance Directives Does patient have a Living Will: No Does patient have a Durable POA for Healthcare: No - Code Status/Comfort Care Code Status Assessed: Yes (Patient is full code) Critical Care: No Time Spent Managing Pts Care (In Minutes): 55
[2020-02-05] MEDS ORDERED: HYDROCODONE/APAP 7.5/325 MG TAB ONE (18:15)
[2020-02-05] MEDS ORDERED: HYDROCODONE/APAP 7.5/325 MG TAB PO PRN (19:54)
[2020-02-05] MEDS ORDERED: DICLOFENAC SOD D.R. 75 MG TAB PO PRN (19:54)
[2020-02-05] MEDS: NA CHLORIDE 0.9% 1,000 ML IV SCH (19:54)
[2020-02-05] MEDS ORDERED: ONDANSETRON 4 MG/2 ML VIAL IV PRN (19:54)
[2020-02-05] MEDS ORDERED: TOPIRAMATE 25 MG TAB PO SCH (21:00)
[2020-02-05] MEDS ORDERED: NA CHLORIDE 0.9% 1,000 ML ONE (21:33)
[2020-02-05] MEDS ORDERED: TOPIRAMATE 25 MG TAB ONE (21:46)
[2020-02-06 01:07] LABS: Urine Blood NEGATIVE (NEG); Urine Glucose NEGATIVE (NEG); Urine Protein NEGATIVE (NEG); Urine pH 5.5 (5.0-7.0)
[2020-02-06] MEDS ORDERED: HYDROCODONE/APAP 7.5/325 MG TAB ONE (01:09)
[2020-02-06 03:24] VITALS: BMI 29.5
[2020-02-06] MEDS ORDERED: ACETAMINOPHEN 500 MG TAB PO ONE (04:35)
[2020-02-06 04:40] VITALS: O2SAT 97
[2020-02-06 07:31] LABS: Bilirubin Total 0.5 mg/dL (0.2-1.0); C-Reactive Protein 23.2 mg/L (<3.00); Potassium 4.6 mmol/L (3.5-5.1); Protein, Total 7.4 g/dL (6.4-8.2)
[2020-02-06 08:30] VITALS: BP 148/73; TEMP 97.1
--- NOTE | 2020-02-06 08:37 | P.DS ---
Admission Date: 02/05/20 Discharge Date: 02/06/20 Primary Care Provider: ALYCIA Disposition: ROUTINE DISCHARGE Discharge Condition: GOOD Reason for Admission: Shortness of breath, headache Consultations: none Procedures: Chest x-ray FINDINGS: No consolidations seen. No ground-glass opacification identifiable. Interstitial pattern matches comparison. Heart and vasculature are normal. No measurable pleural effusion and no pneumothorax. No acute bony abnormality seen. No acute aortic findings suspected. IMPRESSION: No acute cardiopulmonary process. No significant change from comparison. CT head FINDINGS: No intracranial hemorrhage, mass, edema or shift of mid-line structures. No acute infarction changes seen. No cortical edema or sulcal effacement seen. Patient has mild atrophy and very minimal chronic ischemic change. Intracranial findings are similar to comparison. Ventricles are in proportion to the volume loss. Mastoid air cells are clear. Chronic left sphenoid sinusitis again noted. No acute bony findings. IMPRESSION: Negative non-contrast CT head examination for acute finding No significant change from the December 01 study. CTA FINDINGS: No evidence of pulmonary thromboembolism. No acute aortic finding demonstrated. Mild bilateral ground-glass opacities, nonspecific. No significant pericardial or pleural fluid. No concerning bony finding. IMPRESSION: No evidence of pulmonary thromboembolism. Mild bilateral ground-glass opacities are present which are nonspecific. This would be compatible with COVID-19 infection. Medical problem list Intractable headache, history of similar headaches-resolved Shortness of breath-resolved Hypertension Hyperlipidemia Gout Hypothyroidism Brief History of Present Illness: Patient came to the emergency department for complaint of generalized weakness, headache. Patient was evaluated in the emergency department with labs, CT head, CT PE protocol, chest x-ray. Workup in the emergency department unremarkable but headache was unable to be controlled. Patient reports that he has had similar headaches in the past. Patient was admitted for observation for generalize weakness and headache. Hospital Course: Patient came to the emergency department for complaint of generalized weakness, headache. Patient was evaluated in the emergency department with labs, CT head, CT PE protocol, chest x-ray. Workup in the emergency department unremarkable but headache was unable to be controlled. Patient reports that he has had similar headaches in the past. Patient was admitted for observation for generalize weakness and headache. Overnight the patient did very well. This morning when I went to go check on the patient he was awake, alert, oriented x4. Afebrile, labs in the normal limits. Patient states he is feeling much better this morning. Headache has dissipated and he is feeling much less malaise and fatigue. [facility] has multiple schedule appointments with neurology and his primary care doctor. Patient will continue his other home medications at this time. Patient was instructed to take Tylenol only for his headaches. Patient was evaluated for [place] virus plays in a hospital, test was negative. There were CT findings for possible COVID infection, this could be previous infection. Patient room air saturations 96%, in no respiratory distress. Recommend followup with PCP. Vital Signs/Physical Exam: Temp Pulse Resp BP Pulse Ox 97.1 F 72 18 148/73 H 98 02/06/20 08:00 02/06/20 08:00 02/06/20 08:00 02/06/20 08:00 02/06/20 08:00 General: Alert, In no apparent distress HEENT: Atraumatic, PERRLA, EOMI Neck: Supple, JVD not distended Respiratory: Clear to auscultation bilaterally, Normal air movement Cardiovascular: Regular rate/rhythm, Normal S1 S2 Gastrointestinal: Normal bowel sounds, No tenderness Musculoskeletal: No tenderness Integumentary: No rashes Neurological: Normal speech, Normal tone, Normal affect Lymphatics: No axilla or inguinal lymphadenopathy Laboratory Data at Discharge: WBC 6.3 K/uL (4.3-10.9) 02/05/20 11:10 Hgb 10.0 g/dL (13.6-17.9) L 02/05/20 11:10 Hct 29.7 % (39.6-49.0) L 02/05/20 11:10 Plt Count 128 K/uL (152-406) L 02/05/20 11:10 PT 12.1 SECONDS (9.5-12.5) 02/05/20 11:10 INR 1.03 02/05/20 11:10 APTT 34.7 SECONDS (24.3-36.9) 02/05/20 11:10 Sodium 138 mmol/L (136-145) 02/06/20 06:45 Potassium 4.6 mmol/L (3.5-5.1) 02/06/20 06:45 BUN 12 mg/dL (7-18) 02/06/20 06:45 Creatinine 1.02 mg/dL (0.55-1.3) 02/06/20 06:45 Glucose 75 mg/dL (74-106) 02/06/20 06:45 Total Bilirubin 0.5 mg/dL (0.2-1.0) 02/06/20 06:45 AST 19 U/L (15-37) 02/06/20 06:45 ALT 18 U/L (12-78) 02/06/20 06:45 Alkaline Phosphatase 51 U/L (45-117) 02/06/20 06:45 Lipase 261 U/L (73-393) 02/05/20 11:10 Patient Discharge Instructions: 1. [facility]. 2. Please only take Tylenol for headaches, use ice p acks as needed. Diet: AHA Activity: Fall precautions Time spent managing pt's care (in minutes): 55
[2020-02-06] MEDS: NA CHLORIDE 0.9% 1,000 ML IV SCH (08:44)
[2020-02-06] MEDS ORDERED: ENOXAPARIN 40 MG/0.4 ML SQ SCH (09:00)
--- NOTE | 2020-02-08 07:53 | EKG ---
Test Date: 2020-02-05 Test Time: 11:20:12 [employer]: MEHRAN MEASUREMENT RESULTS: Intervals: Rate: 64 ID: [id number] QRSD: 96 QT: 428 QTc: 441 [place]: P: 54 ID: [id number] QRS: 55 T: 55 INTERPRETIVE STATEMENTS: Normal sinus rhythm Normal ECG Compared to ECG 12/02/2019 08:22:22 No significant changes Electronically Signed On 02-08-20 07:50:03 CDT by Ervin Banks
== END 2020-02-06 09:40 | disposition home or self-care (01) ==
LOC: ER 10:07 → ERHOLD 18:06 → 2ND 02-06 02:54
PROVIDERS: ADMIT Internal Medicine; ATTEND Internal Medicine
DX: R51 Headache (principal); R06.02 Shortness of breath; R53.1 Weakness; I10 Essential (primary) hypertension; E78.5 Hyperlipidemia, unspecified; M10.9 Gout, unspecified; E03.9 Hypothyroidism, unspecified; I48.91 Unspecified atrial fibrillation; F03.90 Unspecified dementia, unspecified severity, without behavioral disturbance, psychotic disturbance, mood disturbance, and anxiety; Z20.828 Contact with and (suspected) exposure to other viral communicable diseases; Z85.038 Personal history of other malignant neoplasm of large intestine; Z90.49 Acquired absence of other specified parts of digestive tract; Z79.02 Long term (current) use of antithrombotics/antiplatelets; Z79.899 Other long term (current) drug therapy
CPT/HCPCS: 93005; 87040 ×2; 87070; 85025; 80048; 36415; 85610; 85379; 80076; 87081; 83605; 85730; 81003; 84484; 82728; 83690; 80053; 86140 ×2; 87804 ×2; 70450; 71275; 71045; 96375; 96374; 99285; U0002; Q9967; J2765; J1200; J1650; J7030 ×2; J2405; G0378 ×2

== ENCOUNTER 2020-04-12 08:51 | Emergency (ER) | payer MEDICARE, OTHER ==
[2020-04-12] MEDS ORDERED: LORazepam 2 MG/ML VIAL ONE (09:55)
[2020-04-12 10:22] LABS: Absolute Lymphocytes (CBC) 1.1 K/uL (0.7-4.9); Basophils % 0.3 % (0-1.3); Hematocrit 32.4 % (39.6-49.0); Lymphocytes % 18.6 % (15.3-44.8); Protime INR 2.76; RBC Red Blood Cell Count 3.51 M/uL (4.33-5.43)
--- NOTE | 2020-04-12 10:26 | RAD REPORT ---
EXAM DESCRIPTION: CT - Soft Tissue Neck W/Contr - 04/12/2020 10:07 am CLINICAL HISTORY: Neck pain/difficulty swallowing COMPARISON: August 2018 TECHNIQUE: Computed axial tomography of the neck was obtained. 50 cc Isovue 300 was administered in travenously. Coronal and sagittal reconstruction was performed. All CT scans are performed using dose optimization technique as appropriate and may include automated exposure control or mA/KV adjustment according to patient size. FINDINGS: The pharynx, tongue base, larynx and subglottic trachea appear unremarkable 19 millimeter soft tissue structure is present within the anterior aspect of the right parotid gland. It is without significant change in appearance from prior exam, The left parotid, and Submandibular appear unremarkable. Sub centimeter nodule within the left lobe of the thyroid likely benign Chronic opacification of sphenoid sinus IMPRESSION: 19 millimeter soft tissue structure within the right parotid gland may represent a lymph node or parotid lesion
[2020-04-12 10:32] LABS: ALT/SGPT 13 U/L (12-78); AST/SGOT 17 U/L (15-37); Albumin 4.1 g/dL (3.4-5.0); Alkaline Phosphatase 54 U/L (45-117); BUN Blood Urea Nitrogen 15 mg/dL (7-18); Bicarbonate 29 mmol/L (21-32); Bilirubin Direct 0.2 mg/dL (0-0.2); Bilirubin Total 0.7 mg/dL (0.2-1.0); Glucose Level 89 mg/dL (74-106); Magnesium 2.4 mg/dL (1.8-2.4); NT PRO-BNP 257 pg/mL (<125); Potassium 3.7 mmol/L (3.5-5.1); Protein, Total 8.1 g/dL (6.4-8.2); Sodium Level 136 mmol/L (136-145); Troponin (Emerg Dept Use Only) < 0.02 ng/mL (0.0-0.045)
--- NOTE | 2020-04-12 10:34 | RAD REPORT ---
EXAM DESCRIPTION: Eliza Single View04/12/2020 10:26 am CLINICAL HISTORY: Shortness of breath COMPARISON: January 2020 FINDINGS: The patient is rotated. The lungs appear clear of acute infiltrate. The heart is borderline enlarged IMPRESSION: No acute abnormalities displayed
[2020-04-12] MEDS ORDERED: BENZTROPINE 2 MG/2 ML VIAL ONE (10:38)
[2020-04-12] MEDS ORDERED: NA CHLORIDE 0.9% 100 ML IV ONE (10:38)
[2020-04-12] MEDS ORDERED: ONDANSETRON 4 MG/2 ML VIAL ONE (10:38)
[2020-04-12] MEDS ORDERED: NA CHLORIDE 0.9% 1,000 ML ONE (10:38)
[2020-04-12] MEDS ORDERED: FAMOTIDINE 20 MG/2 ML VIAL IV ONE (10:39)
[2020-04-12] MEDS ORDERED: FOLIC ACID 5 MG/ML VIAL ONE (10:40)
--- NOTE | 2020-04-12 11:47 | RAD REPORT ---
EXAM DESCRIPTION: CT - Head Brain Wo Cont - 04/12/2020 11:21 am CLINICAL HISTORY: Dizziness and dysphagia COMPARISON: January 2020 TECHNIQUE: Computed axial tomography of the head was obtained. IV contrast was not requested. All CT scans are performed using dose optimization technique as appropriate and may include automated exposure control or mA/KV adjustment according to patient size. FINDINGS: An intracranial bleed is not seen . The ventricles are normal in caliber. No extra-axial fluid collection is noted. Fluid within the sinuses/ mastoids is not seen. Chronic sphenoid sinusitis IMPRESSION: No acute intracranial abnormality is seen. If patient's symptoms persist MRI of the bra in would be recommended.
--- NOTE | 2020-04-12 12:03 | EDPHYS ---
Physician Documentation [facility] Name: John Cuevas Age: 74 yrs Sex: Male : 1945 Arrival Date: 04/12/2020 Time: 08:52 Bed 17 Private MD: SHINE Physician Osvaldo Beckman HPI: 04/12 09:57 This 74 yrs old Male presents to ER via EMS with complaints of Difficulty leonidas Swallowing. 09:57 The patient presents with a foreign body sensation in the throat. The patient describes leonidas throat pain as constant. Historical: - Allergies: 08:55 No Known Allergies; bp - Home Meds: 08:55 Allopurinol Oral [Active]; Amiodarone Oral [Active]; Codeine Oral [Active]; bp levothyroxine for Hypothyroidism [Active]; lisinopril Oral [Active]; Metoprolol Tartrate Oral [Active]; Plavix Oral [Active]; Simvastatin Oral [Active]; - PMHx: 08:55 Atrial Fib; colon cancer; Dementia; Gout; Hyperlipidemia; Hypertension; Hypothyroidism; bp - Immunization history:: Adult Immunizations up to date. - Social history:: Smoking status: Patient denies any tobacco usage or history of. ROS: 09:57 Constitutional: Negative for fever, chills, and weight loss. leonidas 10:04 Eyes: Negative for injury, pain, redness, and discharge, Neck: Negative for injury, leonidas pain, and swelling, Cardiovascular: Negative for chest pain, palpitations, and edema, Respiratory: Negative for shortness of breath, cough, wheezing, and pleuritic chest pain, Back: Negative for injury and pain, : Negative for injury, bleeding, discharge, and swelling, MS/Extremity: Negative for injury and deformity, Skin: Negative for injury, rash, and discoloration, Neuro: Negative for headache, weakness, numbness, tingling, and seizure, Psych: Negative for depression, anxiety, suicide ideation, homicidal ideation, and hallucinations, Allergy/Immunology: Negative for hives, rash, and allergies, Endocrine: Negative for neck swelling, polydipsia, polyuria, polyphagia, and marked weight changes, Hematologic/Lymphatic: Negative for swollen nodes, abnormal bleeding, and unusual bruising. 10:04 ENT: Positive for sore throat, DIFFICULTY SWALLOWING, months. Exam: 10:03 Constitutional: This is a well developed, well nourished patient who is awake, alert, leonidas and in no acute distress. Head/Face: Normocephalic, atraumatic. Eyes: Pupils equal round and reactive to light, extra-ocular motions intact. Lids and lashes normal. Conjunctiva and sclera are non-icteric and not injected. Cornea within normal limits. Periorbital areas with no swelling, redness, or edema. Neck: Trachea midline, no thyromegaly or masses palpated, and no cervical lymphadenopathy. Supple, full range of motion without nuchal rigidity, or vertebral point tenderness. No Meningismus. Chest/axilla: Normal chest wall appearance and motion. Nontender with no deformity. No lesions are appreciated. Cardiovascular: Regular rate and rhythm with a normal S1 and S2. No gallops, murmurs, or rubs. Normal PMI, no JVD. No pulse deficits. Respiratory: Lungs have equal breath sounds bilaterally, clear to auscultation and percussion. No rales, rhonchi or wheezes noted. No increased work of breathing, no retractions or nasal flaring. Back: No spinal tenderness. No costovertebral tenderness. Full range of motion. Male : Normal genitalia with no discharge or lesions. Skin: Warm, dry with normal turgor. Normal color with no rashes, no lesions, and no evidence of cellulitis. MS/ Extremity: Pulses equal, no cyanosis. Neurovascular intact. Full, normal range of motion. Neuro: Awake and alert, GCS 15, oriented to person, place, time, and situation. Cranial nerves II-XII grossly intact. Motor strength 5/5 in all extremities. Sensory grossly intact. Cerebellar exam normal. Normal gait. Psych: Awake, alert, with orientation to person, place and time. Behavior, mood, and affect are within normal limits. 10:03 ENT: Posterior pharynx: DIFFICULT SWALLOWING. Vital Signs: 08:52 BP 177 / 95; Pulse 49; Resp 16; Temp 98; Pulse Ox 95% on R/A; bp 09:55 BP 152 / 86; Pulse 49; Resp 16; Pulse Ox 96% ; bp 10:44 BP 157 / 70; Pulse 48; Resp 16; Pulse Ox 99% ; bp 12:04 BP 144 / 85; Pulse 50; Resp 16; Pulse Ox 97% ; bp 12:54 BP 130 / 78; Pulse 55; Resp 16; Pulse Ox 97% ; bp 14:14 BP 133 / 68; Pulse 58; Resp 16; Pulse Ox 95% on 6 lpm NC; dh4 15:35 BP 141 / 54; Pulse 54; Resp 18; Pulse Ox 100% on 6 lpm NC; dh4 16:00 BP 134 / 99; Pulse 103; iw 16:22 BP 176 / 155; Pulse 52; Resp 18; Pulse Ox 100% on BiPAP; dh4 16:54 BP 119 / 82; Pulse 54; Resp 20 S; Pulse Ox 100% on BiPAP; iw 17:03 BP 124 / 72; Pulse 55; Resp 23 S; Pulse Ox 100% on BiPAP; iw 18:08 BP 108 / 86; Pulse 55; Resp 19 S; Temp 98.0; Pulse Ox 100% on BiPAP; iw MDM: 09:01 Patient medically screened. leonidas 10:05 Differential diagnosis: lymphoma, peritonsillar abscess tonsillitis, upper respiratory leonidas infection, uvulitis. Data reviewed: vital signs, nurses notes, EMS record, lab test result(s), EKG, radiologic studies, plain films. Data interpreted: executive business coach: rate is 49 beats/min, rhythm is regular. Test interpretation: by ED physician or midlevel provider: ECG, plain radiologic studies. Counseling: I had a detailed discussion with the patient and/or guardian regarding: the historical points, exam findings, and any diagnostic results supporting the discharge/admit diagnosis, lab results, radiology results. 04/12 09:44 Order name: Basic Metabolic Panel; Complete Time: 11:33 bp 04/12 09:44 Order name: CBC with Diff; Complete Time: 12:35 bp 04/12 09:44 Order name: LFT's; Complete Time: 11:33 bp 04/12 09:44 Order name: Magnesium; Complete Time: 11:33 bp 04/12 09:44 Order name: NT PRO-BNP; Complete Time: 11:33 bp 04/12 09:44 Order name: PT-INR; Complete Time: 10:29 bp 04/12 09:44 Order name: Troponin (emerg Dept Use Only); Complete Time: 11:33 bp 04/12 09:56 Order name: Lipase; Complete Time: 10:29 leonidas 04/12 12:07 Order name: Urine Culture leonidas 04/12 12:12 Order name: CBC Smear Scan; Complete Time: 12:35 EDMS 04/12 13:58 Order name: Urine Dipstick--Ancillary (enter results); Complete Time: 16:10 bd 04/12 15:24 Order name: ABG; Complete Time: 16:29 [facility] 04/12 15:50 Order name: CBC with Diff [facility] 04/12 15:50 Order name: Comprehensive Metabolic Panel; Complete Time: 16:29 [facility] 04/12 09:44 Order name: XRAY Chest (1 view); Complete Time: 11:33 bp 04/12 09:44 Order name: CT Soft Tissue Neck W/contr; Complete Time: 10:29 bp 04/12 11:03 Order name: CT Head Brain wo Cont; Complete Time: 11:57 leonidas 04/12 15:24 Order name: CT Stroke Brain w/o Contrast; Complete Time: 16:29 leonidas 04/12 15:39 Order name: BIPAP [facility] 04/12 16:18 Order name: Glucose, Ancillary Testing; Complete Time: 16:29 EDMT 04/12 17:41 Order name: CBC Smear Scan EDMT 04/12 18:15 Order name: Glucose, Ancillary Testing EDMT 04/12 09:44 Order name: EKG; Complete Time: 09:45 bp 04/12 09:44 Order name: Cardiac monitoring; Complete Time: 09:45 bp 04/12 09:44 Order name: EKG - Nurse/Tech; Complete Time: 09:45 bp 04/12 09:44 Order name: IV Saline Lock; Complete Time: 09:54 bp 04/12 09:44 Order name: Labs collected and sent; Complete Time: 09:54 bp 04/12 09:44 Order name: O2 Per Protocol; Complete Time: 09:45 bp 04/12 09:44 Order name: O2 Sat Monitoring; Complete Time: 09:45 bp 04/12 12:07 Order name: Urine Dipstick-Ancillary (obtain specimen); Complete Time: 12:53 leonidas 04/12 12:54 Order name: Straight Cath - Urine; Complete Time: 12:54 bp 04/12 15:24 Order name: Blood Glucose Level; Complete Time: 16:07 [facility] Administered Medications: 09:54 Drug: Ativan 0.5 mg Route: IVP; Site: right antecubital; bp 12:14 Follow up: Response: Anxiety decreased bp 10:15 Drug: NS 0.9% 1000 ml Route: IV; Rate: 125 ml/hr; Site: right antecubital; bp 14:16 Follow up: IV Status: Completed infusion; IV Intake: 500ml bp 10:15 Drug: COgentin 1 mg Route: IVP; Site: right antecubital; bp 12:14 Follow up: Response: No adverse reaction bp 10:15 Drug: Pepcid 20 mg Route: IVP; Site: right antecubital; bp 12:14 Follow up: Response: No adverse reaction bp 10:15 Drug: foLIC Acid 1 mg Route: IVPB; Site: right antecubital; bp 14:16 Follow up: IV Status: Completed infusion bp 10:15 Drug: Zofran (Ondansetron) 4 mg Route: IVP; Site: right antecubital; bp 12:13 Follow up: Response: Nausea is decreased bp 16:19 Drug: Xopenex 2.5 mg Route: Inhalation; iw 16:19 Drug: AtroVENT Aerosol 0.5 mg Route: Inhalation; iw 16:19 Drug: SOLU-Medrol 125 mg Route: IVP; Site: right antecubital; iw 18:10 Follow up: Response: No adverse reaction iw 16:20 Drug: D50W 50 ml Route: IVP; Site: right antecubital; iw 18:09 Follow up: Response: No adverse reaction; Blood sugar is elevated iw Point of Care Testing: Blood Glucose: 16:07 Blood Glucose: 66 mg/dL; iw Ranges: Critical Glucose Levels:Adult <50 mg/dl or >400 mg/dl <40 mg/dl or >180 mg/dl Disposition: 04/12/20 12:34 Transfer ordered to [facility]. Diagnosis are Altered mental status, unspecified, Dementia in other diseases classified elsewhere, Dysphagia, Respiratory failure, unspecified with hypercapnia, Hypoglycemia, unspecified. - Reason for transfer: Higher level of care. - Accepting physician is to neuro [facility]. - Condition is Fair. - Problem is new. - Symptoms are unchanged. Signatures: Dispatcher [employer] Osvaldo Simpson MD MD cha Williams, Irene, RN RN iw Gustavo Carmona RN RN bp Corrections: (The following items were deleted from the chart) 12:33 12:02 Hospitalization Ordered by Hernandez Acevedo DO for Inpatient Admission. Preliminary leonidas diagnosis is Dysphagia; Altered mental status, unspecified; Dementia in other diseases classified elsewhere. Bed requested for Telemetry/MedSurg (Inpatient). Status is Inpatient Admission. Condition is Fair. Problem is new. Symptoms have improved. leonidas 15:45 15:25 Chest Single View+[id number].BRZ ordered. EDMS EDMS 16:18 12:34 04/12/2020 12:34 Transfer ordered to [facility]. leonidas Diagnosis is Altered mental status, unspecified; Dementia in other diseases classified elsewhere; Dysphagia. Reason for transfer: Higher level of care. Accepting physician is to neuro [facility]. Condition is Fair. Problem is new. Symptoms are unchanged. leonidas 18:20 16:18 04/12/2020 12:34 Transfer ordered to [facility]. iw Diagnosis is Altered mental status, unspecified; Dementia in other diseases classified elsewhere; Dysphagia; Respiratory failure, unspecified with hypercapnia; Hypoglycemia, unspecified. Reason for transfer: Higher level of care. Accepting physician is to neuro [facility]. Condition is Fair. Problem is new. Symptoms are unchanged. leonidas
--- NOTE | 2020-04-12 12:03 | ER ---
Nurse's Notes [facility] Name: John Cuevas Age: 74 yrs Sex: Male : 1945 Arrival Date: 04/12/2020 Time: 08:52 Bed 17 Private MD: Diagnosis: Altered mental status, unspecified;Dementia in other diseases classified elsewhere;Dysphagia;Respiratory failure, unspecified with hypercapnia;Hypoglycemia, unspecified Presentation: 04/12 08:52 Chief complaint: EMS states: DIFFICULTY SWALLOWING x "A LONG TIME". SEEN FOR SAME BY MX bp OTHER FACILITIES AND CLEARED. Coronavirus screen: At this time, the client does not indicate any symptoms associated with coronavirus-19. Ebola Screen: No symptoms or risks identified at this time. Initial Sepsis Screen: Does the patient meet any 2 criteria? No. Patient's initial sepsis screen is negative. Does the patient have a suspected source of infection? No. Patient's initial sepsis screen is negative. Risk Assessment: Do you want to hurt yourself or someone else? Patient reports no desire to harm self or others. Onset of symptoms is unknown. 08:52 Method Of Arrival: EMS: [facility] bp 08:52 Acuity: KEVIN 3 bp 14:50 Acuity: KEVIN 2 iw Triage Assessment: 09:00 General: Appears distressed, uncomfortable, Behavior is cooperative, appropriate for bp age, anxious. Pain: Complains of pain in head. EENT: No deficits noted. Neuro: No deficits noted. Cardiovascular: No deficits noted. Respiratory: No deficits noted. GI: Reports INABILITY TO SWALLOW. : No signs and/or symptoms were reported regarding the genitourinary system. Derm: No deficits noted. Musculoskeletal: No deficits noted. Historical: - Allergies: 08:55 No Known Allergies; bp - Home Meds: 08:55 Allopurinol Oral [Active]; Amiodarone Oral [Active]; Codeine Oral [Active]; bp levothyroxine for Hypothyroidism [Active]; lisinopril Oral [Active]; Metoprolol Tartrate Oral [Active]; Plavix Oral [Active]; Simvastatin Oral [Active]; - PMHx: 08:55 Atrial Fib; colon cancer; Dementia; Gout; Hyperlipidemia; Hypertension; Hypothyroidism; bp - Immunization history:: Adult Immunizations up to date. - Social history:: Smoking status: Patient denies any tobacco usage or history of. Screenin:56 Abuse screen: Denies threats or abuse. Denies injuries from another. Nutritional bp screening: No deficits noted. Tuberculosis screening: No symptoms or risk factors identified. Fall Risk None identified. Assessment: 08:56 General: SEE TRIAGE NOTE. bp 09:54 Reassessment: MD AT B/S FOR EVAL. PT C/O UNCONTROLLED MUSCLE MOVEMENTS. NO FOCAL NEURO bp DEFICITS NOTED. CT PENDING. 12:04 Reassessment: ADMIT INITIATED. PT CONTINUING TO MAKE EXTRANEOUS SPASTIC MOTIONS. bp 12:54 Reassessment: TRANSFER INITIATED. PT HAS DECREASED LOC, HARD TO AROUSE. bp 14:14 Reassessment: REPORT TO RICHELLE JACKSON AT [facility], TRANSPORT PENDING. bp 15:30 General: Appears ill, well developed, Behavior is drowsy, listless, restless, iw uncooperative. Pain: Unable to use pain scale. Does not appear to understand pain scale. Neuro: Level of Consciousness is listless, Oriented to none. Neuro: pt not able to follow commands at this time. radar technician states pt was able to assist in scooting up to bed at noon today but was not oriented . Reaction to noxious stimuli is withdrawal. Cardiovascular: Patient's skin is warm and dry. Respiratory: Respiratory effort is labored, Respiratory pattern is regular, pt with grunting respirations, 95% on 4 L NC. GI: Abdomen is non-distended, Abd is soft and non tender Abd is soft X 4 quads. Derm: Skin is normal. 16:00 Reassessment: pt returned from CT, placed on BiPAP. iw 16:25 Reassessment: pt now able to follow commands, able to squeeze my hand on command, opens iw eyes to verbal stimuli, able to raise legs on command. 16:44 Reassessment: pt taken off BiPAP by Dr. Beckman, placed on 4 L NC, RT at bedside to suction. 16:55 Reassessment: pt placed back on BiPAP. iw 17:30 Reassessment: pt appears more relaxed, lying on back with knees bent, repositioned in bed, able to assist in moving up in bed, remains on BiPAP, Sp V5=991%, RR=19. 17:36 Reassessment: report given to [facility]. iw 17:55 Reassessment: pt still drowsy, not verbal, pt opens eyes and grunts to painful stimuli, iw [id number], 100% on BiPAP, pt able to follow commands, squeezes my hand when asked. Vital Signs: 08:52 BP 177 / 95; Pulse 49; Resp 16; Temp 98; Pulse Ox 95% on R/A; bp 09:55 BP 152 / 86; Pulse 49; Resp 16; Pulse Ox 96% ; bp 10:44 BP 157 / 70; Pulse 48; Resp 16; Pulse Ox 99% ; bp 12:04 BP 144 / 85; Pulse 50; Resp 16; Pulse Ox 97% ; bp 12:54 BP 130 / 78; Pulse 55; Resp 16; Pulse Ox 97% ; bp 14:14 BP 133 / 68; Pulse 58; Resp 16; Pulse Ox 95% on 6 lpm NC; dh4 15:35 BP 141 / 54; Pulse 54; Resp 18; Pulse Ox 100% on 6 lpm NC; dh4 16:00 BP 134 / 99; Pulse 103; iw 16:22 BP 176 / 155; Pulse 52; Resp 18; Pulse Ox 100% on BiPAP; dh4 16:54 BP 119 / 82; Pulse 54; Resp 20 S; Pulse Ox 100% on BiPAP; iw 17:03 BP 124 / 72; Pulse 55; Resp 23 S; Pulse Ox 100% on BiPAP; iw 18:08 BP 108 / 86; Pulse 55; Resp 19 S; Temp 98.0; Pulse Ox 100% on BiPAP; iw ED Course: 08:52 Patient arrived in ED. bp 08:53 Triage completed. bp 08:55 Arm band placed on. bp 08:56 Patient has correct armband on for positive identification. Placed in gown. Bed in low bp position. Call light in reach. Side rails up X2. 09:01 Osvaldo Beckman MD is Attending Physician. leonidas 09:15 Gustavo Carmona, MANUEL is Primary Nurse. bp 09:54 Inserted saline lock: 20 gauge in right antecubital area, using aseptic technique. bp Blood collected. 10:07 CT Soft Tissue Neck W/contr In Process Unspecified. EDMS 10:27 XRAY Chest (1 view) In Process Unspecified. EDMS 11:21 CT Head Brain wo Cont In Process Unspecified. EDMS 12:01 Hernandez Acevedo DO is Hospitalizing Provider. leonidas 12:55 Straight cath inserted, using sterile technique, 16 Fr. Specimen obtained. Returned bp clear yellow urine. Patient tolerated well. 14:07 initiated transfer to [facility],pt accepted in transfer by Dr Blue, admin bd approval given by Christa Wilkerson. 14:16 No provider procedures requiring assistance completed. Patient transferred, IV remains bp in place. 15:53 CT Stroke Brain w/o Contrast In Process Unspecified. EDMS 16:01 Primary Nurse role handed off by Gustavo Carmona, RN iw 16:01 Loraine Finley, MANUEL is Primary Nurse. iw 16:03 Comprehensive Metabolic Panel Sent. dh4 16:03 CBC with Diff Sent. dh4 Administered Medications: 09:54 Drug: Ativan 0.5 mg Route: IVP; Site: right antecubital; bp 12:14 Follow up: Response: Anxiety decreased bp 10:15 Drug: NS 0.9% 1000 ml Route: IV; Rate: 125 ml/hr; Site: right antecubital; bp 14:16 Follow up: IV Status: Completed infusion; IV Intake: 500ml bp 10:15 Drug: COgentin 1 mg Route: IVP; Site: right antecubital; bp 12:14 Follow up: Response: No adverse reaction bp 10:15 Drug: Pepcid 20 mg Route: IVP; Site: right antecubital; bp 12:14 Follow up: Response: No adverse reaction bp 10:15 Drug: foLIC Acid 1 mg Route: IVPB; Site: right antecubital; bp 14:16 Follow up: IV Status: Completed infusion bp 10:15 Drug: Zofran (Ondansetron) 4 mg Route: IVP; Site: right antecubital; bp 12:13 Follow up: Response: Nausea is decreased bp 16:19 Drug: Xopenex 2.5 mg Route: Inhalation; iw 16:19 Drug: AtroVENT Aerosol 0.5 mg Route: Inhalation; iw 16:19 Drug: SOLU-Medrol 125 mg Route: IVP; Site: right antecubital; iw 18:10 Follow up: Response: No adverse reaction iw 16:20 Drug: D50W 50 ml Route: IVP; Site: right antecubital; iw 18:09 Follow up: Response: No adverse reaction; Blood sugar is elevated iw Point of Care Testing: Blood Glucose: 16:07 Blood Glucose: 66 mg/dL; iw Ranges: Intake: 14:16 IV: 500ml; Total: 500ml. bp Outcome: 12:02 Decision to Hospitalize by Provider. leonidas 12:34 ER care complete, transfer ordered by . leonidas 14:15 Transferred by ground EMS to [facility], Transfer form completed. bp 14:15 Condition: stable 14:15 Instructed on the need for admit. 18:09 Transferred by ground EMS to [facility], Transfer form completed. iw X-rays sent w/ patient. 18:09 Condition: stable 18:09 Discharge instructions given to patient, Instructed on the need for transfer. 18:20 Patient left the ED. iw Signatures: Dispatcher [employer] EDMS Lizbet Nascimento Corey, MD MD cha Williams, Irene RN MANUEL Gustavo Carmona RN RN [facility] [place] [address] Corrections: (The following items were deleted from the chart) 10:47 10:44 Pulse 48bpm; Resp 16bpm; Pulse Ox 99%; bp bp 16:24 14:14 BP 133 / 68; Pulse 58bpm; Resp 16bpm; Pulse Ox 95%; bp dh4 16:24 15:35 BP 141 / 54; Pulse 54bpm; Resp 18bpm; Pulse Ox 100%; dh4 dh4 17:01 16:54 BP 119 / 82; Pulse 54bpm; Resp 20bpm; Spontaneous; Pulse Ox 95% BiPAP; iw iw
[2020-04-12 12:12] LABS: Blood Morphology Comment NOT SEEN (NOT SEEN); Platelet Estimate DECR; Platelets, Giant FEW PRESENT; White Blood Cell Scan OK (OK)
--- NOTE | 2020-04-12 13:56 | P.CNS ---
Date of Consult: 04/12/20 Reason for Consult: ER evaluation for possible admission Requesting Physician: Osvaldo Beckman Primary Care Provider: [facility] Chief Complaint: Dysphagia History of Present Illness: 74-year-old male with history of atrial fibrillation on chronic anti coagulation therapy, hypertension, hyperlipidemia, and gout. The patient was brought in by EMS due to dysphagia. Patient reports difficul ty swallowing for the past week. Patient also had some expressive aphasia. Patient reports symptoms for the past week and getting worse. Patient denied any significant nausea, vomiting, chest pain or shortness of breath. There was some question of altered mental status changes. In the ER patient was evaluated. Blood pressure 177/95, heart rate 49, respiratory of 16. Room-air saturations 90%. Lab showed a 6.2 white count, hemoglobin 10.8. Platelet count 99. Sodium 136, potassium 3.7, BUN of 15, creatinine 0.9 with a GFR 74. Glucose 89. BNP 257. Troponin unremarkable. I in our 2.9. CT head shows no acute abnormality. CT neck showed a 19 mm right parotid lesion likely lymph node. Chest x-ray unremarkable. I was asked to evaluate the patient in the ER for possible admission. Allergies No Known Allergies Allergy (Verified 02/05/20 22:48) - Past Medical/Surgical History Diabetic: No -: HTN -: Hypothyroidism -: Colon Cancer 2005 -: Atrial fibrillation on chronic anti coagulation therapy -: Dementia -: Hyperlipidemia -: Gout -: Cataract Surgery -: Bowel resection -: Scan grafts Psychosocial/ Personal History: Patient lives at home with his - Social History Smoking Status: Unknown if ever smoked Alcohol use: No CD- Drugs: No Caffeine use: Yes Place of Residence: Home Review of Systems General: Weakness, As per HPI Eyes: Unremarkable ENT: As per HPI Respiratory: Unremarkable Cardiovascular: Unremarkable Gastrointestinal: As per HPI Genitourinary: Unremarkable Musculoskeletal: Unremarkable Integumentary: Unremarkable Neurological: Confusion, As per HPI Lymphatics: Unremarkable Physical Examination General: Alert, In no apparent distress, Cooperative (Patient followed commands.), Disheveled, Other (Some expressive aphasia noted. Patient was oriented x3. Speech was not clear.) HEENT: Atraumatic, Normocephalic, Mucous membr. moist/pink Neck: Supple Respiratory: Clear to auscultation bilaterally, Normal air movement Cardiovascular: Normal pulses, Regular rate/rhythm Gastrointestinal: Normal bowel sounds, No tenderness, No masses, No rebound, No guarding Musculoskeletal: No erythema, No tenderness, No warmth Integumentary: No tenderness/swelling, No erythema, No warmth, No cyanosis Neurological: Normal strength at 5/5 x4 extr, Normal tone, Other (Patient with slight confusion but able to follow commands appropriately. Patient appeared disheveled. Patient not well kept.), Abnormal speech (Patient with some expressive aphasia) Laboratory Data (last 24 hrs) 04/12/20 09:55: Lipase 110 04/12/20 09:55: PT 31.9 H, INR 2.76 04/12/20 09:55: WBC 6.2, Hgb 10.9 L, Hct 32.4 L, Plt Count 99 L 04/12/20 09:55: Sodium 136, Potassium 3.7, BUN 15, Creatinine 0.99, Glucose 89, Magnesium 2.4, Total Bilirubin 0.7, AST 17, ALT 13, Alkaline Phosphatase 54 Conclusions/Impression: Impression: Dysphagia with expressive aphasia suspect possible CVA Hypertension Atrial fibrillation on chronic anti coagulation therapy Hyperlipidemia Anemia of chronic disease with thrombocytopenia Plan: Patient was evaluated for inpatient admission. Patient does require inpatient admission to further evaluate his condition. CVA is suspected. There appears to be a change in his status since he was last hospitalized. Case discussed in detail with Neurology. Patient should have CVA workup. Unfortunately we do not have MRI at this time. Standard of care would require patient to have MRI for further evaluation and likely treatment. Case discussed with ER physician after neurology discussion. ER agrees with plan of care to transfer patient to high- level care center to further evaluate his condition. Patient would require MRI stroke protocol, echocardiogram, carotid Doppler, neurology evaluation and likely cardiology evaluation. ER to initiate transfer from ER. Time Spent Managing Pts care (In Minutes): 55
[2020-04-12 15:51] LABS: Urine Blood TRACE (NEG); Urine Glucose NEGATIVE (NEG); Urine Protein NEGATIVE (NEG); Urine Specific Gravity 1.015 (1.005-1.030); Urine pH 5.5 (5.0-7.0)
[2020-04-12 16:07] LABS: Absolute Lymphocytes (CBC) 0.9 K/uL (0.7-4.9); Basophils % 0.3 % (0-1.3)
[2020-04-12 16:15] LABS: Arterial Blood Carboxyhemoglob 1.4 % (0-1.5); Blood Gas Oxyhemoglobin 94.6 % (94-97)
--- NOTE | 2020-04-12 16:17 | RAD REPORT ---
EXAM DESCRIPTION: CT - Ct Stroke Brain Wo Cont - 04/12/2020 3:52 pm CLINICAL HISTORY: Declining state;Mental status change Headache, drowsiness COMPARISON: Head Brain Wo Cont dated 04/12/2020; Head Brain Wo Cont dated 02/05/2020 TECHNIQUE: All CT scans are performed using dose optimization technique as appropriate and may inclu de automated exposure control or mA/KV adjustment according to patient size. FINDINGS: No intracranial hemorrhage, hydrocephalus or extra-axial fluid collection.Mild brain atrop hy noted.No areas of brain edema or evidence of midline shift. Sphenoid sinus chronic sinusitis changes are present. The paranasal sinuses and mastoids are otherwis e clear. The calvarium is intact. IMPRESSION: No acute intracranial abnormality. Dr. Beckman in the emergency room notified at 4:10 p.m. on 04/12/2020.
[2020-04-12] MEDS ORDERED: IPRATROPIUM BROM 0.5MG/2.5ML ONE (16:23)
[2020-04-12] MEDS ORDERED: D50W 25 GM/50 ML SYRINGE/VIAL IV ONE (16:23)
[2020-04-12] MEDS ORDERED: METHYLPREDNISOLONE 125 MG INJ ONE (16:23)
[2020-04-12] MEDS ORDERED: LEVALBUTEROL 1.25 MG/3 ML NEB ONE (16:23)
[2020-04-12 16:27] LABS: Bilirubin Total 0.4 mg/dL (0.2-1.0); Potassium 4.5 mmol/L (3.5-5.1); Protein, Total 7.6 g/dL (6.4-8.2)
[2020-04-12 16:47] LABS: Hematocrit 32.7 % (39.6-49.0); Lymphocytes % 11.3 % (15.3-44.8); RBC Red Blood Cell Count 3.52 M/uL (4.33-5.43)
[2020-04-12 17:41] LABS: Blood Morphology Comment NOTED (NOT SEEN); Platelet Estimate DECR; Poikilocytosis 1+; White Blood Cell Scan OK (OK)
[2020-04-12 18:55] VITALS: O2SAT 100
[2020-04-12 19:02] VITALS: BP 108/86; TEMP 98
== END 2020-04-12 18:20 | disposition short-term general hospital (02) ==
LOC: ER 08:51
DX: R13.10 Dysphagia, unspecified (principal); J96.92 Respiratory failure, unspecified with hypercapnia; E16.2 Hypoglycemia, unspecified; R41.82 Altered mental status, unspecified; F03.90 Unspecified dementia, unspecified severity, without behavioral disturbance, psychotic disturbance, mood disturbance, and anxiety; R47.01 Aphasia; D64.9 Anemia, unspecified; D69.6 Thrombocytopenia, unspecified; I10 Essential (primary) hypertension; E78.5 Hyperlipidemia, unspecified; E03.9 Hypothyroidism, unspecified; I48.91 Unspecified atrial fibrillation; Z79.01 Long term (current) use of anticoagulants
CPT/HCPCS: 96365; 93005; 87088; 85025 ×2; 87086; 80048; 36415; 83735; 85610; 82565; 82947 ×2; 80076; 81003; 84484; 83690; 80053; 83880; 70450 ×2; 70491; 71045; 82805; 94660; 51702; 96375; 99285; 96366; Q9967; J0515; J7030; J2930; J2405

== ENCOUNTER 2020-04-26 11:26 | Emergency (ER) | payer MEDICARE ==
[2020-04-26] MEDS ORDERED: NA CHLORIDE 0.9% 2,000 ML ONE (11:54)
[2020-04-26 12:00] LABS: Absolute Lymphocytes (CBC) 2.1 K/uL (0.7-4.9); Basophils % 0.6 % (0-1.3); Hematocrit 27.5 % (39.6-49.0); Lymphocytes % 13.6 % (15.3-44.8); MPV 12.3 fL (7.6-11.3); RBC Red Blood Cell Count 2.93 M/uL (4.33-5.43)
[2020-04-26 12:03] LABS: Arterial Blood Carboxyhemoglob 1.4 % (0-1.5); Blood Gas Oxyhemoglobin 79.6 % (94-97); Blood O2 Saturation 81.9 % (92-98.5)
--- OUTSIDE RECORDS SUMMARY | 2020-04-26 12:07 | XMS REPORT | Clinical Summary ---
:1945 Author Organization [facility] Address [address] [place] [address] Care Team Providers Name Role Phone Pcp Primary Care Provider Unavailable Allergies No Known Allergies Medications Medication Sig Dispensed Refills Start Date End Date Status acetaminophen Take 1 tablet 30 tablet 0 04/18/2020 04/28/2020 Active (TYLENOL) 500 MG (500 mg total) tablet by mouth every 6 (six) hours as needed for up to 10 days. amiodarone (PACERONE) Take 1 tablet 30 tablet 0 04/19/2020 Active 200 MG tablet (200 mg total) by mouth daily. atorvastatin (LIPITOR) Take 1 tablet 30 tablet 0 04/18/2020 Active 20 MG tablet (20 mg total) by mouth nightly. levothyroxine Take 1 tablet 30 tablet 0 04/19/2020 05/19/2020 Active (SYNTHROID, (50 mcg total) LEVOTHROID) 50 MCG by mouth Every tablet morning on an empty stomach for 30 days. lisinopriL Take 1 tablet 30 tablet 0 04/19/2020 04/19/2021 Act rosa (PRINIVIL,ZESTRIL) 20 (20 mg total) by MG tablet mouth daily. memantine (NAMENDA) 5 Take 1 tablet (5 30 tablet 0 04/19/2020 04/19/2021 Active MG tablet mg total) by mouth daily. metoprolol tartrate Take 1 tablet 60 tablet 0 04/18/202004/18 Active (LOPRESSOR) 50 MG (50 mg total) by tablet mouth 2 (two) times daily. rivaroxaban (XARELTO) Take 1 tablet 30 tablet 0 04/18/2020 Active 20 mg Tab tablet (20 mg total) by mouth daily with dinner. pantoprazole Take 1 tablet 30 tablet 0 04/18/2020 Ac tive (PROTONIX) 40 MG (40 mg total) by tablet mouth daily. Active Problems Problem Noted Date Acute encephalopathy 04/13/2020 Dementia 04/13/2020 Atrial fibrillation 04/13/2020 Hypertension 04/13/2020 Hyperlipidemia 04/13/2020 Acute respiratory failure 04/13/2020 Dysphagia 04/13/2020 AMS (altered mental status) 04/12/2020 Encounters Date Type Specialty Care Team Description 04/18/2020 Travel 04/12/2020 Anesthesia Event Intensive Care Ellis Knight MD 04/12/2020 - Hospital Encounter Oncology Valeriano, Acute res piratory 04/18/2020 Cheryl Lara MD failure, unspecified Marvel, whether with hy poxia Ashley Orr MD or hypercapnia (HCC) Hoa Meza MD Bershad, Eric Michael, MD 04/12/2020 Travel 02/05/2020 Lab Requisition Lab after 04/26/2019 Social History Tobacco Use Types Packs/Day Years Used Date Never Smoker Smokeless Tobacco: Never Used Sex Assigned at Date Recorded Not on file COVID-19 Exposure Response Date Recorded In the last month, have you been in contact with No / Unsure 04/18/2020 11:40 AM CDT someone who was confirmed or suspected to have Coronavirus / COVID-19? Last Filed Vital Signs Vital Sign Reading Time Taken Comments Blood Pressure 117/62 04/18/2020 12:00 PM CDT Pulse 62 04/18/2020 12:00 PM CDT Temperature 35.7 C (96.2 F) 04/18/2020 12:00 PM CDT Respiratory Rate 18 04/18/2020 12:00 PM CDT Oxygen Saturation 98% 04/18/2020 12:00 PM CDT Inhaled Oxygen Concentration 40% 04/13/2020 1:00 PM CDT Weight 106.5 kg (234 lb 11.2 oz) 04/18/2020 6:00 AM CDT Height 193 cm (6' 4") 04/13/2020 9:32 AM CDT Body Mass Index 28.57 04/13/2020 9:32 AM CDT Plan of Treatment Health Maintenance Due Date Last Done Comments COLON CANCER SCREENING COLONOSCOPY 1945 PNEUMOCOCCAL 65+ YRS (1 of 1 - [id number]) 01/01/2012 Medicare IPPE (WELCOME TO MEDICARE) 10/01/2019 INFLUENZA VACCINE (#1) 2020 Procedures Procedure Name Priority Date/Time Associated Comments Diagnosis CBC W/PLT COUNT & AUTO Routine 04/18/2020 4:51 R esults for this DIFFERENTIAL AM CDT procedure are i n the results section. BASIC METABOLIC PANEL Routine 04/18/2020 4:51 Re sults for this (7) AM CDT procedure are i n the results section. CBC W/PLT COUNT & AUTO Routine 04/18/2020 4:51 R esults for this DIFFERENTIAL AM CDT procedure are i n the results section. FL ESOPHAGUS PHARNYX Routine 04/16/2020 10:41 Res ults for this AND/OR CERVICAL AM CDT procedure ar e in the results section. (CELLAVISION MANUAL Routine 04/15/2020 5:05 Resu lts for this DIFF) AM CDT procedure are i n the results section. CBC W/PLT COUNT & AUTO Routine 04/15/2020 5:05 R esults for this DIFFERENTIAL AM CDT procedure are i n the results section. COMPREHENSIVE Routine 04/15/2020 5:05 Results fo r this METABOLIC PANEL AM CDT procedure ar e in the results section. CBC W/PLT COUNT & AUTO Routine 04/15/2020 5:05 R esults for this DIFFERENTIAL AM CDT procedure are i n the results section. MR CERVICAL SPINE WITH Routine 04/14/2020 8:32 R esults for this & WITHOUT IV CONTRAST PM CDT proced ure are in the results section. MR BRAIN WITH & Routine 04/14/2020 8:30 Results for this WITHOUT IV CONTRAST PM CDT procedur e are in the results section. XR ESOPH SWALLOW Routine 04/14/2020 11:08 Results for this FUNCTION W/CINE VIDEO AM CDT proced ure are in the results section. (CELLAVISION MANUAL Routine 04/14/2020 5:17 Resu lts for this DIFF) AM CDT procedure are i n the results section. CBC W/PLT COUNT & AUTO Routine 04/14/2020 5:17 R esults for this DIFFERENTIAL AM CDT procedure are i n the results section. COMPREHENSIVE Routine 04/14/2020 5:17 Results fo r this METABOLIC PANEL AM CDT procedure ar e in the results section. CBC W/PLT COUNT & AUTO Routine 04/14/2020 5:17 R esults for this DIFFERENTIAL AM CDT procedure are i n the results section. ABORH, MANUAL STAT 04/13/2020 9:52 Results fo r this AM CDT procedure are i n the results section. ACETYLCHOLINE Routine 04/13/2020 9:52 Results fo r this MODULATING ANTIBODY AM CDT procedur e are in the results section. ACETYLCHOLINE BINDING Routine 04/13/2020 9:52 Re sults for this ANTIBODY AM CDT procedure are i n the results section. MISCELLANEOUS LAB Routine 04/13/2020 9:52 ORDER AM CDT ACETYLCHOLINE BLOCKING Routine 04/13/2020 9:50 R esults for this ANTIBODY AM CDT procedure are i n the results section. TYPE AND SCREEN, Routine 04/13/2020 7:57 Results for this AUTOMATED AM CDT procedure are i n the results section. COMPREHENSIVE Routine 04/13/2020 7:57 Results fo r this METABOLIC PANEL AM CDT procedure ar e in the results section. BLOOD GAS, ARTERIAL Routine 04/13/2020 7:56 Resu lts for this AM CDT procedure are i n the results section. CBC W/PLT COUNT & AUTO Routine 04/13/2020 1:20 R esults for this DIFFERENTIAL AM CDT procedure are i n the results section. BASIC METABOLIC PANEL Routine 04/13/2020 1:20 Re sults for this (7) AM CDT procedure are i n the results section. CBC W/PLT COUNT & AUTO Routine 04/13/2020 1:20 R esults for this DIFFERENTIAL AM CDT procedure are i n the results section. BLOOD GAS, ARTERIAL Routine 04/13/2020 1:19 Resu lts for this AM CDT procedure are i n the results section. SARS-COV2/RT-PCR ([facility] Routine 04/12/2020 10:20 R esults for this & REF LABS) PM CDT procedure are i n the results section. CBC W/PLT COUNT & AUTO Routine 04/12/2020 10:15 R esults for this DIFFERENTIAL PM CDT procedure are i n the results section. CBC W/PLT COUNT & AUTO Routine 04/12/2020 10:15 R esults for this DIFFERENTIAL PM CDT procedure are i n the results section. TSH/FREE T4 IF Add-On 04/12/2020 10:00 Results f or this INDICATED PM CDT procedure are i n the results section. FOLATE, RBC Routine 04/12/2020 10:00 Results for this PM CDT procedure are i n the results section. VITAMIN B12 Routine 04/12/2020 10:00 Results for this PM CDT procedure are i n the results section. HEMOGLOBIN A1C Routine 04/12/2020 10:00 Results f or this PM CDT procedure are i n the results section. COMPREHENSIVE Routine 04/12/2020 10:00 Results fo r this METABOLIC PANEL PM CDT procedure ar e in the results section. PROTHROMBIN TIME/INR Routine 04/12/2020 10:00 Res ults for this PM CDT procedure are i n the results section. XR CHEST 1 VIEW STAT 04/12/2020 8:31 Results for this PORTABLE/BEDSIDE PM CDT procedure a re in the results section. POCT-GLUCOSE METER Routine 04/12/2020 7:27 Resul ts for this PM CDT procedure are i n the results section. SARS-COV2/RT-PCR ([facility] Routine 02/05/2020 11:20 R esults for this & REF LABS) AM CDT procedure are i n the results section. after 04/26/2019 Results CBC with platelet count + automated diff (04/18/2020 4:51 AM CDT)Only the most recent of5 resultswithin the time period is included. Pathologist Sig nature WBC 6.5 3.5 - 10.5 [facility] K/L [facility] RBC 3.13 (L) 4.63 - 6.08 [facility] M/L [facility] Hemoglobin 9.9 (L) 13.7 - 17.5 [facility] GM/DL [facility] Hematocrit 29.6 (L) 40.1 - 51.0 % [facility] MCV 94.6 (H) 79.0 - 92.2 fL [facility] MCH 31.6 25.7 - 32.2 pg [facility] MCHC 33.4 32.3 - 36.5 [facility] GM/DL [facility] RDW 15.9 (H) 11.6 - 14.4 % [facility] Platelets 89 (L) 150 - 450 K/CU [facility] MPV 13.7 (H) 9.4 - 12.4 fL [facility] nRBC 0 0 - 0 /100 WBC [facility] % Neutros 58 % [facility] % Lymphs 23 % [facility] % Monos 18 % [facility] % Eos 1 % [facility] % Baso 0 % [facility] # Neutros 3.78 1.78 - 5.38 [facility] # Lymphs 1.48 1.32 - 3.57 [facility] # Monos 1.15 (H) 0.30 - 0.82 [facility] # Eos 0.03 (L) 0.04 - 0.54 [facility] # Baso 0.01 0.01 - 0.08 [facility] Immature 1 0 - 1 % [facility] Specimen Blood Performing Organization Address City/State/Zipcode Phone Number [facility] [address] [place] [address] CENTER Basic Metabolic Panel (04/18/2020 4:51 AM CDT)Only the most recent of2 results within the time period is included. Sodium 139 136 - 145 meq/L [facility] Potassium 4.1 3.5 - 5.1 meq/L [facility] Chloride 101 98 - 107 meq/L [facility] CO2 31 (H) 22 - 29 meq/L [facility] BUN 12 7 - 21 mg/dL [facility] Creatinine 0.82 0.57 - 1.25 [facility] mg/dL [facility] Glucose 93 70 - 105 mg/dL [facility] Calcium 8.7 8.4 - 10.2 [facility] mg/dL [facility] EGFR 92Comment: ESTIMATED mL/min/1.73 sq [facility] GFR IS NOT m [facility] CREATININE CLEARANCE IN PREDICTING GLOMERULAR FILTRATION RATE. ESTIMATED GFR IS NOT APPLICABLE FOR DIALYSIS PATIENTS. Specimen Blood Narrative Performed At [employer] Specialist ID - EDASI [facility] Performing Organization Address City/State/Zipcode Phone Number [facility] [address] [place] [address] CENTER FL esophagus (04/16/2020 10:41 AM CDT) Specimen Narrative Performed At FINAL REPORT GE [facility] Barium esophagogram Clinical History: dysphagia Discussion: Effervescent crystals, thick barium, and thin barium are given to the patient to drink, without difficulties. The esophageal mucosa, caliber, and deena roesophageal junction are normal. Mildly increased tertiary cont ractions is compatible with presbyesophagus. There is severe gastroe sophageal reflux to the level of thoracic inlet. Fluoro time: 0.19 minutes Number of images obtained: 11 Impression: Mild presbyesophagus. Severe gastroesophageal reflux. Signed: Niraj Black MD Report Verified Date/Time: 04/16/2020 16:40:58 Reading Location: [address] Reading Room Procedure Note Interface, External Ris In - 04/16/2020 4:43 PM CDT FINAL REPORT Barium esophagogram Clinical History: dysphagia Discussion: Effervescent crystals, thick barium, and thin barium are given to the patient to drink, without difficulties. The esophageal mucosa, caliber, and deena roesophageal junction are normal. Mildly increased tertiary contr actions is compatible with presbyesophagus. There is severe gastroe sophageal reflux to the level of thoracic inlet. Fluoro time: 0.19 minutes Number of images obtained: 11 Impression: Mild presbyesophagus. Severe gastroesophageal reflux. Signed: Niraj Black MD Report Verified Date/Time: 04/16/2020 1 6:40:58 Reading Location: [facility] B1 [id number] Ortho Con sult Reading Room Performing Organization Address City/[facility] Phone Number [facility] Manual Differential (04/15/2020 5:05 AM CDT)Only the most recent of2 results within the time period is included. Pathologist Sig nature % Neutros 70 % [facility] % Lymphs 7 % [facility] % Monos 21 % [facility] % Atypical Lymphs 2 (H) 0 - 0 % [facility] # Neutros 5.67 (H) 1.78 - 5.38 [facility] # Lymphs 0.57 (L) 1.32 - 3.57 [facility] # Monos 1.70 (H) 0.30 - 0.82 [facility] # Atypical Lymphs 0.16 (H) 0.00 - 0.00 [facility] Total Counted 100 [facility] WBC Morphology Normal [facility] Giant Platelet Present [facility] Large Platelet Present [facility] Hypochromia 2+ moderate [facility] Anisocytosis 1+ few [facility] Poikilocytes 1+ few [facility] Spherocytes 1+ few [facility] Ovalocytes 1+ few [facility] Artifact Present [facility] Platelet Conc Decreased [facility] Specimen Blood Narrative Performed At [employer] Specialist ID - [id number] [facility] [employer] Specialist ID - Sarah Booker User comments: Slide comments: Performing Organization Address City/State/Zipcode Phone Number [facility] [address] [place] [address] [place] Comprehensive metabolic panel (04/15/2020 5:05 AM CDT)Only the most recent of4 resultswithin the time period is included. Protein, Total 6.8 6.0 - 8.3 [facility] gm/dL [facility] Albumin 4.0 3.5 - 5.0 [facility] g/dL [facility] Alkaline 43 40 - 150 U/L [facility] Phosphatase [facility] Total Bilirubin 0.4 0.2 - 1.2 [facility] mg/dL [facility] Sodium 139 136 - 145 [facility] meq/L [facility] Potassium 4.5 3.5 - 5.1 [facility] meq/L [facility] Chloride 102 98 - 107 [facility] meq/L [facility] CO2 31 (H) 22 - 29 meq/L [facility] BUN 17 7 - 21 mg/dL [facility] Creatinine 1.08 0.57 - 1.25 [facility] mg/dL [facility] Glucose 97 70 - 105 [facility] mg/dL [facility] Calcium 9.2 8.4 - 10.2 [facility] mg/dL [facility] AST 13 5 - 34 U/L [facility] ALT 6 6 - 55 U/L [facility] EGFR 67Comment: mL/min/1.73 [facility] ESTIMATED GFR IS sq [facility] CREATININE CLEARANCE IN PREDICTING GLOMERULAR FILTRATION RATE. ESTIMATED GFR IS NOT APPLICABLE FOR DIALYSIS PATIENTS. Specimen Blood Narrative Performed At [employer] DEVIKA Ramires [facility] Performing Organization Address City/State/Zipcode Phone Number [facility] [address] [place] [address] [place] MR cervical spine without & with IV contrast (04/14/2020 8:32 PM CDT) Specimen Narrative Performed At FINAL REPORT [facility] MR, SPINE, CERVICAL, WITH \\T\\ WITHOUT CO NTRAST INDICATION: Neck pain, abnormal neuro ex am TECHNIQUE: Multiplanar, multisequence MRI of the cervical spine with and without intravenous contrast. COMPARISON: None FINDINGS: Alignment: Normal. Vertebral bodies: Vertebral body heights are maintained. There is degenerative endplate marrow signal marvin ge at C6-7 and T1. Incidental T1 and T2 hyperintense intraosseous angeal ngioma at T2. No aggressive marrow signal. Spinal cord: Craniocervical junction is normal. No syrinx. No cord signal abnormality. No abnormal intrathe apryl enhancement. Soft tissues: There is a round periphera lly enhancing cystic lesion within the left dorsal subcutaneous soft tissue at the C3-4 level, measuring 1.3 cm in diameter. Additional findings by level: C2-3: Facet and uncovertebral hypertroph y result in moderate left foraminal stenosis. No significant canal or right foraminal stenosis. C3-4: Disc osteophyte complex indents th e ventral thecal sac. Dorsal CSF is preserved. Facet and uncovertebra l hypertrophy result in severe bilateral foraminal stenosis. C4-5: Small disc osteophyte complex. No high-grade canal or foraminal stenosis. C5-6: Disc osteophyte complex and buckli ng of the ligamentum flavum result in mild canal stenosis. Dorsal CS F is preserved. Facet and uncovertebral hypertrophy result in mild bilateral foraminal stenosis. C6-7: Small disc osteophyte complex inde nts ventral thecal sac. Dorsal CSF is preserved. Facet and uncov ertebral hypertrophy result in moderate left and mild right foramina l stenosis. C7-T1: No high-grade canal or foraminal stenosis. IMPRESSION: 1.Minor degenerative changes of the cerv ical spine, most pronounced at C5-6. 2.Round peripherally enhancing fluid col lection in the left dorsal subcutaneous soft tissues at the C3-4 le cedrick. Please correlate for clinical signs of infection. Signed: Swapna Cornell MD Report Verified Date/Time: 04/15/2020 14:02:28 Procedure Note Interface, External Ris In - 04/15/2020 2:04 PM CDT FINAL REPORT MR, SPINE, CERVICAL, WITH \\T\\ WITHOUT CO NTRAST INDICATION: Neck pain, abnormal neuro ex am TECHNIQUE: Multiplanar, multisequence M RI of the cervical spine with and without intravenous contrast. COMPARISON: None FINDINGS: Alignment: Normal. Vertebral bodies: Vertebral body heights are maintained. There is degenerative endplate marrow signal marvin ge at C6-7 and T1. Incidental T1 and T2 hyperintense intraosseous angela ngioma at T2. No aggressive marrow signal. Spinal cord: Craniocervical junction is normal. No syrinx. No cord signal abnormality. No abnormal intrathe apryl enhancement. Soft tissues: There is a round periphera lly enhancing cystic lesion within the left dorsal subcutaneous soft tissue at the C3-4 level, measuring 1.3 cm in diameter. Additional findings by level: C2-3: Facet and uncovertebral hypertroph y result in moderate left foraminal stenosis. No significant canal or right foraminal stenosis. C3-4: Disc osteophyte complex indents th e ventral thecal sac. Dorsal CSF is preserved. Facet and uncovertebra l hypertrophy result in severe bilateral foraminal stenosis. C4-5: Small disc osteophyte complex. No high-grade canal or foraminal stenosis. C5-6: Disc osteophyte complex and buckli ng of the ligamentum flavum result in mild canal stenosis. Dorsal CS F is preserved. Facet and uncovertebral hypertrophy result in mild bilateral foraminal stenosis. C6-7: Small disc osteophyte complex inde nts ventral thecal sac. Dorsal CSF is preserved. Facet and uncov ertebral hypertrophy result in moderate left and mild right foramina l stenosis. C7-T1: No high-grade canal or foraminal stenosis. IMPRESSION: 1.Minor degenerative changes of the cerv ical spine, most pronounced at C5-6. 2.Round peripherally enhancing fluid col lection in the left dorsal subcutaneous soft tissues at the C3-4 le cedrick. Please correlate for clinical signs of infection. Signed: Swapna Cornell MD Report Verified Date/Time: 04/15/2020 1 4:02:28 Performing Organization Address City/State/Zipcode Phone Number [facility] MR brain without & with IV contrast (04/14/2020 8:30 PM CDT) Specimen Narrative Performed At FINAL REPORT [facility] MRI Brain with and without contrast Clinical History: Unlisted Reason for Ex am dysphagia, r/o brianstem involvement Technique: MRI of the brain utilizing ax ial T1, T2, FLAIR, GRE, DWI, sagittal T1; and postgadolinium axial, s agittal, and coronal T1-weighted images. Comparisons: None Findings: Examination limited by motion artifact o n multiple sequences. There is no evidence of acute infarct or hemorrhage. Few bilateral T2 and FLAIR hyperintense white matter foci likely represent chronic white matter microvascular disease. Ge neralized parenchymal volume loss with commensurate enlargement of CS F spaces and ventricles. Tiny remote bilateral cerebellar hemisphere i nfarctions. No midline shift or mass effect. There is no abnormal i ntracranial enhancing mass. There are no extra-axial fluid collectio ns. The major intracranial flow-voids appear patent. Complete opacification of the left sphen oid sinus. Trace right mastoid air cell effusion. I ntraorbital contents are unremarkable. Marrow edema in the dens, better evaluated on same day MRI of the cervical spine. 1.6 cm nodule in the right parotid gland and completely evaluated on this examina tion. IMPRESSION: Examination limited by motion artifact o n multiple sequences. No evidence of acute infarct, hemorrhage , hydrocephalus, or mass 1.6 cm nodule in the right parotid gland and completely evaluated on this examination. Recommend further eval uation with dedicated parotid gland imaging and possible percutaneous sampling. Signed: Vaibhav Ceron MD Report Verified Date/Time: 04/15/2020 00:59:30 Procedure Note Interface, External Ris In - 04/15/2020 1:01 AM CDT FINAL REPORT MRI Brain with and without contrast Clinical History: Unlisted Reason for Ex am dysphagia, r/o brianstem involvement Technique: MRI of the brain utilizing ax ial T1, T2, FLAIR, GRE, DWI, sagittal T1; and postgadolinium axial, s agittal, and coronal T1-weighted images. Comparisons: None Findings: Examination limited by motion artifact o n multiple sequences. There is no evidence of acute infarct or hemorrhage. Few bilateral T2 and FLAIR hyperintense white matter foci likely represent chronic white matter microvascular disease. Gen eralized parenchymal volume loss with commensurate enlargement of CS F spaces and ventricles. Tiny remote bilateral cerebellar hemisphere i nfarctions. No midline shift or mass effect. There is no abnormal in tracranial enhancing mass. There are no extra-axial fluid collectio ns. The major intracranial flow-voids appear patent. Complete opacification of the left sphen oid sinus. Trace right mastoid air cell effusion. I ntraorbital contents are unremarkable. Marrow edema in the dens, better evaluated on same day MRI of the cervical spine. 1.6 cm nodule in the right parotid gland and completely evaluated on this examina tion. IMPRESSION: Examination limited by motion artifact o n multiple sequences. No evidence of acute infarct, hemorrhage , hydrocephalus, or mass 1.6 cm nodule in the right parotid gland and completely evaluated on this examination. Recommend further eval uation with dedicated parotid gland imaging and possible percutaneous sampling. Signed: Vaibhav Ceron MD Report Verified Date/Time: 04/15/2020 0 0:59:30 Performing Organization Address City/State/Zipcode Phone Number [employer] [place] esoph swallow funct with cine video (04/14/2020 11:08 AM CDT) Specimen Narrative Performed At FINAL REPORT [employer] Modified barium swallow exam with speech pathology service CLINICAL HISTORY: dysphagia IMPRESSION: Please see the speech pathology service report for details. Barium contrast of multiple consistencie s is given to the patient to swallow. Fluoroscopic observation is per formed during swallowing. There is deep penetration with thin liqu ids and nectar. Fluoro time: 2.9 minutes Number of images: 25 Signed: Niraj Black MD Report Verified Date/Time: 04/14/2020 12:52:15 Reading Location: [facility] [id number] [facility] Reading Room Procedure Note Interface, External Ris In - 04/14/2020 12:54 PM CDT FINAL REPORT Modified barium swallow exam with speech pathology service CLINICAL HISTORY: dysphagia IMPRESSION: Please see the speech pathology service report for details. Barium contrast of multiple consistencie s is given to the patient to swallow. Fluoroscopic observation is per formed during swallowing. There is deep penetration with thin liqu ids and nectar. Fluoro time: 2.9 minutes Number of images: 25 Signed: Niraj Black MD Report Verified Date/Time: 04/14/2020 1 2:52:15 Reading Location: [facility] [id number] [facility] Reading Room Performing Organization Address City/State/[facility] Phone Number RONNIE MAYER, manual (04/13/2020 9:52 AM CDT) Pathologist Sig nature ABO Grouping O [facility] [place] Rh Factor POS [facility] Specimen Blood Performing Organization Address City/[facility] Phone Number [address] [address] anti-MuSK antibody (04/13/2020 9:52 AM CDT) Pathologist Sig nature Scan Result [facility] Specimen Blood Narrative Performed At This result has an attachment that is no t available. Performing Organization Address City/[facility] Phone Number [facility] [address] [facility] [place] Acetylcholine modulating antibody (04/13/2020 9:52 AM CDT) Acetylcholine Rec <1 <32% INHIBITION [facility] Mod AB Comment: % Inhibition INCORPORATED This test was developed and its analytical performance characteristics have been determined by [facility] [facility]. It has not been cleared or approved by FDA. This assay has been validated pursuant to the CLIA regulations and is used for clini apryl purposes. Specimen Blood Narrative Performed At Performing Lab [facility] [place] [address] [place] [address] Keyana Shetty MD, PhD, VERA Performing Organization Address City/[facility] Phone Number [place] [address] [address] [facility] Acetylcholine binding antibody (04/13/2020 9:52 AM CDT) Antiacetylcholine Ab <0.30 nmol/L [facility] Comment: INCORPORATED Reference Ranges for Acetylcholine Receptor Binding Antibody: Negative: < or =0.30 nmol/L Equivocal: 0.31-0.49 nmol/L Positive: > or =0.50 nmol/L Specimen Blood Narrative Performed At Performing Lab [facility] [place] [facility] [address] [place] [address] Keyana Shetty MD, PhD, VERA Performing Organization Address [facility] Phone Number [place] [address] [address] [facility] Acetylcholine blocking antibody (04/13/2020 9:50 AM CDT) Pathologist [facility] Acetylcholine Rec Bloc <15 <15 % Inhibition [facility] Specimen Blood Narrative Performed At Performing Lab [facility] EZ [employer] te [address] [place] [address] Keyana Shetty MD, PhD, VERA Performing Organization Address [facility] Phone Number [place] [address] INCORPORATED [address] [facility] Type and screen, automated (04/13/2020 7:57 AM CDT) Pathologist Sig nature ABO/RH AUTOMATED O [facility] Ab Scrn [facility]GATIVE [facility] Specimen Blood Performing Organization Address [facility] Phone Number [facility] [address] [place] [address] Blood gas, arterial (04/13/2020 7:56 AM CDT)Only the most recent of2 results within the time period is included. Pathologist Sig nature pH, Arterial 7.45 7.35 - 7.45 [facility] pCO2, Arterial 38 35 - 45 mm Hg [facility] pO2, Arterial 156 (H) 80 - 90 mm Hg [facility] O2 Sat, Arterial 99.2 (H) 96.0 - 97.0 % [facility] HCO3, Arterial 26 21 - 29 mmol/L [facility] Base Excess, Arterial 1.5 -2.0 - 3.0 [facility] mmol/L [facility] Patient Temperature 34.5 [facility] FIO2 40.0 [facility] Specimen Blood, Arterial Performing Organization Address City/State/Zipcode Phone Number [facility] [address] [place] [address] CENTER SARS-CoV2/RT-PCR (Asymptomatic ONLY) (04/12/2020 10:20 PM CDT)Only the most recent of2 resultswithin the time period is included. SARS-COV2/RT-PCR Negative Not Detected, [facility] Negative, See [facility] external report CENTER for linked test SARS-COV-2 [facility] PERFORMING LAB [facility] Specimen Other - Nasopharyngeal wall structure (b abdelrahman structure) Narrative Performed At Negative result for this test determines that [facility] SARS-CoV-2 RNA was not present in the specimen above the Limit of Detection (LOD). However, Negative results do not preclude SARS-CoV-2 infection and should not be used as the sole basis for treatment or patient management decisions. Negative results must be combined with clinical observations, patient history, and epidemiological information. A false negative result may occur if a specimen is improperly collected, transported or handled. A false negative result should be considered if patient's recent exposures or clinical presentation indicate that COVID-19 (SARS-CoV-2) is likely and diagnostic tests for other causes of illness are negative. Re-testing should be considered in cases of suspected false negatives. The limit of detection for this assay is 800 copies/mL. This SARS CoV-2 test is a real-time RT-PCR test intended for the qualitative detection of nucleic acid from SARS-CoV-2 in a nasopharyngeal swab specimen collected from individuals suspected of COVID-19 by their healthcare provider. This test has not been Food and Drug Administration (FDA) cleared or approved. This is a modified version of an approved Emergency Use Authorization (EUA) and is in the process of review by the FDA. Once authorized by the FDA, the issued EUA will be effective until the declaration that circumstances exist justifying the authorization of the emergency use of in vitro diagnostic tests for detection and/or diagnosis of COVID-19 is terminated under Section 564(b)(2) of the Act or the EUA is revoked under Section 564(g) of the Act. Fact Sheet for Healthcare Providers: https://www.[employer]/sites/default/files/pro duct/documents/Fact_Sheet_HC_Providers_Lyra_SA RS-CoV-2.pdf Fact Sheet for Healthcare Patients: https://www.[employer]/sites/default/files/pro duct/documents/Fact_Sheet_Patients_Lyra_SARS-C oV-2.pdf Performing Laboratory: [address] [place] [address] Performing Organization Address City/[facility]/[place] [address] CENTER TSH/Free T4 If Indicated (04/12/2020 10:00 PM CDT) Pathologist Sig nature TSH 3.118 0.350 - 4.940 uIU/mL [facility] Specimen Blood Narrative Performed At [facility] [employer] [facility] DEVIKA - SH[address]KA [facility] CENTER Performing Organization Address [facility]/Zipcode Phone Number [address] [address] CENTER Prothrombin time/INR (04/12/2020 10:00 PM CDT) Pathologist Sig nature Protime 19.9 (H) 11.9 - 14.2 seconds [facility] INR 1.74 <=5.90 [facility] Specimen Blood Narrative Performed At Effective 11/27/2018: PT Reference Range [facility] Change New: 11.9-14.2 Previous: 11.7-14.7 RECOMMENDED COUMADIN/WARFARIN INR THERAPY RANGES STANDARD DOSE: 2.0-3.0 Includes: PROPHYLAXIS for venous thrombosis, systemic embolization; TREATMENT for venous thrombosis and/or pulmonary embolus. HIGH RISK: Target INR is 2.5-3.5 for patients wiht mechanical heart valves. Performing Organization Address City/State/Zipcode Phone Number [address] [address] CENTER Hemoglobin A1c (04/12/2020 10:00 PM CDT) Pathologist Sig [facility] Hemoglobin A1C 4.9 4.3 - 6.1 % [facility] Specimen Blood Performing Organization Address [facility] Phone Number [address] [address] [place] Folate, RBC (04/12/2020 10:00 PM CDT) Pathologist Sig [facility] Folate, Rbc 920 >280 ng/mL RBC [facility] Specimen Blood Narrative Performed At Performing Lab [facility] E[facility] te [address] [place] [address] Keyana Shetty MD, PhD, VERA Performing Organization Address [facility] Phone Number [place] [address] [facility] Vitamin B12 (04/12/2020 10:00 PM CDT) Pathologist Sig [facility] Vitamin B12 566 213 - 816 pg/mL [facility] Specimen Blood Narrative Performed At [facility] [facility] ID - [facility]KA [facility] Performing Organization Address City/State/Zipcode Phone Number [address] [address] CENTER XR chest 1 view portable / bedside (04/12/2020 8:31 PM CDT) Specimen Narrative Performed At FINAL REPORT GE RIS RAD, CHEST, 1 VIEW, NON DEPT INDICATION: ETT placement COMPARISON: None FINDINGS: Portable frontal view of the c hest. IMPRESSION: Support Lines: The endotracheal tube is 6.6 cm cephalad to the mihai. Enteric tube terminates near the gastroesophageal junction. Recommend further advancement for placem ent into the stomach. Lungs and pleura: There are right greate r than left bibasilar streaky opacities suggestive of atelectasis or s car. A small right pleural effusion is present. No lobar consolidat ion. No pneumothorax. Heart and mediastinum: Cardiomediastinal silhouette size is magnified by technique. Additional findings: None. Signed: Srini Yee MD Report Verified Date/Time: 04/12/2020 20:40:41 Procedure Note Interface, External Ris In - 04/12/2020 8:42 PM CDT FINAL REPORT RAD, CHEST, 1 VIEW, NON DEPT INDICATION: ETT placement COMPARISON: None FINDINGS: Portable frontal view of the c hest. IMPRESSION: Support Lines: The endotracheal tube is 6.6 cm cephalad to the mihai. Enteric tube terminates near the gastroesophageal junction. Recommend further advancement for placem ent into the stomach. Lungs and pleura: There are right greate r than left bibasilar streaky opacities suggestive of atelectasis or s car. A small right pleural effusion is present. No lobar consolidat ion. No pneumothorax. Heart and mediastinum: Cardiomediastinal silhouette size is magnified by technique. Additional findings: None. Signed: Srini Yee MD Report Verified Date/Time: 04/12/2020 2 0:40:41 Performing Organization Address City/State/Zipcode Phone Number [facility] POC-Glucose meter (04/12/2020 7:27 PM CDT) [facility] Signature POC-Glucose Meter 101 70 - 110 mg/dL [facility] Comment: [facility] : TESTED AT [address], [address] CENTER : [employer] Specialist/Manager Zone ID = [id number] for Stephanie [facility]due [facility] Specimen Blood Performing Organization Address [facility]/Zipcode Phone Number [address] [address] CENTER after 04/26/2019 Insurance Payer Benefit Plan / Subscriber ID Effective Dates Phone Addre ss Type Group [facility] AARP/MEDICARE [id number] 2019-Presen - MEDICARE MGD COMPLETE t CARE CDC REVIEW CDC REVIEW [id number] 2020-[place] [place] [address] Advance Directives For more information, please contact: [phone] Code Status Date Activated Date Inactivated Comments Full Code 04/12/2020 8:20 PM 04/18/2020 5:24 PM This code status was determined by: Patient
[2020-04-26] MEDS ORDERED: NOREPINEPHRINE 4mg/D5W 250mL 4 MG/250 ML BAG IV ONE ×3 (12:08→16:13)
--- OUTSIDE RECORDS SUMMARY | 2020-04-26 12:09 | XMS REPORT | Continuity of Care Document ---
:1945 Author Organization [facility] t Address [address] [place] [address] Care Team Providers Name Role Phone Pcp Primary Care Physician Unavailable Marco BAL Attending Clinician Unavailable Valeriano REYES I. Attending Clinician Dominga Grier MD Attending Clinician Juana Meza MD Attending Clinician Trav Thomas MD Attending Clinician Antonia REYES Attending Clinician Marco BAL Admitting Clinician Unavailable Payers Payer Name Policy Type Policy Effective Date Expiration Date Sour ce Number [facility] [id number] [facility] - MEDICARE MGD 00:00:00 - Medical CAREAARP/MEDICARE Center [id number] 2019-Present CDC REVIEWCDC [id number] [facility] [facility] s [id number] 00:00:00 - Medic al 06/2020[place] [address] Problems Condition Condition Condition Status Onset Resolution Last Treating Co mments Source Name Details Category Date Date Treatment Clinician Date Acute Acute Disease Active 2019-[address] [facility] encephalop encephalop 0-13 Margot kes - athy athy 00:00: Medical 00 [place] Dementia Dementia Disease Active 2019[facility] - [facility]: Medical 00 [place] Atrial Atrial Disease Active 2019-[address] [facility] fibrillati fibrillati 0-13 Margot kes - on on 00:00: Medical 00 [place] Hypertensi Hypertensi Disease Active 2019-[address] [facility] on 0-13 [facility] - 00:00: Medical 00 [place] Hyperlipid Hyperlipid Disease Active 2019-[address] emia emia 0-13 [facility] - 00:00: Medical 00 [place] Acute Acute Disease Active 2019-[address] [facility] respirator respirator 0-13 Margot kes - y failure y failure 00:00: Medi apryl 00 Center Dysphagia Dysphagia Disease Active 2019-[address] [facility] [address] 0-13 [facility] - 00:00: Medical 00 [place] AMS AMS Disease Active 2019-[address] [facility] (altered (altered 0-12 [facility] - mental mental 00:00: Medical status) status) 00 Center Allergies, Adverse Reactions, Alerts This patient has no known allergies or adverse reactions. Social History Social Habit Start Date Stop Date Quantity Comments Source Sex Assigned At [facility] Exposure to Not sure [facility] - SARS-CoV-2 (event) [facility] Tobacco use and 2020-04-13 2020-04-[address] [facility] - exposure 00:00:00 00:00:00 [facility] Smoking Status Start Date Stop Date Source Never smoker [facility] - M edical [place] Medications Ordered Filled Start Stop Current Ordering Indication Dosage Frequency Signature Comments Components Source Medication Medication Date Date Medication? Clinician (SIG) Name Name amiodarone 2019-07- Yes 200mg QD Take [address] [facility] [address] (PACERONE) 0-19 -19 tablet [facility] - 200 MG 00:00: 23:59 (200 mg Medical tablet 00 :00 total) by Center mouth daily. lisinopriL 2019-07- Yes 20mg QD Take [address] [facility] (PRINIVIL,Z 0-19 -19 tablet (20 L ukes - ESTRIL) 20 00:00: 23:59 mg total) M edical MG tablet 00 :00 by mouth Center daily. memantine 2019-07- Yes 5mg QD Take 1 [facility] (NAMENDA) 5 0-19 10-19 tablet (5 Margot kes - MG tablet 00:00: 23:59 mg total) Me dical 00 :00 by mouth Center daily. levothyroxi 2019-07- Yes 50ug Take [address] [facility] ne 0-19 11-18 tablet (50 [facility] - (SYNTHROID, 00:00: 23:59 mcg total) Medical LEVOTHROID) 00 :00 by mouth Cent er 50 MCG Every tablet morning on an empty stomach for 30 days. rivaroxaban 2019-07 Yes 20mg Take [address] [facility] (XARELTO) 0-18 tablet (20 Luke s - 20 mg Tab 00:00: mg total) Med ical tablet 00 by mouth Center daily with dinner. pantoprazol 2019-07 Yes 40mg QD Take [address] [facility] e 0-18 tablet (40 [facility] - (PROTONIX) 00:00: mg total) Me dical 40 MG 00 by mouth Center tablet daily. atorvastati 2019-07- Yes 20mg QD Take [address] [facility] n (LIPITOR) 0-18 10-18 tablet (20 L ukes - 20 MG 00:00: 23:59 mg total) Medica l tablet 00 :00 by mouth Center nightly. metoprolol 2019-07- Yes 50mg Q.5D Take [address] tartrate 0-18 10-18 tablet (50 Luke s - (LOPRESSOR) 00:00: 23:59 mg total) Medical 50 MG 00 :00 by mouth 2 Center tablet (two) times daily. acetaminoph 2019-07- Yes 500mg Take [address] en 0-18 - tablet [facility] - (TYLENOL) 00:00: 23:59 (500 mg Medi apryl 500 MG 00 :00 total) by Center tablet mouth every 6 (six) hours as needed for up to 10 days. Vital Signs Vital Name Observation Time Observation Value Comments Source Systolic blood 2020-04-18 12:00:00 117 mm[Hg] [facility] pressure [facility] Diastolic blood 2020-04-18 12:00:00 62 mm[Hg] [facility] S t [facility] pressure [facility] Center Heart rate 2020-04-18 12:00:00 62 /min [facility] Body temperature 2020-04-18 12:00:00 35.67 Aminta [facility] Respiratory rate 2020-04-18 12:00:00 18 /min [facility] Oxygen saturation in 2020-04-18 12:00:00 98 /min [facility] Arterial blood by Medical Ce nter Pulse oximetry Body weight 2020-04-18 06:00:00 106.459 kg [facility] BMI 2020-04-18 06:00:00 28.57 kg/m2 [facility] Body height 2020-04-13 09:32:00 193 cm [facility] Procedures Procedure Date / Time Performed Performing Clinician [facility] e BASIC METABOLIC PANEL (7) 2020-04-18 04:51:00 Hoa Meza [facility] CBC W/PLT COUNT & AUTO 2020-04-18 04:51:00 Hoa Meza [facility] [place] ESOPHAGUS PHARNYX 2020-04-16 10:41:00 Marvel, Mrinalini [facility] - AND/OR CERVICAL [facility] COMPREHENSIVE METABOLIC 2020-04-15 05:05:00 [facility] CBC W/PLT COUNT & AUTO 2020-04-15 05:05:00 [facility] (CELLAVISION MANUAL DIFF) 2020-04-15 05:05:00 [facility] MR CERVICAL SPINE WITH & 2020-04-14 20:32:00 Michael Escudero [facility] - WITHOUT IV CONTRAST [facility] er MR BRAIN WITH & WITHOUT 2020-04-14 20:30:00 Abdelrahman Jimenez [facility] IV CONTRAST [facility] XR ESOPH SWALLOW FUNCTION 2020-04-14 11:08:00 Abdelrahman Jimenez [facility] - W/[facility] COMPREHENSIVE METABOLIC 2020-04-14 05:17:00 [facility] CBC W/PLT COUNT & AUTO 2020-04-14 05:17:00 [facility] (CELLAVISION MANUAL DIFF) 2020-04-14 05:17:00 [facility] ACETYLCHOLINE BINDING 2020-04-13 09:52:00 Michael Escudero CH I [facility] ACETYLCHOLINE MODULATING 2020-04-13 09:52:00 Michael Escudero [facility] ABORH, MANUAL 2020-04-13 09:52:00 Iliana Johnson [facility] ACETYLCHOLINE BLOCKING 2020-04-13 09:50:00 Michael Escudero [facility] COMPREHENSIVE METABOLIC 2020-04-13 07:57:00 [facility] TYPE AND SCREEN, 2020-04-13 07:57:00 Abdelrahman Jimenez [facility] BLOOD GAS, ARTERIAL 2020-04-13 07:56:00 Virginie Martin [facility] BASIC METABOLIC PANEL (7) 2020-04-13 01:20:00 [facility] CBC W/PLT COUNT & AUTO 2020-04-13 01:20:00 [facility] BLOOD GAS, ARTERIAL 2020-04-13 01:19:00 [facility] SARS-COV2/RT-PCR ([facility] & 2020-04-12 22:20:00 Wilder [facility] - REF LABS) [facility] CBC W/PLT COUNT & AUTO 2020-04-12 22:15:00 [facility] PROTHROMBIN TIME/INR 2020-04-12 22:00:00 Wilder [facility] COMPREHENSIVE METABOLIC 2020-04-12 22:00:00 [facility] HEMOGLOBIN A1C 2020-04-12 22:00:00 [facility] VITAMIN B12 2020-04-12 22:00:00 [facility] FOLATE, RBC 2020-04-12 22:00:00 [facility] TSH/FREE T4 IF INDICATED 2020-04-12 22:00:00 Abdelrahman Jimenez [facility] XR CHEST 1 VIEW 2020-04-12 20:31:00 [facility] PORTABLE/BEDSIDE [facility] POCT-GLUCOSE METER 2020-04-12 19:27:00 Cheryl Bal [facility] Darinel [facility] SARS-COV2/RT-PCR ([facility] & 2020-02-05 11:20:00 [facility] - REF LABS) [facility] Plan of Care Planned Activity Planned Date Details Comments Source Future Scheduled 2020-03-02 INFLUENZA VACCINE (#1) [facility] Test 00:00:00 [code = INFLUENZA Medical Ce nter VACCINE (#1)] Future Scheduled 2019-10-01 Medicare IPPE (WELCOME [facility] - Test 00:00:00 TO MEDICARE) [code = [facility] Center Medicare IPPE (WELCOME TO MEDICARE)] Future Scheduled 2012-01-01 PNEUMOCOCCAL 65+ [facility] - Test 00:00:00 (1 of 1 - [facility] Center [id number] PCV13) [code = PNEUMOCOCCAL 65+ YRS (1 of 1 - [id number] PCV13)] Future Scheduled 1945 Screening for [facility] [place] - Test 00:00:00 malignant neoplasm of Medica l Center colon (procedure) [code = 596796662] Results Test Description Test Time Test Comments Results Result Comments Source MISCELLANEOUS LAB ORDER 2020-04-22 08:08:00 Test Item Value Reference Range Interpretation Comme nts SCAN RESULT (test code = 5143395) anti-MuSK [id number] 08:08:00Scan ResultQUEST NON-INTERFACED LABJerold Phelps [facility] HospitalCB with platelet count + automated [id number] 07:11:00 Test Item Value Reference Range Interpretation Comments WBC (test code = 6690-2) 6.5 3.5- 10.5 K/L RBC (test code = 789-8) 3.13 4.63- 6.08 M/L L MCHC (test code = 786-4) 33.4 32.3- 36.5 GM/DL L Hematocrit (test code = 4544-3) 29.6 % 40.1-51 L MCV (test code = 787-2) 94.6 fL 79-92.2 H MCH (test code = 785-6) 31.6 pg 25.7-32.2 RDW (test code = 788-0) 15.9 % 11.6-14.4 H Platelets (test code = 777-3) 89 150- 450 K/CU MM L MPV (test code = 27786-6) 13.7 fL 9.4-12.4 H nRBC (test code = 413) 0 0- 0 /100 WBC % Neutros (test code = 429) 58 % % Lymphs (test code = 430) 23 % % Monos (test code = 431) 18 % % Eos (test code = 432) 1 % % Baso (test code = 437) 0 % # Neutros (test code = 670) 3.78 1.78- 5.38 K/L # Lymphs (test code = 414) 1.48 1.32- 3.57 K/L # Monos (test code = 415) 1.15 0.30- 0.82 K/L H # Eos (test code = 416) 0.03 0.04- 0.54 K/L L # Baso (test code = 417) 0.01 0.01- 0.08 K/L Immature Granulocytes-Relative 1 % 0-1 (test code = 2801) Lab Interpretation (test code = Abnormal 21916-2) [facility] W/PLT COUNT & AUTO [id number] 07:11:00 Test Item Value Reference Range Interpretation Comments WHITE BLOOD CELL COUNT (BEAKER) 6.5 K/ L 3.5-10.5 (test code = 775) RED BLOOD CELL COUNT (BEAKER) 3.13 M/ L 4.63-6.08 L (test code = 761) HEMOGLOBIN (BEAKER) (test code = 9.9 GM/DL 13.7-17.5 L 410) HEMATOCRIT (BEAKER) (test code = 29.6 % 40.1-51.0 L 411) MEAN CORPUSCULAR VOLUME (BEAKER) 94.6 fL 79.0-92.2 H (test code = 753) MEAN CORPUSCULAR HEMOGLOBIN 31.6 pg 25.7-32.2 (BEAKER) (test code = 751) MEAN CORPUSCULAR HEMOGLOBIN CONC 33.4 GM/DL 32.3-36.5 (BEAKER) (test code = 752) RED CELL DISTRIBUTION WIDTH 15.9 % 11.6-14.4 H (BEAKER) (test code = 412) PLATELET COUNT (BEAKER) (test code 89 K/CU MM 150-450 L = 756) MEAN PLATELET VOLUME (BEAKER) 13.7 fL 9.4-12.4 H (test code = 754) NUCLEATED RED BLOOD CELLS (BEAKER) 0 /100 WBC 0-0 (test code = 413) NEUTROPHILS RELATIVE PERCENT 58 % (BEAKER) (test code = 429) LYMPHOCYTES RELATIVE PERCENT 23 % (BEAKER) (test code = 430) MONOCYTES RELATIVE PERCENT 18 % (BEAKER) (test code = 431) EOSINOPHILS RELATIVE PERCENT 1 % (BEAKER) (test code = 432) BASOPHILS RELATIVE PERCENT 0 % (BEAKER) (test code = 437) NEUTROPHILS ABSOLUTE COUNT 3.78 K/ L 1.78-5.38 (BEAKER) (test code = 670) LYMPHOCYTES ABSOLUTE COUNT 1.48 K/ L 1.32-3.57 (BEAKER) (test code = 414) MONOCYTES ABSOLUTE COUNT (BEAKER) 1.15 K/ L 0.30-0.82 H (test code = 415) EOSINOPHILS ABSOLUTE COUNT 0.03 K/ L 0.04-0.54 L (BEAKER) (test code = 416) BASOPHILS ABSOLUTE COUNT (BEAKER) 0.01 K/ L 0.01-0.08 (test code = 417) IMMATURE GRANULOCYTES-RELATIVE 1 % 0-1 PERCENT (BEAKER) (test code = 2801) Basic Metabolic [id number] 05:53:00 Test Item Value Reference Range Interpretation Comments Sodium (test code = 139 meq/L 850-389 6871-2) Potassium (test code = 4.1 meq/L 3.5-5.1 2823-3) Chloride (test code = 101 meq/L 98-107 2075-0) CO2 (test code = 31 meq/L 22-29 H 8-9) BUN (test code = 12 mg/dL 7-21 3094-0) Creatinine (test code 0.82 mg/dL 0.57-1.25 = 2160-0) Glucose (test code = 93 mg/dL 70-105 2345-7) Calcium (test code = 8.7 mg/dL 8.4-10.2 03541-3) EGFR (test code = 92 mL/min/1.73 [place] [address]-4) NOT ACCURATE CREATININE CLEARANCE IN PREDICTING GLOMERULAR FILTRATION RATE . ESTIMATED GFR I S NOT APPLICABLE FOR DIALYSIS PATIENTS. NINFA (test code = NINFA) Eye Surgeon ID - [id number] Lab Interpretation Abnormal (test code = 52439-6) [facility] [id number] 05:53:00 Test Item Value Reference Range Interpretation Comments SODIUM (BEAKER) 139 meq/L 136-145 (test code = 381) POTASSIUM (BEAKER) 4.1 meq/L 3.5-5.1 (test code = 379) CHLORIDE (BEAKER) 101 meq/L 98-107 (test code = 382) CO2 (BEAKER) (test 31 meq/L 22-29 H code = 355) BLOOD UREA NITROGEN 12 mg/dL 7-21 (BEAKER) (test code = 354) CREATININE (BEAKER) 0.82 mg/dL 0.57-1.25 (test code = 358) GLUCOSE RANDOM 93 mg/dL 70-105 (BEAKER) (test code = 652) CALCIUM (BEAKER) 8.7 mg/dL 8.4-10.2 (test code = 697) EGFR (BEAKER) (test 92 mL/min/1.73 ESTIMA SHASHI GFR IS code = 1092) sq m NOT ACCURATE CREATININE CLEARANCE IN PREDICTING GLOMERULAR FILTRATION RATE . ESTIMATED GFR I S NOT APPLICABLE FOR DIALYSIS PATIEN TS. Eye Surgeon ID - EDASIAcetylcholine modulating [id number] 15:35:00 Test Item Value Reference Range Interpretation Comments Acetylcholine Rec <1 <32% INHIBITION This t est was Mod AB (test code % Inhibition developed and its = 1590227) analytical performance characteristics havebeen determ ined by [facility] [facility] .It has not been cl eared or approved by FDA. This assay has been validatedpursua nt to the CLIA regula tions and is used for clinical purpos es. NINFA (test code = Performing Lab NINFA) EZ [employer] [facility] [address] [place] [address] I Diogenes REYES, PhD, VERA [facility] HospitalAcetylcholine binding [id number] 14:59:00 Test Item Value Reference Interpretation Comments Range Antiacetylcholine Ab <0.30 nmol/L Refere nce Ranges (test code = 4091313) for Ac etylcholine Receptor Barbara ng Antibody: Negative: < or =0.30 nmol/LEquivocal : 0.31-0.49 nmol/ L Positive: > or =0.50 nmol/L NINFA (test code = NINFA) Performing Lab EZ [facility] [address] [place] [address] Keyana Shetty MD, PhD, VERA [facility] HospitalFL, [id number] 16:40:00Reason for exam:->dysphagia [facility] : 1945 Sex: MFINAL REPORT Barium esophagogram Clinical History: dysphagia Discussion: Effervescent crystals, thick barium, and thin barium are given to the patient to drink, without difficulties. The esophageal mucosa, caliber, and gastroesophageal junction are normal. Mildly increased tertiary contractions is compatible with presbyesophagus. There is severe gastroesophageal refluxto the level of thoracic inlet. Fluoro time: 0.19 minutes Number of images obtained: 11 Impression:Mild presbyesophagus. Severe gastroesophageal reflux. Signed: Niraj Blackort Verified Date/Time:04/16/2020 16:40:58 Reading Location: [facility] C013X [facility] Consult Reading Room [place] [id number] 16:40:00Interface, External Ris In - 04/16/2020 4:43 PM CDTFINAL REPORT Barium esophagogram Clinical History: dysphagia Discussion: Effervescent crystals, thick barium, and thin bariumare given to the patient to drink, without difficulties. The esophageal mucosa, caliber, and gastroesophageal junction are normal. Mildly increased tertiary contractions is compatible with presbyesopha leticia. There is severe gastroesophageal reflux to the level of thoracic inlet. Fluoro time: 0.19 minutes Number of images obtained: 11 Impression: Mild presbyesophagus. Severe gastroesophageal reflux. Signed: Niraj Blackeport Verified Date/Time: 04/16/2020 16:40:58 Reading Location: [facility] C013X Ortho Consult Reading Room [facility], [id number] 08:12:00 Test Item Value Reference Range Interpretation Comments Folate, Rbc (test 920 >280 ng/mL RBC code = 4994255) NINFA (test code = Performing Lab EZ NINFA) [facility] [address] [place] [address] Keyana Shetty MD, PhD, VERA [facility] HospitalAcetylcholine blocking [id number] 18:48:00 Test Item Value Reference Range Interpretation Comments Acetylcholine Rec Bloc <15 <15 % Inhibition Ab (test code = 0901434) NINFA (test code = NINFA) Performing Lab EZ [facility] [address] [place] [address] Keyana Shetty MD, PhD, VERA [facility] HospitalMR, SPINE, CERVICAL, [id number] 14:02:00 Unlisted Reason for Exam - Click Yes and Enter Reason Below->NoDeos the patient have an implantedelectronic device?->No [facility] : 1945 Sex: MFINAL REPORT MR, SPINE, CERVICAL, WITH \T\ WITHOUT CONTRAST INDICATION: Neck pain, abnormal neuro exam TECHNIQUE: Multiplanar, multisequence MRI of the cervical spine with and without intravenous contrast. COMPARISON: None FINDINGS: Alignment: Normal. Vertebral bodies: Vertebral body heights are maintained. There is degenerative endplate marrow signal change at C6-7 and T1. Incidental T1 and T2 hyperintense intraosseous hemangioma at T2. No aggressive marrow signal. Spinal cord: Craniocervical junction is normal. No syrinx. No cord signal abnormality. No abnormal intrathecal enhancement. Soft tissues: There is a round peripherally enhancing cystic lesion within the left dorsal subcutaneous soft tissue at the C3-4 level, measuring 1.3 cm in diameter. Additional findings by level: C2-3: Facet and uncovertebral hypertrophy result in moderate left foraminal stenosis.No significant canal or right foraminal stenosis. C3-4: Disc osteophyte complex indents the ventral thecal sac. Dorsal CSF is preserved. Facet and uncovertebral hypertrophy result in severe bilateral foraminal stenosis. C4-5: Small disc osteophyte complex. No high-grade canal or foraminal stenosis. C5-6: Disc osteophyte complex and buckling of the ligamentum flavum result in mild canal stenosis. Dorsal CSF is preserved. Facet and uncovertebral hypertrophy result in mild bilateral foraminal stenosis.C6-7: Small disc osteophyte complex indents ventral thecal sac. Dorsal CSF is preserved. Facet and uncovertebral hypertrophy result in moderate left and mild right foraminal stenosis. C7-T1: No high-grade canal or foraminal stenosis. IMPRESSION:1.Minor degenerative changes of the cervical spine, mostpronounced at C5-6.2.Round peripherally enhancing fluid collection in the left dorsal subcutaneous soft tissues at the C3-4 level. Please correlate for clinical signs of infection. Signed: Swapna Cornell MDReport Verified Date/Time: 04/15/2020 14:02:28 MR cervical spine without & with IV [id number] 14:02:00 Interface, External Ris In - 04/15/2020 2:04 PM CDTFINAL REPORT MR, SPINE, CERVICAL, WITH \T\ WITHOUT CONTRAST INDICATION: Neck pain, abnormal neuro exam TECHNIQUE: Multiplanar, multisequence MRI of the cervical spine with and without intravenous contrast. COMPARISON: None FINDINGS: Alignment: Normal. Vertebral bodies: Vertebral body heights are maintained. There is degenerative endplate marrow signal change at C6-7 and T1. Incidental T1 and T2 hyperintense intraosseous hemangioma at T2. No aggressive marrow signal. Spinal cord: Craniocervical junction is normal. No syrinx. No cord signal abnormality. No abnormal intrathecal enhancement. Soft tissues: There is a round peripherally enhancing cystic lesion within the left dorsal subcutaneous soft tissue at the C3-4 level, measuring 1.3 cm in diameter. Additional findings by level: C2-3: Facet and uncovertebral hypertrophy result in moderate left foraminal stenosis. No significant canal or right foraminal stenosis. C3-4: Disc osteophyte complex indents the ventral thecal sac. Dorsal CSF is preserved. Facet and uncovertebral hypertrophy result in severe bilateral foraminal stenosis. C4-5: Small disc osteophyte complex. No high-grade canal or foraminal stenosis. C5-6: Disc osteophyte complex and buckling of the ligamentum flavum result in mild canal stenosis. Dorsal CSF is preserved. Facet and uncovertebral hypertrophyresult in mild bilateral foraminal stenosis. C6-7: Small disc osteophyte complex indents ventral thecal sac. Dorsal CSF is preserved. Facet and uncovertebral hypertrophy result in moderate left and mild right foraminal stenosis. C7-T1: No high-grade canal or foraminal stenosis. IMPRESSION:1.Minor degenerative changes of the cervical spine, most pronounced at C5-6.2.Round peripherally enhancing fluidcollection in the left dorsal subcutaneous soft tissues at the C3-4 level. Please correlate for clinical signs of infection. Signed: Swapna Cornell Verified Date/Time: 04/15/2020 14:02:28 El ectronically signed by: SWAPNA CORNELL MD on 04/15/2020 02:02 [facility] HospitalManual [id number] 10:28:00 Test Item Value Reference Range Interpretation Comments % Neutros (test code = 70 % 2816) % Lymphs (test code = 7 % 2817) % Monos (test code = 21 % 2818) % Atypical Lymphs (test 2 % 0-0 H code = 2829) # Neutros (test code = 5.67 K/ul 1.78-5.38 H 2830) # Lymphs (test code = 0.57 K/ul 1.32-3.57 L 2831) # Monos (test code = 1.70 K/uL 0.3-0.82 H 2832) # Atypical Lymphs (test 0.16 K/uL 0-0 H code = 2858) Total Counted (test 100 code = 1351) WBC Morphology (test Normal code = 487) Giant Platelet (test Present code = 313) Large Platelet (test Present code = 2156) Hypochromia (test code 2+ moderate = 963) Anisocytosis (test code 1+ few = 961) Poikilocytes (test code 1+ few = 966) Spherocytes (test code 1+ few = 768) Ovalocytes (test code = 1+ few 477) Artifact (test code = Present 3432) Platelet Conc (test Decreased code = 3438) NINFA (test code = NINFA) Eye Surgeon ID - [id number] ID - Sarah Yaa comments: Slide comments: Lab Interpretation Abnormal (test code = 99375-9) [facility] W/PLT COUNT & AUTO [id number] 10:28:00 Test Item Value Reference Range Interpretation Comments WHITE BLOOD CELL COUNT (BEAKER) 8.1 K/ L 3.5-10.5 (test code = 775) RED BLOOD CELL COUNT (BEAKER) 3.06 M/ L 4.63-6.08 L (test code = 761) HEMOGLOBIN (BEAKER) (test code = 9.6 GM/DL 13.7-17.5 L 410) HEMATOCRIT (BEAKER) (test code = 30.1 % 40.1-51.0 L 411) MEAN CORPUSCULAR VOLUME (BEAKER) 98.4 fL 79.0-92.2 H (test code = 753) MEAN CORPUSCULAR HEMOGLOBIN 31.4 pg 25.7-32.2 (BEAKER) (test code = 751) MEAN CORPUSCULAR HEMOGLOBIN CONC 31.9 GM/DL 32.3-36.5 L (BEAKER) (test code = 752) RED CELL DISTRIBUTION WIDTH 16.3 % 11.6-14.4 H (BEAKER) (test code = 412) PLATELET COUNT (BEAKER) (test code 95 K/CU MM 150-450 L = 756) MEAN PLATELET VOLUME (BEAKER) 13.5 fL 9.4-12.4 H (test code = 754) NUCLEATED RED BLOOD CELLS (BEAKER) 0 /100 WBC 0-0 (test code = 413) (CELLAVISION MANUAL DIFF)2020-04-15 10:28:00 Test Item Value Reference Range Interpretation Comments NEUTROPHILS - REL 70 % (CELLAVISION)(BEAKER) (test code = 2816) LYMPHOCYTES - REL 7 % (CELLAVISION)(BEAKER) (test code = 2817) MONOCYTES - REL 21 % (CELLAVISION)(BEAKER) (test code = 2818) ATYPICAL LYMPHOCYTES - REL 2 % 0-0 H (CELLAVISION)(BEAKER) (test code = 2829) NEUTROPHILS - ABS 5.67 K/ul 1.78-5.38 H (CELLAVISION)(BEAKER) (test code = 2830) LYMPHOCYTES - ABS 0.57 K/ul 1.32-3.57 L (CELLAVISION)(BEAKER) (test code = 2831) MONOCYTES - ABS 1.70 K/uL 0.30-0.82 H (CELLAVISION)(BEAKER) (test code = 2832) ATYPICAL LYMPHOCYTES - ABS 0.16 K/uL 0.00-0.00 H (CELLAVISION)(BEAKER) (test code = 2858) TOTAL COUNTED (BEAKER) (test code 100 = 1351) WBC MORPHOLOGY (BEAKER) (test Normal code = 487) GIANT PLATELETS (BEAKER) (test Present code = 313) LARGE PLT(BEAKER) (test code = Present 2156) HYPOCHROMIA (BEAKER) (test code = 2+ moderate 963) ANISOCYTOSIS (BEAKER) (test code 1+ few = 961) POIKILOCYTES (BEAKER) (test code 1+ few = 966) SPHEROCYTES (BEAKER) (test code = 1+ few 768) OVALOCYTES (BEAKER) (test code = 1+ few 477) ARTIFACT (CELLAVISION)(BEAKER) Present (test code = 3432) PLATELET CONCENTRATION Decreased (CELLAVISION)(BEAKER) (test code = 3438) Eye Surgeon ID - [id number] ID - Sarah BookerClemenciar comments: Slide comments: Comprehensive metabolic [id number] 05:45:00 Test Item Value Reference Range Interpretation Comments Protein, Total (test 6.8 6.0- 8.3 gm/dL code = 2885-2) Albumin (test code = 4.0 g/dL 3.5-5 04096-7) Alkaline Phosphatase 43 U/L 40-150 (test code = 6768-6) Total Bilirubin (test 0.4 mg/dL 0.2-1.2 code = 1975-2) Sodium (test code = 139 meq/L 322-028 9614-2) Potassium (test code = 4.5 meq/L 3.5-5.1 2823-3) Chloride (test code = 102 meq/L 98-107 2075-0) CO2 (test code = 31 meq/L 22-29 H 2028-9) BUN (test code = 17 mg/dL 7-21 3094-0) Creatinine (test code 1.08 mg/dL 0.57-1.25 = 2160-0) Glucose (test code = 97 mg/dL 70-105 2345-7) Calcium (test code = 9.2 mg/dL 8.4-10.2 18526-5) AST (test code = 13 U/L 5-34 1920-8) ALT (test code = 6 U/L 6-55 1742-6) EGFR (test code = 67 mL/min/1.73 [place] [address]-6) NOT ACCURATE CREATININE CLEARANCE IN PREDICTING GLOMERULAR FILTRATION RATE . ESTIMATED GFR I S NOT APPLICABLE FOR DIALYSIS PATIENTS. NINFA (test code = NINFA) Eye Surgeon ID - LINDA M Lab Interpretation Abnormal (test code = 55965-7) [facility] [id number] 05:45:00 Test Item Value Reference Range Interpretation Comments TOTAL PROTEIN 6.8 gm/dL 6.0-8.3 (BEAKER) (test code = 770) ALBUMIN (BEAKER) 4.0 g/dL 3.5-5.0 (test code = 1145) ALKALINE PHOSPHATASE 43 U/L 40-150 (BEAKER) (test code = 346) BILIRUBIN TOTAL 0.4 mg/dL 0.2-1.2 (BEAKER) (test code = 377) SODIUM (BEAKER) (test 139 meq/L 136-145 code = 381) POTASSIUM (BEAKER) 4.5 meq/L 3.5-5.1 (test code = 379) CHLORIDE (BEAKER) 102 meq/L 98-107 (test code = 382) CO2 (BEAKER) (test 31 meq/L 22-29 H code = 355) BLOOD UREA NITROGEN 17 mg/dL 7-21 (BEAKER) (test code = 354) CREATININE (BEAKER) 1.08 mg/dL 0.57-1.25 (test code = 358) GLUCOSE RANDOM 97 mg/dL 70-105 (BEAKER) (test code = 652) CALCIUM (BEAKER) 9.2 mg/dL 8.4-10.2 (test code = 697) AST (SGOT) (BEAKER) 13 U/L 5-34 (test code = 353) ALT (SGPT) (BEAKER) 6 U/L 6-55 (test code = 347) EGFR (BEAKER) (test 67 mL/min/1.73 ESTIMA SHASHI GFR IS code = 1092) sq m NOT ACCURATE CREATININE CLEARANCE IN PREDICTING GLOMERULAR FILTRATION RATE . ESTIMATED GFR I S NOT APPLICABLE FOR DIALYSIS PATIEN TS. Eye Surgeon ID - LINDA MMR, BRAIN, [id number] 00:59:00Dysphagia x3 months, hx of colon cancer 2005, hypoxic respiratory failure now, intubated with limited historyUnlisted Reason for Exam - Click Yes and Enter Reason Below- >YesUnlisted Reason for Exam->dysphagia, r/o brianstem involvement [facility] 1945 Sex: MFINAL REPORT MRI Brain with and without contrast Clinical History: Unlisted Reason for Examdysphagia, r/o brianstem involvement Technique: MRI of the brain utilizing axialT1, T2, FLAIR, GRE, DWI, sagittal T1; and postgadolinium axial, sagittal, and coronal T1-weighted images. Comparisons: None Findings:Examination limited by motion artifact on multiple sequences.There is no evidence of acute infarct or hemorrhage. Few bilateral T2 and FLAIR hyperintense white matter foci likely represent chronic white matter microvascular disease. Generalized parenchymal volume loss with commensurate enlargement of CSF spaces and ventricles. Tiny remote bilateral cerebellar hemisphere infarctions. No midline shift or mass effect. There is no abnormal intracranial enhancing mass. There are no extra-axial fluid collections. The major intracranial flow-voids appear patent. Completeopacification of the left sphenoid sinus. Trace right mastoid air cell effusion. Intraorbital contents are unremarkable. Marrow edema in the dens, better evaluated on same day MRI of the cervical spine. 1.6 cm nodule in the right parotid gland and completely evaluated on this examination. IMPRESSION:Examination limited by motion artifact on multiple sequences. No evidence of acute infarct, hemorrhage, hydrocephalus, or mass 1.6 cm nodule in the right parotid gland and completely evaluated on this examination. Recommend further evaluation with dedicated parotid gland imaging and possible percutaneous sampling. Signed: Vaibhav Ceron MDReport Verified Date/Time: 04/15/2020 00:59:30 MR brain without & with IV [id number] 00:59:00Interface, External Ris In - 04/15/2020 1:01 AM CDTFINAL REPORT MRI Brain with and without contrast Clinical History: Unlisted Reason for Examdysphagia, r/o brianstem involvement Technique: MRI of the brain utilizing axial T1, T2, FLAIR, GRE, DWI, sagittal T1; and postgadolinium axial, sagittal, and coronal T1-weighted images. Comparisons: None Findings:Examination limited by motion artifact on multiple sequences.There is no evidence of acute infarct or hemorrhage. Few bilateral T2 and FLAIR hyperintense white matter foci likely represent chronic white matter microvascular disease. Generalized parenchymal volume loss with commensurate enlargement of CSF spaces and ventricles. Tiny remote bilateral cerebellar hemisphere infarctions. No midline shift or mass effect. There is no abnormal intracranial enhancing mass. There are no extra-axial fluid collections. The major intracranial flow-voids appear patent. Complete opacification of the left sphenoid sinus. Trace right mastoid air cell effusion. Intraorbital contents are unremarkable. Marrow edema in the dens, better evaluated on same day MRI of the cervical spine. 1.6 cm nodule in the right parotid gland and completely evaluated on this examination. IMPRESSION:Examination limited by motion artifact on multiple sequences. No evidence of acute infarct, hemorrhage, hydrocephalus, or mass 1.6 cm nodule in the right parotid gland and completely evaluated on this examination. Recommend further evaluation with dedicated p arotid gland imaging and possible percutaneous sampling. Signed: [facility]ibhav Ceron [facility] Verified Date/Time: 04/15/2020 00:59:30 [facility]FL[facility] SW[facility] FUNCTION, WITH CINE OR [id number] 12:52:00 Reason for exam:->[facility] 1945 Sex: MFINAL REPORT Modified barium swallow exam with speech pathology service CLINICAL HISTORY: dysphagia IMPRESSION: Please see the speech pathology service report for details. Barium contrast of multiple consistencies is given to the patient to swallow. Fluoroscopic observation is performed during swallowing. There is deep penetration with thin liquids and nectar. Fluoro time: 2.9 minutes Number of images: 25 Signed: Niraj Blackeport Verified Date/Time: 04/14/2020 12:52:15 Reading Location: [address] Ortho Consult Reading Room [facility] esoph swallow funct with cine [id number] 12:52:00Interface, External Ris In - 04/14/2020 12:54 PM CDTFINAL REPORT Modified barium swallow exam with speech pathology service CLINICAL HISTORY: dysphagia IMPRESSION: Please see the speech pathology service report for details. Barium contrast of multiple consistencies is given to the patient to swallow. Fluoroscopic observation is performed during swallowing. There is deep penetra tion with thin liquids and nectar. Fluoro time: 2.9 minutes Number of images: 25 Signed: Niraj Blackeport Verified Date/Time: 04/14/2020 12:52:15 Reading Location: [address] [facility] & AUTO [id number] 10:30:00 Test Item Value Reference Range Interpretation Comments WHITE BLOOD CELL COUNT (BEAKER) 9.4 K/ L 3.5-10.5 (test code = 775) RED BLOOD CELL COUNT (BEAKER) 3.13 M/ L 4.63-6.08 L (test code = 761) HEMOGLOBIN (BEAKER) (test code = 9.7 GM/DL 13.7-17.5 L 410) HEMATOCRIT (BEAKER) (test code = 30.7 % 40.1-51.0 L 411) MEAN CORPUSCULAR VOLUME (BEAKER) 98.1 fL 79.0-92.2 H (test code = 753) MEAN CORPUSCULAR HEMOGLOBIN 31.0 pg 25.7-32.2 (BEAKER) (test code = 751) MEAN CORPUSCULAR HEMOGLOBIN CONC 31.6 GM/DL 32.3-36.5 L (BEAKER) (test code = 752) RED CELL DISTRIBUTION WIDTH 16.5 % 11.6-14.4 H (BEAKER) (test code = 412) PLATELET COUNT (BEAKER) (test code 85 K/CU MM 150-450 L = 756) MEAN PLATELET VOLUME (BEAKER) 13.9 fL 9.4-12.4 H (test code = 754) NUCLEATED RED BLOOD CELLS (BEAKER) 0 /100 WBC 0-0 (test code = 413) (CELLAVISION MANUAL DIFF)2020-04-14 10:30:00 Test Item Value Reference Range Interpretation Comments NEUTROPHILS - REL 78 % (CELLAVISION)(BEAKER) (test code = 2816) LYMPHOCYTES - REL 12 % (CELLAVISION)(BEAKER) (test code = 2817) MONOCYTES - REL 10 % (CELLAVISION)(BEAKER) (test code = 2818) NEUTROPHILS - ABS 7.33 K/ul 1.78-5.38 H (CELLAVISION)(BEAKER) (test code = 2830) LYMPHOCYTES - ABS 1.13 K/ul 1.32-3.57 L (CELLAVISION)(BEAKER) (test code = 2831) MONOCYTES - ABS 0.94 K/uL 0.30-0.82 H (CELLAVISION)(BEAKER) (test code = 2832) TOTAL COUNTED (BEAKER) (test code = 100 1351) SMUDGE CELLS (BEAKER) (test code = Present 1371) GIANT PLATELETS (BEAKER) (test code Present = 313) POLYCHROMATOPHILLIC RBCS(BEAKER) 1+ few (test code = 478) ANISOCYTOSIS (BEAKER) (test code = 1+ few 961) MICROCYTES (BEAKER) (test code = 1+ few 965) PLATELET CONCENTRATION Decreased (CELLAVISION)(BEAKER) (test code = 3438) Eye Surgeon ID - [id number] ID - Luiz Pompa comments: Slide comments: COMPREHENSIVE METABOLIC [id number] 05:58:00 Test Item Value Reference Range Interpretation Comments TOTAL PROTEIN 7.4 gm/dL 6.0-8.3 Specimen sligh tly (BEAKER) (test code = hemoly zed 770) ALBUMIN (BEAKER) 4.1 g/dL 3.5-5.0 Specimen sl ightly (test code = 1145) hemolyzed ALKALINE PHOSPHATASE 47 U/L 40-150 (BEAKER) (test code = 346) BILIRUBIN TOTAL 0.4 mg/dL 0.2-1.2 Specimen sli ghtly (BEAKER) (test code = hemoly zed 377) SODIUM (BEAKER) (test 135 meq/L 136-145 L code = 381) POTASSIUM (BEAKER) 4.3 meq/L 3.5-5.1 Specimen slightly (test code = 379) hemolyzed CHLORIDE (BEAKER) 99 meq/L 98-107 (test code = 382) CO2 (BEAKER) (test 27 meq/L 22-29 code = 355) BLOOD UREA NITROGEN 22 mg/dL 7-21 H (BEAKER) (test code = 354) CREATININE (BEAKER) 1.30 mg/dL 0.57-1.25 H Specimen slightly (test code = 358) hemolyzed GLUCOSE RANDOM 80 mg/dL 70-105 (BEAKER) (test code = 652) CALCIUM (BEAKER) 9.3 mg/dL 8.4-10.2 (test code = 697) AST (SGOT) (BEAKER) 19 U/L 5-34 Specimen slightly (test code = 353) hemolyzed ALT (SGPT) (BEAKER) 9 U/L 6-55 Specimen slightly (test code = 347) hemolyzed EGFR (BEAKER) (test 54 mL/min/1.73 ESTIMA SHASHI GFR IS code = 1092) sq m NOT ACCURATE CREATININE CLEARANCE IN PREDICTING GLOMERULAR FILTRATION RATE . ESTIMATED GFR I S NOT APPLICABLE FOR DIALYSIS PATIEN TS. Eye Surgeon ID - LINDA MTSH/Free T4 If [id number] 11:14:00 Test Item Value Reference Range Interpretation Comments TSH (test code = 3.118 0.350- 4.940 uIU/mL 42868-1) NINFA (test code = NINFA) Eye Surgeon ID - EDASI Lab Interpretation (test Normal code = 82986-8) [facility] T4 IF [id number] 11:14:00 Test Item Value Reference Range Interpretation Comments THYROID STIMULATING HORMONE 3.118 uIU/mL 0.350-4.940 (BEAKER) (test code = 772) Eye Surgeon ID Daniel AMEZCUA, [id number] 10:52:00 Test Item Value Reference Range Interpretation Comments ABO Grouping (test code = 2588) O Rh Factor (test code = 2589) [facility]omatic [facility]2020-04-13 10:26:00 Test Item Value Reference Range Interpretation Comments SARS-COV2/RT-PCR Negative Not Detected, (test code = Negative, See 79485-0) external report for linked test SARS-COV-2 [facility] PERFORMING LAB (test code = 38970-3) NINFA (test code = Negative result for this NINFA) test determines that SARS-CoV-2 RNA was not present in the [...] of the Act. Fact Sheet for Healthcare Providers:https://www.qu idel.com/sites/default/f nancy/product/documents/F act_Sheet_HC_Providers_L rsp_HIEF-XyK-7.pdf Fact Sheet for Healthcare Patients:https://www.[employer]/sites/default/fi les/product/documents/Fa ct_Sheet_Patients_Lyra_S ARS-CoV-2.pdf Performing Laboratory:[facility]OV2/RT-PCR ([facility])2020-04-13 10:26:00 Test Item Value Reference Range Interpretation Comments SARS-COV2/RT-PCR (test Negative Not Detected, Negative, code = 3846503) See external report for linked test SARS-COV-2 PERFORMING LAB [facility] (test code = 5668264) Negative result for this test determines that SARS-CoV-2 RNA was not present in the specimen above the Limit of Detection (LOD). However, Negative results do not preclude SARS-CoV-2 infection and should not be used as the sole basis for treatment or patient management decisions. Negative results mustbe combined with clinical observations, patient history, and epidemiological information. A false negative result may occur if a specimen is improperly collected, transported or handled. A false negative result should be considered if patient's recent exposures or clinical presentation indicate that COVID-19 (SARS-CoV-2) is likely and diagnostic tests for other causes of illness are negative. Re-testing should be considered in cases of suspected false negatives.The limit of detection for this assay is 800 copies/mL.This SARS CoV-2 test is a real-time RT-PCR test intended for the qualitative detection of nucleic acid from SARS-CoV-2 in a nasopharyngeal swab specimen collected from individuals susp ected of COVID-19 by their healthcare provider.This test has not been Food and Drug [...] is revoked under Section 564(g) of the Act.Fact Sheet for Healthcare Providers:https://www.[employer]/sites/default/files/product/documents/Fact_[place]_GM_Prurbfcth_Fxzt_EJKE-TxN-4.pdfFact Sheet for Healthcare Patients:https://www.[employer]/sites/default/files/product/ documents/Euju_Hanuc_Tqitwmvx_Vaov_GRLX-KfT-1.pdfPerforming Laboratory:[facility], [place] [address]Owbt and screen, [id number] 09:19:00 Test Item Value Reference Range Interpretation Comments ABO/RH AUTOMATED (BEAKER) (test O POSITIVE code = 2260) Ab Scrn (test code = 890-4) NEGATIVE [facility]COM[facility] [id number] 09:14:00 Test Item Value Reference Range Interpretation Comments TOTAL PROTEIN 7.1 gm/dL 6.0-8.3 (BEAKER) (test code = 770) ALBUMIN (BEAKER) 4.2 g/dL 3.5-5.0 (test code = 1145) ALKALINE PHOSPHATASE 48 U/L 40-150 (BEAKER) (test code = 346) BILIRUBIN TOTAL 0.5 mg/dL 0.2-1.2 (BEAKER) (test code = 377) SODIUM (BEAKER) (test 134 meq/L 136-145 L code = 381) POTASSIUM (BEAKER) 3.8 meq/L 3.5-5.1 (test code = 379) CHLORIDE (BEAKER) 99 meq/L 98-107 (test code = 382) CO2 (BEAKER) (test 27 meq/L 22-29 code = 355) BLOOD UREA NITROGEN 17 mg/dL 7-21 (BEAKER) (test code = 354) CREATININE (BEAKER) 0.98 mg/dL 0.57-1.25 (test code = 358) GLUCOSE RANDOM 90 mg/dL 70-105 (BEAKER) (test code = 652) CALCIUM (BEAKER) 9.2 mg/dL 8.4-10.2 (test code = 697) AST (SGOT) (BEAKER) 14 U/L 5-34 (test code = 353) ALT (SGPT) ([facility]) 8 U/L 6-55 (test code = 347) EGFR ([facility]) (test 75 mL/min/1.73 ESTIMA SHASHI GFR IS code = 1092) sq m NOT ACCURATE CREATININE CLEARANCE IN PREDICTING GLOMERULAR FILTRATION RATE . ESTIMATED GFR I S NOT APPLICABLE FOR DIALYSIS PATIEN TS. Eye Surgeon ID - ROSIANGPOC-Glucose [id number] 08:20:00 Test Item Value Reference Range Interpretation Comments POC-Glucose Meter (test 101 mg/dL 70-110 : TE STED AT [facility] code = 1538) [address] [facility], 770 30: Eye Surgeon/Techni emili ID = [id number] for Lizbethmartaemilia Romellyn (Setrac) Lab Interpretation (test Normal code = 54402-1) [facility] HospitalPOCT[facility]UCOSE [id number] 08:20:00 Test Item Value Reference Range Interpretation Comments POC-GLUCOSE METER 101 mg/dL 70-110 : TESTED A T [facility] [address] ([facility]) ([facility] = [facility] [address]: Eye Surgeon/Techni emili ID = [id number] for Pearl Rom camposellyn (Setrac) Blood gas, [id number] 08:18:00 Test Item Value Reference Range Interpretation Comments pH, Arterial (test code = 2744-1) 7.45 7.35-7.45 pCO2, Arterial (test code = 38 35- 45 mm Hg 2019-01) pO2, Arterial (test code = 2703-7) 156 80- 90 mm Hg H O2 Sat, Arterial (test code = 99.2 % 96-97 H 2707-6) HCO3, Arterial (test code = 26 mmol/L 21-29 1959-4) Base Excess, Arterial (test code = 1.5 mmol/L -2-3 5-7) Patient Temperature (test code = 34.5 8310-5) FIO2 (test code = 1819) 40 Lab Interpretation (test code = Abnormal 26494-8) [facility] HospitalBLOOD GAS, [id number] 08:18:00 Test Item Value Reference Range Interpretation Comments PH ARTERIAL ([facility]) (test code = 7.45 7.35-7.45 383) PCO2 ARTERIAL (BEAKER) (test code 38 mm Hg 35-45 = 384) PO2 ARTERIAL (BEAKER) (test code = 156 mm Hg 80-90 H 385) O2 SATURATION ARTERIAL (BEAKER) 99.2 % 96.0-97.0 H (test code = 386) HCO3 ARTERIAL (BEAKER) (test code 26 mmol/L 21-29 = 388) BASE EXCESS ARTERIAL (BEAKER) 1.5 mmol/L -2.0-3.0 (test code = 387) PATIENT TEMPERATURE (BEAKER) (test 34.5 code = 1818) FIO2 (BEAKER) (test code = 1819) 40.0 Vitamin [id number] 02:32:00 Test Item Value Reference Range Interpretation Comments Vitamin B12 (test code = 566 pg/mL 523-484 0251-9) NINFA (test code = NINFA) Eye Surgeon ID - EDASI Lab Interpretation (test Normal code = 02686-8) [facility] HospitalVITAMIN [id number] 02:32:00 Test Item Value Reference Range Interpretation Comments VITAMIN B12 (BEAKER) (test code = 566 pg/mL 213-816 774) Eye Surgeon ID - EDASICBC W/PLT COUNT & AUTO [id number] 02:02:00 Test Item Value Reference Range Interpretation Comments WHITE BLOOD CELL COUNT (BEAKER) 7.5 K/ L 3.5-10.5 (test code = 775) RED BLOOD CELL COUNT (BEAKER) 3.26 M/ L 4.63-6.08 L (test code = 761) HEMOGLOBIN (BEAKER) (test code = 10.2 GM/DL 13.7-17.5 L 410) HEMATOCRIT (BEAKER) (test code = 31.4 % 40.1-51.0 L 411) MEAN CORPUSCULAR VOLUME (BEAKER) 96.3 fL 79.0-92.2 H (test code = 753) MEAN CORPUSCULAR HEMOGLOBIN 31.3 pg 25.7-32.2 (BEAKER) (test code = 751) MEAN CORPUSCULAR HEMOGLOBIN CONC 32.5 GM/DL 32.3-36.5 (BEAKER) (test code = 752) RED CELL DISTRIBUTION WIDTH 15.9 % 11.6-14.4 H (BEAKER) (test code = 412) PLATELET COUNT (BEAKER) (test code 93 K/CU MM 150-450 L = 756) MEAN PLATELET VOLUME (BEAKER) 13.9 fL 9.4-12.4 H (test code = 754) NUCLEATED RED BLOOD CELLS (BEAKER) 0 /100 WBC 0-0 (test code = 413) NEUTROPHILS RELATIVE PERCENT 90 % (BEAKER) (test code = 429) LYMPHOCYTES RELATIVE PERCENT 6 % (BEAKER) (test code = 430) MONOCYTES RELATIVE PERCENT 2 % (BEAKER) (test code = 431) EOSINOPHILS RELATIVE PERCENT 0 % (BEAKER) (test code = 432) BASOPHILS RELATIVE PERCENT 0 % (BEAKER) (test code = 437) NEUTROPHILS ABSOLUTE COUNT 6.79 K/ L 1.78-5.38 H (BEAKER) (test code = 670) LYMPHOCYTES ABSOLUTE COUNT 0.48 K/ L 1.32-3.57 L (BEAKER) (test code = 414) MONOCYTES ABSOLUTE COUNT (BEAKER) 0.15 K/ L 0.30-0.82 L (test code = 415) EOSINOPHILS ABSOLUTE COUNT 0.02 K/ L 0.04-0.54 L (BEAKER) (test code = 416) BASOPHILS ABSOLUTE COUNT (BEAKER) 0.00 K/ L 0.01-0.08 L (test code = 417) IMMATURE GRANULOCYTES-RELATIVE 1 % 0-1 PERCENT (BEAKER) (test code = 2801) BASIC METABOLIC [id number] 01:45:00 Test Item Value Reference Range Interpretation Comments SODIUM (BEAKER) 137 meq/L 136-145 (test code = 381) POTASSIUM (BEAKER) 4.5 meq/L 3.5-5.1 (test code = 379) CHLORIDE (BEAKER) 101 meq/L 98-107 (test code = 382) CO2 (BEAKER) (test 26 meq/L 22-29 code = 355) BLOOD UREA NITROGEN 15 mg/dL 7-21 (BEAKER) (test code = 354) CREATININE (BEAKER) 0.86 mg/dL 0.57-1.25 (test code = 358) GLUCOSE RANDOM 117 mg/dL 70-105 H (BEAKER) (test code = 652) CALCIUM (BEAKER) 8.7 mg/dL 8.4-10.2 (test code = 697) EGFR (BEAKER) (test 87 mL/min/1.73 ESTIMA SHASHI GFR IS code = 1092) sq m NOT ACCURATE CREATININE CLEARANCE IN PREDICTING GLOMERULAR FILTRATION RATE . ESTIMATED GFR I S NOT APPLICABLE FOR DIALYSIS PATIEN TS. Eye Surgeon ID - EDASIBLOOD GAS, [id number] 01:42:00 Test Item Value Reference Range Interpretation Comments PH ARTERIAL (BEAKER) (test code = 7.45 7.35-7.45 383) PCO2 ARTERIAL (BEAKER) (test code 38 mm Hg 35-45 = 384) PO2 ARTERIAL (BEAKER) (test code = 199 mm Hg 80-90 H 385) O2 SATURATION ARTERIAL (BEAKER) 99.4 % 96.0-97.0 H (test code = 386) HCO3 ARTERIAL (BEAKER) (test code 26 mmol/L 21-29 = 388) BASE EXCESS ARTERIAL (BEAKER) 1.8 mmol/L -2.0-3.0 (test code = 387) PATIENT TEMPERATURE (BEAKER) (test 37.0 code = 1818) FIO2 (BEAKER) (test code = 1819) 60.0 Hemoglobin [id number] 22:45:00 Test Item Value Reference Range Interpretation Comments Hemoglobin A1C (test code = 4548-4) 4.9 % 4.3-6.1 Lab Interpretation (test code = Normal 46886-1) [facility] HospitalHEMOGLOBIN [id number] 22:45:00 Test Item Value Reference Range Interpretation Comments HEMOGLOBIN A1C (BEAKER) (test code = 4.9 % 4.3-6.1 368) Prothrombin time/[id number] 22:36:00 Test Item Value Reference Range Interpretation Comments Protime (test code = 19.9 11.9- 14.2 H 5902-2) seconds INR (test code = 1.74 <=5.90 6301-6) NINFA (test code = NINFA) Effective 11/27/2018: PT Reference Range ChangeNew: 11.9-14.2 Previous: 11.7-14.7 RECOMMENDED COUMADIN/WARFARIN INR THERAPY RANGESSTANDARD DOSE: 2.0-3.0 Includes: PROPHYLAXIS for venous thrombosis, systemic embolization; TREATMENT for venous thrombosis and/or pulmonary embolus.HIGH RISK: Target INR is 2.5-3.5 for patients wiht mechanical heart valves. Lab Interpretation Abnormal (test code = 82166-9) [facility] HospitalPROTHROMBIN TIME/[id number] 22:36:00 Test Item Value Reference Range Interpretation Comments PROTIME (BEAKER) (test code = 19.9 seconds 11.9-14.2 H 759) INR (BEAKER) (test code = 370) 1.74 <=5.90 Effective 11/27/2018: PT Reference Range ChangeNew: 11.9-14.2 Previous: 11.7- 14.7RECOMMENDED COUMADIN/WARFARIN INR THERAPY RANGESSTANDARD DOSE: 2.0-3.0 Includes: PROPHYLAXIS for venous thrombosis, systemic embolization; TREATMENT for venous thrombosis and/or pulmonary embolus.HIGH RISK: Target INR is2.5-3.5 for patients wiht mechanical heart valves.COMPREHENSIVE METABOLIC PANEL 2020-04-12 22:29:00 Test Item Value Reference Range Interpretation Comments TOTAL PROTEIN 7.3 gm/dL 6.0-8.3 (BEAKER) (test code = 770) ALBUMIN (BEAKER) 4.2 g/dL 3.5-5.0 (test code = 1145) ALKALINE PHOSPHATASE 60 U/L 40-150 (BEAKER) (test code = 346) BILIRUBIN TOTAL 0.6 mg/dL 0.2-1.2 (BEAKER) (test code = 377) SODIUM (BEAKER) (test 133 meq/L 136-145 L code = 381) POTASSIUM (BEAKER) 4.4 meq/L 3.5-5.1 (test code = 379) CHLORIDE (BEAKER) 99 meq/L 98-107 (test code = 382) CO2 (BEAKER) (test 27 meq/L code = 355) BLOOD UREA NITROGEN 13 mg/dL 7-21 (BEAKER) (test code = 354) CREATININE (BEAKER) 0.88 mg/dL 0.57-1.25 (test code = 358) GLUCOSE RANDOM 120 mg/dL 70-105 H (BEAKER) (test code = 652) CALCIUM (BEAKER) 8.9 mg/dL 8.4-10.2 (test code = 697) AST (SGOT) (BEAKER) 15 U/L 5-34 (test code = 353) ALT (SGPT) (BEAKER) 8 U/L 6-55 (test code = 347) EGFR (BEAKER) (test 85 mL/min/1.73 ESTIMA SHASHI GFR IS code = 1092) sq m NOT ACCURATE CREATININE CLEARANCE IN PREDICTING GLOMERULAR FILTRATION RATE . ESTIMATED GFR I S NOT APPLICABLE FOR DIALYSIS PATIEN TS. Eye Surgeon ID - DBCBC W/PLT COUNT & AUTO [id number] 22:26:00 Test Item Value Reference Range Interpretation Comments WHITE BLOOD CELL COUNT (BEAKER) 9.2 K/ L 3.5-10.5 (test code = 775) RED BLOOD CELL COUNT (BEAKER) 3.47 M/ L 4.63-6.08 L (test code = 761) HEMOGLOBIN (BEAKER) (test code = 10.6 GM/DL 13.7-17.5 L 410) HEMATOCRIT (BEAKER) (test code = 33.8 % 40.1-51.0 L 411) MEAN CORPUSCULAR VOLUME (BEAKER) 97.4 fL 79.0-92.2 H (test code = 753) MEAN CORPUSCULAR HEMOGLOBIN 30.5 pg 25.7-32.2 (BEAKER) (test code = 751) MEAN CORPUSCULAR HEMOGLOBIN CONC 31.4 GM/DL 32.3-36.5 L (BEAKER) (test code = 752) RED CELL DISTRIBUTION WIDTH 15.9 % 11.6-14.4 H (BEAKER) (test code = 412) PLATELET COUNT (BEAKER) (test code 97 K/CU MM 150-450 L = 756) MEAN PLATELET VOLUME (BEAKER) 14.0 fL 9.4-12.4 H (test code = 754) NUCLEATED RED BLOOD CELLS (BEAKER) 0 /100 WBC 0-0 (test code = 413) NEUTROPHILS RELATIVE PERCENT 91 % (BEAKER) (test code = 429) LYMPHOCYTES RELATIVE PERCENT 5 % (BEAKER) (test code = 430) MONOCYTES RELATIVE PERCENT 3 % (BEAKER) (test code = 431) EOSINOPHILS RELATIVE PERCENT 0 % (BEAKER) (test code = 432) BASOPHILS RELATIVE PERCENT 0 % (BEAKER) (test code = 437) NEUTROPHILS ABSOLUTE COUNT 8.36 K/ L 1.78-5.38 H (BEAKER) (test code = 670) LYMPHOCYTES ABSOLUTE COUNT 0.45 K/ L 1.32-3.57 L (BEAKER) (test code = 414) MONOCYTES ABSOLUTE COUNT (BEAKER) 0.29 K/ L 0.30-0.82 L (test code = 415) EOSINOPHILS ABSOLUTE COUNT 0.04 K/ L 0.04-0.54 (BEAKER) (test code = 416) BASOPHILS ABSOLUTE COUNT (BEAKER) 0.01 K/ L 0.01-0.08 (test code = 417) IMMATURE GRANULOCYTES-RELATIVE 1 % 0-1 PERCENT (BEAKER) (test code = 2801) RAD, CHEST, 1 VIEW, NON [id number] 20:40:00Reason for exam:->ETT placementShould this be performed at the bedside?->YesFINAL REPORT RAD, CHEST, 1 VIEW, NON DEPT INDICATION: ETT placement COMPARISON : None FINDINGS: Portable frontal view of the chest. IMPRESSION: Support Lines: The endotracheal tube is 6.6 cm cephalad to the mihai. Enteric tube terminates near the gastroesophageal junction. Recommend further advancement for placement into the stomach. Lungs and pleura: There are right greaterthan left bibasilar streaky opacities suggestive of atelectasis or scar. A small right pleural effusion is present. No lobar consolidation. No pneumothorax.Heart and mediastinum: Cardiomediastinal silhouette size is magnified by technique.Additional findings: None. Signed: Srini Yee MDReport Verified Date/Time: 04/12/2020 20:40:41 XR chest 1 view portable / [id number] 20:40:00 Interface, External Ris In - 04/12/2020 8:42 PM CDTFINAL REPORT RAD, CHEST, 1 VIEW, NON DEPT INDICATION: ETT placement COMPARISON: None FINDINGS: Portable frontal view of the chest. IMPRESSION: Support Lines: The endotracheal tube is 6.6 cm cephalad to the mihai. Enteric tube terminates near the gastroesophageal junction. Recommend further advancement for placement into the stomach. Lungs and pleura: There are right greater than left bibasilar streaky opacities suggestiveof atelectasis or scar. A small right pleural effusion is present. No lobar consolidation. No pneumothorax.Heart and mediastinum: Cardiomediastinal silhouette size is magnified by technique.Additional findings: None. Signed: Srini Yee MDReport Verified Date/Time: 04/12/2020 20:40:41 [facility]2020-02-06 01:04:00 Test Item Value Reference Range Interpretation Comments SARS-COV2/RT-PCR (test Negative Not Detected, Negative, code = 8437363) See external report for linked test SARS-COV-2 PERFORMING LAB [facility] (test code = 1129325) Negative result for this test determines that SARS-CoV-2 RNA was not present in the specimen above the Limit of Detection (LOD). However, Negative results do not preclude SARS-CoV-2 infection and should not be used as the sole basis for treatment or patient management decisions. Negative results mustbe combined with clinical observations, patient history, and epidemiological information. A false negative result may occur if a specimen is improperly collected, transported or handled. A false negative result should be considered if patient's recent exposures or clinical presentation indicate that COVID-19 (SARS-CoV-2) is likely and diagnostic tests for other causes of illness are negative. Re-testing should be considered in cases of suspected false negatives.The limit of detection for this assay is 800 copies/mL.This SARS CoV-2 test is a real-time RT-PCR test intended for the qualitative detection of nucleic acid from SARS-CoV-2 in a nasopharyngeal swab specimen collected from individuals susp ected of COVID-19 by their healthcare provider.This test has not been Food and Drug [...] is revoked under Section 564(g) of the Act.Fact Sheet for Healthcare Providers:https://www.[employer]/sites/default/files/product/documents/Fact_Shee x_QI_Fgdnnkfsl_Tzjz_MNPN-IoX-6.pdfFact Sheet for Healthcare Patients:https://www.[employer]/sites/default/files/product/ documents/Dbjw_Stuvv_Gwzzwide_Qiex_ITXM-TvN-4.pdfPerforming Laboratory:[facility] [place] [address]
[2020-04-26] MEDS ORDERED: ACETAMINOPHEN 650MG/RECT SUPP PR ONE (12:14)
[2020-04-26] MEDS ORDERED: VANCOMYCIN/NS 1 gm 1 GM/250 ML BAG IV ONE (12:15)
[2020-04-26] MEDS ORDERED: CEFEPIME/SWI 2gm 2 GM/20 ML SYR IV ONE (12:15)
[2020-04-26 12:20] LABS: Urine Blood NEGATIVE (NEG); Urine Glucose NEGATIVE (NEG); Urine Protein NEGATIVE (NEG); Urine Specific Gravity 1.025 (1.005-1.030)
--- NOTE | 2020-04-26 12:34 | RAD REPORT ---
EXAM DESCRIPTION: RAD - Chest Single View - 04/26/2020 12:16 pm CLINICAL HISTORY: intubated in field Chest pain. COMPARISON: Chest Single View dated 04/12/2020; Chest Single View dated 02/05/2020; Chest Single View dated 12/02/2019; Chest Single View dated 11/23/2019 FINDINGS: Portable technique limits examination quality. The lungs are grossly clear. The heart is upper limit normal in size with a tortuous thoracic aorta. Tip of the ET tube is above the mihai. Enteric tube descends into the stomach.
[2020-04-26 13:00] LABS: ALT/SGPT 26 U/L (12-78); AST/SGOT 39 U/L (15-37); Albumin 3.9 g/dL (3.4-5.0); Alkaline Phosphatase 52 U/L (45-117); Amylase 67 U/L (25-115); BUN Blood Urea Nitrogen 40 mg/dL (7-18); Bicarbonate 27 mmol/L (21-32); Bilirubin Direct 0.1 mg/dL (0-0.2); Bilirubin Total 0.5 mg/dL (0.2-1.0); CKMB Creatine Kinase MB < 1.0 ng/mL (0.3-3.6); Creatine Phosphokinase 226 U/L (39-308); Glucose Level 123 mg/dL (74-106); Lipase 185 U/L (73-393); Protein, Total 7.7 g/dL (6.4-8.2); Sodium Level 139 mmol/L (136-145); Troponin (Emerg Dept Use Only) 0.08 ng/mL (0.0-0.045)
[2020-04-26 13:01] LABS: Potassium 5.6 mmol/L (3.5-5.1)
[2020-04-26 13:24] LABS: Urine Amorphous Sediment 1+ /HPF (NONE SEEN); Urine Bacteria <20 /HPF (NONE SEEN); Urine Culture Reflex Order NOT NEEDED; Urine RBC NONE SEEN /HPF (NONE SEEN)
[2020-04-26] MEDS ORDERED: ALBUTEROL 2.5 MG/3 ML NEB SOL ONE (14:09)
[2020-04-26] MEDS ORDERED: FUROSEMIDE 40 MG/4 ML VIAL ONE (14:09)
[2020-04-26] MEDS ORDERED: CALCIUM GLUCONATE 1 GM IVPB 1 GM/50 ML BAG IV ONE (14:10)
--- NOTE | 2020-04-26 15:00 | RAD REPORT ---
EXAM DESCRIPTION: CT - Chest Abd Pelvis Wo Con - 04/26/2020 2:49 pm CLINICAL HISTORY: FEVER, found on ground COMPARISON: Chest For Pe Angio dated 02/05/2020; Chest For Pe Angio dated 06/20/2018 TECHNIQUE: Axial 5 millimeter thick images of the chest, abdomen and pelvis were obtained without IV contrast. Oral contrast was administered. All CT scans are performed using dose optimization technique as appropriate and may include automated exposure control or mA/KV adjustment according to patient size. FINDINGS: Interstitial opacification is present probably chronic. There is patchy airspace opacifica tion in each posterior gutter, worse on the left. Trace amounts of pleural effusion or present. This could be minimal infectious or aspiration infiltrate. Some component is atelectasis. No pneumothorax. No chest wall mass or abnormal axillary lymphadenopathy seen. Mediastinal and hilar regions show no mass or lymphadenopathy. No significant cardiac finding. Endotracheal tube is in place with the tip ending at the aortic arch level. NG tube extends well into the stomach. The liver, spleen and pancreas show no significant findings for non contrast imaging. Gallbladder an d biliary tree are normal. No hydronephrosis or suspicious renal mass. Isodense masses and pyelonephritis cannot be excluded on non contrast imaging. No adrenal abnormalities. Urinary bladder is fully contracted around a Tejeda c atheter. No gastric wall thickening or mass. Several prominent fluid-filled small bowel loops are present. Ile us or enteritis currently favored over small bowel obstruction. Fluid fills the cecum in much of the ascending colon. Patient has a dense collection of stool and barium a in the sigmoid colon and rectum . This may have been from an outside facility. No free air, free fluid or inflammatory stranding. No mass or bulky lymphadenopathy. Degenerative bony changes are present. No acute bone finding. IMPRESSION: Patchy opacification in each posterior gutter, left greater than right with trace amount s of pleural fusion. Minimal amount at of infectious or aspiration pneumonia suspected. Endotracheal tube in good position. NG tube is in good position. Prominent small bowel loops favored to be ileus or enteritis over small bowel obstruction. There is a dense collection of barium in stool filling and distending the sigmoid and rectum portions of the co jam. CT abdomen and pelvis imaging shows no significant or suspicious finding.
[2020-04-26] MEDS ORDERED: MIDAZOLAM HCL 2 MG/2 ML INJ ONE ×2 (15:23→15:54)
[2020-04-26] MEDS ORDERED: FENTANYL CITR 100 MCG/2 ML ONE (15:24)
--- NOTE | 2020-04-26 15:28 | RAD REPORT ---
EXAM DESCRIPTION: CT - Head Brain Wo Cont - 04/26/2020 3:17 pm CLINICAL HISTORY: MENTAL STATUS CHANGE COMPARISON: Ct Stroke Brain Wo Cont dated 04/12/2020 TECHNIQUE: Axial 5 mm thick images of the head were obtained without IV contrast. All CT scans are performed using dose optimization technique as appropriate and may include automated exposure control or mA/KV adjustment according to patient size. FINDINGS: No intracranial hemorrhage, mass, edema or shift of mid-line structures. No acute infarcti on changes seen. Mild atrophy and chronic ischemic change. Ventricles are normal. Intracranial findin gs are similar to comparison. Mastoid air cells and visualized portions of the paranasal sinuses are clear. No acute bony findings. IMPRESSION: Negative non-contrast CT head examination for acute finding. Above detailed findings are stable from April 12.
[2020-04-26] MEDS ORDERED: NOREPINEPHRINE 8 MG in Dextrose 5%-Water 500 ML IV ONE ×4 (16:00)
[2020-04-26 16:36] LABS: Protime INR 2.03
[2020-04-26] MEDS ORDERED: propofoL 1,000 MG/100 ML VIAL IV ONE (16:51)
--- NOTE | 2020-04-26 17:28 | ER ---
Nurse's Notes [facility] Name: John Cuevas Age: 74 yrs Sex: Male : 1945 Arrival Date: 04/26/2020 Time: 11:30 Bed 3 Private MD: Diagnosis: Severe sepsis with septic shock;Acute kidney failure;Pneumonia due to other specified bacteria;Acute respiratory failure with hypercapnia Presentation: 04/26 11:25 Chief complaint: EMS states: pt was found by about 45 minutes ago, she last saw tw2 him awake at 3 am, when we arrived, he was sitting in bathtub with a pulse, but having difficulty breathing, he had pink \T\ white sputum, we intubated after giving 30 of etomidate and 100 rocuronium, 6.5 ET tube 24 at teeth, 14 f OG tube inserted as well, his airway is swollen, he does have pitting edema to lower \T\ upper ex, no wounds note to scalp but we are unsure if he fell in the tub or not, he did soil himself when we were getting him out of tub. Coronavirus screen: fever, Client presents with at least one sign or symptom that may indicate coronavirus-19. Provider contacted for isolation considerations. Ebola Screen: Patient denies travel to an Ebola-affected area in the 21 days before illness onset. Initial Sepsis Screen: Does the patient meet any 2 criteria? Temp <36.0*C (96.8*F)) or > 38.3*C (100.9*F). Mean Arterial Pressure (MAP) < 65. Altered Mental Status. Does the patient have a suspected source of infection? Yes:. Risk Assessment: Do you want to hurt yourself or someone else? Patient reports no desire to harm self or others. Onset of symptoms was April 26, 2020. 11:25 Method Of Arrival: EMS: [facility] tw2 11:25 Acuity: KEVIN 1 tw2 Triage Assessment: 11:30 General: Appears distressed, ill, Behavior is unresponsive. Pain: Unable to use pain jl7 scale. Patient is unresponsive. Neuro: Level of Consciousness is unresponsive. Cardiovascular: Heart tones present Patient's skin is warm and dry. Respiratory: Airway via oral intubation Respiratory effort is even, Respiratory pattern is symmetrical, Ventilator assessment: ET Tube: 6.5 Ventilator Mode: Assist Control (AC) Tidal Volume: 610 Respiratory Rate: 20 FiO2: 60 PEEP: 5 HOB > 30 degrees. Oral care provided. Suction provided. Color of output pink, frothy. Derm: Skin is dry, Skin is pale, Skin temperature is hot. Historical: - Allergies: 17:18 No Known Allergies; jl7 - Home Meds: 17:18 Allopurinol Oral [Active]; Amiodarone Oral [Active]; Codeine Oral [Active]; jl7 levothyroxine for Hypothyroidism [Active]; lisinopril Oral [Active]; Metoprolol Tartrate Oral [Active]; Plavix Oral [Active]; Simvastatin Oral [Active]; - PMHx: 17:18 Atrial Fib; colon cancer; Dementia; Gout; Hyperlipidemia; Hypertension; Hypothyroidism; jl7 - Immunization history:: Adult Immunizations unknown. - Social history:: Smoking status: unknown. Screenin:24 Abuse screen: Denies threats or abuse. Nutritional screening: No deficits noted. tw2 Tuberculosis screening: No symptoms or risk factors identified. Fall Risk Secondary diagnosis (15 points) impaired mobility. Assessment: 11:30 General: See triage assessment. jl7 14:38 Reassessment: Pt to CT on monitor with Heather RN, RT, and body and frame technician. jl7 15:00 Reassessment: Pt returned from CT, VSS during transport. jl7 15:23 Reassessment: Pt moving around, appears uncomfortable, ERP notified, see MAR for orders.jl7 15:30 Reassessment: Pt appears comfortable at this time. jl7 15:55 Reassessment: Pt appears uncomfortable, ERP notified, see MAR for orders. jl7 16:05 Reassessment: Pt appears more comfortable at this time. jl7 16:35 Reassessment: Pt appears uncomfortable, ERP notified, see MAR for orders. jl7 16:40 Reassessment: Daughter at bedside. jl7 18:15 Reassessment: Report given to receiving nurse at receiving facility. jl7 20:30 Reassessment: Patient and/or family updated on plan of care and expected duration. Pain ea level reassessed. Pt resting with eyes closed, ETT in place resp assisted, NG tube in place to low intermittent suction. Tejeda catheter in place to BSD. IV sites intact patent with fluid infusing. No erythema or edema noted at this time. Report given to [facility]. Pt left ED via stretcher per EMS. Pt remains sedated and intubated. Vital Signs: 11:25 BP 76 / 50; Pulse 105; Resp 17; Pulse Ox 95% on ETT ambu; tw2 11:25 Temp 102.2(C); tw2 11:55 BP 64 / 39; Pulse 100; Pulse Ox 98% on 100% FiO2 ETT vent; tw2 11:58 BP 61 / 39; Pulse 100; Pulse Ox 98% on ETT vent; aa5 11:59 Weight 113.4 kg; jl7 12:00 BP 66 / 41; Pulse 100; Pulse Ox 98% on ETT vent; aa5 12:03 BP 68 / 39; Pulse 99; Temp 102.3(C); Pulse Ox 97% on ETT vent; aa5 12:06 BP 72 / 41; Pulse 97; Temp 102.2(C); Pulse Ox 99% on ETT vent; aa5 12:12 BP 70 / 41; Pulse 95; Temp 101.7(C); Pulse Ox 99% on ETT vent; aa5 12:15 BP 84 / 47; Pulse 95; Temp 101.6(C); Pulse Ox 99% on ETT vent; aa5 12:20 BP 77 / 36; Pulse 93; Resp 22; Temp 101.1(C); Pulse Ox 100% on ETT vent; tw2 12:30 BP 83 / 35; Pulse 89; Resp 26 A; Temp 100.8(C); Pulse Ox 100% on ETT vent; jl7 12:40 BP 87 / 35; Pulse 88; Resp 21; Pulse Ox 100% ; jl7 12:50 BP 85 / 36; Pulse 89; Resp 23; Temp 99.7; Pulse Ox 100% ; jl7 13:05 BP 81 / 51; Pulse 82; Resp 24 A; Temp 97.7(C); Pulse Ox 100% on ETT vent; jl7 13:20 BP 98 / 40; Pulse 81; Resp 19; Temp 97.6; Pulse Ox 100% ; jl7 13:30 BP 100 / 62; Pulse 77; Resp 16; Pulse Ox 100% ; jl7 13:45 BP 89 / 76; Pulse 85; Resp 16; Temp 98.5(C); Pulse Ox 100% on ETT vent; 5 14:00 BP 96 / 50; Pulse 86; Resp 17; Temp 98.5; Pulse Ox 100% ; jl7 14:10 BP 97 / 44; Pulse 84; Resp 21; Pulse Ox 100% ; jl7 14:20 BP 101 / 52; Pulse 84; Resp 20; Temp 98.3; Pulse Ox 100% ; jl7 14:35 BP 99 / 56; Pulse 84; Resp 18; Temp 98.2(C); Pulse Ox 100% on ETT vent; 5 14:38 jl7 15:00 BP 99 / 63; Pulse 81; Resp 22 A; Temp 97.8(C); Pulse Ox 100% on 60% FiO2 ETT vent; 7 15:10 BP 95 / 64; Pulse 84; Resp 19; Pulse Ox 100% ; jl7 15:20 BP 98 / 40; Pulse 81; Resp 19; Pulse Ox 100% ; 7 15:30 BP 100 / 62; Pulse 77; Resp 16; Pulse Ox 100% ; jl7 15:40 BP 101 / 75; Pulse 78; Resp 16 S; Temp 97.4(C); Pulse Ox 100% on ETT vent; jl7 15:50 BP 83 / 47; Pulse 78; Resp 20; Pulse Ox 100% ; jl7 16:00 BP 86 / 54; Pulse 69; Resp 20 A; Temp 97.4(C); Pulse Ox 100% on 60% FiO2 ETT vent; 7 16:10 BP 111 / 59; Pulse 72; Resp 15; Pulse Ox 100% ; jl7 16:22 BP 107 / 52; Pulse 73; Resp 15; Temp 97.3(C); Pulse Ox 100% on ETT vent; 5 16:30 BP 104 / 61; Pulse 72; Resp 15; Pulse Ox 100% ; jl7 16:40 BP 110 / 65; Pulse 62; Resp 15; Pulse Ox 100% ; jl7 16:50 BP 95 / 50; Pulse 72; Resp 16; Pulse Ox 100% ; jl7 17:00 BP 101 / 67; Pulse 75; Resp 15 A; Temp 97.3(C); Pulse Ox 100% on 60% FiO2 ETT vent; jl7 17:10 BP 94 / 38; Pulse 72; Resp 20; Pulse Ox 100% ; jl7 17:20 BP 95 / 63; Pulse 75; Resp 17; Pulse Ox 100% ; jl7 17:30 BP 102 / 54; Pulse 71; Resp 16; Pulse Ox 100% ; jl7 17:40 BP 104 / 42; Pulse 74; Resp 18; Pulse Ox 100% ; jl7 17:50 BP 101 / 39; Pulse 72; Resp 14; Pulse Ox 100% ; jl7 18:00 BP 105 / 40; Pulse 72; Resp 15 A; Temp 97.2(C); Pulse Ox 100% on 60% FiO2 ETT vent; jl7 18:10 BP 94 / 50; Pulse 71; Resp 20; Pulse Ox 100% ; jl7 18:20 BP 103 / 48; Pulse 70; Resp 15; Pulse Ox 100% ; jl7 18:30 BP 111 / 66; Pulse 72; Resp 13; Pulse Ox 100% ; jl7 18:40 BP 105 / 49; Pulse 70; Resp 16; Temp 97; Pulse Ox 100% ; jl7 18:50 BP 106 / 41; Pulse 69; Resp 15; Pulse Ox 100% ; jl7 19:00 BP 111 / 58; Pulse 72; Resp 17 S; Temp 97(C); Pulse Ox 100% on 60% FiO2 ETT vent; jl7 19:10 BP 107 / 44; Pulse 70; Resp 17; Temp 97.5; Pulse Ox 100% on ETT vent; rr5 19:35 BP 103 / 68; Pulse 74; Resp 17; Pulse Ox 100% on ETT vent; rr5 11:55 TV 610, 20, peep 5 per RT at bedside at this time. tw2 14:[address] from [id number], VSS jl7 Bruce Coma Score: 12:19 Eye Response: none(1). Verbal Response: none(1). Motor Response: none(1). Modifying jr8 Factors: Intubated. Total: 3. ED Course: 11:25 Arm band placed on. tw2 11:25 Placed in gown. bus monitor on. Pulse ox on. NIBP on. provider TRENT Prince at tw2 bedside at this time. 11:30 Patient arrived in ED. jl7 11:39 Inserted saline lock: 20 gauge in right wrist, using aseptic technique. Inserted by aaPilar Jameson RN. 11:39 Initial lab(s) drawn, by me, sent to lab. First set of blood cultures drawn by me. jl7 11:50 Flavia Kelly, RN is Primary Nurse. tw2 11:50 intact, bleeding controlled, No redness/swelling at site. Pressure dressing applied, 20 aa5 G to R wrist came out. 11:50 EKG done, by ED staff, reviewed by Osman NEWMAN. jl7 11:55 Urine collected: Tejeda catheter specimen, clear. Speci-cath kit inserted, using sterile jl7 technique, 16 Fr., specimen obtained. returned clear yellow urine. Patient tolerated unresponsive. 11:58 Assisted provider with central line placement. Set up central line tray. Triple lumen aa5 line placed in left femoral. Line placed by Osman NEWMAN Placement verified by blood return. 11:58 Second set of blood cultures drawn by physician. jl7 12:00 Flu and/or RSV swab sent to lab. COVID-19 swab sent to lab. jl7 12:04 Osman Mcdaniel PA is PHCP. jr8 12:04 Osvaldo Beckman MD is Attending Physician. jr8 12:16 Chest Single View XRAY In Process Unspecified. EDMS 12:23 Triage completed. tw2 14:49 CT Chest Abdomen Pelvis W/O Contrast In Process Unspecified. EDMS 15:17 CT Head Brain wo Cont In Process Unspecified. EDMS 15:39 initiated transfer to [facility]. bd 15:45 Lactate Sent. jl7 15:54 pt denied at [facility] due to no icu beds available at this time, per Holden. bd 16:14 initiated transfer to [facility]. bd 16:50 initiated transfer to [facility], pt denied due to no ICU beds, per Yaya. bd 17:31 Blood Culture Adult (2) Sent. jl7 17:51 pt accepted in transfer to [facility], admin approval given by Taylor Hutson. bd 19:00 Report given to MANUEL Reyes and MANUEL Rosenthal. tw2 19:30 Primary Nurse role handed off by Flavia Kelly, RN mw2 Administered Medications: 04:35 Drug: Albuterol 2.5 mg Route: Inhalation; jl7 11:39 Drug: NS 0.9% (30 ml/kg) 30 ml/kg Route: IV; Rate: bolus; Site: right wrist; aa5 11:58 Follow up: Infusion now to left femoral aa5 19:42 Follow up: Response: No adverse reaction; IV Status: Completed infusion ea 11:58 Drug: Levophed (4 mg/250 mL D5W 4 mcg/min Route: IV; Rate: calculated rate; Site: left aa5 femoral; 12:05 Follow up: started at 10mcg/min, BP 68/39 at 1203 and infusion increased to 20mcg/min. aa5 18:30 Follow up: IV Status: Infusion continued upon transfer jl7 12:20 Drug: Tylenol Suppository 650 mg Route: IN; tw2 13:53 Follow up: Response: No adverse reaction; Temperature is decreased jl7 12:25 Drug: vancoMYCIN 1 grams Route: IVPB; Infused Over: 2 hrs; Site: left femoral; jl7 14:25 Follow up: Response: No adverse reaction; IV Status: Completed infusion jl7 12:30 Drug: Cefepime 2 grams Route: IVPB; Rate: 200 ml/hr; Infused Over: 30 mins; Site: left jl7 femoral; 12:35 Follow up: Response: No adverse reaction; IV Status: Completed infusion jl7 13:10 Drug: Lawrence-Synephrine 100 mcg/min Route: IV; Rate: calculated rate; Site: left femoral; jl7 13:10 Follow up: Administered at 50 mcg/min per VO from TRENT Brewer jl7 15:10 Follow up: Rate change 75 mcg/min jl7 16:00 Follow up: Rate change 100 mcg/min jl7 18:29 Follow up: IV Status: Infusion continued upon transfer jl7 14:12 Drug: Lasix 40 mg Route: IVP; Site: left hand; jl7 15:46 Follow up: Response: No adverse reaction jl7 14:15 Drug: Calcium Gluconate 1 grams Route: IVPB; Infused Over: 60 mins; Site: left hand; jl7 15:15 Follow up: Response: No adverse reaction; IV Status: Completed infusion jl7 14:35 Drug: Albuterol 2.5 mg Route: Inhalation; jl7 15:46 Follow up: Response: No adverse reaction jl7 14:35 Drug: Albuterol 2.5 mg Route: Inhalation; jl7 15:24 Drug: fentaNYL (PF) 50 mcg Route: IVP; Site: left hand; jl7 15:30 Follow up: Response: No adverse reaction jl7 15:25 Drug: Versed 2 mg Route: IVP; Site: left hand; jl7 15:30 Follow up: Response: No adverse reaction jl7 15:56 Drug: fentaNYL (PF) 50 mcg Route: IVP; Site: left hand; jl7 16:00 Follow up: Response: No adverse reaction jl7 15:57 Drug: Versed 2 mg Route: IVP; Site: left hand; jl7 18:00 Follow up: Response: No adverse reaction tw2 16:40 Drug: Propofol 5 mcg/kg/min Route: IV; Rate: calculated rate; Site: left femoral; tw2 18:29 Follow up: Response: No adverse reaction; IV Status: Infusion continued upon transfer jl7 Intake: Outcome: 17:27 ER care complete, transfer ordered by . jr8 19:17 Transferred by ground EMS to [facility], Transfer form completed. jl7 X-rays sent w/ patient. 19:17 Condition: stable 19:17 Discharge instructions given to family, Instructed on the need for transfer, Demonstrated understanding of instructions. 20:29 Patient left the ED. ea Signatures: Dispatcher [employer] EDMS Lizbet Nascimento Audri, RN RN aa5 Osman Mcdaniel PA PA jr8 Flavia Kelly, RN RN tw2 Praveena Farris Heather Nye RN RN jl7 Nory Heredia RN RN ea [place], MyKena 2 Galo Fuentes RN RN rr5 Corrections: (The following items were deleted from the chart) 12:24 11:55 BP 64 / 39; Pulse 100bpm; Pulse Ox 98% ET / Ventilator; aa5 tw2 12:58 11:59 99.79 kg; jl7 jl7 14:48 14:42 BP 89 / 76; Pulse 85bpm; Resp 16bpm; Pulse Ox 100% ET / Ventilator; Temp 98.5F mh5 Catheter; 5 16:20 15:45 Lactate drawn and sent. [facility] EDMS 20:30 19:37 Reassessment: Patient and/or family updated on plan of care and expected ea duration. Pain level reassessed. Pt resting with eyes closed, ETT in place resp assisted, NG tube in place to low intermittent suction. Tejeda catheter in place to BSD. IV sites intact patent with fluid infusing. No erythema or edema noted at this time. Report given to [facility]. Pt left ED via stretcher per EMS. Pt remains sedated and intubated. ea
--- NOTE | 2020-04-26 17:28 | EDPHYS ---
Physician Documentation [facility] Name: John Cuevas Age: 74 yrs Sex: Male : 1945 Arrival Date: 04/26/2020 Time: 11:30 Bed 3 Private MD: ED Physician Osvaldo Beckman HPI: 04/26 12:19 This 74 yrs old Male presents to ER via Unassigned with complaints of jr8 Respiratory Failure . 12:19 The patient has shortness of breath that occurred at home. Onset: The symptoms/episode jr8 began/occurred acutely, last night. Duration: The symptoms are continuous. Associated signs and symptoms: Pertinent positives: fever. Severity of symptoms: At their worst the symptoms were severe in the emergency department the symptoms are unchanged. It is unknown whether or not the patient has had similar symptoms in the past. The patient has been recently seen by a physician:. EMS called out after found patient in bath tub having difficulty breathing. EMS stated that the saw patient get up to take a bath at 0300 hours today. Stated that she went to check on him and found him like this after she woke up. EMS stated that patient had shallow bradypnea upon assessment with hypotension. Patient was intubated on scene. Stated that they had to place. 6.5 ET tube due to airway swelling. Patient upon arrival covered in feces. ET tube intact but still with mild decrease in SPO2, hypotensive, and with fever . Historical: - Allergies: 17:18 No Known Allergies; jl7 - Home Meds: 17:18 Allopurinol Oral [Active]; Amiodarone Oral [Active]; Codeine Oral [Active]; jl7 levothyroxine for Hypothyroidism [Active]; lisinopril Oral [Active]; Metoprolol Tartrate Oral [Active]; Plavix Oral [Active]; Simvastatin Oral [Active]; - PMHx: 17:18 Atrial Fib; colon cancer; Dementia; Gout; Hyperlipidemia; Hypertension; Hypothyroidism; jl7 - Immunization history:: Adult Immunizations unknown. - Social history:: Smoking status: unknown. ROS: 12:19 Unable to obtain ROS due to patient distress, patient is on ventilator. jr8 Exam: 12:19 Eyes: Pupils equal round and reactive to light. Lids and lashes normal. Conjunctiva jr8 and sclera are non-icteric and not injected. Cornea within normal limits. Periorbital areas with no swelling, redness, or edema. ENT: Nares patent. No nasal discharge, no septal abnormalities noted. Oropharynx with no redness, swelling, or masses, exudates, or evidence of obstruction, uvula midline. Mucous membranes moist. Neck: Trachea midline, no thyromegaly or masses palpated, and no cervical lymphadenopathy. Supple Cardiovascular: Tachycardic with a normal S1 and S2. No gallops, murmurs, or rubs. Normal PMI, no JVD. No pulse deficits. Abdomen/GI: Soft with normal bowel sounds. No distension or tympany. Skin: Warm, dry with normal turgor. Normal color with no rashes, no lesions, and no evidence of cellulitis. MS/ Extremity: Pulses equal, no cyanosis. Vital Signs: 11:25 BP 76 / 50; Pulse 105; Resp 17; Pulse Ox 95% on ETT ambu; tw2 11:25 Temp 102.2(C); tw2 11:55 BP 64 / 39; Pulse 100; Pulse Ox 98% on 100% FiO2 ETT vent; tw2 11:58 BP 61 / 39; Pulse 100; Pulse Ox 98% on ETT vent; aa5 11:59 Weight 113.4 kg; jl7 12:00 BP 66 / 41; Pulse 100; Pulse Ox 98% on ETT vent; aa5 12:03 BP 68 / 39; Pulse 99; Temp 102.3(C); Pulse Ox 97% on ETT vent; aa5 12:06 BP 72 / 41; Pulse 97; Temp 102.2(C); Pulse Ox 99% on ETT vent; aa5 12:12 BP 70 / 41; Pulse 95; Temp 101.7(C); Pulse Ox 99% on ETT vent; aa5 12:15 BP 84 / 47; Pulse 95; Temp 101.6(C); Pulse Ox 99% on ETT vent; aa5 12:20 BP 77 / 36; Pulse 93; Resp 22; Temp 101.1(C); Pulse Ox 100% on ETT vent; tw2 12:30 BP 83 / 35; Pulse 89; Resp 26 A; Temp 100.8(C); Pulse Ox 100% on ETT vent; jl7 12:40 BP 87 / 35; Pulse 88; Resp 21; Pulse Ox 100% ; jl7 12:50 BP 85 / 36; Pulse 89; Resp 23; Temp 99.7; Pulse Ox 100% ; jl7 13:05 BP 81 / 51; Pulse 82; Resp 24 A; Temp 97.7(C); Pulse Ox 100% on ETT vent; 7 13:20 BP 98 / 40; Pulse 81; Resp 19; Temp 97.6; Pulse Ox 100% ; jl7 13:30 BP 100 / 62; Pulse 77; Resp 16; Pulse Ox 100% ; jl7 13:45 BP 89 / 76; Pulse 85; Resp 16; Temp 98.5(C); Pulse Ox 100% on ETT vent; 5 14:00 BP 96 / 50; Pulse 86; Resp 17; Temp 98.5; Pulse Ox 100% ; 7 14:10 BP 97 / 44; Pulse 84; Resp 21; Pulse Ox 100% ; jl7 14:20 BP 101 / 52; Pulse 84; Resp 20; Temp 98.3; Pulse Ox 100% ; jl7 14:35 BP 99 / 56; Pulse 84; Resp 18; Temp 98.2(C); Pulse Ox 100% on ETT vent; [facility] 14:38 jl7 15:00 BP 99 / 63; Pulse 81; Resp 22 A; Temp 97.8(C); Pulse Ox 100% on 60% FiO2 ETT vent; 7 15:10 BP 95 / 64; Pulse 84; Resp 19; Pulse Ox 100% ; 7 15:20 BP 98 / 40; Pulse 81; Resp 19; Pulse Ox 100% ; 7 15:30 BP 100 / 62; Pulse 77; Resp 16; Pulse Ox 100% ; jl7 15:40 BP 101 / 75; Pulse 78; Resp 16 S; Temp 97.4(C); Pulse Ox 100% on ETT vent; 7 15:50 BP 83 / 47; Pulse 78; Resp 20; Pulse Ox 100% ; jl7 16:00 BP 86 / 54; Pulse 69; Resp 20 A; Temp 97.4(C); Pulse Ox 100% on 60% FiO2 ETT vent; 7 16:10 BP 111 / 59; Pulse 72; Resp 15; Pulse Ox 100% ; jl7 16:22 BP 107 / 52; Pulse 73; Resp 15; Temp 97.3(C); Pulse Ox 100% on ETT vent; mh5 16:30 BP 104 / 61; Pulse 72; Resp 15; Pulse Ox 100% ; jl7 16:40 BP 110 / 65; Pulse 62; Resp 15; Pulse Ox 100% ; jl7 16:50 BP 95 / 50; Pulse 72; Resp 16; Pulse Ox 100% ; jl7 17:00 BP 101 / 67; Pulse 75; Resp 15 A; Temp 97.3(C); Pulse Ox 100% on 60% FiO2 ETT vent; jl7 17:10 BP 94 / 38; Pulse 72; Resp 20; Pulse Ox 100% ; jl7 17:20 BP 95 / 63; Pulse 75; Resp 17; Pulse Ox 100% ; jl7 17:30 BP 102 / 54; Pulse 71; Resp 16; Pulse Ox 100% ; jl7 17:40 BP 104 / 42; Pulse 74; Resp 18; Pulse Ox 100% ; jl7 17:50 BP 101 / 39; Pulse 72; Resp 14; Pulse Ox 100% ; jl7 18:00 BP 105 / 40; Pulse 72; Resp 15 A; Temp 97.2(C); Pulse Ox 100% on 60% FiO2 ETT vent; jl7 18:10 BP 94 / 50; Pulse 71; Resp 20; Pulse Ox 100% ; jl7 18:20 BP 103 / 48; Pulse 70; Resp 15; Pulse Ox 100% ; jl7 18:30 BP 111 / 66; Pulse 72; Resp 13; Pulse Ox 100% ; jl7 18:40 BP 105 / 49; Pulse 70; Resp 16; Temp 97; Pulse Ox 100% ; jl7 18:50 BP 106 / 41; Pulse 69; Resp 15; Pulse Ox 100% ; jl7 19:00 BP 111 / 58; Pulse 72; Resp 17 S; Temp 97(C); Pulse Ox 100% on 60% FiO2 ETT vent; jl7 19:10 BP 107 / 44; Pulse 70; Resp 17; Temp 97.5; Pulse Ox 100% on ETT vent; rr5 19:35 BP 103 / 68; Pulse 74; Resp 17; Pulse Ox 100% on ETT vent; rr5 11:55 TV 610, 20, peep 5 per RT at bedside at this time. tw2 14:[address] from [id number], VSS jl7 [place] Coma Score: 12:19 Eye Response: none(1). Verbal Response: none(1). Motor Response: none(1). Modifying jr8 Factors: Intubated. Total: 3. Procedures: 13:08 Central Line: the site was prepped with Betadine, in sterile fashion, a triple lumen jr8 catheter was inserted, in the left femoral vein, in 1 attempts. placement was verified, by blood return, the site was dressed with 4X4s, Tegaderm, using sterile technique, the patient tolerated the procedure, well. MDM: 12:04 Patient medically screened. jr8 18:51 Data reviewed: vital signs, nurses notes, lab test result(s), EKG, radiologic studies, jr8 CT scan, plain films. Data interpreted: Pulse oximetry: on ventilator is 100 %. Interpretation: normal. Counseling: I had a detailed discussion with the patient and/or guardian regarding: the historical points, exam findings, and any diagnostic results supporting the discharge/admit diagnosis, lab results, radiology results, the need to transfer to another facility, for higher level of care. 04/26 11:39 Order name: Amylase, Serum; Complete Time: 13:05 2 04/26 11:39 Order name: Basic Metabolic Panel; Complete Time: 13:05 tw2 04/26 11:39 Order name: Blood Culture Adult (2) tw2 04/26 11:39 Order name: CBC with Diff; Complete Time: 12:18 tw2 04/26 11:39 Order name: Ckmb; Complete Time: 13:05 2 04/26 11:39 Order name: CPK; Complete Time: 13:05 2 04/26 11:39 Order name: Lactate; Complete Time: 13:05 2 04/26 11:39 Order name: LFT's; Complete Time: 13:05 2 04/26 11:39 Order name: Lipase; Complete Time: 13:05 2 04/26 11:39 Order name: Procalcitonin; Complete Time: 17:27 tw2 04/26 11:39 Order name: Protime (+inr); Complete Time: 16:47 tw2 04/26 11:39 Order name: Troponin (emerg Dept Use Only); Complete Time: 13:05 04/26 11:39 Order name: Urine Microscopic Only; Complete Time: 13:50 tw2 04/26 11:39 Order name: Chest Single View XRAY; Complete Time: 12:59 tw2 04/26 11:52 Order name: Glucose, Ancillary Testing; Complete Time: 12:05 EDMS 04/26 12:03 Order name: Urine Dipstick--Ancillary (enter results); Complete Time: 12:59 bd 04/26 12:04 Order name: ABG Arterial Blood Gas; Complete Time: 12:05 EDMS 04/26 12:05 Order name: Flu; Complete Time: 12:[address] [facility] 04/26 12:05 Order name: BNP; Complete Time: 17:[address] [facility] 04/26 13:06 Order name: CT Chest Abdomen Pelvis W/O Contrast; Complete Time: 15:[address] [facility] 04/26 13:36 Order name: SARS-COV-2 RT PCR; Complete Time: 13:50 EDMS 04/26 14:52 Order name: CT Head Brain wo Cont; Complete Time: 15:[address] [facility] 04/26 15:06 Order name: Lactate [facility] 04/26 15:44 Order name: Lactate Sepsis 2 HR Follow-up; Complete Time: 15:49 EDMS 04/26 11:39 Order name: Accucheck; Complete Time: 11:58 tw2 04/26 11:39 Order name: Cardiac monitoring; Complete Time: 11:58 2 04/26 11:39 Order name: EKG - Nurse/Tech; Complete Time: 12:26 2 04/26 11:39 Order name: IV Saline Lock - Large Bore; Complete Time: 12:26 2 04/26 11:39 Order name: Labs collected and sent; Complete Time: 13:18 2 04/26 11:39 Order name: O2 Per Protocol; Complete Time: 13:18 2 04/26 11:39 Order name: O2 Sat Monitoring; Complete Time: 13:18 2 04/26 11:39 Order name: Urine Dipstick-Ancillary (obtain specimen); Complete Time: 13:18 2 04/26 11:40 Order name: Tejeda; Complete Time: 11:46 2 04/26 11:53 Order name: Labs - recollect needed: recollect lactate. time out; Complete Time: 11:58 bd Administered Medications: 04:35 Drug: Albuterol 2.5 mg Route: Inhalation; jl7 11:39 Drug: NS 0.9% (30 ml/kg) 30 ml/kg Route: IV; Rate: bolus; Site: right wrist; aa5 11:58 Follow up: Infusion now to left femoral aa5 19:42 Follow up: Response: No adverse reaction; IV Status: Completed infusion ea 11:58 Drug: Levophed (4 mg/250 mL D5W 4 mcg/min Route: IV; Rate: calculated rate; Site: left aa5 femoral; 12:05 Follow up: started at 10mcg/min, BP 68/39 at 1203 and infusion increased to 20mcg/min. aa5 18:30 Follow up: IV Status: Infusion continued upon transfer jl7 12:20 Drug: Tylenol Suppository 650 mg Route: AL; tw2 13:53 Follow up: Response: No adverse reaction; Temperature is decreased jl7 12:25 Drug: vancoMYCIN 1 grams Route: IVPB; Infused Over: 2 hrs; Site: left femoral; jl7 14:25 Follow up: Response: No adverse reaction; IV Status: Completed infusion jl7 12:30 Drug: Cefepime 2 grams Route: IVPB; Rate: 200 ml/hr; Infused Over: 30 mins; Site: left jl7 femoral; 12:35 Follow up: Response: No adverse reaction; IV Status: Completed infusion jl7 13:10 Drug: Lawrence-Synephrine 100 mcg/min Route: IV; Rate: calculated rate; Site: left femoral; jl7 13:10 Follow up: Administered at 50 mcg/min per VO from TRENT Brewer jl7 15:10 Follow up: Rate change 75 mcg/min jl7 16:00 Follow up: Rate change 100 mcg/min jl7 18:29 Follow up: IV Status: Infusion continued upon transfer jl7 14:12 Drug: Lasix 40 mg Route: IVP; Site: left hand; jl7 15:46 Follow up: Response: No adverse reaction jl7 14:15 Drug: Calcium Gluconate 1 grams Route: IVPB; Infused Over: 60 mins; Site: left hand; jl7 15:15 Follow up: Response: No adverse reaction; IV Status: Completed infusion jl7 14:35 Drug: Albuterol 2.5 mg Route: Inhalation; jl7 15:46 Follow up: Response: No adverse reaction jl7 14:35 Drug: Albuterol 2.5 mg Route: Inhalation; jl7 15:24 Drug: fentaNYL (PF) 50 mcg Route: IVP; Site: left hand; jl7 15:30 Follow up: Response: No adverse reaction jl7 15:25 Drug: Versed 2 mg Route: IVP; Site: left hand; jl7 15:30 Follow up: Response: No adverse reaction jl7 15:56 Drug: fentaNYL (PF) 50 mcg Route: IVP; Site: left hand; jl7 16:00 Follow up: Response: No adverse reaction jl7 15:57 Drug: Versed 2 mg Route: IVP; Site: left hand; jl7 18:00 Follow up: Response: No adverse reaction tw2 16:40 Drug: Propofol 5 mcg/kg/min Route: IV; Rate: calculated rate; Site: left femoral; tw2 18:29 Follow up: Response: No adverse reaction; IV Status: Infusion continued upon transfer jl7 Disposition: 18:56 Critical Care:. jr8 04/27 08:02 Co-signature as Attending Physician, Osvaldo Beckman MD I agree with the assessment and leonidas plan of care. Disposition: 04/26/20 17:27 Transfer ordered to Other Acute Care Facility. Diagnosis are Severe sepsis with septic shock, Acute kidney failure, Pneumonia due to other specified bacteria, Acute respiratory failure with hypercapnia. - Reason for transfer: Higher level of care. - Accepting physician is Dr. Ledesma. - Condition is Fair. - Problem is new. - Symptoms have improved. Critical care time excluding procedures: 04/26 18:56 Critical care time: Bedside Care: 20 minutes, Consultation: 10 minutes, Family jr8 Intervention: 10 minutes. Total time: 40 minutes Signatures: Dispatcher [employer] EDLizbet Wolf Corey, MD MD cha Williams, Irene, RN MANUEL iw Betty Yanez RN RN aa5 Osman Mcdaniel PA PA jr8 Cuate Beasley, LEROY [employer]IST pm1 Flavia Kelly RN RN tw2 Heather Jameson RN RN jl7 Nory Heredia RN RN ea Corrections: (The following items were deleted from the chart) 12:29 12:05 CORONAVIRUS+MR.LAB.BRZ ordered. EDMS EDMS 16:20 15:06 Lactate ordered. EDMS EDMS 16:33 11:40 PTT, ACTIVATED+COAG.LAB.BRZ ordered. EDSC EDMS 17:27 17:27 04/26/2020 17:27 Transfer ordered to Other Acute Care Facility. Diagnosis is jr8 Severe sepsis with septic shock; Acute kidney failure; Pneumonia due to other specified bacteria. Reason for transfer: Higher level of care. Accepting physician is [facility]. Condition is Fair. Problem is new. Symptoms have improved. jr8 17:48 17:27 04/26/2020 17:27 Transfer ordered to Other Acute Care Facility. Diagnosis is iw Severe sepsis with septic shock; Acute kidney failure; Pneumonia due to other specified bacteria; Acute respiratory failure with hypercapnia. Reason for transfer: Higher level of care. Accepting physician is [facility]. Condition is Fair. Problem is new. Symptoms have improved. jr8 20:29 17:48 04/26/2020 17:27 Transfer ordered to Other Acute Care Facility. Diagnosis is ea Severe sepsis with septic shock; Acute kidney failure; Pneumonia due to other specified bacteria; Acute respiratory failure with hypercapnia. Reason for transfer: Higher level of care. Accepting physician is Dr. Ledesma. Condition is Fair. Problem is new. Symptoms have improved. iw
[2020-04-26 21:34] VITALS: O2SAT 100
[2020-04-26 22:51] VITALS: TEMP 97.5
[2020-04-26 22:52] VITALS: BP 103/68
--- NOTE | 2020-04-27 10:09 | EKG ---
Test Date: 2020-04-26 Test Time: 12:13:29 Jai Alai Player: LENNIE MEASUREMENT RESULTS: Intervals: Rate: 96 IN: 180 QRSD: 98 QT: 436 QTc: 550 [place]: P: 64 IN: 180 QRS: 70 T: 67 INTERPRETIVE STATEMENTS: Normal sinus rhythm Prolonged QT Abnormal ECG Compared to ECG 04/12/2020 09:48:11 Prolonged QT interval now present Sinus bradycardia no longer present First degree AV block no longer present Electronically Signed On 04-27-20 10:06:51 CDT by Ervin Banks
== END 2020-04-26 20:29 ==
LOC: ER 11:26
PROC: 06HN33Z Insertion of Infusion Device into Left Femoral Vein, Percutaneous Approach (ICD-10-PCS; principal; 2020-04-26)
DX: N17.9 Acute kidney failure, unspecified (principal); R65.21 Severe sepsis with septic shock; J15.8 Pneumonia due to other specified bacteria; Z20.828 Contact with and (suspected) exposure to other viral communicable diseases; I10 Essential (primary) hypertension; E03.9 Hypothyroidism, unspecified; I48.91 Unspecified atrial fibrillation; F03.90 Unspecified dementia, unspecified severity, without behavioral disturbance, psychotic disturbance, mood disturbance, and anxiety; Z79.01 Long term (current) use of anticoagulants; Z85.038 Personal history of other malignant neoplasm of large intestine
CPT/HCPCS: 93005; 87040 ×2; 85025; 80048; 36415; 82150; 82550; 85610; 82947; 80076; 83605 ×2; 84484; 82553; 83690; 84145; 83880; 87804 ×2; 70450; 71250; 74176; 71045; 94002; 82805; 94003; 99291; 99292; 36556; U0003; J1940; J2704; J2250; J3010; J2370; J0610; J3370; J0692; J7060 ×2; J7030; 81003; 81015; 87077; 87186; 87205